=== PATIENT | female | born 1975 | race Caucasian/White ===

== ENCOUNTER 2016-08-19 13:03 | Emergency (ER) | payer OTHER ==
[~2016-08-19] VITALS: Ht 162.6 cm; Wt 56.7 kg
[~2016-08-19 13:03] MED LIST: /ADVA50050 IN; /ESCI20TA PO; ABIL10TA PO; ACET500C PO; ALBUTEROL INH; AMIT10TA2 PO; ASPI325T PO; ASPI81TA45 OR; DILA100C PO; FLON0.05; FOLI1TAB OR; IBUP600T PO; KEFL500C OR; POTA20TA2 PO; PRED10TA2 OR; TOPI100T PO; VITA100T OR; XANA1TAB2 PO; [UNRECOGNIZED DRUG - OTHER]; astelin nasal; fludrocortisone PO; midodrine PO
[2016-08-19 15:23] VITALS: BP 110/65
[2016-08-19] MEDS ORDERED: ZITHTAB PO (15:23)
[2016-08-19] MEDS ORDERED: CLAR1TAB2 PO (15:23)
== END 2016-08-19 15:36 | disposition home or self-care (01) ==
LOC: M ED 15:18
DX: J01.10 Acute frontal sinusitis, unspecified (principal); F17.210 Nicotine dependence, cigarettes, uncomplicated

== ENCOUNTER 2016-09-09 15:22 | Emergency (ER) | payer OTHER, SELFPAY ==
[~2016-09-09] VITALS: Ht 162.6 cm; Wt 63.5 kg
[~2016-09-09 15:22] MED LIST changes: +CLAR1TAB2 PO; +ZITHTAB PO
[2016-09-09] MEDS ORDERED: DILA100C PO (15:44)
[2016-09-09] MEDS ORDERED: PHENYTOIN INJection 1,000 MG in NS 100 ML IV ONE (15:45)
[2016-09-09 16:11] LABS: CONTROL LINE HCG INT CTR LINE PRESENT
[2016-09-09 16:14] LABS: ANION GAP 6 MEQ/L (8-16); BLOOD UREA NITROGEN 6 MG/DL (7-18); CALCIUM LEVEL 8.7 MG/DL (8.5-10.1); CARBON DIOXIDE LEVEL 27 MEQ/L (21-32); CHLORIDE LEVEL 109 MEQ/L (98-107); CREATININE FOR GFR 0.68 MG/DL (0.55-1.02); GLOMERULAR FILTRATION RATE > 60.0 (>60); GLUCOSE, FASTING 91 MG/DL (70-105); POTASSIUM SERUM 3.7 MEQ/L (3.5-5.1); SODIUM LEVEL 142 MEQ/L (136-145)
[2016-09-09 16:44] LABS: METHADONE URINE NEGATIVE (NEGATIVE)
--- NOTE | 2016-09-09 17:23 | REP ---
Clinical: Trauma. Comparison: 08/17/2015. Findings: Evaluation is somewhat limited by aneurysm coils in the sellar region. Wang-white differentiation is maintained. Evidence for old lacunar infarct in the left basal ganglia. No acute intracranial hemorrhage, mass/mass effect, pathology or trauma noted. No extra-axial fluid collection identified. Calvarium is intact. Sinuses are clear. Impression: Bilateral aneurysm coils. 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 No obvious acute intracranial process. Signed by Devonte Patel MD 09/09/2016 05:16 P
[2016-09-09 18:03] VITALS: BP 109/57
== END 2016-09-09 18:45 | disposition home or self-care (01) ==
LOC: EDBD 15:22 → M ED 16:05
DX: G40.909 Epilepsy, unspecified, not intractable, without status epilepticus (principal); Z79.899 Other long term (current) drug therapy
CPT/HCPCS: 70450; 80048; 80185; 80306; 84703; 96365; 99284; J1165

== ENCOUNTER 2021-02-16 22:26 | Emergency (ER) | payer SELFPAY ==
[~2021-02-16 22:26] MED LIST changes: -/ADVA50050 IN; -/ESCI20TA PO; +ADVA1AER2 IN; +LEXA1TAB2 PO
[2021-02-16 23:40] VITALS: BP 111/61
[2021-04-20] MEDS ORDERED: ONDA-84 PO (10:38)
== END 2021-02-16 23:41 | disposition home or self-care (01) ==
LOC: M ED 22:26
DX: F43.20 Adjustment disorder, unspecified (principal); Z79.899 Other long term (current) drug therapy

== ENCOUNTER 2021-03-19 20:59 | Emergency (ER) | payer OTHER, SELFPAY ==
[~2021-03-19] VITALS: Ht 160 cm; Wt 41.0 kg
[2021-03-19] MEDS ORDERED: MORPHINE 2 MG/ML 1ML VIAL (J2270) IV ONE (21:50)
[2021-03-19] MEDS ORDERED: RIZATRIPTAN MLT 10 MG TAB PO PRN (21:50)
--- NOTE | 2021-03-19 22:37 | REPVR ---
PROCEDURE INFORMATION: Exam: CT Head Without Contrast Exam date and time: 03/19/2021 10:02 PM Age: 45 years old Clinical indication: Pain; Headache; Prior surgery; Surgery date: 6+ months; Surgery type: Aneurysm repair; Additional info: Prolonged headache with history of anuerysm TECHNIQUE: Imaging protocol: Computed tomography of the head without contrast. Radiation optimization: All CT scans at this facility use at least one of these dose optimization techniques: automated exposure control; mA and/or kV adjustment per patient size (includes targeted exams where dose is matched to clinical indication); or iterative reconstruction. COMPARISON: CT Head without contrast 09/09/2016 4:22 PM FINDINGS: Limitations: Artifact arising from embolic material. Brain: There is mildly hyperdense and heterogeneous lesion/mass at the right thalamus/kelsey radiata measuring 1.6 by 1.5 cm. Adjacent edema. There is edema involving the posterior fossa greater on the left. Underlying mass is suspected. There is mass effect upon the 4th ventricle. Interval development of hydrocephalus. Small cystic lesion at the left basal ganglia is stable. Interval development of periventricular white matter hypodensity concerning for transependymal resorption of CSF. Midline shift to the left measures 5 mm. Cerebral ventricles: See "Brain" finding. Paranasal sinuses: Visualized sinuses are unremarkable. No fluid levels. Mastoid air cells: Visualized mastoid air cells are well aerated. Vasculature: There has been previous stent assisted [id number] aneurysm coiling. Bones/joints: No definite acute calvarial fracture. Soft tissues: Unremarkable. IMPRESSION: 1. Examination is limited by artifact arising from embolic material. 2. Mass at the right thalamus/kelsey radiata measures up to 1.6 cm. Adjacent vasogenic edema. 3. Vasogenic edema is present at the left greater than right posterior fossa with highly suspected underlying mass. 4. Mass effect with midline shift to the left measuring 5 mm. 5. There is mass effect upon the 4th ventricle with moderate obstructive hydrocephalus. 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 6. MRI is recommended. Electronically signed by: Cain Varghese On 03/19/2021 22:36:45 PM
[2021-03-19] MEDS ORDERED: ONDANSETRON 4MG/2ML VIAL As Ordered ONE (22:54)
[2021-03-19] MEDS ORDERED: ONDANSETRON 4MG/2ML VIAL IV ONE (22:55)
[2021-03-19 23:02] LABS: BASO # 0.1 10^3/uL (0.0-0.2); BASO % 0.4 % (0.0-1.0); EOS % 0.2 % (0.0-3.0); HEMATOCRIT 37.5 % (36.0-47.0); HEMOGLOBIN 11.3 g/dl (12.0-15.5); LYMPH # 2.2 10^3/uL (1.5-5.0); LYMPH % 13.6 % (24.0-44.0); MEAN CORPUSCULAR HEMOGLOBIN 24.8 pg (27.0-33.0); MEAN CORPUSCULAR HGB CONC 30.1 g/dl (32.0-36.5); MEAN CORPUSCULAR VOLUME 82.2 fl (80.0-96.0); MONO # 1.7 10^3/uL (0.0-0.8); MONO % 10.2 % (2.0-8.0); NEUTROPHILS # 12.3 10^3/uL (1.5-8.5); NEUTROPHILS % 74.7 % (36.0-66.0); PLATELET COUNT, AUTOMATED 884 10^3/uL (150-450); RED BLOOD COUNT 4.56 10^6/uL (4.00-5.40); WHITE BLOOD COUNT 16.4 10^3/uL (4.0-10.0)
[2021-03-19 23:33] LABS: BLOOD UREA NITROGEN 17 MG/DL (7-18); CALCIUM LEVEL 9.8 MG/DL (8.5-10.1); CARBON DIOXIDE LEVEL 29 MEQ/L (21-32); CHLORIDE LEVEL 101 MEQ/L (98-107); CREATININE FOR GFR 0.38 MG/DL (0.55-1.30); ETHYL ALCOHOL (ETHANOL) < 0.003 % (0.000-0.010); GLOMERULAR FILTRATION RATE > 60.0 (>58); GLUCOSE, FASTING 99 MG/DL (70-100); MAGNESIUM LEVEL 2.1 MG/DL (1.8-2.4); POTASSIUM SERUM 4.4 MEQ/L (3.5-5.1); SODIUM LEVEL 138 MEQ/L (136-145)
[2021-03-20 03:53] LABS: RSV AMPLIFICATION NEGATIVE (NEGATIVE)
--- NOTE | 2021-03-20 07:50 | REPVR ---
PROCEDURE INFORMATION: Exam: XR Chest Exam date and time: 03/20/2021 5:29 AM Age: 45 years old Clinical indication: Other: Leukocytosis and cough TECHNIQUE: Imaging protocol: XR of the chest. Views: 1 view. COMPARISON: No relevant prior studies available. FINDINGS: Lungs: Large medial right upper lobe oval solid appearing mass partially abutting the right mediastinum with partial extension or contiguous at the right lung apex measures approximately 9.7 cm craniocaudal by 6.5 cm transversely. Bilateral interstitial thickening. The right costophrenic angle is not entirely included. Linear opacity overlies the lateral superior right chest probably reflecting superimposed skin fold and most likely lung markings extend lateral with pneumothorax very unlikely. Pleural spaces: Minor blunting of the left costophrenic angle. Heart/Mediastinum: See "Lungs" finding. Vasculature: Right hilar somewhat hyperdense 0.5 cm structure which could reflect vessel or possibly calcified granuloma. Bones/joints: Unremarkable. IMPRESSION: 1. Large right upper lobe mass. CT of the thorax is recommended in further evaluation. 2. Diffuse bilateral interstitial coarsening/thickening. 3. Likely superimposed skin fold at the superolateral right upper chest. Further follow-up for confirmation is recommended. Electronically signed by: Terri Mahoney On 03/20/2021 07:50:11 AM
[2021-03-20 08:40] VITALS: BP 118/75
== END 2021-03-20 08:52 | disposition short-term general hospital (02) ==
LOC: M ED 20:59
DX: D49.6 Neoplasm of unspecified behavior of brain (principal); G40.909 Epilepsy, unspecified, not intractable, without status epilepticus; Z79.899 Other long term (current) drug therapy; F17.210 Nicotine dependence, cigarettes, uncomplicated
CPT/HCPCS: 70450; 71045; 80048; 82077; 83735; 85025; 87631; 96374; 96375; 99285; J2270; J2405

== ENCOUNTER 2021-04-20 10:13 | Inpatient (IN) | payer OTHER ==
[~2021-04-20] VITALS: Ht 165.1 cm; Wt 46.0 kg
[~2021-04-20 10:13] MED LIST changes: +ENOXAPARIN 30MG/0.3ML SYRINGE (J1650 PER 10MG) SC SCH; +dexameTHASONE 4 MG/ML 1ML VIAL (J1100 PER 1MG) IV SCH
[2021-04-20] MEDS ORDERED: ONDANSETRON 4MG/2ML VIAL IV ONE (10:30)
[2021-04-20] MEDS ORDERED: MORPHINE 2 MG/ML 1ML VIAL (J2270) IV PRN (10:30)
[2021-04-20] MEDS ORDERED: OXYC-517 PO (10:38)
[2021-04-20] MEDS ORDERED: GABA-282 PO (10:38)
[2021-04-20] MEDS ORDERED: PANT40TA29 PO (10:38)
[2021-04-20] MEDS ORDERED: ONDA8TAB10 PO (10:38)
[2021-04-20] MEDS ORDERED: DEXA4TA PO (10:38)
[2021-04-20] MEDS ORDERED: MIDO5TA PO (10:38)
[2021-04-20] MEDS ORDERED: CITA20TA7 PO (10:38)
[2021-04-20] MEDS ORDERED: ALPR0.25 PO (10:38)
--- NOTE | 2021-04-20 10:54 | REP ---
INDICATION: DYSPNEA/COUGH. COMPARISON: Multiple the latest 03/20/2021 also portable TECHNIQUE: Portable FINDINGS: The technique utilized in obtaining the radiograph has magnified the cardiac silhouette and accentuated the interstitial markings. The cardiomediastinal silhouette is unchanged. The large right upper lobe mass is unchanged. New patchy left upper lobe opacities have developed since the last examination and there is new left CP angle blunting. A new patchy opacity has also developed in the inferior right upper lobe laterally. There is no change in the osseous structures. IMPRESSION: 1. New bilateral upper lobe patchy opacities consistent with pneumonia. 2. No change in appearance of the large right upper lobe mass. 3. New small left pleural effusion. <Electronically signed by Wai Rodriguez > 04/20/21 [id number]
[2021-04-20] MEDS ORDERED: cefTRIAXone SOD 2 GM in D5W MINI-BAG PLUS 50 ML IV ONE (11:05)
[2021-04-20 11:17] LABS: VENOUS BASE EXCESS 5.4 (-2.0-2.0); VENOUS HCO3 27.5 MEQ/L (23.0-27.0); VENOUS O2 SATURATION 99.4 % (60.0-80.0); VENOUS PARTIAL PRESSURE CO2 32.2 mmHg (38.0-50.0); VENOUS STANDARD HCO3 29.4 MEQ/L; VENOUS TOTAL CO2 28.5 MEQ/L (24.0-28.0)
[2021-04-20] MEDS: NS 1,000 ML IV SCH ×2 (11:17→18:10)
--- OUTSIDE RECORDS SUMMARY | 2021-04-20 11:45 | CCD | Continuity of Care Document ---
Author Author Trina SHERMAN [place] Organization Unknown Address [address] [place] [id number] Phone [phone] Problems Description No Information Available Social History Type Date Description Comments Sex Unknown Allergies and adverse reactions Description No Information Available Medications Description No Information Available Immunizations Description No Information Available Vital Signs Description No Information Available Results Description No Information Available Procedures Description No Information Available Medical Devices Description No Information Available Encounters Description No Information Available Assessments Description No Information Available Plan of Treatment No Information Available Functional Status Description No Information Available Mental Status Description No Information Available Referrals Description No Information Available
--- OUTSIDE RECORDS SUMMARY | 2021-04-20 11:45 | CCD | Continuity of Care Document ---
Author Author Trina SHERMAN Organization Unknown Address [address] [place] [id number] Phone [phone] Problems Description No Information Available Social History Type Date Description Comments Sex Unknown Allergies and adverse reactions Description No Information Available Medications Description No Information Available Immunizations Description No Information Available Vital Signs Description No Information Available Results Description No Information Available Procedures Description No Information Available Medical Devices Description No Information Available Encounters Description No Information Available Assessments Date Code Description Provider 04/06/2021 Z20.828 Contact with and (buckner spected) exposure to other viral communicable diseases COURTNEY Matthews Plan of Treatment No Information Available Functional Status Description No Information Available Mental Status Description No Information Available Referrals Description No Information Available
--- OUTSIDE RECORDS SUMMARY | 2021-04-20 11:47 | CCD ---
Author Author [facility] Organization [facility] Address Unknown Phone Unavailable Care Team Providers Care Heading Pinner Name Role Phone Lori CAMPOS MD Unavailable Unavailable Lori CAMPOS MD Unavailable Unavailable Lori CAMPOS MD Unavailable Unavailable Lori CAMPOS MD Unavailable Unavailable Lori CAMPOS MD Unavailable Unavailable Lori CAMPOS MD Unavailable Unavailable Lori CAMPOS MD Unavailable Unavailable Lori CAMPOS MD Unavailable Unavailable Lori CAMPOS MD Unavailable Unavailable Lori CAMPOS MD Unavailable Unavailable Lori CAMPOS MD Unavailable Unavailable Lori CAMPOS MD Unavailable Unavailable Lori CAMPOS MD Unavailable Unavailable Lori CAMPOS MD Unavailable Unavailable Lori CAMPOS MD Unavailable Unavailable Lori CAMPOS MD Unavailable Unavailable Lori CAMPOS MD Unavailable Unavailable Lori CAMPOS MD Unavailable Unavailable Lori CAMPOS MD Unavailable Unavailable Lori CAMPOS MD Unavailable Unavailable Lori CAMPOS MD Unavailable Unavailable Lori CAMPOS MD Unavailable Unavailable Lori CAMPOS MD Unavailable Unavailable Lori CAMPOS MD Unavailable Unavailable Lori CAMPOS MD Unavailable Unavailable Lori CAMPOS MD Unavailable Unavailable Lori CAMPOS MD Unavailable Unavailable Lori CAMPOS MD Unavailable Unavailable Lori CAMPOS MD Unavailable Unavailable Lori CAMPOS MD Unavailable Unavailable Lori CAMPOS MD Unavailable Unavailable Lori CAMPOS MD Unavailable Unavailable Lori CAMPOS MD Unavailable Unavailable Lori CAMPOS MD Unavailable Unavailable Lori CAMPOS MD Unavailable Unavailable Lori CAMPOS MD Unavailable Unavailable Lori CAMPOS MD Unavailable Unavailable Lori CAMPOS MD Unavailable Unavailable Lori CAMPOS MD Unavailable Unavailable Lori CAMPOS MD Unavailable Unavailable Lori CAMPOS MD Unavailable Unavailable Lori CAMPOS MD Unavailable Unavailable Lori CAMPSO MD Unavailable Unavailable Lori CAMPOS MD Unavailable Unavailable Lori CAMPOS MD Unavailable Unavailable Lori CAMPOS MD Unavailable Unavailable Lori CAMPOS MD Unavailable Unavailable Lori CAMPOS MD Unavailable Unavailable Lori CAMPOS MD Unavailable Unavailable NO, PCP Unavailable Unavailable Tan, P Zay Unavailable Unavailable Tan, P Zay Unavailable Unavailable Tan, P Zay Unavailable Unavailable Tan, P Zay Unavailable Unavailable Tan, P Zay Unavailable Unavailable Tan, P Zay Unavailable Unavailable Tan, P Zay Unavailable Unavailable Qasim Murphy MD Unavailable Unavailable Qasim Murphy MD Unavailable Unavailable Qasim Murphy MD Unavailable Unavailable Qasim Murphy MD Unavailable Unavailable Qasim Murphy MD Unavailable Unavailable Qasim Murphy MD Unavailable Unavailable Charline Bowen MD Unavailable Unavailabl e Charline Bowen MD Unavailable Unavailabl e AndrésCharline bose MD Unavailable Unavailabl e AndrésCharline MD Unavailable Unavailabl e AndrésCharline MD Unavailable Unavailabl e AndrésCharline MD Unavailable Unavailabl e AndrésCharline MD Unavailable Unavailabl e AndrésCharline bose MD Unavailable Unavailabl e AndrésCharline bose MD Unavailable Unavailabl e AndrésCharline MD Unavailable Unavailabl e AndrésCharline bose MD Unavailable Unavailabl e AndrésCharline bose MD Unavailable Unavailabl e AndrésCharline bose MD Unavailable Unavailabl e AndrésCharline bose MD Unavailable Unavailabl e AndrésCharline bose Gene Unavailable Unavailabl e Andrés, Olivier Brendan Gene Unavailable Unavailabl e Andrés, Olivier Brendan Gene Unavailable Unavailabl e Andrés, Charline Brendan Gene Unavailable Unavailabl e Andrés, Charline Brendan Gene Unavailable Unavailabl e Andrés, Olivier Brendan Gene Unavailable Unavailabl e Andrés, Olivier Brendan Gene MD Unavailable Unavailabl e Andrés, Olivier Brendan Gene Unavailable Unavailabl e Andrés, Olivier Brendan Gene Unavailable Unavailabl e Andrés, Olivier Brendan Gene Unavailable Unavailabl e Andrés, Olivier Brendan Gene Unavailable Unavailabl e Andrés, Olivier Brendan Gene MD Unavailable Unavailabl e Andrés, Charline Brendan Gene Unavailable Unavailabl e Andrés, Charline Brendan Gene Unavailable Unavailabl e Andrés, Charline Ogdenius Gene Unavailable Unavailabl e Andrés, Charline Ogdenius Gene Unavailable Unavailabl e Andrés, Charline Bruce Gene Unavailable UnavailSTEPHEN Saunders MD Unavailable Unavailable STEPHEN SERVIN MD Unavailable Unavailable STEPHEN SERVIN MD Unavailable Unavailable STEPHEN SERVIN MD Unavailable Unavailable STEPHEN SERVIN MD Unavailable Unavailable STEPHEN SERVIN MD Unavailable Unavailable STEPHEN SERVIN MD Unavailable Unavailable STEPHEN SERVIN MD Unavailable Unavailable STEPHEN SERVIN MD Unavailable Unavailable STEPHEN SERVIN MD Unavailable Unavailable STEPHEN SERVIN MD Unavailable Unavailable Irene CHURCH MD Unavailable Unavailable Irene CHURCH MD Unavailable Unavailable Irene CHURCH MD Unavailable Unavailable Irene CHURCH MD Unavailable Unavailable Irene CHURCH MD Unavailable Unavailable Irene CHURCH MD Unavailable Unavailable Irene CHURCH MD Unavailable Unavailable Irene CHURCH MD Unavailable Unavailable Irene CHURCH MD Unavailable Unavailable Irene CHURCH MD Unavailable Unavailable Irene CHURCH MD Unavailable Unavailable Irene CHURCH MD Unavailable Unavailable Irene CHURCH MD Unavailable Unavailable Irene CHURCH MD Unavailable Unavailable Irene CHURCH MD Unavailable Unavailable Irene CHURCH MD Unavailable Unavailable Irene CHURCH MD Unavailable Unavailable Irene CHURCH MD Unavailable Unavailable Irene CHURCH MD Unavailable Unavailable Irene CHURCH MD Unavailable Unavailable Irene CHURCH MD Unavailable Unavailable Irene CHURCH MD Unavailable Unavailable Irene CHURCH MD Unavailable Unavailable Irene CHURCH MD Unavailable Unavailable Irene CHURCH MD Unavailable Unavailable Irene CHURCH MD Unavailable Unavailable CHIN S NIALL RUST Unavailable Unavailable RANJIT S NIALL RUST Unavailable Unavailable RANJIT S NIALL RUST Unavailable Unavailable CHIN, S NIALL RUST Unavailable Unavailable RANJIT S NIALL RUST Unavailable Unavailable RANJIT S NIALL RUST Unavailable Unavailable RANJIT S NIALL RUST Unavailable Unavailable RANJIT S NIALL RUST Unavailable Unavailable RANJIT S NIALL RUST Unavailable Unavailable CHIN, S NIALL RUST Unavailable Unavailable RANJIT S NIALL RUST Unavailable Unavailable CHIN S NIALL RUST Unavailable Unavailable CHIN, S NIALL RUST Unavailable Unavailable CHIN, S NIALL RUST Unavailable Unavailable CHIN, S NIALL RUST Unavailable Unavailable CHIN, S NIALL RUST Unavailable Unavailable CHIN, S NIALL RUST Unavailable Unavailable CHIN, S NIALL RUST Unavailable Unavailable CHIN, S NIALL RUST Unavailable Unavailable CHIN, S NIALL RUST Unavailable Unavailable CHIN, S NIALL RUST Unavailable Unavailable CHIN, S NIALL RUST Unavailable Unavailable RANJIT, S NIALL RUST Unavailable Unavailable RANJIT, S NIALL RUST Unavailable Unavailable RANJIT, S NIALL RUST Unavailable Unavailable RANJIT S NIALL RUST Unavailable Unavailable RANJIT, S NIALL RUST Unavailable Unavailable RANJIT S NIALL RUST Unavailable Unavailable RANJIT S NIALL RUST Unavailable Unavailable RANJIT S NIALL RUST Unavailable Unavailable RANJIT S NIALL RUST Unavailable Unavailable RANJIT S NIALL RUST Unavailable Unavailable RANJIT S NIALL RUST Unavailable Unavailable RANJIT S NIALL RUST Unavailable Unavailable RANJIT S NIALL RUST Unavailable Unavailable RANJIT S NIALL RUST Unavailable Unavailable RANJIT S NIALL RUST Unavailable Unavailable RANJIT S NIALL RUST Unavailable Unavailable RANJIT S NIALL RUST Unavailable Unavailable RANJIT S NIALL RUST Unavailable Unavailable RANJIT S NIALL RUST Unavailable Unavailable RANJIT S NIALL RUST Unavailable Unavailable RANJIT S NIALL RUST Unavailable Unavailable RANJIT S NIALL RUST Unavailable Unavailable RANJIT S NIALL RUST Unavailable Unavailable RANJIT S NIALL RUST Unavailable Unavailable RANJIT S NIALL RUST Unavailable Unavailable RANJIT S NIALL RUST Unavailable Unavailable RANJIT S NIALL RUST Unavailable Unavailable RANJIT S NIALL RUST Unavailable Unavailable RANJIT S NIALL RUST Unavailable Unavailable RANJIT S NIALL RUST Unavailable Unavailable RANJIT S NIALL RUST Unavailable Unavailable RANJIT S NIALL RUST Unavailable Unavailable RANJIT S NIALL RUST Unavailable Unavailable RANJIT S NIALL RUST Unavailable Unavailable RANJIT S NIALL RUST Unavailable Unavailable RANJIT S NIALL RUST Unavailable Unavailable Irene CHURCH MD Unavailable Unavailable Irene CHURCH MD Unavailable Unavailable Andrew COKER Unavailable Unavailable Crystal CASTANEDA MD, PHARMD Unavailable Unavailable Crystal CASTANEDA MD, PHARMD Unavailable Unavailable Crystal CASTANEDA MD, PHARMD Unavailable Unavailable Crystal CASTANEDA MD, PHARMD Unavailable Unavailable Crystal CASTANEDA MD, PHARMD Unavailable Unavailable Crystal CASTANEDA MD, PHARMD Unavailable Unavailable Crystal CASTANEDA MD, PHARMD Unavailable Unavailable TURRIN, AZEEM Unavailable Unavailable TURRIN, AZEEM Unavailable Unavailable TURRIN, AZEEM Unavailable Unavailable TURRIN, AZEEM Unavailable Unavailable LAWSON, MIJUNG MD Unavailable Unavailable LAWSON, MIJUNG MD Unavailable Unavailable LAWSON, MIJUNG MD Unavailable Unavailable LAWSON, MIJUNG MD Unavailable Unavailable LAWSON, MIJUNG MD Unavailable Unavailable LAWSON, MIJUNG MD Unavailable Unavailable LAWSON, MIJUNG MD Unavailable Unavailable LAWSON, MIJUNG MD Unavailable Unavailable LAWSON, MIJUNG MD Unavailable Unavailable LAWSON, MIJUNG MD Unavailable Unavailable LAWSON, MIJUNG MD Unavailable Unavailable LAWSON, MIJUNG MD Unavailable Unavailable LAWSON, MIJUNG MD Unavailable Unavailable LAWSON, MIJUNG MD Unavailable Unavailable LAWSON, MIJUNG MD Unavailable Unavailable LAWSON, MIJUNG MD Unavailable Unavailable LAWSON, MIJUNG MD Unavailable Unavailable LAWSON, MIJUNG MD Unavailable Unavailable LAWSON, MIJUNG MD Unavailable Unavailable LAWSON, MIJUNG MD Unavailable Unavailable LAWSON, MIJUNG MD Unavailable Unavailable LAWSON, MIJUNG MD Unavailable Unavailable LAWSON, MIJUNG MD Unavailable Unavailable LAWSON, MIJUNG MD Unavailable Unavailable LAWSON, MIJUNG MD Unavailable Unavailable LAWSON, MIJUNG MD Unavailable Unavailable LAWSON, MIJUNG MD Unavailable Unavailable LAWSON, MIJUNG MD Unavailable Unavailable LAWSON, MIJUNG MD Unavailable Unavailable LAWSON, MIJUNG MD Unavailable Unavailable LAWSON, MIJUNG MD Unavailable Unavailable LAWSON, MIJUNG MD Unavailable Unavailable LAWSON, MIJUNG MD Unavailable Unavailable LAWSON, MIJUNG MD Unavailable Unavailable LAWSON, MIJUNG MD Unavailable Unavailable LAWSON, MIJUNG MD Unavailable Unavailable LAWSON, MIJUNG MD Unavailable Unavailable LAWSON, MIJUNG MD Unavailable Unavailable LAWSON, MIJUNG MD Unavailable Unavailable LAWSON, MIJUNG MD Unavailable Unavailable LAWSON, MIJUNG MD Unavailable Unavailable LAWSON, MIJUNG MD Unavailable Unavailable LAWSON, MIJUNG MD Unavailable Unavailable LAWSON, MIJUNG MD Unavailable Unavailable LAWSON, MIJUNG MD Unavailable Unavailable LAWSON, MIJUNG MD Unavailable Unavailable LAWSON, MIJUNG MD Unavailable Unavailable LAWSON, MIJUNG MD Unavailable Unavailable LAWSON, MIJUNG MD Unavailable Unavailable LAWSON, MIJUNG MD Unavailable Unavailable LAWSON, MIJUNG MD Unavailable Unavailable LAWSON, MIJUNG MD Unavailable Unavailable LAWSON, MIJUNG MD Unavailable Unavailable LAWSON, MIJUNG MD Unavailable Unavailable LAWSON, MIJUNG MD Unavailable Unavailable LAWSON, MIJUNG MD Unavailable Unavailable LAWSON, MIJUNG MD Unavailable Unavailable LAWSON, MIJUNG MD Unavailable Unavailable LETICIA SABILLON SEUNG Unavailable Unavailable SABILLON KELLY CARMEN MD Unavailable Unavailable SABILLON, KELLY CARMEN MD Unavailable Unavailable SABILLON, KELLY CARMEN MD Unavailable Unavailable SABILLON, KELLY CARMEN MD Unavailable Unavailable SABILLON, KELLY CARMEN MD Unavailable Unavailable SABILLON, KELLY CARMEN MD Unavailable Unavailable SABILLON, KELLY CARMEN MD Unavailable Unavailable SABILLON, KELLY CARMEN MD Unavailable Unavailable SABILLON, KELLY CARMEN MD Unavailable Unavailable SABILLON, KELLY CARMEN MD Unavailable Unavailable SABILLON, KELLY CARMEN MD Unavailable Unavailable SABILLON, KELLY CARMEN MD Unavailable Unavailable SABILLON, KELLY CARMEN MD Unavailable Unavailable SABILLON, KELLY CARMEN MD Unavailable Unavailable SABILLON, KELLY CARMEN MD Unavailable Unavailable SABILLON, KELLY CARMEN MD Unavailable Unavailable SABILLON, KELLY CARMEN MD Unavailable Unavailable SABILLON, KELLY CARMEN MD Unavailable Unavailable SABILLON, KELLY CARMEN MD Unavailable Unavailable SABILLON, KELLY CARMEN MD Unavailable Unavailable SABILLON, KELLY CARMEN MD Unavailable Unavailable SABILLON, KELLY CARMEN MD Unavailable Unavailable SABILLON, KELLY CARMEN MD Unavailable Unavailable SABILLON, KELLY CARMEN MD Unavailable Unavailable SABILLON, KELLY CARMEN MD Unavailable Unavailable SABILLON, KELLY CARMEN MD Unavailable Unavailable SABILLON, KELLY CARMEN MD Unavailable Unavailable SABILLON, KELLY CARMEN MD Unavailable Unavailable SABILLON, KELLY CARMEN MD Unavailable Unavailable SABILLON, KELLY CARMEN MD Unavailable Unavailable SABILLON, KELLY CARMEN MD Unavailable Unavailable SABILLON KELLY CARMEN MD Unavailable Unavailable SABILLON, KELLY CARMEN MD Unavailable Unavailable SABILLON, KELLY CARMEN MD Unavailable Unavailable SABILLON KELLY CARMEN MD Unavailable Unavailable SABILLON, KELLY CARMEN MD Unavailable Unavailable SABILLON KELLY CARMEN Unavailable Unavailable SABILLON KELLY CARMEN Unavailable Unavailable SABILLON KELLY CARMEN Unavailable Unavailable SABILLON KELLY CARMEN Unavailable Unavailable SABILLON, KELLY CARMEN MD Unavailable Unavailable SABILLON KELLY CARMEN Unavailable Unavailable SABILLON, KELLY CARMEN MD Unavailable Unavailable SABILLON, KELLY CARMEN MD Unavailable Unavailable SABILLON KELLY CARMENEUGENIA RUST Unavailable Unavailable SABILLON KELLY CARMENEUGENIA RUST Unavailable Unavailable Vahe Cole Unavailable Unavailable Vahe Cole Unavailable Unavailable Lownaveen Matos Vahe Unavailable Unavailable Lownaveen Matos Vahe Unavailable Unavailable Otite, Inder Fadar Unavailable Unavailable Otite, Inder Fadar Unavailable Unavailable Otite, Inder Fadar Unavailable Unavailable Re-disclosure Warning The records that you are about to access may contain information from federally-assisted alcohol or drug abuse programs. If such information is present, then the following federally mandated warning applies: This information has been disclosed to you from records protected by federal confidentiality rules (42 CFR part 2). The federal rules prohibit you from making any further disclosure of this information unless further disclosure is expressly permitted by the written consent of the person to whom it pertains or as otherwise permitted by 42 CFR part 2. A general authorization for the release of medical or other information is NOT sufficient for this purpose. The Federal rules restrict any use of the information to criminally investigate or prosecute any alcohol or drug abuse patient.The records that you are about to access may contain highly sensitive health information, the redisclosure of which is protected by Article 27-F of the [facility] Public Health law. If you continue you may have access to information: Regarding HIV / AIDS; Provided by facilities licensed or operated by the [facility] Office of Mental Health; or Provided by the [facility] Office for People With Developmental Disabilities. If such information is present, then the following [facility] mandated warning applies: This information has been disclosed to you from confidential records which are protected by state law. State law prohibits you from making any further disclosure of this information without the specific written consent of the person to whom it pertains, or as otherwise permitted by law. Any unauthorized further disclosure in violation of state law may result in a fine or skilled nursing sentence or both. A general authorization for the release of medical or other information is NOT sufficient authorization for further disc losure. Allergies and Adverse Reactions Type Description Substance Reaction Status Data Source(s ) Propensity to adverse reactions NO KNOWN ALLERGIES NO KNOWN ALLERGIES [facility] No Known Allergies No Known Allergies [facility] Encounters Encounter Providers Location Date Indications Data Source(s ) Outpatient Attender: CARMEN SABILLON MD 05/12/2021 12:00:00 AM [facility] Outpatient Referrer: GIANCARLO PATHAK MD 05/04/2021 12:00:00 AM [facility] Outpatient Attender: GIANCARLO PATHAK MD 04/21/2021 12:00:00 AM EDT [facility] Outpatient Referrer: GIANCARLO PATHAK MD 04/19/2021 12:00: 00 AM EDT Malignant neoplasm of unspecified part of unspecified bronchus or lung [facility] Malignant neoplasm of unspecified part o f unspecified bronchus or lung Outpatient Attender: HELDER CASTANEDA MD, PHARMD Attender: NAYLA CAMPOS MDReferrer: Brendan Bowen MD -RONCACTR 04/14/2021 12:00:00 AM EDT [facility] billing Outpatient Attender: Vahe Matos A-ONCCACTR 04/08/2021 12:15:49 PM EDT [facility] Outpatient Attender: CARMEN SABILLON MDReferrer: Brendan joyce MD -RONCACTR 04/07/2021 12:00:00 AM EDT - 04/07/2021 03:53:21 PM EDT on treat [facility] on treat Outpatient Referrer: Brendan Bowen MD 04/06/20 12:00:00 AM EDT [facility] billing Outpatient Referrer: Brendan Bowen MD 04/01/2021 12:00:00 AM EDT - 04/06/2021 09:17:49 AM EDT [facility] billing Outpatient Attender: CARMEN SABILLON MD -RONCACTR 03/30/20 12:00:00 AM EDT - 03/30/2021 01:36:38 PM T [facility] Inpatient Attender: Brendan Boewn MDReferrer: Brendan Bowen MD 03/23/2021 12:00:00 AM T [facility] Outpatient Attender: Brendan French MDAttender: Hollie OtiteAttender: Zay TanAdmitter: Brendan Bowen MDReferrer: GIANFRANCO CANDELARIOENConsultant: NIALL CHURCH MDConsultant: STEPHEN SERVIN MD [id number] 12:00:00 AM EDT - 03[facility]31[facility] Attender: AZEEM JACQUESConsultant: PCP BRENDA 03/15/2021 08:25:00 PM EDT - 03/15/2021 09:16:00 PM EDT [facility] Patient discharged. Emergency Attender: Qasim Murphy MDConsultant: PCP NO 02/16/2021 04:17:00 PM EDT - 02/16/2021 09:43:00 PM EDT [facility] Patient discharged. Medications Medication Brand Name Start Date Product Form Dose Route Admi nistrative Instructions Pharmacy Instructions Status Indications Reaction Description Data Source(s) 8 mg 04/14/2021 12:00:00 AM EDT tablet 21 TAKE 1 TABLET BY MOUTH EVERY 8 HOURS NEEDED FOR NAUSEA AND VOMITING FOR UP TO 7 DAYS TAKE 1 TABLET BY MOUTH EVERY 8 HOURS NEEDED FOR NAUSEA AND VOMITING FOR UP TO 7 DAYS SOLD: 04/14/2021 [facility] Alprazolam 0.25 MG Oral Tablet ALPRAZOLAM 04/08/2021 12:00:00 AM EDT tablet 30 TAKE ONE TABLET BY MOUTH EVERY 6 HOURS NEEDED ANXIE TY MAXIMUM DAILY DOSE = 4 TAKE ONE TABLET BY MOUTH EVERY 6 HOURS NEEDED ANXIETY MAXIMUM DAILY DOSE = 4 SOLD: 04/09/2021 [facility] 5 mg 04/08/2021 12:00:00 AM EDT tablet 40 TAKE ONE TABLET BY MOUTH EVERY 6 HOURS NEEDED FOR 10 DAYS MAXIMUM DAILY DOSE = 4 TAKE ONE TABLET BY MOUTH EVERY 6 HOURS NEEDED FOR 10 DAYS MAXIMUM DAILY DOSE = 4 SOLD: 04/09/2021 [facility] 4 mg 04/07/2021 12:00:00 AM EDT tablet 84 TAKE ONE TABLET BY MOUTH EVERY 6 HOURS TAKE ONE TABLET BY MOUTH EVERY 6 HOURS SOLD: 04/09/2021 [facility] pantoprazole 40 MG Delayed Release Oral Tablet PANTOPRAZOLE SODIUM 04/01/2021 12:00:00 AM EDT tablet,delayed release (DR/EC) 30 T DOMINGA ONE TABLET BY MOUTH EVERY DAY TAKE ONE TABLET BY MOUTH EVERY DAY SOLD: 04/09/2021 [facility] 5 mg 03/31/2021 12:00:00 AM EDT tablet 90 TAKE 1 TABLET BY MOUTH THREE TIMES A DAY TAKE 1 TABLET BY MOUTH THREE TIMES A DAY SOLD: 03/31/2021 [facility] 4 mg 03/31/2021 12:00:00 AM EDT tablet 40 TAKE 1 TABLET BY MOUTH EVERY 6 HOURS FOR 10 DAYS TAKE 1 TABLET BY MOUTH EVERY 6 HOURS FOR 10 DAYS SOLD: 03/31/2021 [facility] Alprazolam 0.25 MG Oral Tablet ALPRAZOLAM 03/31/2021 12:00:00 AM EDT tablet 30 TAKE 1 TABLET BY MOUTH EVERY 6 HOURS NEEDED FOR ANXIETY MAXIMUM DAILY DOSE = 4 TABLETS TAKE 1 TABLET BY MOUTH EVERY 6 HOURS NEEDED FOR ANXIETY MAXIMUM DAILY DOSE = 4 TABLETS SOLD: 03/31/2021 [facility] 5 mg 03/31/2021 12:00:00 AM EDT tablet 28 TAKE 1 TABLET BY MOUTH EVERY 6 HOURS NEEDED FOR UP TO 10DAYS MAXIMUM DAILY DOSE = 4 TABLETS TAKE 1 TABLET BY MOUTH EVERY 6 HOURS NEEDED FOR UP TO 10DAYS MAXIMUM DAILY DOSE = 4 TABLETS SOLD: 03/31/2021 [facility] Citalopram 20 MG Oral Tablet CITALOPRAM HYDROBROMIDE 03/31/2021 12:00:00 AM EDT tablet 30 TAKE 1 TABLET BY MOUTH DAILY TAKE 1 TABLE T BY MOUTH DAILY SOLD: 03/31/2021 [facility] 300 mg 03/31/2021 12:00:00 AM EDT capsule 90 TAKE 1 CAPSULE BY MOUTH THREE TIMES A DAY TAKE 1 CAPSULE BY MOUTH THREE TIMES A DAY SOLD: 03/31/2021 [employer] Insurance Providers Payer name Policy type / Coverage type Policy ID Covered republican ID Covered republican's relationship to iraheta Policy Iraheta Plan Information [facility] I [id number] Self [id number] [facility] I [id number] Self [id number] [facility] I [id number] Self [id number] [facility] [id number] [facility] PL[facility] [id number] SP [id number] [facility] PL[facility] [id number] SP [id number] MEDICAID [id number] SP [id number] [facility] EPALS [id number] SP [id number] [facility] PLAN [facility] [id number] SP [id number] [facility] [id number] U [id number] [facility] PLAN [facility] [id number] SP [id number] SELF PAY ONLY [id number] SP [id number] Problems, Conditions, and Diagnoses Code Display Name Description Problem Type Effective Dates Data Source(s) C34.90 Malignant neoplasm of unspecified part o f unspecified bronchus or lung Malignant neoplasm of unspecified part of unspecified bronchus or lung Diagnosis 04/19/2021 12:58:49 PM [facility] billing billing Diagnosis 04/14/2021 10:59:19 AM [facility] on treat on treat Diagnosis 04/07/2021 01:15:16 PM [facility] [id number] Procedure and treatment not carried out due to patient leaving prior to being seen by health care provider Procedure and treatment not carried out due to patient leaving prior to being seen by health care provider Diagnosis 03/15/2021 08:25:00 PM EDT [facility] R519 Headache, unspecified Headache, unspecified Diagnosis 03/15/2021 08:25:00 PM EDT [facility] [id number] CONTACT WITH AND SUSPECTED EXPOSURE TO C OVID-19 CONTACT WITH AND SUSPECTED EXPOSURE TO COVID-19 Diagnosis 02/16/2021 04:17:00 PM EDT [facility] [id number] Nicotine dependence, cigarettes, uncompl icated Nicotine dependence, cigarettes, uncomplicated Diagnosis 02/16/2021 04:17:00 PM EDT [facility] [id number] Other diseases of mediastinum, not elsew here classified Other diseases of mediastinum, not elsewhere classified Diagnosis 02/16/2021 04:17:00 PM T [facility] [id number] Suicidal ideations Suicidal ideations Diagnosis 04:17:00 PM [facility] R112 Nausea with vomiting, unspecified Nausea with vo miting, unspecified Diagnosis 02/16/2021 04:17:00 PM [facility] Surgeries/Procedures No Information Results ID Date Data Source [id number] 04/20/2021 10:35:50 AM [facility] PET W CT IMAGING SKULL TO THIGH [id number] AL RESULTInterpreted by:Tiff Thurman MDINDICATION: 45-year-old female with history of metastatic nonsmall cell lung cancer, presents for evaluation of extent of disease.TECHNIQUE: The study was performed at the [facility]. Approximately 60 minutes following IV tracer administration, positron emission tomography was performed from the vertex of the skull through the proximal thighs. Non-contrast helical CT imaging was performed over the same range without breath-hold for attenuation correction of PET images and anatomic correlation, but not for primary interpretation as it is not of standard diagnostic quality. Images were reviewed in the axial, coronal and sagittal planes.Radiopharmaceutical: [id number].Dose 10.06 mCi. Blood Glucose: 86 mg/dL.COMPARISON: CT chest dated 03/21/2021; MR brain dated 03/22/2021.FINDINGS:BLOOD POOL ACTIVITY LEVEL (Descending Thoracic Aorta): SUV max 1.4.SOFT TISSUE ACTIVITY LEVEL (Right Hepatic Lobe Parenchyma): SUV max 2.0.HEAD AND NECK: There is hypermetabolic activity demonstrated in the right thalamic region and in the left cerebellar hemisphere. It should be noted that a contrast enhanced CT or MRI is more sensitive for evaluation of brain masses. For further discussion of findings within the brain, please see prior MR brain dated 03/22/2021. There is no FDG-avid disease or significant lymphadenopathy in the neck. CHEST: Again demonstrated, is a large soft tissue mass in the right upper lung now with a central component of necrosis. The SUV max within the soft tissues is 19. There are multifocal pulmonary metastatic lesions throughout both lungs. Scattered throughout the lungs, are regions of airspace opacity and interstitial thickening which may represent underlying inflammatory disease. There is suggestion of mediastinal and hilar lymphadenopathy. No pericardial or pleural effusion is demonstrated. There is no pneumothorax. There is no axillary lymphadenopathy.ABDOMEN AND PELVIS: Below the diaphragm, tracer is distributed physiologically in the gastrointestinal and genitourinary tracts. There is no significant lymphadenopathy and no FDG-avid disease.MUSCULOSKELETAL: There is no FDG-avid or destructive bone lesion.IMPRESSION:1. There is demonstration of multifocal pulmonary metastatic disease throughout both lungs. There is associated hilar and mediastinal lymphadenopathy.2. Hypermetabolic activity is demonstrated in the right thalamus and left cerebellar hemisphere. Further discussion of findings within the brain, please see the report for the prior MR brain dated 03/22/2021.This document has been electronically signed by Faustino Lopes MD on 04/20/2021 10:33 AM Name Value Range Interpretation Code Description Data Montse rce(s) Supporting Document(s) ID Date Data Source [id number] 04/14/2021 12:14:04 PM [facility] Name Value Range Interpretation Code Description Data Montse rce(s) Supporting Document(s) Progress Note [facility] RGNYZh2qHlRFZaHq07/PLHkuJRNbh8AfXStdOKk5UJjsFDSdC4TnWGY7hA8bCRV5DAqDBtFrQwLwHTI6 lbm [file] ICAgICAgICAgICAgICAgICAgICAgICAgICAgICAgICAgICAgICAgICAgICAgICAgICAgICAgICAgICAg ICAgICAgICAgICAgICAgICAgICAgICAgICAgICAgDQogICAgICAgICAgICAgICAgICAgICAgICAgICAg ICAgICAgICAgICAgICAgICAgICAgICAgICAgICAgIC AgICAgICAgICAgICAgICAgICAgICAgICAgICAgICAgICAgICAgICAgDQogICAgICAgICAgICAgICAgIC AgICAgICAgICAgICAgICAgICAgICAgICAgICAgICAgICAgICAgICAgICAgICAgICAgICAgICAgICAgIC AgICAgICAgICAgICAgICAgICAgICAgDQogICAgICAg ICAgICAgICAgICAgICAgICAgICAgICAgICAgICAgICAgICAgICAgICAgICAgICAgICAgICAgICAgICAg ICAgICAgICAgICAgICAgICAgICAgICAgICAgICAgICAgDQogICAgICAgICAgICAgICAgICAgICAgICAg ICAgICAgICAgICAgICAgICAgICAgICAgICAgICAgIC AgICAgICAgICAgICAgICAgICAgICAgICAgICAgICAgICAgICAgICAgICAgDQogICAgICAgICAgICAgIC AgICAgICAgICAgICAgICAgICAgICAgICAgICAgICAgICAgICAgICAgICAgICAgICAgICAgICAgICAgIC AgICAgICAgICAgICAgICAgICAgICAgICAgDQogICAg ICAgICAgICAgICAgICAgICAgICAgICAgICAgICAgICAgICAgICAgICAgICAgICAgICAgICAgICAgICAg ICAgICAgICAgICAgICAgICAgICAgICAgICAgICAgICAgICAgDQogICAgICAgICAgICAgICAgICAgICAg ICAgICAgICAgICAgICAgICAgICAgICAgICAgICAgIC AgICAgICAgICAgICAgICAgICAgICAgICAgICAgICAgICAgICAgICAgICAgICAgDQogICAgICAgICAgIC AgICAgICAgICAgICAgICAgICAgICAgICAgICAgICAgICAgICAgICAgICAgICAgICAgICAgICAgICAgIC AgICAgICAgICAgICAgICAgICAgICAgICAgICAgDQog ICAgICAgICAgICAgICAgICAgICAgICAgICAgICAgICAgICAgICAgICAgICAgICAgICAgICAgICAgICAg YUXrJHMdEXIvBPNgSEOlDITaIERiHBRsIXRmPYWzGIDoHTCzEQRqVHy2G4jiFWIjBJGeKG5yUZw1Bw8+ WJgSArPeMCY5wuUglC2LTB4kh8WkZJmkMSBuf2JwPG p8PZ6CYFTsCCgnZA1AVBgxuy1PUUMfBDGtmSCXs0snSyGhCFP0OZZtKomhFB7NENYyA6qnrpNrFYLiGX FMVYekBSRGSVWwRKNlOwXhUWepOM6Xi6SddVFxQWi+Ue8VYS5we1PhHCasUiGfCG4zrx2MEVtJGfCaB5 BgrqJ0OJZ0MJHvFr9CHETeWZJcjBJoVADqOUIWWgUe P6BifB05EVDTQq8+HZtuizBgRcnLQyO6VENjw3MwVXb8WB9EVICuAQu5fQFcREDoE7Zoo3BzDp84KIPe KgxoSKJfttJJNDcrREEAXXLfzMLqQC5lLm1tPAMtKZQzNsD6THQXKD3ZWHDpEVAopGGjHVDtVIZDZI4V EDznJMH9CSVtzjCkwBLxDYvxXJ6KGETkkvYyRbeuVD BSDQo+An8KAR9ir6ZyIWg3GCBqx0UkRUh6YD1MLQDfVEcjWHWtUY9cy1YzL0T2GfR3gUVdT7jajfhwP3 LnlcAnidMuRNFdIWMwUF1MRJ3AWN4VHCDyGIxkIJ2RJBC9JSh4TfF3WpufTCSmAGF4S92hVUyjFU8XLG f0M4XsY9XZQYAtEGPCLOFgiXH5LAXYGa6GZ6ZNKtjJ YLTZUp4DAiZeK2XJT1uXV01EQB1XRMG+PiANCj4+PXlumcXhSawACxE5LGUxe5EcFZg7TH5MLWBcKNib YJ2UVYQxjK8iNHjkYU3YSwVaCEGvXXAUCcAfF69tgNYbCWm0G4VeWwMuXQYbAflpTUDcYUajEnTyZIRp WyBdDQogID4+ID4+DEteXR5MPHhdoaAwQLEcEk6DMI BuFUEoMK3nADUrFBRzN3N9xFwbVDTVBfPmY0muvoygXY2pPCWhJ479gGolewLbJEJ7RFSuJc9IPWUnSW N8HTMonHSgQmTzASXEJQjmUM3VlYMmGRL6jT1lICynEEXoBXLsJ9cDRzIygQceQF74cFlicuMnsEKjSF o+Uc4JKX5op0OrMId7pzWoISdaTTFcECppLZViHYGt FOPiBQQ5HEJ4TCTWEsZpGJMqYOGeACujLYTiUKArkk6TBMTxOUQjYJH1IyXpERApZQFeLCmwZSVeRTC0 SSG2AQGaUSDzFE1USzFqHKMaJVQsGWetLUQnJTJhfv5WHSBaETEwYdB3LdRzRMHmTXJuIFgoDKAfDEM4 CWE7NOQjDUEeBK7OAfJzOFNzHKG0BFVnJOFgHDQzai 1XFUXsJRQaRbs4MvXfNFRbGXGyOUzdFYCsVGT2OUb7AWHjDTCoKM1RYvOeVQQiOOm1QNXmOLSlADSaxc 0TTVMgNBWxZQG6PVHuDMDlSAXwPPagNBYeHTD7MzLxWXSlTAYtYH7TZzKqDFWeQYg1CStaLDGqDWQlfb 0KMDAwMDAxMDAzMSAwMDAwMCBuDQowMDAwMDEwOTkw LESgSJCkLA6UMuIaRJXfSTXcHRQdPOMjPPEnxv9UOIIoITGvDFV6HCJqUNLlKVCkRKpbRFGcIQIeFZGv EUExDULiBJ1KCeNgBOUaYwUlJuZwQOFcZNGmcl2SNQZiDWBfXwN5QGPxCDKsKQRaUHzjHYTjDIHmMIs9 YSTiCLGqWX9YUdFlGEDxCuJ9HRSnLIHqZIHtok0ZOS XwEMTcCXO5JPVzUIXaSOFrKCazHPAyVTX7AOjfFYKyJAYxED2GYgLkRJCjZsFyYXCsLICoIIAywe5MUT OhEYRuDBT9SnRjVOBgNSElKRajOTBeDZY9QSZ1HAYmWGKlNG5YSnIbTMSxRzJ4XHaoSDCdXPRlvz1OUW YmCUUxWpEwNGBjZCFqADZaYVo9ggBwaLYiWVn3IG0R Z5HazyFiYjLGYy5Ah389LQW4ODFxMt1TY4ayVc0uWFVuQLGBWb7AKRo4OgYgRle8DeMxBAqdX5AuITPc NtF1ANPkBCO5VQXlSHs+FMkhYtOaVrRtTOPyUTRcImUtGODnATr5CvX3LAGyCXFhKL2rSFDNCr0+DQpz qCManOzaLILRFpP4EWB1TUhgAGUSXl4M ID Date Data Source [id number] 04/08/2021 12:15:49 PM EDT [facility] Name Value Range Interpretation Code Description Data Montse rce(s) Supporting Document(s) Progress Note [facility] AAMTAn4uLcVLCcSr45/XFWaoBVVzt2FdWJbrLPe8KOswKSKvG6RgFRG6cX6xUEZ4IQmOBeHfWoFcAEEd lbm [file] AgICAgICAgICAgICAgICAgICAgICAgICAgICAgICAgICAgICAgICAgICAgICAgICAgICAgICAgICAgIC AgICAgICAgICAgICAgICAgICAgICAgICAgICAgICAN CiAgICAgICAgICAgICAgICAgICAgICAgICAgICAgICAgICAgICAgICAgICAgICAgICAgICAgICAgICAg ICAgICAgICAgICAgICAgICAgICAgICAgICAgICAgICAgICAgICAgICANCiAgICAgICAgICAgICAgICAg ICAgICAgICAgICAgICAgICAgICAgICAgICAgICAgIC AgICAgICAgICAgICAgICAgICAgICAgICAgICAgICAgICAgICAgICAgICAgICAgICAgICANCiAgICAgIC AgICAgICAgICAgICAgICAgICAgICAgICAgICAgICAgICAgICAgICAgICAgICAgICAgICAgICAgICAgIC AgICAgICAgICAgICAgICAgICAgICAgICAgICAgICAg ICANCiAgICAgICAgICAgICAgICAgICAgICAgICAgICAgICAgICAgICAgICAgICAgICAgICAgICAgICAg ICAgICAgICAgICAgICAgICAgICAgICAgICAgICAgICAgICAgICAgICAgICANCiAgICAgICAgICAgICAg ICAgICAgICAgICAgICAgICAgICAgICAgICAgICAgIC AgICAgICAgICAgICAgICAgICAgICAgICAgICAgICAgICAgICAgICAgICAgICAgICAgICAgICANCiAgIC AgICAgICAgICAgICAgICAgICAgICAgICAgICAgICAgICAgICAgICAgICAgICAgICAgICAgICAgICAgIC AgICAgICAgICAgICAgICAgICAgICAgICAgICAgICAg ICAgICANCiAgICAgICAgICAgICAgICAgICAgICAgICAgICAgICAgICAgICAgICAgICAgICAgICAgICAg ICAgICAgICAgICAgICAgICAgICAgICAgICAgICAgICAgICAgICAgICAgICAgICANCiAgICAgICAgICAg ICAgICAgICAgICAgICAgICAgICAgICAgICAgICAgIC AgICAgICAgICAgICAgICAgICAgICAgICAgICAgICAgICAgICAgICAgICAgICAgICAgICAgICAgICANCi AgICAgICAgICAgICAgICAgICAgICAgICAgICAgICAgICAgICAgICAgICAgICAgICAgICAgICAgICAgIC AgICAgICAgICAgICAgICAgICAgICAgICAgICAgICAg ICAgICAgICANCjw/qISuC2cwbHQvgtX2X5gtEo1TIc0ECQ9ry6CwYFBkRCbohiLjTxaKMqGxSDFnMxaO Drv0GGkhWD5BrLNjS6EhV5FlJXbvEO4XILQhJKTohDDcGCTzREDtEbF1BSSmXLtyUW1KxAZyXMvlJHDd XPPhJN0WJQHwC689pbBzPY0LTf8LGcCqSY4dea2QVf NzHHGfBbeTWse5OMqkQD0RtOYrqYJkUtIzFHZACyEnN9cms1PyBaSnFDIJOWedBJ4Xx1CrmKJfLFx+Pg 3IBL6oq8OvFTxcNfUrBD9wke4VLGzDUwDdS7PujTkbLMQmq6xoCTVjZT0ghVDgDLH2YLMjICMhDC04tU JXm4zndrILrI4ufujfCKUOErRisXTvSC2oVN8tKYFr XQTqAyQ8TZVWOK6APWOtIPGkgRElTSTiCIHXKY0UTAbvOTB8EYSlfdWfjYDgUSvqMC4TMQKkohFsJuSm MCBSDQo+Kh8MHJ1ww5QqUOhhCYDiWT0ueb2MAQqBCiBwO4X7qEXzC7V5NLzwFl4QMUIpDJEiFjQxGBWQ CBbnUX6KPD6fdgA4XJ6FjCNmACDeWHIlcCIsXDr7U1 5phHSjBBwqFQ0NJAC+Dion+Ex6RPKYmBNEhOPQfAnHrPHCOJvWeG3SwO1LQy0MqR9OsBK08zRaemgWbOV ceHB8KVP4oMLAcKHLGHV9TyYMntD9yccAhMiBnHQTIWdLeW42miUGmHINhZJOtPNRgKz4AZLFbF6Vmrs VncBeushZpOGYuXDYGRR7YXLgmrvToeDRdhBxzHG69 lHisIH8FSa4XCkNzEF5uia7PyAWkAt0HEIXdEL0YVKDlJZRaXJXxUSW2CGYvSvXnRErzSOAnIIAdLTD3 ILCxBRMoCI3UKxGhIRVjHWhpBYMsJWGaVZQmer8OETWoZPJtBLh3EjTiLXOvPENcACyyOJQaUPUjMVU8 OPGjODOaAC6OCpDhRZMmLKN9MUDuYRFeLNTgof8KFM UxPUDaEUi8XgSpZULbQOGsSZczKGHzYNIkSwG7VHAaICQzCC7RDwUuCBZsFLR7DJYeTPVmZQAbvr9POX SkEPOkQcW8FsIlSBPvPKRkYIqxMFBiUEP0KRReDBGmCCBhAC9GOsKrIQSjGKQvWEDuZDQlBROacq1CMG SmWBIaBRZqKTBzHAKzETGoIFgjALGvRXB5Pni2CKIr YXOmOS1KVaIhASJkTVNyZUKeHHHsFKYxxr4GZDRuYUDzCjReKAIyAOIePJKaLAnlQXAtTVA5GMF4UKMh AKVdCC1AMeCfTPTlXUF3NGPfWIRgZCHbwl4LNQRgJTZzHdOhGRZgVZMsTVNoVRuyCFDyLMD1TFCeWSUp ROCgQT0EPlSqRTGbDIb1ZUJwHVBgCVEacp3TLVEiBN FuRQCqEyYyUQZbUVQiIHrwJZVeYAL3HDS4MWVsHFMiJD0PWcBaNEScFIu4JPQnMWTeGDYchv0SMUEtCO JfPIU3JEPzNOBkMKKjTGb4mkAblYYoQPl5LU9KH3AfffAnRsHNJj5Ku718IKY0AVAfSj5SN7usKb7gLY RiYXOCAf0TPWb2Q2VuQHC0VJStOJI7FsAoSdZ8QgS4 VsZaGGSjW3QzNJY+LMx3QeJ8YMGdVZQjAtTvBOMsHBxbRBeeHUAqEcM9NrJfAr5eOYYXQw8+DQpzdGFy lFxrPYRMEoXeAlQ1GAtzZEYETi8I ID Date Data Source [id number] 04/07/2021 01:53:25 PM EDT [facility] Name Value Range Interpretation Code Description Data Montse rce(s) Supporting Document(s) Progress Note [facility] AHJBMh3jYzOFUyRo50/VANzzSQYnx1BzXDpmPJi2NJhdNZWeU5UjFOM6zV5fIJK4OUlGOvMrBrRwASRk lbm [file] AgICAgICAgICAgICAgICAgICAgICAgICAgICAgICAg ICAgICAgICAgICAgICAgICAgICAgICAgICAgICAgICAgICAgICAgICAgICAgICAgICAgICAgICAgICAg ICANCiAgICAgICAgICAgICAgICAgICAgICAgICAgICAgICAgICAgICAgICAgICAgICAgICAgICAgICAg ICAgICAgICAgICAgICAgICAgICAgICAgICAgICAgIC AgICAgICAgICAgICANCiAgICAgICAgICAgICAgICAgICAgICAgICAgICAgICAgICAgICAgICAgICAgIC AgICAgICAgICAgICAgICAgICAgICAgICAgICAgICAgICAgICAgICAgICAgICAgICAgICAgICANCiAgIC AgICAgICAgICAgICAgICAgICAgICAgICAgICAgICAg ICAgICAgICAgICAgICAgICAgICAgICAgICAgICAgICAgICAgICAgICAgICAgICAgICAgICAgICAgICAg ICAgICANCiAgICAgICAgICAgICAgICAgICAgICAgICAgICAgICAgICAgICAgICAgICAgICAgICAgICAg ICAgICAgICAgICAgICAgICAgICAgICAgICAgICAgIC AgICAgICAgICAgICAgICANCiAgICAgICAgICAgICAgICAgICAgICAgICAgICAgICAgICAgICAgICAgIC AgICAgICAgICAgICAgICAgICAgICAgICAgICAgICAgICAgICAgICAgICAgICAgICAgICAgICAgICANCi AgICAgICAgICAgICAgICAgICAgICAgICAgICAgICAg ICAgICAgICAgICAgICAgICAgICAgICAgICAgICAgICAgICAgICAgICAgICAgICAgICAgICAgICAgICAg ICAgICAgICANCiAgICAgICAgICAgICAgICAgICAgICAgICAgICAgICAgICAgICAgICAgICAgICAgICAg ICAgICAgICAgICAgICAgICAgICAgICAgICAgICAgIC AgICAgICAgICAgICAgICAgICANCiAgICAgICAgICAgICAgICAgICAgICAgICAgICAgICAgICAgICAgIC AgICAgICAgICAgICAgICAgICAgICAgICAgICAgICAgICAgICAgICAgICAgICAgICAgICAgICAgICAgIC ANCiAgICAgICAgICAgICAgICAgICAgICAgICAgICAg ICAgICAgICAgICAgICAgICAgICAgICAgICAgICAgICAgICAgICAgICAgICAgICAgICAgICAgICAgICAg ICAgICAgICAgICANCjw/mGDxW1qumOErpnB1X5zeCk9IFc0QYV5qq7WnRNUyFMvkwrXeRpwSOrCwZXFr JrtBRuc4VLqnCL0SpITyM2RnR5AsNXduGF4TLCIaHN JsoEVeBDKkYQUeIzA6TOWkVPnoSH9UzSKkPCkbOYLeCFXmWNXmKITfKBMeKUGVAP3MUlXrG9LvqF66IV MNCj4+PSumriPbUwuCWjQyVJPwl1HiOVf6OK5GUZFvNxlxi3IuDnXsOAHCFYcyFY9KINR5BJMjFUDuGf 8TMQMqS543cnBrFK6HXx0GMuUmLA1kqa9WXhNlYJFz AdsARrm7LEkdSK9GyGJlELePna3tkuIqffQOv5GbxzWnrXVKBOLfDuTDqWdrBPlsiV3vQX3YQXM5HEAs DfWePdFxNoJjROA7AgWaMZ8iCZsvMB8SEOG2RFljZEJkFCXfJ7mHOhElNMJzUAWfpIcpFR6GVlVwA5Sd cmVudCAzMCAwIFINCj4+DQplbmRvYmoNCjYgMCBvYm dPJdm8ZWqiPE2AvFZxZG7Sjt0huNFcM6DlkVxwMBCkHAatybFbFb1hYUAlBSveWIFlNL4aF5ktU8gxU1 ZgNDFFMqMvG5GaU4YyYdMuVTF7IXFxWnWjMQDaYMRXGqRtR8FfVXvtWcTdUONZUZ5DYdojGMGgBsmSJX zUQ6HQZFuZDKJWRy3PN15DP17PVBFFXF9WI2aGYfww ID4+RC5IFa7UGdQkWL9xcp8XUpOiUFHrHsrRUoo1BUilLH4FlCRfF2KtkLQif7tBNdZlA2GIBTS8MTBv Nh4ACFEyDwOrRCGnMCjhQC4pNXJuZJXSaWkslzF6XM8QIY9ntvYtQP0DAcUlPk5mOg5XJrUsF7OzT5Ad SEZwGDXKHTlnFP7TRRkkKN7rWW8Bj1JCmQGbuJ7oui 0URJClGMQkOrvivh7MFktkH0H2oDlhICCxLlQeFGOKTGemXQ5YWKAxBWH5TGInLLCdCRKGSpOkA12jYN 2DX8Nxg58yJsI9MYQwIfEuSYauLQ58cOgwgcMetWAcoAndHO7GPb6+DQplbmRvYmoNCnhyZWYNCjAgMz YXVnWeVCFoAHLoDOEmFzP4VcYjVi8CLDGsHSArEESh LnBvPSAfMELtTXjfUZElTTY6OwW7NVHzDKRiTQ7JGyFmXTWmOionPHElPTTyEVHiwr5WBCAxMRSyYPG7 JdJoDIVaOXOuIZwdBXImRLWtInZkFLIaWQRhFE2KToMlZUPrTry1HGliUUEuVNEaso6ZORXpGTDmJjU1 XRXbRAIqXKJiODknIRVoIRV1UbGeHQXnIBQkOZ6OPc HcKSIzXWR9RXUkVSJuAVRkep1EPUJbEVGdFkg8GcKaXONkMZVaWKfgHVNjTRW3KXB7EIAzNLUnDP5FKx QbAJDiZIv4OTrrRIUqZSJrjg7KFHUtGIGlKXUiECCeZWPtMIGbOCkbNXWfPAK4Quu5NGSjDSUnDZ7XFx HgJLXcMCYwKIFpEXWrDWNooc7EAIEyTXJfCZV4PUPp VSHpJQBjUWhsBJDeLOYjDoN6URMmROTpLX1ZHcCoFHZlVpMbVzExAWZaHTZkzy3XDHVtXOCbMsYqIYXq BIVnZFWfLCuoGLMzKKWaTtLgQSInMPNrOT8XCkHhXAVnQbU2KqLrQIMcKPMgrz2QCOUbJHSiGgAhHmMh BBJwTNPvOHiiLDKnJTZlDXEuVCSeWMBiQX8WBoSuZP CvIpSwVxRsGWLwSGOvgg7LZUZjHYDgTGBvWyBsOOUiLDGzNZhbZSUoXEO3GgB5QOKzYSYxTE1UNsAsUN ThXwF8OzTwGCIfSTTliq7LLKFxUDCuXFIbQtCvZRGkOEZkUSanRJDsFAF5DBH0GDQeNOOhQP8OOoYeUQ VqSyr9MJWlSQAbGAXohu2KXTNuTIWqLjQ7CzAmNHUa GUXxKXmbOBWkQCS2YYc4PVYfTJXwPM4YRgWlVFafQGGJEpd1WCmoO5z3XZJjVx6WF8Uql8MyJpEmNROX TZljDG6abjXqBFInBl4YV2yAIedbWMmeEWS3IOSnBlT4SrVcMLLfJECiKsLnBVFxNfNjNZ3gKAPlCXV1 FGjjRoVsBxRdUwR0PYC7BTThZ0OnHyDlSnCfQrNq WX5GQu7QIcG1OMB6oLNvMt3KCokcVomVCrMzRD5FQIy= ID Date Data Source [id number] 04/06/2021 12:00:00 AM EDT [facility] Name Value Range Interpretation Code Description Data Montse rce(s) Supporting Document(s) SARS-CoV2 Rapid Antigen Negative [facility] This lab was ordered by [facility] and reported by [facility]. ID Date Data Source [id number] 04/01/2021 11:50:39 AM EDT [facility] Name Value Range Interpretation Code Description Data Montse rce(s) Supporting Document(s) [facility] RCCQKl8hTjUVZiKa46/YAQzlNTDpf6FzTAjuLIl9XMxsWLWrW2GoASP1xH6mPYR8YZcRBpKyDgBrUHO7 lbm [file] q8nFfevzx2Y6Feis41qdt1Nt24oc3i/rf7a/Caa4+zj96x+L+mailing specialist+RKQ7XIycuSQBXaL7HzOK+ifdOOL [file] ICAgICAgICAgICAgICAgICAgICAgICAgICAgICAgICAgICAgICAgICAgICAgICAgICAgICAgICAgICAg ICAgICAgICAgICAgICAgICAgICAgICAgICAgICAgICAgICAgDQogICAgICAgICAgICAgICAgICAgICAg ICAgICAgICAgICAgICAgICAgICAgICAgICAgICAgIC AgICAgICAgICAgICAgICAgICAgICAgICAgICAgICAgICAgICAgICAgICAgICAgDQogICAgICAgICAgIC AgICAgICAgICAgICAgICAgICAgICAgICAgICAgICAgICAgICAgICAgICAgICAgICAgICAgICAgICAgIC AgICAgICAgICAgICAgICAgICAgICAgICAgICAgDQog ICAgICAgICAgICAgICAgICAgICAgICAgICAgICAgICAgICAgICAgICAgICAgICAgICAgICAgICAgICAg ICAgICAgICAgICAgICAgICAgICAgICAgICAgICAgICAgICAgICAgDQogICAgICAgICAgICAgICAgICAg ICAgICAgICAgICAgICAgICAgICAgICAgICAgICAgIC AgICAgICAgICAgICAgICAgICAgICAgICAgICAgICAgICAgICAgICAgICAgICAgICAgDQogICAgICAgIC AgICAgICAgICAgICAgICAgICAgICAgICAgICAgICAgICAgICAgICAgICAgICAgICAgICAgICAgICAgIC AgICAgICAgICAgICAgICAgICAgICAgICAgICAgICAg DQogICAgICAgICAgICAgICAgICAgICAgICAgICAgICAgICAgICAgICAgICAgICAgICAgICAgICAgICAg ICAgICAgICAgICAgICAgICAgICAgICAgICAgICAgICAgICAgICAgICAgDQogICAgICAgICAgICAgICAg ICAgICAgICAgICAgICAgICAgICAgICAgICAgICAgIC AgICAgICAgICAgICAgICAgICAgICAgICAgICAgICAgICAgICAgICAgICAgICAgICAgICAgDQogICAgIC AgICAgICAgICAgICAgICAgICAgICAgICAgICAgICAgICAgICAgICAgICAgICAgICAgICAgICAgICAgIC AgICAgICAgICAgICAgICAgICAgICAgICAgICAgICAg ICAgDQogICAgICAgICAgICAgICAgICAgICAgICAgICAgICAgICAgICAgICAgICAgICAgICAgICAgICAg MTWpKWFqIVMnMFIvCNJtANAqYVBqJRImTHNcAPYjYLMzKOIbRCLdNAZiVWZrVGc2T9yaERApERIeMO1p WTx3Zk1+GIoYKpZqCXK5dsIaqI5HXM2vz1WzZYojMK Hqc4FtKTc4FO4AHQTtBFxgUK6KRAowcg1DEFKoGLSjeZZDq0mgOgGzSWN2OBTcRiaxSB7MOENhE7fphp SrCNKrEPXBDWwvEAUBJVqeFJCXHSXqQALkTePbHkNuTEGnSZGrYFBYFCI8OPIaJhHxPCjcER4Xo4KeiI A3DQo+Gv1SET7fn1QpESc7OSOmUJ6yoj3JZGlUNdVd N4KvtiW0JYE6SEKmZa0CDXIgYOEuwKH6GmUzFBIMXfRlQ1EpcT03AXBTAn1+JSwphwWnPhlAXhE7PBPg t3YoHEd2SH8DUBGyVNh6oPWhY56ok4AkmFHnBlgpOBOzlWXXGD4rkcCmSB1PRvPkLOXwKCElQZYaTxZw PPUlQmkjWEYKSBsHUdOtW6Oun0WaHoM8AWBkFlOjKF hxCILeGkJ0AU53cIqtUF2FQIUwGFQdXR96RSV1JTEqTm3LOd6YGiPlWE5szq7VCCmrBMBdHloWKkx3CS vnPD9VbKJtD4QijICze6yPQlXqM7PUWUHkQEGfUg9WFMAtOpXcAQQmGSqmCT0rQJDhFCEXjTjtgmE4TC 4XDD5khbLqJH1KZqGmWx8gCw6JQuLeU7JnA0SsTSSu QGUQRRqcVY5XVTguNJ1eZM1Ki2HBjVAhoE6muh6OZTExFRYyTubnla6EJvceQ2T2kHwwANCqAYUrPLTK SNhiXQ6JIMPbSCF6NAV3GTZyRWNLCdPjB76xGH4OR7Ail44nYoP1CUTeReAlYTcpEK04dDykjfNhtSKp jDsaEZ1ATm8+DQplbmRvYmoNCnhyZWYNCjAgNDgNCj HwUAMpIDAcWHVoQsA1GsOhVp4BNEOxPHPzLHGiGuDwEDOmQAEqEJmdPSPbZKE1ZHE1VEAiXZFeJM2XCr YtQUAaALd9EOXjFMZpZCBexn5LVWAwZFBlYUA7BxDiCHWeLWVtHChxBDNmSQS3PdN6RJJgYCGrIZ9LDm SlMWYsCRO0HVcvYYBbBWWovd7QKWXwUCEnMGayBQIm KEGjNUToLFhuFQOjKZW6WUD3MYGoJNAjLK7NXkHdPTUvYCWoJIxoZCJnQJKsnp5QMVEpFKWxDUK0VgJh YJZjXZHnXDerORYlDSZ1ZFK9IFWaHAZcUJ2JDlPzEXTcIMZbUSVkRXDmAURgma7HYYDhVFNbZIZgEgQo WVVeJPJsFGplOFMhSXZ0ITDdXLPjDZTsKP2NInVeZI FeGmAwIyOwGSGvGFCcpu9KFGSaYMPrGDW2EFLsMOUqANYgPQrlMYNeLAVwEGJ3CNHzESYsHZ9HXcPjGP FpMoDjEfQgSIVnAVVdxb2WHDHaTAShCUJbFhAbKTByIJXdSCtpXEGtNKU5JSTkSQKcTERaFZ2SVoSvUC CvXfU9ZGSuLWFdWZAgwh7EABWtPVZaKVM4DjKdFKUb FREgDOfbYOLzMLK6BnJ3KDLmQKWcYS6RCkLsUQZaUgL4PQAtIBQjFLMfyh0SVIRfEDRrYaxwNxZuSMVz VLXsGMclPFUqQTE7MGZ7IKTcKXZvXN8ITuTpWGLhXkhwTAGmCZDySDSsmp3EWKXaYQVjTWK3BcFvXPYk AOHzQGuyFGJsPNK9XBV2FRUpGAWdAK8PNvZpNFBqBx s1BNMrECYjHZOapc4WLGAkHRZuCfIuFeAyNHYoXCTdWEulLKWcNGIyQELnDGIgBHIlMP2LSpGrPESwGy OyKlLoUSYoNBCkdx3CHIDtTMWzGTM9JlDdEKKlLQTlLTfjDPUkALQ1IXCpNBKwLVWpYM7MGcKdBXWuMV I3UIJmSXCvLAOrkr8RUDUrSRG9BxWiEmHiZYOvAMLc LIoqVLZhBNW8XhQeBFAsBOKlWX1SRcJpTZFnHZL8MkFgCBHlYVHbas2OEMOtEUM2QnrpDwXfDXUkVEAc JQhkHVOeHOR1StCaVIShYLPoIV1GGwIkBBYqEBx7YIRhMMElTXFnlf3YEDXgXPV9MEEoBhOlEOEaJPCh GGdxFBMzVZC3FJCcSZNySBHhIZ2JXlHfVOEdSXe1Iz siEGOdTHRlqg1NGKBgLVO6RCP0EWQeDLMhMZAvCJxrGEPqKDKyTJazMLWrVXAgFU7EFyJbYGhuBPSUDh h8DYfpC3y7QXQ5QK4HM6Stj7UrCCizRABDQCvfII7qqiEuZRLcDd2LT4iJZhdoLEB5D5OcPeTiGrcuCF YhHBYvUPZ6CZygIGTtSuMcDQ9kBLF9ZaOoG4QsOAX7 JWY7DHV2ZtRfTvV0LVOaMUXlGJU6IrMoIW1NVx6XTsR6URF4gBDmJr4PDOT4BdaPDpNuMX9MCUu= ID Date Data Source [id number] 03/31/2021 06:06:21 PM EDT [facility] Name Value Range Interpretation Code Description Data Montse rce(s) Supporting Document(s) History and Physical [facility] FVLDRz2zZqUHHuPx96/PGPjrXORnm9SxRUzgGIt1ODsvKNPvZ8NqGMK0rC0wYSA1TZkBQzYvVeYwHEPe lbm [file] ICAgICAgICAgICAgICAgICAgICAgICAgICAgICAgIC AgICAgICAgICAgICAgICAgICAgICAgICAgICAgICAgICAgICAgICAgICAgICAgICAgICAgICAgICANCi AgICAgICAgICAgICAgICAgICAgICAgICAgICAgICAgICAgICAgICAgICAgICAgICAgICAgICAgICAgIC AgICAgICAgICAgICAgICAgICAgICAgICAgICAgICAg ICAgICAgICANCiAgICAgICAgICAgICAgICAgICAgICAgICAgICAgICAgICAgICAgICAgICAgICAgICAg ICAgICAgICAgICAgICAgICAgICAgICAgICAgICAgICAgICAgICAgICAgICAgICAgICANCiAgICAgICAg ICAgICAgICAgICAgICAgICAgICAgICAgICAgICAgIC AgICAgICAgICAgICAgICAgICAgICAgICAgICAgICAgICAgICAgICAgICAgICAgICAgICAgICAgICAgIC ANCiAgICAgICAgICAgICAgICAgICAgICAgICAgICAgICAgICAgICAgICAgICAgICAgICAgICAgICAgIC AgICAgICAgICAgICAgICAgICAgICAgICAgICAgICAg ICAgICAgICAgICANCiAgICAgICAgICAgICAgICAgICAgICAgICAgICAgICAgICAgICAgICAgICAgICAg ICAgICAgICAgICAgICAgICAgICAgICAgICAgICAgICAgICAgICAgICAgICAgICAgICAgICANCiAgICAg ICAgICAgICAgICAgICAgICAgICAgICAgICAgICAgIC AgICAgICAgICAgICAgICAgICAgICAgICAgICAgICAgICAgICAgICAgICAgICAgICAgICAgICAgICAgIC AgICANCiAgICAgICAgICAgICAgICAgICAgICAgICAgICAgICAgICAgICAgICAgICAgICAgICAgICAgIC AgICAgICAgICAgICAgICAgICAgICAgICAgICAgICAg ICAgICAgICAgICAgICANCiAgICAgICAgICAgICAgICAgICAgICAgICAgICAgICAgICAgICAgICAgICAg ICAgICAgICAgICAgICAgICAgICAgICAgICAgICAgICAgICAgICAgICAgICAgICAgICAgICAgICANCiAg ICAgICAgICAgICAgICAgICAgICAgICAgICAgICAgIC AgICAgICAgICAgICAgICAgICAgICAgICAgICAgICAgICAgICAgICAgICAgICAgICAgICAgICAgICAgIC AgICAgICANCjw/hGEaW2swpBLmyiD9T4rwRa1STd7YIL9uw1UzQDDjLGdxvyMdJzpANtNxMFDqSbhUBk c5JMusIR0DkYCgY1DnV4BoECwwBT5KSWZvIWLtvVGa QDDiLLYlBvO7RVUsNQwqIO1ZsCWtQTpnRZHlNHHbRX6IPDKkV153kvYsGW1FWy9FCjIoEN8jbu7TOLwa YRNhMcsYXii7PBxwGL4FeVCdfUBwZILxERYKScUpI9jkg4WpPGdkTNWZDUgxDM3Tp2GhiKVbCCo+Pg0K MI6io4HmHMghMMVdUQ8nxd0JYOpNCxHmD1XqbLorNR uuXRZtcTNPFBAwOCCaRWKxyQvnGDJnCXOfFZObJa8kMPFlLDX4WdF4FBQUTV5EHQBbXAVvkUPsNIBcNM EFRP9VBKkpAAM0VIRudsNuwDGsIOnpLO5NEQGbxkJwRFegWKNGMYt+Dw6ULG2sa1WeQCprDECrZJ9cmh 4RJTlNVpPlA6M3iNIzY3F0URtyTy1DOEXnIXKzZIRn TBBDXDwqPF9GNC5fciY9GG0BdUThQYBkYFZydSEuGQf0S45pzSTyEFpvTQ5WYSU+Dion+Hy8ZJSCrSXLb KCIoWzMwIGHHJaWeX9ThA7FBf1SxT1DhJQ13uZldxzUhMDblLV1XBL9oTLQnOKFSBG9RjOEqsA3sfkTo AcQeOLPOWqNnT86fuIXbCYZgHOO1PKFbSs7WCGVqM8 FlteBbbQihqbUcLLZvCDFIYZ1KTMhwiiDeqOVqaWirWE99wRhhGL8XWb2ZYiYhFH0rac1WsBAoMl5PBH YjRH6CHSIvIDArZKLgYVA8AXOxUdXrUVvsVVYxVCBiLHO2GRAbGZCnVX0NQaWrOCJxEEWvBUffQOPlQN Iqjg6FYDPcNZCnUouoSxKnLABzZQKqIHybQFKzNNTq SCW9OERfFKQnKN4GHlKtNELcVEV1XQeaEYHbCWKbfd0IGLIzMVFpAzP5CkZgVDWiLZEtKSovZKRdFSIp WPMvQPTqJHHdQL7QQxYdLUKpNRNqGItfVOClVVOstc0MVYJnLLQyYwH4CYXdVSIoNCEaRDlgBNZnHVO0 PfG6YESaGHIdFN7NRnDeIDAiNIR2BJesMAQbAPCcuc 7MJSLzOQFsYXccOSKjHNIcDVYpMYczZTHmPAU5Fcm0KTHpUKSuJI0NLbTlVMZpIXE2PFCcSCYdWWHenx 7IYZRqBUPcLjR4PNWgEQJqJIChOTcxGBZtKRO2REy2INKtEYFzTJ6GSgZlTWDyIQd0NbReHKBmGTFuvx 8OUFGyUHAnOLSiQpKpTPHmASMnITonWCYtMWI4UHWr JKAaQBMhAF4IAmUgUThiITAIZyc7NAlpQ1h2IOPkHR9HV4Cwb6JbIUmmWAVOVOppGU8iesHnZSCsWo0U S9jLBmhqSwQxDTW2LEtzCpI6IGtpAEX2BiD7WXMaEDHrARl7MB8lYLJgBnE5MDi0O3VvKZm9NCCoGOSy FHtwHOO5EGE6AaJ7DdKzAS7JKw6WWjL9UEC4tHEmJu5OHCC0JK2GBBATE2XCNt== ID Date Data Source [id number] 03/31/2021 05:21:36 PM EDT [facility] Name Value Range Interpretation Code Description Data Montse rce(s) Supporting Document(s) Discharge Summary [facility] PDZTUt3nOpVCKeIr53/WIDmdZMVuq7EzAYihYDi0GIbwSNGyP6YyDMW9nV3bYRB0GHvCGgKjWcAeCXEx lbm [file] AgICAgICAgICAgICAgICAgICAgICAgICAgICAgICAg ICAgICAgICAgICAgICAgICAgICAgICAgICAgICAgICAgICAgICAgICAgICAgICAgICAgICAgICAgICAg ICAgICANCiAgICAgICAgICAgICAgICAgICAgICAgICAgICAgICAgICAgICAgICAgICAgICAgICAgICAg ICAgICAgICAgICAgICAgICAgICAgICAgICAgICAgIC AgICAgICAgICAgICAgICANCiAgICAgICAgICAgICAgICAgICAgICAgICAgICAgICAgICAgICAgICAgIC AgICAgICAgICAgICAgICAgICAgICAgICAgICAgICAgICAgICAgICAgICAgICAgICAgICAgICAgICANCi AgICAgICAgICAgICAgICAgICAgICAgICAgICAgICAg ICAgICAgICAgICAgICAgICAgICAgICAgICAgICAgICAgICAgICAgICAgICAgICAgICAgICAgICAgICAg ICAgICAgICANCiAgICAgICAgICAgICAgICAgICAgICAgICAgICAgICAgICAgICAgICAgICAgICAgICAg ICAgICAgICAgICAgICAgICAgICAgICAgICAgICAgIC AgICAgICAgICAgICAgICAgICANCiAgICAgICAgICAgICAgICAgICAgICAgICAgICAgICAgICAgICAgIC AgICAgICAgICAgICAgICAgICAgICAgICAgICAgICAgICAgICAgICAgICAgICAgICAgICAgICAgICAgIC ANCiAgICAgICAgICAgICAgICAgICAgICAgICAgICAg ICAgICAgICAgICAgICAgICAgICAgICAgICAgICAgICAgICAgICAgICAgICAgICAgICAgICAgICAgICAg ICAgICAgICAgICANCiAgICAgICAgICAgICAgICAgICAgICAgICAgICAgICAgICAgICAgICAgICAgICAg ICAgICAgICAgICAgICAgICAgICAgICAgICAgICAgIC AgICAgICAgICAgICAgICAgICAgICANCiAgICAgICAgICAgICAgICAgICAgICAgICAgICAgICAgICAgIC AgICAgICAgICAgICAgICAgICAgICAgICAgICAgICAgICAgICAgICAgICAgICAgICAgICAgICAgICAgIC AgICANCiAgICAgICAgICAgICAgICAgICAgICAgICAg ICAgICAgICAgICAgICAgICAgICAgICAgICAgICAgICAgICAgICAgICAgICAgICAgICAgICAgICAgICAg ICAgICAgICAgICAgICANCjw/xFCgA5nobEDiukA1U1tdCr6DRs7ACQ2ra9KcKKOkIUjolmZpAeqMVpRe FJUoNbiFEew8NIoqVB9LhNGmY4MbM8NkQAeaLL7BXR UxQVUzhSZiZQRdFWRtPvM5OHHeGMeeHM5BwENkLAbeWFEsOROpPjLeIFOpONMwSWBbBTLyWWRWSU6ELw PlH1LnlJ81FNEJRb7+UTbwqiFhLkeMCgX6ERIdh3LeIOo0OH6RCNOmBffbi3XnHjShSMEWIQkgZP1GNQ N6MIV6ZQMoFa4RBKZpY472bgHhNR6DNc8KWmPiXR5t jq4GRfToNEReQvbJJfj4CLevYQ8OyCLjPTqQiDQoyOSxL2UhN6NmzHJmjJTvrIMGuQmwaOTiDgHWRPap hB5omtXvOV3FLYK2OIXrJvUvYzLrGkHuPJP6XEDaFW6uLOxiLE4SCPS3YEotSTBqHHKdB2fSPjDyHCQp YZQdxPtsDD2DYaAaK6BiwyFnmZIqNUAmHJTRJb5+DQ yjehDjSrwODpQ6VTBxy6VaVVi8XN8BKBLpAApdTB3YISHnxJ1cZMjyCH7OUpPeIbYkZTLXLiIhI49osP OhBJy7O5ZaDxGeKDKeSdsfKKZeUNqmFsYgAPTnBgEjNVbbNB1+ID4+VJuvVN5FUNglvmIiLMPcMv3ZTC WxGWNlLU0gESGeKENvI6P0lRerQVTKLdFyI0ydvcma VP3xHIVpL529jHiaykErLHD9QGYpUo2CXAAmMSM3NDLfpAQtNiSiKXLOMChuHJ9XcJJgLNJ2hZ2hPMve XBGjSTFrY9zGEgNlyUnaFZ13zYbpwvXpkSNxVHn+Ju2BMV1nw0MpMBf7boHwAQraFNA6BGtjPIMpAGZy YXNpXYL0DTT6GTJWUzPaRKSbVJTnSDduIEZrDBSdea 5CMHHfUOCdKQByJlOuAWSoEIRgGPkaZMZjRBTpMFP9GXTrFHOhGR3IRzWrAWCwXOAkXKdaMONoIOFdui 3NUTOeKCTvKkX8ESRnPJQjQGDyHQfoQUPmCMPhNUivCCTpWXQbQK9QQqVeBMMeJAfaQoWaJIXjQASghc 5GOIYrBJYhXaS7KJPhVGTeAEItFFznUVWrLTV1GOv0 AWWmTPGmFO4IKkQxRMEwIMGfTMfmRJOhFFMfkf8NRXVmDYBdQokwFIOiVFRdKJYoQAvgYDRzGKHhXKR8 FDZwGTApFC1URaWaANWwKDA2UDGbOCTiEWJbmi1OTERyHEUdAEZeTVOaBWBtFDRqNUivWZPeNVP5Aux6 CAZeYTLnQB3ZXyJdJZWxRHLbXJFkXLTvYVRzej4CFO OiROUuVUK4PJMqEDEoDUVtCKqaRAQhPEX5PpGaMAKbXZZaGQ6EYxNxIZPhZsJ9KObbEJEpRKSsxh9VGU SgPPPcFAtpHeFcKKDzEWQqQTrqNDWmLEQdCLF2WYWtLANzME9ZJnDuHKJtIdMvUPldGXNxPJNvgb5SCU MiEAZzFCHlWLGrYFVcEIIsXGheDLQxZANsOES5YSNc RSMlNJ9AIwHlSOZxYxRzJfNpMHMbRWSnra3KBSXdEQRjFtTaZZHjIIMbOUTtYDejPPNnIGPjUEobLJIs YUDyNT8VMrIyKRvuTEQDUbl5TAnsL3v3BYJtVB1KZ1Fjs1NcTenwNLUGQEyeZR5ebbVtOTJpYb4HW1zO Ate5QuD9BBV5QmZmFtexE8N3FoXnJaIpJgU4NPk9TY LkIM4bJRjiXPfjTzWuSeV7H6IjSla6HRX2Q6QdJBvlZCe2KGDeKxIyQE6OVa2BSbD8OAC7vRSsJu9BOe A6QsBCKfObNY7IBMx= ID Date Data Source [id number] 03/31/2021 03:50:58 PM EDT [facility] Name Value Range Interpretation Code Description Data Montse rce(s) Supporting Document(s) Consultation [facility] EACYFa3uBpOOXrUb26/AAChtZYMfk8EyDOaeAYl3PUibBPUqA6TeCKR0tN2tLZC7AWcJUvMqIpNqKGIg lbm [file] K1IlC1ThLbLM8mBBGDNe2+TAfrhSVvgWbfNNICJvl4VkzUFcDjTD0ZCBk= ID Date Data Source [id number] 03/31/2021 03:53:14 PM EDT [facility] Name Value Range Interpretation Code Description Data Montse rce(s) Supporting Document(s) Lactate [Moles/volume] in Serum or Plasma 2.4 mmol/l 0.5-2.2 [facility] ID Date Data Source [id number] 03/31/2021 05:06:42 AM [facility] Value Range Interpretation Code Description Data Montse rce(s) Supporting Document(s) Leukocytes [#/volume] in Blood by Automated count 28.2 10*3/uL 4-10 [facility] Erythrocytes [#/volume] in Blood by Automated count 3.18 10*6/uL 4.1- 5.3 [facility] Hemoglobin [Mass/volume] in Blood 8.3 g/dL 11.5-15.5 [facility] Hematocrit [Volume Fraction] of Blood by Automated count 26.3 % 3 6-45 [facility] Erythrocyte mean corpuscular volume [Entitic volume] by Auto mated count 82.7 fL 80-96 [facility] Erythrocyte mean corpuscular hemoglobin [Entitic mass] by Automated count 26.2 pg 27-33 L [facility] Erythrocyte mean corpuscular hemoglobin concentration [Mass/volume] by Automated count 31.6 g/dL 32.0-36.0 [facility] width [Ratio] by Automated count 19.7 % 11.5-14.5 [facility] Platelets [#/volume] in Blood by Automated count 589 10*3/uL 150-400 [facility] ID Date Data Source [id number] 03/31/2021 05:21:09 AM [facility] Value Range Interpretation Code Description Data Montse rce(s) Supporting Document(s) Magnesium [Mass/volume] in Serum or Plasma 1.9 mg/dL 1.6-2.6 [facility] ID Date Data Source [id number] 03/31/2021 05:21:09 AM [facility] Value Range Interpretation Code Description Data Montse rce(s) Supporting Document(s) Phosphate [Mass/volume] in Serum or Plasma 2.8 mg/dL 2.5-4.5 [facility] ID Date Data Source [id number] 03/31/2021 05:10:49 AM [facility] Value Range Interpretation Code Description Data Montse rce(s) Supporting Document(s) Lactate [Moles/volume] in Serum or Plasma 1.8 mmol/l 0.5-2.2 [facility] ID Date Data Source [id number] 03/30/2021 11:20:45 PM EDT [facility] Name Value Range Interpretation Code Description Data Montse rce(s) Supporting Document(s) Lactate [Moles/volume] in Serum or Plasma 2.7 mmol/l 0.5-2.2 [facility] ID Date Data Source [id number] 03/30/2021 03:55:47 PM EDT [facility] Name Value Range Interpretation Code Description Data Montse rce(s) Supporting Document(s) [facility] YWKTZu4jUiFUNfUs11/AXBefKLDnd0AkPYccTAs0UJlmZSIjH7KfMZC5wU3fOKY3ISdSXtGlGzPtKMUc lbm [file] +ns58QXdOA/dtkuB0Ci6EPieN4iMqJ9WyXGqD6a3Zx7ra6mWsDWyX/yABdRI/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/Di+gcdHjv3+DoQN [file] TjFt19TW/536P7FAltqifcA27i82W253oAv5CR8mab Gz79tSJMs+b7OWqYmd00KtDxryVeBgndHFyTgfhS8iPL/LaXnurok7QbTmFlIlFnOjVUX2L3wczpuIJN qgP50qwtoZkdp3MtHgepGy49FNpuxttjEhHhDpN5SLRFs6/jamypbrxtSID1cjD+5Hl9aoTGHpyywSGr GW898Ng9ZV4dKal2bYvdw+FcJ5EoD65WEUSMOseiyS B3d0Tx+lcG0jjW+mU3aw7B0vaiutc0Zy/ublefDpRkFawF+b4QweLPZUrlSi/yxqPlRDp+38cTeD7KSU 1jGIWIIkcvRbRUu4E7GHyJCIWPVFQ2O0E0yPw3v2q7Jg9/kqfI0j/hUqXiXDM0Bw/mu+8+vIfw/gRDs/ DHQdrISOqKxBZgcFSdaZHKc6pL6YW1DwgxjXnMVx0a /ffsNv1ETdE3/B5IlYuz1O2+/aaZZ2IBP20asINGEZzPoCJqENO9hdiMNK77IltJSTGUsZNSUGG/r7Iq u3Oow88jq4YPaFCoPSc+XtW12c/c9rnABLGDuoO91WyHHlZiRZ7fSkRPrju235gzxxuhr/G/TgrgxjKH line director+/P8tMgzCa0++TjoZ71MVhj3FNYbesBSDNmdCOES [file] cLYq/iqirIer9311klRvjRMu069MNETv+long term acute care registered nurse+1CqrREl4T6w7H91pdp2q3dicCXfk9lJfiLMa91di/fT [file] NKkl77DLuAUAxyDgGHm5trlFrlk4ZcNEbroGwb5FMMSw4/o0/GRDVU4CyDo6rQirf9HGKUEc65VxN+Supervisor Show Operations [file] 92TM8MtYqS9KmuZcdrbiRm1OURIeypI7/0zQti/fruit sorter h/OHu+TE1xJbGh8tZladBUfujBQt4jQLmY3eph0nNiTyHN6SvA1x9DCxGEuhZRems75NaVvrT+Ik/Zt6 +GmXLA51h8bTWBEGTPOJSTinZXP485Jj4S+DZ7FP8beejiXdPrl7uTkWZ3KA4CxTfmFr+WIO6730vXmn JkiXaJCs6t3L2gTq8ygxT/9zs2hVSAjGaOTMZ5TJIA 6p8ESrIV2lE3DsOK+Suz1FUZifdTgmqGTbpTkEqf9eUq4oaCToAE97LyE02unGPXuBs+3Z0NGsmkDn1K L8NlUAFeP7dVMSpKknJhAKfkjzmszbG5SPRNvX3gHe551IsYXhzM48xl/MRWI2BRl8K/EUdVj4aKFL0Y Gu833RL/Se1RzWEEOYqh83BI/Vo5IpCcO5YX+1XVIh W2EfsWXsHTs8xCgxa/IbxWIUOtBa39wqViuE4/JMKzoQhXk2bhjf7Y3WZ7aiAmHz2fyigYA5QH6ezjex lsGpJs27ozSXAVWXBm0zHZNgrc1EYXAwvAYq59KRpr8VGjd+qGrK+9+PKlv+Lf5w+KHKKe9/P8ps+bf4 w+UnjdeF6nmcN2uoiYKDz28XC6nj4mmdcRYQZvCN7h u+tFmzb/GHww/VTnn/+9Jmzb/FHw4/VDvl/e9LmzX/Fn84/NTVvtJ+CvDjNSn6NJTbrnpdbIz/9t4Ycu Alejandra+I950klm6xVqXPhC2SJ5d++cZyqwncaMz8TR+D030sbR/rii6Q73DL+0f5O4dbMpZIXNB+XB2iduP p/Rs8TuKOq1vakoW/abNg3+VJrc7zexH17djSj1+AP iB+qnfL+96TNhn+DPyB+6mpfar+oenYszgowzLIafGFJar/w7voz9RF43a8eYCtC+xZ/UZxX9MM7uuae Nvxb/QYbC6FB8k+etNnwb/IKe38r8Ucnw0MCtbFWVLsqU8ZyWCXu982xZx0dyda4708ko7wx7v+HH6qd 4m06ij9qx2k/MC2nwex349p3q/4t/aP3ajb0ke1H2m [file] 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 technician/5FiaBEabPSI+K6lLuqs9Lpi3y9X24WQkGhfNdUoZj4IZ2QvQL018Rjli/CqfSv0Bronfi67yVP9AY [file] wYmrCIJFToAcAoC8SZidGNSEOu6X ID Date Data Source [id number] 03/30/2021 04:47:28 PM EDT [facility] Name Value Range Interpretation Code Description Data Montse rce(s) Supporting Document(s) Lactate [Moles/volume] in Serum or Plasma 1.9 mmol/l 0.5-2.2 [facility] ID Date Data Source [id number] 03/30/2021 01:38:09 PM EDT [facility] Name Value Range Interpretation Code Description Data Montse rce(s) Supporting Document(s) Progress Note [facility] DDROVk5lYuMCBiZk40/IDWujVIQky2DfYLuqZRp7UEmsXKOyF2ZsXST1kU2lDWX5NKhZRpXfGdLzOLNe lbm [file] Jn6Ob3WktfD7emAxZPhyXVPpAQ9AVPTPQ2IDEt== ID Date Data Source [id number] 03/30/2021 09:57:46 AM [facility] Name Value Range Interpretation Code Description Data Montse rce(s) Supporting Document(s) Lactate [Moles/volume] in Serum or Plasma 2.7 mmol/l 0.5-2.2 [facility] ID Date Data Source [id number] 03/30/2021 04:46:23 AM [facility] Name Value Range Interpretation Code Description Data Montse rce(s) Supporting Document(s) Leukocytes [#/volume] in Blood by Automated count 24.2 10*3/uL 4-10 [facility] Erythrocytes [#/volume] in Blood by Automated count 3.20 10*6/uL 4.1- 5.3 L [facility] Hemoglobin [Mass/volume] in Blood 8.3 g/dL 11.5-15.5 L [facility] Hematocrit [Volume Fraction] of Blood by Automated count 25.9 % 3 6-45 L [facility] Erythrocyte mean corpuscular volume [Entitic volume] by Auto mated count 81.0 fL 80-96 [facility] Erythrocyte mean corpuscular hemoglobin [Entitic mass] by Automated count 25.9 pg 27-33 L [facility] Erythrocyte mean corpuscular hemoglobin concentration [Mass/volume] by Automated count 31.9 g/dL 32.0-36.0 [facility] width [Ratio] by Automated count 20.2 % 11.5-14.5 [facility] Platelets [#/volume] in Blood by Automated count 611 10*3/uL 150-400 [facility] ID Date Data Source [id number] 03/30/2021 05:01:36 AM [facility] Value Range Interpretation Code Description Data Montse rce(s) Supporting Document(s) Magnesium [Mass/volume] in Serum or Plasma 1.8 mg/dL 1.6-2.6 [facility] ID Date Data Source [id number] 03/30/2021 05:01:36 AM [facility] Value Range Interpretation Code Description Data Montse rce(s) Supporting Document(s) Phosphate [Mass/volume] in Serum or Plasma 3.3 mg/dL 2.5-4.5 [facility] ID Date Data Source [id number] 03/29/2021 11:53:56 PM [facility] Value Range Interpretation Code Description Data Montse rce(s) Supporting Document(s) Lactate [Moles/volume] in Serum or Plasma 2.4 mmol/l 0.5-2.2 [facility] ID Date Data Source [id number] 03/29/2021 06:54:52 PM [facility] Value Range Interpretation Code Description Data Montse rce(s) Supporting Document(s) Lactate [Moles/volume] in Serum or Plasma 2.4 mmol/l 0.5-2.2 [facility] ID Date Data Source [id number] 03/29/2021 12:55:21 PM [facility] Value Range Interpretation Code Description Data Montse rce(s) Supporting Document(s) Lactate [Moles/volume] in Serum or Plasma 2.2 mmol/l 0.5-2.2 [facility] ID Date Data Source [id number] 03/29/2021 06:53:16 AM [facility] Name Value Range Interpretation Code Description Data Montse rce(s) Supporting Document(s) Leukocytes [#/volume] in Blood by Automated count 23.1 10*3/uL 4-10 [facility] Erythrocytes [#/volume] in Blood by Automated count 3.26 10*6/uL 4.1- 5.3 L [facility] Hemoglobin [Mass/volume] in Blood 8.3 g/dL 11.5-15.5 L [facility] Hematocrit [Volume Fraction] of Blood by Automated count 26.6 % 3 6-45 L [facility] Erythrocyte mean corpuscular volume [Entitic volume] by Auto mated count 81.6 fL 80-96 [facility] Erythrocyte mean corpuscular hemoglobin [Entitic mass] by Automated count 25.4 pg 27-33 L [facility] Erythrocyte mean corpuscular hemoglobin concentration [Mass/volume] by Automated count 31.1 g/dL 32.0-36.0 [facility] width [Ratio] by Automated count 19.4 % 11.5-14.5 [facility] Platelets [#/volume] in Blood by Automated count 559 10*3/uL 150-400 [facility] ID Date Data Source [id number] 03/29/2021 07:37:22 AM [facility] Name Value Range Interpretation Code Description Data Montse rce(s) Supporting Document(s) Bicarbonate [Moles/volume] in Serum 21 mmol/L 22-29 L [facility] Chloride [Moles/volume] in Serum or Plasma 104 mmol/L 98-107 [facility] Creatinine [Mass/volume] in Serum or Plasma 0.30 mg/dL 0.50-0.90 [facility] Glucose [Mass/volume] in Serum or Plasma 117 mg/dL 70-140 [facility] Potassium [Moles/volume] in Serum or Plasma 3.7 mmol/L 3.4-5.1 [facility] Sodium [Moles/volume] in Serum or Plasma 135 mmol/L 136-145 L [facility] Urea nitrogen [Mass/volume] in Serum or Plasma 12 mg/dL 6-20 [facility] Anion gap 3 in Serum or Plasma 11 mmol/L 8-15 [facility] Osmolality of Serum or Plasma by calculation 280 mosm/kg 275-300 [facility] Creatinine/Urea nitrogen [Mass Ratio] in Serum or Plasma 38 [facility] Calcium [Mass/volume] in Serum or Plasma 8.4 mg/dL 8.6-10.0 L [facility] Glomerular filtration rate/1.73 sq M pre dicted among non-blacks [Volume Rate/Area] in Serum or Plasma by Creatinine-based formula (MDRD) >6 0 [facility] Glomerular filtration rate/1.73 sq M pre dicted among blacks [Volume Rate/Area] in Serum or Plasma by Creatinine-based formula (MDRD) >60 [facility] ID Date Data Source [id number] 03/29/2021 07:37:22 AM [facility] Name Value Range Interpretation Code Description Data Montse rce(s) Supporting Document(s) Magnesium [Mass/volume] in Serum or Plasma 1.8 mg/dL 1.6-2.6 [facility] ID Date Data Source [id number] 03/29/2021 07:37:22 AM [facility] Name Value Range Interpretation Code Description Data Montse rce(s) Supporting Document(s) Phosphate [Mass/volume] in Serum or Plasma 3.6 mg/dL 2.5-4.5 [facility] ID Date Data Source [id number] 03/29/2021 06:51:32 AM [facility] Value Range Interpretation Code Description Data Montse rce(s) Supporting Document(s) Lactate [Moles/volume] in Serum or Plasma 1.7 mmol/l 0.5-2.2 [facility] ID Date Data Source [id number] 03/29/2021 05:23:43 AM [facility] CT HEAD WITHOUT CONTRAST [id number] RESU LTInterpreted by:Herberth Mackenzie, MDPROCEDURE INFORMATION: Exam: CT Head Without Contrast Exam date and time: 03/29/2021 2:45 AM Age: 45 years old Clinical indication: Malignant neoplasm of unspecified part of right bronchus or lung; Secondary malignant neoplasm of brain; Other specified disorders of brain; Other nonspecific abnormal finding of lung field; Contact with and (suspected) exposure to covid-19; Other: Headache, chronic, new features or increased frequency TECHNIQUE: Imaging protocol: Computed tomography of the head without contrast. Radiation optimization: All CT scans at this facility use at least one of these dose optimization techniques: automated exposure control; mA and/or kV adjustment per patient size (includes targeted exams where dose is matched to clinical indication); or iterative reconstruction. COMPARISON: CT HEAD WITHOUT CONTRAST [id number] 03/26/2021 9:04 AM FINDINGS: Tubes, catheters and devices: Right-sided frontal ventriculostomy it c atheter is noted unchanged from prior study. Brain: Somewhat hyperdense mass is again seen in the region of the right thalamus as well as the left cerebellum unchanged from prior study. 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 Cerebral ventricles: The ventricles remain prominent in size but unchanged from the prior study. Small amount of residual pneumocephalus is seen in the anterior horn of the right lateral ventricle slightly reduced from the prior study.Paranasal sinuses: Visualized sinuses are unremarkable. No fluid levels. Mastoid air cells: Visualized mastoid air cells are well aerated. 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 Bones/joints: Unremarkable. No acute fracture. Soft tissues: Unremarkable. IMPRESSION: Prominent ventricles but unchanged in size from prior study. 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 Decreasing right pneumocephalus.THIS DOCUMENT HAS BEEN ELECTRONICALLY SIGNED BY HERBERTH MACKENZIE MDThis document has been electronically signed by Herberth Mackenzie MD on 03/29/2021 5:23 AM Name Value Range Interpretation Code Description Data Montse rce(s) Supporting Document(s) ID Date Data Source [id number] 03/28/2021 11:52:57 PM [facility] Name Value Range Interpretation Code Description Data Montse rce(s) Supporting Document(s) Lactate [Moles/volume] in Serum or Plasma 1.4 mmol/l 0.5-2.2 [facility] ID Date Data Source [id number] 03/28/2021 05:56:26 PM [facility] Name Value Range Interpretation Code Description Data Montse rce(s) Supporting Document(s) Lactate [Moles/volume] in Serum or Plasma 1.6 mmol/l 0.5-2.2 [facility] ID Date Data Source [id number] 03/28/2021 01:23:45 PM [facility] Name Value Range Interpretation Code Description Data Montse rce(s) Supporting Document(s) Lactate [Moles/volume] in Serum or Plasma 2.4 mmol/l 0.5-2.2 H [facility] ID Date Data Source [id number] 03/28/2021 11:08:25 AM [facility] Value Range Interpretation Code Description Data Montse rce(s) Supporting Document(s) Lactate [Moles/volume] in Serum or Plasma 2.8 mmol/l 0.5-2.2 H [facility] ID Date Data Source [id number] 03/28/2021 06:20:48 AM [facility] Value Range Interpretation Code Description Data Montse rce(s) Supporting Document(s) Leukocytes [#/volume] in Blood by Automated count 26.5 10*3/uL 4-10 H [facility] Erythrocytes [#/volume] in Blood by Automated count 3.27 10*6/uL 4.1- 5.3 [facility] Hemoglobin [Mass/volume] in Blood 8.3 g/dL 11.5-15.5 [facility] Hematocrit [Volume Fraction] of Blood by Automated count 26.5 % 3 6-45 [facility] Erythrocyte mean corpuscular volume [Entitic volume] by Auto mated count 81.1 fL 80-96 [facility] Erythrocyte mean corpuscular hemoglobin [Entitic mass] by Automated count 25.3 pg 27-33 L [facility] Erythrocyte mean corpuscular hemoglobin concentration [Mass/volume] by Automated count 31.2 g/dL 32.0-36.0 [facility] distribution width [Ratio] by Automated count 19.2 % 11.5-14.5 [facility] Platelets [#/volume] in Blood by Automated count 556 10*3/uL 150-400 [facility] ID Date Data Source [id number] 03/28/2021 06:40:04 AM [facility] Value Range Interpretation Code Description Data Montse rce(s) Supporting Document(s) Bicarbonate [Moles/volume] in Serum 19 mmol/L 22-29 L [facility] Chloride [Moles/volume] in Serum or Plasma 106 mmol/L 98-107 [facility] Creatinine [Mass/volume] in Serum or Plasma 0.32 mg/dL 0.50-0.90 L [facility] Glucose [Mass/volume] in Serum or Plasma 125 mg/dL 70-140 [facility] Potassium [Moles/volume] in Serum or Plasma 3.8 mmol/L 3.4-5.1 [facility] Sodium [Moles/volume] in Serum or Plasma 135 mmol/L 136-145 L [facility] Urea nitrogen [Mass/volume] in Serum or Plasma 9 mg/dL 6-20 [facility] Anion gap 3 in Serum or Plasma 10 mmol/L 8-15 [facility] Osmolality of Serum or Plasma by calculation 281 mosm/kg 275-300 [facility] Creatinine/Urea nitrogen [Mass Ratio] in Serum or Plasma 28 [facility] Calcium [Mass/volume] in Serum or Plasma 8.4 mg/dL 8.6-10.0 L [facility] Glomerular filtration rate/1.73 sq M pre dicted among non-blacks [Volume Rate/Area] in Serum or Plasma by Creatinine-based formula (MDRD) >6 0 [facility] Glomerular filtration rate/1.73 sq M pre dicted among blacks [Volume Rate/Area] in Serum or Plasma by Creatinine-based formula (MDRD) >60 [facility] ID Date Data Source [id number] 03/28/2021 06:40:04 AM [facility] Name Value Range Interpretation Code Description Data Montse rce(s) Supporting Document(s) Magnesium [Mass/volume] in Serum or Plasma 1.8 mg/dL 1.6-2.6 [facility] ID Date Data Source [id number] 03/28/2021 06:40:04 AM [facility] Name Value Range Interpretation Code Description Data Montse rce(s) Supporting Document(s) Phosphate [Mass/volume] in Serum or Plasma 3.0 mg/dL 2.5-4.5 [facility] ID Date Data Source [id number] 03/28/2021 12:43:20 AM [facility] Name Value Range Interpretation Code Description Data Montse rce(s) Supporting Document(s) Lactate [Moles/volume] in Serum or Plasma 1.6 mmol/l 0.5-2.2 [facility] ID Date Data Source [id number] 03/27/2021 07:32:40 PM [facility] Value Range Interpretation Code Description Data Montse rce(s) Supporting Document(s) Phosphate [Mass/volume] in Serum or Plasma 2.0 mg/dL 2.5-4.5 L [facility] ID Date Data Source [id number] 03/27/2021 07:32:40 PM [facility] Value Range Interpretation Code Description Data Montse rce(s) Supporting Document(s) Potassium [Moles/volume] in Serum or Plasma 3.3 mmol/L 3.4-5.1 L [facility] ID Date Data Source [id number] 03/27/2021 07:30:09 PM [facility] Value Range Interpretation Code Description Data Montse rce(s) Supporting Document(s) Lactate [Moles/volume] in Serum or Plasma 3.4 mmol/l 0.5-2.2 H [facility] ID Date Data Source [id number] 03/27/2021 12:54:49 PM [facility] Value Range Interpretation Code Description Data Montse rce(s) Supporting Document(s) Potassium [Moles/volume] in Serum or Plasma 3.6 mmol/L 3.4-5.1 [facility] ID Date Data Source [id number] 03/27/2021 12:54:49 PM [facility] Value Range Interpretation Code Description Data Montse rce(s) Supporting Document(s) Phosphate [Mass/volume] in Serum or Plasma 3.3 mg/dL 2.5-4.5 [facility] ID Date Data Source [id number] 03/27/2021 12:51:48 PM [facility] Value Range Interpretation Code Description Data Montse rce(s) Supporting Document(s) Lactate [Moles/volume] in Serum or Plasma 2.5 mmol/l 0.5-2.2 H [facility] ID Date Data Source [id number] [facility] Description Data Montse rce(s) Supporting Document(s) Lactate [Moles/volume] in Serum or Plasma 2.9 mmol/l 0.5-2.2 H [facility] ID Date Data Source [id number] 03/27/2021 06:29:01 AM [facility] Name Value Range Interpretation Code Description Data Montse rce(s) Supporting Document(s) Leukocytes [#/volume] in Blood by Automated count 24.3 10*3/uL 4-10 H [facility] Erythrocytes [#/volume] in Blood by Automated count 3.27 10*6/uL 4.1- 5.3 [facility] Hemoglobin [Mass/volume] in Blood 8.3 g/dL 11.5-15.5 [facility] Hematocrit [Volume Fraction] of Blood by Automated count 26.7 % 3 6-45 [facility] Erythrocyte mean corpuscular volume [Entitic volume] by Auto mated count 81.7 fL 80-96 [facility] Erythrocyte mean corpuscular hemoglobin [Entitic mass] by Automated count 25.3 pg 27-33 [facility] Erythrocyte mean corpuscular hemoglobin concentration [Mass/volume] by Automated count 30.9 g/dL 32.0-36.0 [facility] width [Ratio] by Automated count 19.0 % 11.5-14.5 [facility] Platelets [#/volume] in Blood by Automated count 576 10*3/uL 150-400 [facility] ID Date Data Source [id number] 03/27/2021 06:44:46 AM [facility] Value Range Interpretation Code Description Data Montse rce(s) Supporting Document(s) Magnesium [Mass/volume] in Serum or Plasma 1.8 mg/dL 1.6-2.6 [facility] ID Date Data Source [id number] 03/27/2021 06:44:46 AM [facility] Name Value Range Interpretation Code Description Data Montse rce(s) Supporting Document(s) Bicarbonate [Moles/volume] in Serum 16 mmol/L 22-29 L [facility] Chloride [Moles/volume] in Serum or Plasma 111 mmol/L 98-107 H [facility] Creatinine [Mass/volume] in Serum or Plasma 0.46 mg/dL 0.50-0.90 [facility] Glucose [Mass/volume] in Serum or Plasma 136 mg/dL 70-140 [facility] Potassium [Moles/volume] in Serum or Plasma 3.4 mmol/L 3.4-5.1 [facility] Sodium [Moles/volume] in Serum or Plasma 135 mmol/L 136-145 L [facility] Urea nitrogen [Mass/volume] in Serum or Plasma 10 mg/dL 6-20 [facility] Anion gap 3 in Serum or Plasma 9 mmol/L 8-15 [facility] Osmolality of Serum or Plasma by calculation 282 mosm/kg 275-300 [facility] Creatinine/Urea nitrogen [Mass Ratio] in Serum or Plasma 22 [facility] Calcium [Mass/volume] in Serum or Plasma 8.4 mg/dL 8.6-10.0 L [facility] Glomerular filtration rate/1.73 sq M pre dicted among non-blacks [Volume Rate/Area] in Serum or Plasma by Creatinine-based formula (MDRD) >6 0 [facility] Glomerular filtration rate/1.73 sq M pre dicted among blacks [Volume Rate/Area] in Serum or Plasma by Creatinine-based formula (MDRD) >60 [facility] ID Date Data Source [id number] 03/27/2021 06:44:46 AM [facility] Name Value Range Interpretation Code Description Data Montse rce(s) Supporting Document(s) Phosphate [Mass/volume] in Serum or Plasma 2.2 mg/dL 2.5-4.5 L [facility] ID Date Data Source [id number] 03/27/2021 02:22:14 AM [facility] Value Range Interpretation Code Description Data Montse rce(s) Supporting Document(s) Lactate [Moles/volume] in Serum or Plasma 2.3 mmol/l 0.5-2.2 H [facility] ID Date Data Source [id number] 03/26/2021 09:05:45 PM [facility] Value Range Interpretation Code Description Data Montse rce(s) Supporting Document(s) Creatine kinase [Enzymatic activity/volume] in Serum or Plasma 10 U /L 20-180 L [facility] ID Date Data Source [id number] 03/26/2021 09:05:45 PM [facility] Value Range Interpretation Code Description Data Montse rce(s) Supporting Document(s) Albumin [Mass/volume] in Serum or Plasma by Bromocresol green (BCG) dye binding method 2.9 g/dL 3.5-5.2 [facility] Bilirubin.total [Mass/volume] in Serum or Plasma <1.2 [facility] Bilirubin.direct [Mass/volume] in Serum or Plasma <0.3 [facility] Alkaline phosphatase [Enzymatic activity/volume] in Serum or Plasma 74 U/L 35-104 [facility] Aspartate aminotransferase [Enzymatic activity/volume] in Serum or Plasma 25 U/L <32 [facility] Alanine aminotransferase [Enzymatic activity/volume] in Seru m or Plasma 50 U/L <33 [facility] Protein [Mass/volume] in Serum or Plasma 5.7 g/dL 6.4-8.3 [facility] ID Date Data Source [id number] 03/26/2021 06:34:40 PM [facility] Name Value Range Interpretation Code Description Data Montse rce(s) Supporting Document(s) Magnesium [Mass/volume] in Serum or Plasma 2.1 mg/dL 1.6-2.6 [facility] ID Date Data Source [id number] 03/26/2021 06:34:40 PM [facility] Value Range Interpretation Code Description Data Montse rce(s) Supporting Document(s) Phosphate [Mass/volume] in Serum or Plasma 1.6 mg/dL 2.5-4.5 [facility] ID Date Data Source [id number] 03/26/2021 07:33:27 PM [facility] Value Range Interpretation Code Description Data Montse rce(s) Supporting Document(s) Procalcitonin [Mass/volume] in Serum or Plasma 0.10 ng/mL <0.10 H [facility] (NOTE) < 0.25 ng/mL Bacterial infec tion unlikely,particularly lower respiratory tract infections.0.25 -<0.50 ng/mL Low risk for progression to severe sepsis/septic shock. Localized infection is possible. Measurement done early (<6 hours) after systemic process starts may still be low.0.50 - 2.00 ng/mL Moderate risk for progression to sepsis/septic shock. > 2.00 ng/mL High risk for progression to sepsis/septic shock. ID Date Data Source [id number] 03/26/2021 06:13:54 PM [facility] Name Value Range Interpretation Code Description Data Montse rce(s) Supporting Document(s) Lactate [Moles/volume] in Serum or Plasma 6.3 mmol/l 0.5-2.2 [facility] Results called to and read back by Serg CORONEL AT [id number] /[id number] ID Date Data Source [id number] 03/26/2021 12:14:33 PM [facility] Name Value Range Interpretation Code Description Data Montse rce(s) Supporting Document(s) Lactate [Moles/volume] in Serum or Plasma 3.5 mmol/l 0.5-2.2 [facility] ID Date Data Source [id number] 03/26/2021 10:45:03 AM [facility] CT HEAD WITHOUT CONTRAST [id number] RESU LTInterpreted by:PRINCE ZhuLINICAL INDICATION: Hydrocephalus.TECHNIQUE: Multiaxial CT images of the brain were obtained from the skull base through the vertex and displayed at 5 mm and 1.25 mm increments. No intravenous contrast was administered. Automated dose lowering techniques and/or adjustment according to patient size were utilized for this exam.COMPARISON: CT head without contrast 03/19/2021, 03/25/2021 and MRI brain with and without contrast 03/22/2021.FINDINGS: Redemonstration of EVD through right frontal approach with tip stable in the frontal horn of right lateral ventricle abutting the septum. Redemonstration of pneumocephalus in the nondependent frontal horn of right lateral ventricle. Redemonstration of right thalamic mass and left cerebellum with surrounding vasogenic edema, unchanged. Other masses utilizing the MRI is not clearly visualized in the present study. Redemonstration of streak artifact obscuring the images in the base of the brain. Overall, the ventricle appears unchanged in size and configuration since prior CT. No evidence of new intracranial hemorrhage or acute infarction. 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 The extracranial soft tissue structures are unremarkable. The paranasal sinuses and mastoid air cells are clear.IMPRESSION: 1. Stable right frontal EVD catheter with tip in the frontal horn of right lateral ventricle.2. Stable intraventricular pneumocephalus in the frontal horn of right lateral ventricle.3. The ventricle appears unchanged in size and configuration since prior examination.4. 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 This document has been electronically signed by Kyle Muro MD on 03/26/2021 10:42 AM Name Value Range Interpretation Code Description Data Montse rce(s) Supporting Document(s) ID Date Data Source [id number] 03/26/2021 09:20:47 AM [facility] Name Value Range Interpretation Code Description Data Montse rce(s) Supporting Document(s) Lactate [Moles/volume] in Serum or Plasma 4.0 mmol/l 0.5-2.2 [facility] Results called to and read back by GIOVANI PINEDO RN [id number] BY [id number] ID Date Data Source [id number] 03/26/2021 08:01:34 AM [facility] Name Value Range Interpretation Code Description Data Montse rce(s) Supporting Document(s) [facility] YAVPSo4oBqROJxIfo4EkUxIsGXRhPN2pnhc9A5B3kRHhL0SvnAApv6rcT5IbD9ZkGSQlPBYLQJ3LcORr jb2 [file] cGlmt5YfDMb969lzbuj6R43BE0QKguGWzYwszAoxJj1Yv+dvL//MARY BETH/sqWo3Wg0bT044+4TrksI3Lw266 cskcc6D1bw096rf9C/o8U2TqXYdR23Z15ZGx3DTwUysb9bG/d/we9pZ/tcvAYW/5V1XG+eCl78SXrfOt iZFycKM0Bv/AO/DjP/otb7R3YI/AHbgDx/0V3N/yr3 o49CUn6PRnLuf1Vw2e1p4r4k/XYh71Db/8zF7+lRV+1n+74oOKWh/s9Ru/UH78+E6ai0t7EZ88z/XBOZ /Rg82mykT0jgs3r22YdsMX7aRUect188F3regsl3h1hupL+1XxE18461Mi4Ygd9OnnjVJ7o5+hc5eqBZ /zLFqUjqtBYjB9y7kAz85d/tVTBq74/XlfmBtGThm4 ATfgA/hG7vSmsYWX0Po7L94+1S6f6x/ljySs3eq+ZB/nfb+v+Xhj7w9kbvb26GtopSoOFaPOBgN/VXO5 mlro5reuY8d+p4/qce0Q0mS1q662j2sdMgdJ0R6JeKpmk69TeHHbrjAyWGAkP7x5h85ZX/aesAn6gg2X H1V+7VYLsybyHm7plp/76E8f1gaiN12V85zrnX+YG0 FkrP+201SyVtDbAeH5lKazObybe2KHnGxOrbQatgKjCdMLSaI3hGssthQF/+pa/tbel7iV/lVb5dN/y7 +qflf+BX0cbVp3Buo2z1f3/+4iqPI8Qr/A++powbDiHP2P05ZlhU5Np2ReFWN+B55H5V+VtoHnb/lXuw y8AW/AMT7Dv+ftdnd7ei6/qsO/6vCvehrwcfpR+Vinod [file] p2OOzBWKZHibymgvxO6PoA0VRyLWVQbUJFIQNwRSOD ynHTHEbLSJA3as/sr5Y4GQcSECsO0mOnEss4jXEmNPcSEO1X8uSvD3g0zGXfKJtZBQ8P4aStU4n3gHMq CYaGgYJYUSUaURYMkeCVlVFSvLsXNreEQTSWQvacmO2gqeYhTsiWPHYlfAZLVvBgjQXCSo7yXWjYwAJW Eo1kVEdSbOZWBx9kRHiAjIKKOn5lJKdWmPLPHp7wYC jUoFEDoQZCDYQaCDUQaiDUQKgB/BCdy0f9U8L+fgPFNEaHWy6W9GexfLJ0Io0WPum6RXvl2GDcaENNoK ZXAIXeNVVqqABDZ5LhONBQuGDKZ0TQFx3YXde9NFnm5WFkcGZRmwkfcvelImIf8FdTyvjgVmTpmNMZbq bDdkREoriUiqKY3iqDCmuzgWyunNWMaFfy2H3XzK39 MM7NFI4NCR9kQN96NT5PDu8MNp0AVXsAixLhWoJfkXhacMCOA7HMAd1OVzg9WVXrMWDKHXZ4GJQMleNF S7AY+QxHVjvx6sjAwvn6oNa+LZtMjIFWqPrN12jtR3BJmebSVSUbFEXCXbQFuAYqIWQUJPYyjOqI1Ydb dHDVALqXIlfF86PfJSVIB95+9MpLqVSHkohnhhqP6y L5DbBHe+C2SGeWbiZTSVXkLaFOaznDPQqjIFlFvi6B4XsKlfMzU/IU7aEQJndoQeV0PrZtFVlZcx1s+0 ZsBkU3AoX1GV4NrgNzXI5ve7RmMpSWbL8t2l/cqQ3W/8GEhGm3RaqaD0Cnw2l/+WKFTCPTyAgZIaNklE zs92gAMHMO77JEchBhGOrlRERExaUnyJNif0r5yCTU GjUVm9kQscrmVTg5hBBQt1txo77i/r3i1UtrIsxwXhcJ79jk8HffC/RBxqXSvN9H7vTJE2LjmN6o55/u NZa+LDz7sA04OmNzmJrehSOYzPOKYOi8GLVUJnYwk7teWFjKESZYZOJr7rxItPV5kAoY6eWMrBWSUPHq sEfJJIvenTTrYeq3qicOtSKGSuiVXpNgNSxtBbq8U0 mZo4FXApbulLKEub63N9GeWtugZaLqs4pBdzAKxRTkeG16LIgUWpxOqHHc0xm5oPzo2TE94CgqWb3Uqo 45C9QyHQfe/2AeaedIWJXO/6W157mM5UDLVJRSbTNsTjJkgOTTCIYfcpMzfQbiX5ICoRSOBg3Qq4MJ8u IvBRVrbgvkx2X7+okrf8I+bBDcVovBKM1RcBr3uZKd kWlkhAzbAecTO+pit laborer+lXHxsEPLLtLwxZPIXpjEGRXjQCcDMBb1P+gMwKbaVWeCpkhIyQUTJKppPpZIzM dTbDGlaOeYLoqQDXDd8Pe/lwv/ZLWMVr4Gb+3e+Ob/l6D0DocJASvOjDO475RLvFZos6fs8GB++OufW+ pm4lnl9HTyz1e3K8uL1vtnvUKfqZczqWLRNF7usglg rZh6tEhhsi0nUZiflcIrMQxeUAtxtgMOqFh4HnpOaZNTWe8fQySJ8YJyHZQ3N7K8JUWpLCLfCidVqDXN InhF+hwRe7OyGVxgaFDebGLAQPFeGHeK7MPxdTdiDbDKBxDoiY/JVdGWQGFE2/KXP2phJhewDGcOZnA2 4rT0Pd+vIz6iweFqBPZcmfUcqGflB1QOu0VCJfQ78S X1jbU8eAyHBzZleUIV1eCD9XDLjuIBJCpFwnMXypj7st05XhiY8euq6AexNDfOw2WTbOYnOv2NMtGAgC t4FBqljtFDeOtKBeumI2qatsfFQMCqAhwLRkeRmeShM0gN8ZHSbUPCktm4MJFNhEcYoLHjXRBUSuIcPV wIjHYHIaMODTlKUBW5OTWKpbhX6rLceszROXpXMJR7 QFTh9PHrj3DUbf8UJvvBPXjBZKIBy08DZhP8UGGUg39ERbJ4VBAYs04PPyL8BCSLv34XFmC7OGDYz51M EqPpXcG4kDR1KFAs5PLsy1RKqm7OLcsBHRxgKBXTddKMTzhaKFnXnMPMZyUoKEwZrQwrGiexNRkkyPmd mDY+GmkXq9Co7MeMEf8aUKZNvoZy0FP5LhNo6pkOTG JAM/9pcqWb7Rv17i9SYAegFSPADf1YWbnEQGuuDNHNhbMPDtmhHRnVtPLgJmPh9DcCjMIBdtHIDvjOVR y1UCKP9XJvH0CQkA0NTtWFYTpGAEFTIpSJVIqoGTWDeCMkTdJqwDouvfBHtdsVAydIIPf1UAFH0YKtU6 MPfV3ZKoXVIEkGCYUmjznAQ/8+B+93Y9ioO2cHt5Lp /pug2l3ep850drm/PgfufB/c6D+71L9gwW1trx4P05dD99pH/tXHYKNsTtym3YFoISPGVGX/2YKW0r3J 8c9BMH/nIGF8ZURwy6Xos0zIZ/mhNAYMnvmwBbQPiDaBQoNn9pJLnh2SOcgYNFmDBNTFJmYGYEkhDBUW dWOGZDXo7hBzAOmUzLHUSkSFTIlOBZQ3GZKc2DDbw4 [file] DrUtDND9kkTt9oLkOoQDMCQ5Gip8XdMZNuPGTSTy1+SdN5AKM2vYQeFos9YwUzNRgnAMYLFk== ID Date Data Source [id number] 03/26/2021 06:43:02 AM [facility] Name Value Range Interpretation Code Description Data Montse rce(s) Supporting Document(s) Leukocytes [#/volume] in Blood by Automated count 27.7 10*3/uL 4-10 H [facility] Erythrocytes [#/volume] in Blood by Automated count 3.68 10*6/uL 4.1- 5.3 [facility] Hemoglobin [Mass/volume] in Blood 9.4 g/dL 11.5-15.5 [facility] Hematocrit [Volume Fraction] of Blood by Automated count 29.8 % 3 6-45 [facility] Erythrocyte mean corpuscular volume [Entitic volume] by Auto mated count 81.0 fL 80-96 [facility] Erythrocyte mean corpuscular hemoglobin [Entitic mass] by Automated count 25.4 pg 27-33 [facility] Erythrocyte mean corpuscular hemoglobin concentration [Mass/volume] by Automated count 31.4 g/dL 32.0-36.0 [facility] Erythrocyte distribution width [Ratio] by Automated count 18.7 % 11.5-14.5 [facility] Platelets [#/volume] in Blood by Automated count 780 10*3/uL 150-400 H [facility] ID Date Data Source [id number] 03/26/2021 08:07:16 AM [facility] Value Range Interpretation Code Description Data Montse rce(s) Supporting Document(s) Cancer Ag 19-9 [Units/volume] in Serum or Plasma 36 U/mL <35 H [facility] This test uses [employer] CA 19-9 electrochem iluminescent immunoassay. Results obtained with different test methods or kits cannot be used interchangeably. CA 19-9 is useful in monitoring pancreatic, hepatobiliary, gastric, hepatocelllular, and colorectal cancer. CA 19-9 value regardless of level, should not be interpreted as absolute evidence of the presence or absence of malignant disease. ID Date Data Source [id number] 03/26/2021 08:07:16 AM EDT [facility] Name Value Range Interpretation Code Description Data Montse rce(s) Supporting Document(s) Carcinoembryonic Ag [Mass/volume] in Serum or Plasma 8.9 ng/ml <3.4 H [facility] Levels of CEA should not be interpreted as absoulute evidence of the presence or absence of disease. It should not be used as a screening test for Cancer. CEA values obtained using different methodologies cannot be used interchangeably. This method is manufactured by [employer] and is an electrochemiluminesence immunoassay. ID Date Data Source [id number] 03/26/2021 08:07:16 AM [facility] Name Value Range Interpretation Code Description Data Montse rce(s) Supporting Document(s) Bicarbonate [Moles/volume] in Serum 15 mmol/L 22-29 L [facility] Chloride [Moles/volume] in Serum or Plasma 110 mmol/L 98-107 H [facility] Creatinine [Mass/volume] in Serum or Plasma 0.34 mg/dL 0.50-0.90 L [facility] Glucose [Mass/volume] in Serum or Plasma 115 mg/dL 70-140 [facility] Potassium [Moles/volume] in Serum or Plasma 3.5 mmol/L 3.4-5.1 [facility] Hemolyzed Sodium [Moles/volume] in Serum or Plasma 138 mmol/L 136-145 [facility] Urea nitrogen [Mass/volume] in Serum or Plasma 5 mg/dL 6-20 L [facility] Anion gap 3 in Serum or Plasma 13 mmol/L 8-15 [facility] Osmolality of Serum or Plasma by calculation 284 mosm/kg 275-300 [facility] Creatinine/Urea nitrogen [Mass Ratio] in Serum or Plasma 16 [facility] Calcium [Mass/volume] in Serum or Plasma 8.4 mg/dL 8.6-10.0 L [facility] Glomerular filtration rate/1.73 sq M pre dicted among non-blacks [Volume Rate/Area] in Serum or Plasma by Creatinine-based formula (MDRD) >6 0 [facility] Glomerular filtration rate/1.73 sq M pre dicted among blacks [Volume Rate/Area] in Serum or Plasma by Creatinine-based formula (MDRD) >60 [facility] ID Date Data Source [id number] 03/25/2021 11:47:33 PM [facility] XR CHEST FRONTAL ONLY [id number] RESULTI nterpreted by:[facility]cedo [facility] Exam: XR Chest Exam date and time: 03/25/2021 10:40 PM Age: 45 years old Clinical indication: Malignant neoplasm of unspecified part of right bronchus or lung; Secondary malignant neoplasm of brain; Other specified disorders of brain; Other nonspecific abnormal finding of lung field; Contact with and (suspected) exposure to covid-19; Other: Hypotension TECHNIQUE: Imaging protocol: XR of the chest. Views: 1 view. COMPARISON: ME XR CHEST FRONTAL ONLY [id number] PORTABLE 03/23/2021 3:32 PM; thoracic CT of March 21 FINDINGS: Tubes, catheters and devices: There is a left upper extremity PICC catheter with its tip at the junction of the SVC and right atrium. Lungs: There is an 8 cm mass within the right upper lobe medially. There is lucency at the right lung apex. This is felt to be related to emphysematous change on the recent thoracic CT study. There is no segmental pneumonia. Pleural spaces: There is no pleural effusion. Heart/Mediastinum: The cardiac silhouette is normal.Bones/joints: There are no definite osseous abnormalities. Soft tissues: Unremarkable IMPRESSION: Known right upper lobe mass. No acute pneumonia.THIS DOCUMENT HAS BEEN ELECTRONICALLY SIGNED BY WILLAM SALCEDO MDThis document has been electronically signed by Willam Salcedo MD on 03/25/2021 11:47 PM Name Value Range Interpretation Code Description Data Montse rce(s) Supporting Document(s) ID Date Data Source [id number] 03/30/2021 11:13:49 AM EDT [facility]mnt XXX-Imp : BloodRACMicroorga nism XXX Cult : No growth 5 days Name Value Range Interpretation Code Description Data Montse rce(s) Supporting Document(s) ID Date Data Source [id number] 03/25/2021 10:38:10 PM EDT [facility] Name Value Range Interpretation Code Description Data Montse rce(s) Supporting Document(s) Leukocytes [#/volume] in Blood by Automated count 22.1 10*3/uL 4-10 H [facility] Erythrocytes [#/volume] in Blood by Automated count 3.93 10*6/uL 4.1- 5.3 L [facility] Hemoglobin [Mass/volume] in Blood 10.1 g/dL 11.5-15.5 L [facility] Hematocrit [Volume Fraction] of Blood by Automated count 32.1 % 3 6-45 L [facility] Erythrocyte mean corpuscular volume [Entitic volume] by Auto mated count 81.5 fL 80-96 [facility] Erythrocyte mean corpuscular hemoglobin [Entitic mass] by Automated count 25.8 pg 27-33 L [facility] Erythrocyte mean corpuscular hemoglobin concentration [Mass/volume] by Automated count 31.6 g/dL 32.0-36.0 [facility] E[facility]th[facility] distribution width [Ratio] by Automated count 18.9 % 11.5-14.5 H [facility] Platelets [#/volume] in Blood by Automated count 852 10*3/uL 150-400 H [facility] ID Date Data Source [id number] 03/25/2021 11:00:18 PM [facility] Name Value Range Interpretation Code Description Data Montse rce(s) Supporting Document(s) Cardiactroponin T pnl SerPlHS <14 [facility] Questionable Result, New Specimen Reques arielle ID Date Data Source [id number] 03/25/2021 11:47:18 PM [facility] Name Value Range Interpretation Code Description Data Montse rce(s) Supporting Document(s) Bicarbonate [Moles/volume] in Serum 14 mmol/L 22-29 [facility] Questionable Result, New Specimen Reques arielle Chloride [Moles/volume] in Serum or Plasma 110 mmol/L 98-107 [facility] Questionable Result, New Specimen Reques arielle Creatinine [Mass/volume] in Serum or Plasma 0.42 mg/dL 0.50-0.90 [facility] Questionable Result, New Specimen Reques arielle Glucose [Mass/volume] in Serum or Plasma 206 mg/dL 70-140 [facility] Questionable Result, New Specimen Reques arielle Potassium [Moles/volume] in Serum or Plasma 4.1 mmol/L 3.4-5.1 [facility] Questionable Result, New Specimen Reques arielle Sodium [Moles/volume] in Serum or Plasma 138 mmol/L 136-145 [facility] Questionable Result, New Specimen Reques arielle Urea nitrogen [Mass/volume] in Serum or Plasma 7 mg/dL 6-20 [facility] Questionable Result, New Specimen Reques arielle Anion gap 3 in Serum or Plasma 14 mmol/L 8-15 [facility] Questionable Result, New Specimen Reques arielle Osmolality of Serum or Plasma by calculation 290 mosm/kg 275-300 [facility] Questionable Result, New Specimen Reques arielle Creatinine/Urea nitrogen [Mass Ratio] in Serum or Plasma 17 [facility] Questionable Result, New Specimen Reques arielle Calcium [Mass/volume] in Serum or Plasma 8.0 mg/dL 8.6-10.0 L [facility] Questionable Result, New Specimen Reques arielle Glomerular filtration rate/1.73 sq M pre dicted among non-blacks [Volume Rate/Area] in Serum or Plasma by Creatinine-based formula (MDRD) >6 0 [facility] Questionable Result, New Specimen Reques arielle Glomerular filtration rate/1.73 sq M pre dicted among blacks [Volume Rate/Area] in Serum or Plasma by Creatinine-based formula (MDRD) >60 [facility] Questionable Result, New Specimen Reques arielle ID Date Data Source [id number] 03/25/2021 11:47:18 PM [facility] Value Range Interpretation Code Description Data Montse rce(s) Supporting Document(s) Magnesium [Mass/volume] in Serum or Plasma 5.3 mg/dL 1.6-2.6 [facility] Results called to and read back by DYLAN ROBERTS RN ON 9F AT [phone] BY [id number] Result, New Specimen Requested ID Date Data Source [id number] 03/25/2021 11:47:18 PM [facility] Value Range Interpretation Code Description Data Montse rce(s) Supporting Document(s) Phosphate [Mass/volume] in Serum or Plasma 1.7 mg/dL 2.5-4.5 [facility] Questionable Result, New Specimen Reques arielle ID Date Data Source [id number] 03/25/2021 10:55:41 PM [facility] Value Range Interpretation Code Description Data Montse rce(s) Supporting Document(s) Lactate [Moles/volume] in Serum or Plasma 3.6 mmol/l 0.5-2.2 H [facility] ID Date Data Source [id number] 03/30/2021 11:13:49 AM EDT [facility] XXX-Imp : BloodLFAMicroorga nism XXX Cult : No growth 5 days Name Value Range Interpretation Code Description Data Montse rce(s) Supporting Document(s) ID Date Data Source [id number] 03/26/2021 01:26:07 AM [facility] Name Value Range Interpretation Code Description Data Montse rce(s) Supporting Document(s) Color of Urine [facility] Clarity of Urine [facility] Specific gravity of Urine by Refractometry automated 1.008 1.003 -1.030 [facility] pH of Urine by Automated test strip 8.0 5.0-8.0 [facility] Protein [Mass/volume] in Urine by Automated test strip Neg [facility] Glucose [Mass/volume] in Urine by Automated test strip Neg [facility] Ketones [Mass/volume] in Urine by Automated test strip Neg [facility] Bilirubin.total [Presence] in Urine by Automated test strip Negative [facility] Hemoglobin [Presence] in Urine by Automated test strip Neg [facility] Leukocyte esterase [Presence] in Urine by Automated test strip Negative [facility] Nitrite [Presence] in Urine by Automated test strip Negati [facility] Leukocytes [#/area] in Urine sediment by Automated count 1 /HPF 0 -5 [facility] Erythrocytes [#/area] in Urine sediment by Automated count 5 /HPF 0-3 H [facility] Service comment [facility] Epithelial cells.squamous [#/area] in Urine sediment by Automate d count None [facility] Mucus [#/area] in Urine sediment by Microscopy low power field None [facility] ID Date Data Source [id number] 03/25/2021 03:58:55 PM EDT [facility] Name Value Range Interpretation Code Description Data Montse rce(s) Supporting Document(s) [facility] ETVKXu3rVyMQAlMn70/HJTiwVAMle0PhXTvbVKq5UPocWXXkZ6JgJDG9iR3aTPF0ZZaWAoDwBaWePBP1 [facility] [file] ICAgICAgICAgICAgICAgICAgICAgICAgICAgICAgICAgICAgICAgICAgICAgICAgICAgICAgICAgICAg ICAgICAgICAgICAgICAgICAgICAgICAgICAgDQogIC AgICAgICAgICAgICAgICAgICAgICAgICAgICAgICAgICAgICAgICAgICAgICAgICAgICAgICAgICAgIC AgICAgICAgICAgICAgICAgICAgICAgICAgICAgICAgICAgICAgDQogICAgICAgICAgICAgICAgICAgIC AgICAgICAgICAgICAgICAgICAgICAgICAgICAgICAg ICAgICAgICAgICAgICAgICAgICAgICAgICAgICAgICAgICAgICAgICAgICAgICAgDQogICAgICAgICAg ICAgICAgICAgICAgICAgICAgICAgICAgICAgICAgICAgICAgICAgICAgICAgICAgICAgICAgICAgICAg ICAgICAgICAgICAgICAgICAgICAgICAgICAgICAgDQ ogICAgICAgICAgICAgICAgICAgICAgICAgICAgICAgICAgICAgICAgICAgICAgICAgICAgICAgICAgIC AgICAgICAgICAgICAgICAgICAgICAgICAgICAgICAgICAgICAgICAgDQogICAgICAgICAgICAgICAgIC AgICAgICAgICAgICAgICAgICAgICAgICAgICAgICAg ICAgICAgICAgICAgICAgICAgICAgICAgICAgICAgICAgICAgICAgICAgICAgICAgICAgDQogICAgICAg ICAgICAgICAgICAgICAgICAgICAgICAgICAgICAgICAgICAgICAgICAgICAgICAgICAgICAgICAgICAg ICAgICAgICAgICAgICAgICAgICAgICAgICAgICAgIC AgDQogICAgICAgICAgICAgICAgICAgICAgICAgICAgICAgICAgICAgICAgICAgICAgICAgICAgICAgIC AgICAgICAgICAgICAgICAgICAgICAgICAgICAgICAgICAgICAgICAgICAgDQogICAgICAgICAgICAgIC AgICAgICAgICAgICAgICAgICAgICAgICAgICAgICAg ICAgICAgICAgICAgICAgICAgICAgICAgICAgICAgICAgICAgICAgICAgICAgICAgICAgICAgDQogICAg ICAgICAgICAgICAgICAgICAgICAgICAgICAgICAgICAgICAgICAgICAgICAgICAgICAgICAgICAgICAg ICAgICAgICAgICAgICAgICAgICAgICAgICAgICAgIC WgVCLtSXn7B9znNKYhISCnJE1bFJi7Jx2+NCrSCkRkJDH1wjFtzY5FFJ3ma8TcJEnfKIEii0HlINo3BT 0BHFSkRFwsBX7PFRdfvo4BKVCoPCLckYPIe0rcHlArUVT5QHUaFqyrOS1DDQHhK2cwllFjZRMlRVKLBS rpCUAORO7OIgXtW4UkmV81HMUPVc8+DQplbmRvYmoN BoC4TWIjy9LiQWo3CQ7NTCPdRgfxd4LtYfToPWPSGVjqQX7NTUX5DYKiQCRiTj8YHWJiN350kwJcUS8X Ja6QWzJiQE6lao3ROaRgTTUyDbzZDss9TJheMZ4AvHCmVIiBm67raIs2ejLbrDCAVWdcSEFZlHh9KCGt VYVqVCOwAi2eFJYfHDBqKhO6UEGMLN3UDQBtIDYwgZ KkYIIdMWVOCO8IFUvqIPF0WZQxboXgaVJqBBosRE3PPLAslqBlQHilBMDNKFh+Wp8MIS7pp7WwIAkoPX DjVT2sbu9JVVnVMaTpQ3D9yZXjA2T2CQbiQb2PCOHjJMGwAFrgJEVXNPypUW6VLD5xsmZ6IA7ChCYcEB VjGQHwbUJqAZj7D94lvVLhXKrbZV4ARXG+Dion+Pg0K XFJsASJpAJDjXmUgBXCKPeDzU7FgW6CLr8WzD6MgMR07xDghldMjUVgnAH9XID0dJUYcTPCTBA9TwOLd mV2fjrGmFIIoDKSLHpRtY23hhOZeRMJrMWT6UXUpNe6XHROiM9BlhhKvhAmduaSgFHNiKGVACG4PXUfn vvTfcJOfjOynQE53gMqeUR7CHs7WRrTzCR9mdx3LkW YcSp4PTLMlNf6LPKCsAYVcSAQmFWP6CIHiZcZlPIucTGGxQVYlSDR8NAXoMEHdQU1QNdInXRYqEQQ7AQ LgECWuZVRbdu9PXCElNLOsGmGxXeTgQORbFCRwBAisLHTmKVYvKIO1KYFcTEUhGW5HKpGuDDHfUFD0FC XjSHLzYBMumh5KOTZuAGJvUol3CYQiQAFqLFCgBNfu NILeBFJ2ZvXmIRJkNOHmWI1KUdZzYGZgYQM8YsAwWOQhJGXdiq0WUVJeDXGaGwu4OTQxLAMgOLFfAZmy IKCbUWW0HEytHGLuOIIuJC1DIvSwVIFfWMtwDtYnJJBtUJGcav9AXDVdWABhRJWnTWSkQKSkHQMpBFcd ABJpXGA6ZvKbVYOlONPxOW1JVyLrCPAsQCw0PmEyEY CnJKCput8MSWIjXPLkFVU3XRTjIGMyJXKrBBgeZKWwFQSnYkj7FTNqJNMjXI7GUxFfYJIeRPU7ScKdDS PgEOXwyr9VHQZsSVOfCFK2FbJrBIRzBWYeZOxoQHUnPMBqNiM3VUMuGZQwEP8DXzDeJEXsWBL3VYazHM FkDLMqeb7PMQPoGXEzBakpHNUjJZBdUIUoUBo1rkQt kQSfGDr0QV1CJ0GpriEhJbXKZk8Nm763IGJnJGKiOn3LM8gxGa3pTWXfBVOVCh9OVUg9FePjILYcPzBi BTQ2ErZ6UdjaF1IxRmnmSIKeRfTdPRW+YXv5QXOdQoP4ASVeUwM0FSj3CkHoGvRaGLKsBKRdQZEgKw9t XSANCj4+CFoljNNzuBueMVFALcJcXVb4YShkBRBIGq9W ID Date Data Source [id number] 03/25/2021 03:56:25 PM EDT [facility] CT HEAD WITHOUT CONTRAST [id number] RESU LTInterpreted by:PRINCE ZhuLINICAL INDICATION: Brain metastasis.TECHNIQUE: Multiaxial CT images of the brain were obtained from the skull base through the vertex and displayed at 5 mm and 1.25 mm increments. No intravenous contrast was administered. Automated dose lowering techniques and/or adjustment according to patient size were utilized for this exam.COMPARISON: CT head without contrast 03/19/2021 and MRI brain with and without contrast 03/22/2021.FINDINGS: There is interval EVD placement through right frontal approach with tip in the frontal horn of right lateral ventricle abutting the septum. Pneumocephalus is identified in the nondependent frontal horn of right lateral ventricle. Redemonstration of right thalamic mass and left cerebellum with surrounding vasogenic edema, unchanged. Other masses utilizing the MRI is not clearly visualized in the present study. Redemonstration of streak artifact obscuring the base of the head. The ventricle appears unchanged in size and configuration since prior MRI performed on 03/22/2021. No evidence of new intracranial hemorrhage or acute infarction. 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 The extracranial soft tissue structures are unremarkable. The paranasal sinuses and mastoid air cells are clear.IMPRESSION: Interval EVD placement through right frontal approach with tip in the frontal horn of right lateral ventricle. Intraventricular pneumocephalus in the frontal horn of right lateral ventricle. The ventricle appears unchanged in size and configuration since prior examination. 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 Other masses visualized in the MRI is not clearly visualized in the present study.This document has been electronically signed by Kyle Muro MD on 03/25/2021 3:37 PM Name Value Range Interpretation Code Description Data Montse rce(s) Supporting Document(s) ID Date Data Source [id number] 03/30/2021 08:59:28 AM EDT [facility] Service Cmnt XXX-Imp : NoneGram Stn XXX : No WBC's or organisms seen.Specimen concentrated prior to staining.Microorganism XXX Cult : No growth 5 days Name Value Range Interpretation Code Description Data Montse rce(s) Supporting Document(s) ID Date Data Source [id number] 03/25/2021 06:30:56 PM [facility] Value Range Interpretation Code Description Data Montse rce(s) Supporting Document(s) Color of [facility] spinal fluid [facility] Clarity of [facility] spinal fluid [facility] Erythrocytes [#/volume] in Cerebral spinal fluid by Manual count 143 /uL <2 H [facility] Nucleated cells [#/volume] in Cerebral spinal fluid by Manual count <5 [facility] Microscopic observation [Identifier] in Cerebral spinal fluid [facility] Cell count and Differential panel - [facility] fluid [facility] ID Date Data Source [id number] 03/25/2021 06:36:30 PM [facility] Value Range Interpretation Code Description Data Montse rce(s) Supporting Document(s) Glucose [Mass/volume] in Cerebral spinal fluid 73 mg/dL 40-70 H [facility] ID Date Data Source [id number] 03/25/2021 06:36:30 PM [facility] Value Range Interpretation Code Description Data Montse rce(s) Supporting Document(s) Protein [Mass/volume] in Cerebral spinal fluid 26 mg/dl 15-45 [facility] ID Date Data Source [id number] 03/25/2021 02:09:53 PM EDT [facility] Name Value Range Interpretation Code Description Data Montse rce(s) Supporting Document(s) ED Provider Note [facility] IWLHYv2qCmNNNxJy92/BRTaqCGZxy5ZsGGgaVIm9OVtsYSTyM2KsERI0cC5vGIG8WYfBTsKpAsLeSUK1 lbm [file] gEJk//anSDk1XtJX/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+GUS26N+LP/6StXm9vlcs/ImntO67omwdcH45/LZ08vzL4IXG33/GA/HPTncy /Reji+qIUYu07m7T9fsyFsh0q5yYw2F4+iXuDePbTT+ [file] NzhlOTA+WZ1gVEq+Cf7Bj2RrovI5lgYgLKj6KLE4Eq4VTZNGJ9AVBe== ID Date Data Source [id number] 03/25/2021 01:12:40 PM [facility] Value Range Interpretation Code Description Data Montse rce(s) Supporting Document(s) Prothrombin time (PT) 14.6 s 11.6-14.0 H [facility] INR in Platelet poor plasma by Coagulation assay 1.19 [facility] Routine intensity oral anticoagulation I NR is typically 2.0-3.0. Target INR must be clinically individualized. ID Date Data Source [id number] 03/25/2021 01:12:40 PM [facility] Value Range Interpretation Code Description Data Montse rce(s) Supporting Document(s) aPTT in Platelet poor plasma by Coagulation assay 33.2 s 24.0-33. 0 H [facility] ID Date Data Source [id number] 03/25/2021 10:19:46 AM [facility] Value Range Interpretation Code Description Data Montse rce(s) Supporting Document(s) Bicarbonate [Moles/volume] in Serum 17 mmol/L 22-29 L [facility] Chloride [Moles/volume] in Serum or Plasma 109 mmol/L 98-107 [facility] Creatinine [Mass/volume] in Serum or Plasma 0.48 mg/dL 0.50-0.90 L [facility] Glucose [Mass/volume] in Serum or Plasma 111 mg/dL 70-140 [facility] Potassium [Moles/volume] in Serum or Plasma 3.1 mmol/L 3.4-5.1 L [facility] Sodium [Moles/volume] in Serum or Plasma 139 mmol/L 136-145 [facility] Urea nitrogen [Mass/volume] in Serum or Plasma 8 mg/dL 6-20 [facility] Anion gap 3 in Serum or Plasma 13 mmol/L 8-15 [facility] Osmolality of Serum or Plasma by calculation 287 mosm/kg 275-300 [facility] Creatinine/Urea nitrogen [Mass Ratio] in Serum or Plasma 17 [facility] Calcium [Mass/volume] in Serum or Plasma 8.4 mg/dL 8.6-10.0 L [facility] Glomerular filtration rate/1.73 sq M pre dicted among non-blacks [Volume Rate/Area] in Serum or Plasma by Creatinine-based formula (MDRD) >6 0 [facility] Glomerular filtration rate/1.73 sq M pre dicted among blacks [Volume Rate/Area] in Serum or Plasma by Creatinine-based formula (MDRD) >60 [facility] ID Date Data Source [id number] 03/25/2021 10:21:12 PM [facility] Name Value Range Interpretation Code Description Data Montse rce(s) Supporting Document(s) Magnesium [Mass/volume] in Serum or Plasma 1.8 mg/dL 1.6-2.6 [facility] ID Date Data Source [id number] 03/25/2021 07:52:52 AM [facility] Name Value Range Interpretation Code Description Data Montse rce(s) Supporting Document(s) Leukocytes [#/volume] in Blood by Automated count 18.5 10*3/uL 4-10 H [facility] Erythrocytes [#/volume] in Blood by Automated count 3.53 10*6/uL 4.1- 5.3 [facility] Hemoglobin [Mass/volume] in Blood 9.0 g/dL 11.5-15.5 [facility] Hematocrit [Volume Fraction] of Blood by Automated count 29.1 % 3 6-45 L [facility] Erythrocyte mean corpuscular volume [Entitic volume] by Auto mated count 82.6 fL 80-96 [facility] Erythrocyte mean corpuscular hemoglobin [Entitic mass] by Automated count 25.6 pg 27-33 L [facility] Erythrocyte mean corpuscular hemoglobin concentration [Mass/volume] by Automated count 31.0 g/dL 32.0-36.0 [facility] width [Ratio] by Automated count 18.7 % 11.5-14.5 H [facility] Platelets [#/volume] in Blood by Automated count 649 10*3/uL 150-400 [facility] ID Date Data Source [id number] 03/24/2021 12:11:39 PM EDT [facility] XR CHEST FRONTAL ONLY [id number] RESULTI nterpreted by:Jeff Dean MDINDICATION: Check for pneumothorax. Post right upper lung mass biopsyTECHNIQUE: XR CHEST FRONTAL ONLY [id number], 03/23/2021 3:35 PM.COMPARISON: Chest radiograph dated 03/20/2021.FINDINGS: New left PICC line with tip terminating in the SVC.The chest wall is unchanged in appearance.The mediastinal contours are stable.There is no evidence of pleural effusion or pneumothorax.Unchanged round right upper lobe opacity.Stable elevation of the left diaphragm.IMPRESSION: 1. There is no pneumothorax.2. Stable elevation of the left diaphragm.3. Unchanged round right upper lobe opacity.This document has been electronically signed by Brendon Zhang MD on 03/24/2021 12:09 PM Name Value Range Interpretation Code Description Data Montse rce(s) Supporting Document(s) ID Date Data Source [id number] 03/24/2021 09:08:55 AM EDT [facility] IR IMAGE GUIDED NEEDLE DRAIN PROCEDUREFI NAL RESULTInterpreted by:Faustino Mckeon, Keegan Baptiste, ACACIAROCEDURE: CT Guided Lung BiopsyHISTORY: 45-year-old female presenting for biopsy of a right upper lobe mass. TECHNIQUE:Operators:Attending physician: Faustino Mckeon M.D.Resident: Hilda Baptiste M.D.Sedation: 2 mg IV Versed, 50 mcg IV Fentanyl, for 30 minutes of moderate conscious sedation. The patient's vital signs including blood pressure, respiratory rate, pulse oximetry with PaO2, and heart rate with the EKG tracing were constantly monitored during the procedure.Automated dose lowering techniques and/or adjustment according to patient size were utilized for this exam.Total DLP: 177.22 mGy-cmPrior to the start of the procedure a "Timeout" was called, confirming the patient by name, medical record number and date of , and the procedure to be performed was confirmed. All procedural staff within the room are in agreement.PROCEDURE/FINDINGS:The patient was positioned prone and a limited CT scan of the chest was obtained demonstrating the right upper lobe mass which was targeted for biopsy. After determining the needle trajectory, the overlying chest wall was prepped and draped with sterile technique. The skin and subcutaneous tract were anesthetized with 2% lidocaine. A 17g introducer trocar needle was advanced, under intermittent CT guidance, until the needle tip was positioned at the edge of the targeted mass. The stylet was removed and a 18g core biopsy device was used, through the introducer trocar, to obtain 8 cores which were submitted for histologic evaluation.All needles and devices were removed from the patient and a sterile dressing was placed over the entry site.Post-biopsy limited CT scan of the chest demonstrates no pneumothorax.IMPRESSION:1. CT guided right upper lobe lung mass biopsy as above.2. Post-biopsy limited CT scan demonstrates no pneumothorax. Postbiopsy chest x-ray was ordered.This document has been electronically signed by Faustino Mckeon MD on 03/24/2021 9:06 AM Name Value Range Interpretation Code Description Data Montse rce(s) Supporting Document(s) ID Date Data Source [id number] 03/24/2021 06:44:18 AM [facility] Name Value Range Interpretation Code Description Data [facility] rce(s) Supporting Document(s) Leukocytes [#/volume] in Blood by Automated count 16.5 10*3/uL 4-10 H [facility] Erythrocytes [#/volume] in Blood by Automated count 3.32 10*6/uL 4.1- 5.3 [facility] Hemoglobin [Mass/volume] in Blood 8.4 g/dL 11.5-15.5 [facility] Hematocrit [Volume Fraction] of Blood by Automated count 26.5 % 3 6-45 [facility] Erythrocyte mean corpuscular volume [Entitic volume] by Auto mated count 79.8 fL 80-96 [facility] Erythrocyte mean corpuscular hemoglobin [Entitic mass] by Automated count 25.2 pg 27-33 [facility] Erythrocyte mean corpuscular hemoglobin concentration [Mass/volume] by Automated count 31.6 g/dL 32.0-36.0 [facility] distribution width [Ratio] by Automated count 18.6 % 11.5-14.5 [facility] Platelets [#/volume] in Blood by Automated count 738 10*3/uL 150-400 H [facility] ID Date Data Source [id number] 03/23/2021 05:17:30 PM EDT [facility] Name Value Range Interpretation Code Description Data Montse rce(s) Supporting Document(s) Consultation [facility] NVKHTr1qVkPOQsGj34/JYVprTXTcj9UkLQhnIBa5VXdiKOHqU5PyETM8cT5jBKK8QHeNKnSeMhUqIRF2 lbm [file] 44DyOXv7J4073aEJdAG9omczdyOkqoF9V2s9gp6CUcR3iCHrsRxOU36Av0jaWKjc89H2M/qvSbI+/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 [file] QSHxyjqnrq4lNETjhC1xW24PUh9Od5YE9SDAbDQq6bw/zj594TgR8St7wlnwOoG+3ThEsAhBZElzn/Supervisor Show Operations [file] 2Ve1HrkjY7bdHlHTs2KaPnCP9VMSQNE7NPGm== ID Date Data Source [id number] 03/23/2021 05:10:07 PM EDT [facility] Name Value Range Interpretation Code Description Data Montse rce(s) Supporting Document(s) [facility] DHLLOg2yKsHNMmVx69/IBCdwLOEul4SiGYwcSAy3OVlsWSJtP6AgZLY0jH7zJSB1LWbXJmTjRzKpNLA6 lbm [file] tufNAgzTnZ214V1Ava3V6txZQGye8dw2MMJPynfnznZres73poV+w3HvLekaPOLuifKPLYj2OdG7W+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 [file] ICAgICAgICAgICAgICAgICAgICAgICAgICAgICAgIC AgICAgICAgICAgICAgICAgICAgICAgICAgICAgICAgICAgICAgICAgICAgICAgICANCiAgICAgICAgIC AgICAgICAgICAgICAgICAgICAgICAgICAgICAgICAgICAgICAgICAgICAgICAgICAgICAgICAgICAgIC AgICAgICAgICAgICAgICAgICAgICAgICAgICAgICAN CiAgICAgICAgICAgICAgICAgICAgICAgICAgICAgICAgICAgICAgICAgICAgICAgICAgICAgICAgICAg ICAgICAgICAgICAgICAgICAgICAgICAgICAgICAgICAgICAgICAgICANCiAgICAgICAgICAgICAgICAg ICAgICAgICAgICAgICAgICAgICAgICAgICAgICAgIC AgICAgICAgICAgICAgICAgICAgICAgICAgICAgICAgICAgICAgICAgICAgICAgICAgICANCiAgICAgIC AgICAgICAgICAgICAgICAgICAgICAgICAgICAgICAgICAgICAgICAgICAgICAgICAgICAgICAgICAgIC AgICAgICAgICAgICAgICAgICAgICAgICAgICAgICAg ICANCiAgICAgICAgICAgICAgICAgICAgICAgICAgICAgICAgICAgICAgICAgICAgICAgICAgICAgICAg ICAgICAgICAgICAgICAgICAgICAgICAgICAgICAgICAgICAgICAgICAgICANCiAgICAgICAgICAgICAg ICAgICAgICAgICAgICAgICAgICAgICAgICAgICAgIC AgICAgICAgICAgICAgICAgICAgICAgICAgICAgICAgICAgICAgICAgICAgICAgICAgICAgICANCiAgIC AgICAgICAgICAgICAgICAgICAgICAgICAgICAgICAgICAgICAgICAgICAgICAgICAgICAgICAgICAgIC AgICAgICAgICAgICAgICAgICAgICAgICAgICAgICAg ICAgICANCiAgICAgICAgICAgICAgICAgICAgICAgICAgICAgICAgICAgICAgICAgICAgICAgICAgICAg ICAgICAgICAgICAgICAgICAgICAgICAgICAgICAgICAgICAgICAgICAgICAgICANCiAgICAgICAgICAg ICAgICAgICAgICAgICAgICAgICAgICAgICAgICAgIC AgICAgICAgICAgICAgICAgICAgICAgICAgICAgICAgICAgICAgICAgICAgICAgICAgICAgICAgICANCj w/nPMeX1ijpISfxhA1V7afVx6TUt4LQU3kg9CwMVMbFVbnliPaBpuHStWvCCSzUpnSSzb9QUbkXK0RzU TxE8HeS1DbIEvpOT9KQEYcVKPcfEUpXKFqRWYxMmT8 CNWhHIbyHQ7EtTCtHTdaHSThUBIfNdGgUYObHHEyEXWjAZJdXFKEIMIjAHCvIrHeEBRlFWHkHWucWKWM HMA8ZJObVvJoVSizJC2Tn6SmnGV4WDj+Gu0IYD2aa2ZxWPsuKWBtSH7bqd2SEKsKRpVkE7SlasA9YTUc IIBiQy1FHSKoRQRzvOO3CRZlNFYLFpSoO6GebQ23GX ENCj4+JNicpdPlJsqRSoOpSTSiu2WiUJb5AI7SAXBdRNw3jOWtY42kv2DxfHVuXfryXJwgDZxsdaokBO PQGdBCOKL7VEOsMbUwGbRoBSOoDqn5IuQUZPmCAoQxB6Zjr2RoBmO4GOVjEhDkJKxmEVXxCwP3LY73rL keAA3JYAKlAJVvZC66ZRG7PIWcDg1GSu3ALlNsEV9c bw5FQGDfIEXtYctDFpv1EOpxAS3OaVWoY4IjrSMhj7wVZcHfV7JMGQJ3UFIfSm1XYVSaQjIpPLHhRAao GB3yMDJkNCKLrQttyzB5CA3VTP1rysAmDT6QUwRbQx7sQg7EIrFrI9GwM4BoWSQqAPLHZRlxRZ1BXRnb EA8rXC3Mq6XSrSCthB4gxn4CKZEqHUUnDhuolm6ZPo taZ4K0jLneFSQkQcygZKTOWFlwUZ4XQIRaTNG5BNTxAKFtYDZSWdPsS62wGL1OR6Gek45zAkT0NSYbYs AfKPuuZW89sXtncjWzfPDhbNgcHL0VRt8+DQplbmRvYmoNCnhyZWYNCjAgNDINCjAwMDAwMDAwMDAgNj I7RcRoXj5YKUXsEMAuKHEmDaMfSLAnRDZcRFdoNKZu TVJ9MFB9AYRnGRKfKD7DAxMsOMUlWCWyNArgLDAxFRBmwr1WZPRsASQmXRX2IrUyQYCaDCQwXLfjIOBb QSLjFLa3LBFqRGPnWL4WGuBnQRDqCBQvXJWpYBLdFHKtev6VUJAkFMMtZvk5BUFkIOIrBMFjRArnQJHy KAM3VEqmBLIjBWHrAA5LSmWaMEDcFKl9BATbOFWjFS Qnsq7FICKmOBXzYWK0ENZvSFZjVGTlTMbnIAHvDENoNDPhBAShFMPrPF0VIbLoGMOgSBMhRhgtFXRkFW Slad2FAJTeFYVgGMxqJnDeQIBeKDZhIVsaYXQgQJK7DOJtNGHzNBEfLA0FOvImZQPoNBqdTxTaTBMhXL Qlzq0WTCDxUSSeJOG6UFYnPJEbNSOhYGciXDKmAYE8 EZX0VKQdNCNiXO8NRlViYNBaHlLgXyUyMDJfYYClml4TJKOlVQHsYnL4YIJhJPGqXOUwEUndZJHdRDQ5 PCLgPRHyOBHqLT3KZfIbXSNmKnp3GsFeEAPbNTRhby9LBHQjCRNvBSY9GzYfFHWaVLNfJYqeKSSmRUY5 SqPqEJXdGLCmFL2UBhLyARYnDamsASknZHJhUMEeet 4HXYKmJVPrTYWxASBwOJLqLSNbCCilXBEoRMI4RPu0LHClOJYtBR9KEgZrFQKcAoJ5GEuhOBBlLVIklp 3TOJLgTVQzHLa3CvQePTCfOVIbRFcaTPNgDESbHJE1AKHuGOQlVD5KKkXcJPDgGIUsTNKiKBExPQHacy 5JHMZzFIQ8MaUoTcZuCQOdTJFmGFbuKHOwFSWmBGAz JWNeVRIcBV1YEjQmPSSdNFZjVMJsFLCzFBYzrv3AYPVeZXU2TbXwAvDwRRUmLUKhHMewZUKwZFM2GXvu VLMpLYRlFA3UCiTiGGPqUCIjZHckIFYbTPDhue0IVKAxPDH6JHYoQnNkKZUfQYXrUSkcEDTvPSW4UCN5 GOYhRMNbTT3NVdCaTJSgXCB6PYAoYMPqMMJixa2TKT UoORD2VmZoNMRyIMBlEBQuFYwxJXQkEVI4PqC1JXFcWOGyKG3EUjCkRZveWMMMPik7OBnqW9l7FNA4Fw 0XB3Ndo6CvFQNrEIBLJJepSC0ainXbAFUoPf5BX9mYFogeLBZgXaZzDFo6IPHrLZq8WomwMoEcQQUdWv V6P8AcVt6nUWPoDHRhHGR5Pny5WjZeKbCqSGP1FcAl ZIDtRsTqJBKuQyJsQQ6KTl2RHpF0TYU3oBRmFg8JCGM3RJmGNuQbRM9SKMz= ID Date Data Source [id number] 03/23/2021 04:53:32 PM EDT [facility] Name Value Range Interpretation Code Description Data Montse rce(s) Supporting Document(s) Consultation [facility] OQOKHx5iWtMWOyTv49/RTXqmLWDtd9OiEHdmSGr7BIawFOHhT5RdKEB7cN3uPAK1UHiCGkOlCqOkBVK5 lbm [file] Fxl4dTFwXQJb32MPH+Mary Beth/i4qzHKXwBtLETA4671h+B0LHHnitpRE2N0PqvGOqzmoDPmTQwZ8JJypSufu [file] ICAgICAgICAgICAgICAgICAgICAgICAgICAgICAgIC LmTALcFKZhFSZzGXQuXYTpTORqENCsBOHcYWGhLMJsQDMpJZ9SHADcJBFhMZEoPIDxGNNoSQNbQVXnSM AgICAgICAgICAgICAgICAgICAgICAgICAgICAgICAgICAgICAgICAgICAgICAgICAgICAgICAgICAgIC LjQKXdICLbJNExURNpSHDxYD6ITGVsNYUsIZUtZABu ICAgICAgICAgICAgICAgICAgICAgICAgICAgICAgICAgICAgICAgICAgICAgICAgICAgICAgICAgICAg POOxMNVtRLYjDMUwHZIsPPOjGUDqFEEgGVYrEP5EPVUzCBRwONNoUUOeIMLrPVPvRCUvIRNfDQUuWSZj ICAgICAgICAgICAgICAgICAgICAgICAgICAgICAgIC KpDBGwXQGyGYGzHYEaMCXdRRNhTFLjUSJjXTLpULLpKZSkSCNyUN3ESXAgMHNpYVMlUOTdQMRpIBDnNH AgICAgICAgICAgICAgICAgICAgICAgICAgICAgICAgICAgICAgICAgICAgICAgICAgICAgICAgICAgIC QyKHIiSNBkZNPvTLWjSCIjKZAyOT1YJLQiIZReNRHf ICAgICAgICAgICAgICAgICAgICAgICAgICAgICAgICAgICAgICAgICAgICAgICAgICAgICAgICAgICAg QUGdCJJdRKLfIMBlRXXpCALgMAImXWCvPKEbDOHzJW8LBFVwNNCdOTQkERXlUQZaGOQwTWHpJRRhIBXy ICAgICAgICAgICAgICAgICAgICAgICAgICAgICAgIC RmPQDeKLGmMQRbIGMnQZBqHWIlSHYcDECkVHCtTZHsRCIqHAYhGKNhBA6VFDWbPZRyPPDnBBJjIUWvXQ AgICAgICAgICAgICAgICAgICAgICAgICAgICAgICAgICAgICAgICAgICAgICAgICAgICAgICAgICAgIC AnKQEiDCNgVQFwFILbTBSgAIUkNLYjNZ4FSEXvTKDq ICAgICAgICAgICAgICAgICAgICAgICAgICAgICAgICAgICAgICAgICAgICAgICAgICAgICAgICAgICAg CYPpYFQbDWObKVYvROWpEVJaATIgKUHcOONwSCLlAJWbLV8FEKToEOEbRJVjUSKyRKNmLVHaRPPzEMMq ICAgICAgICAgICAgICAgICAgICAgICAgICAgICAgIC LnXCXzOLZyVEEtJAYiDDBpDLUiAQRnSDKvEKUrNLUaOBReMZAbRYHvIMMnSN2NSN97xCUae6W3WPJlWH 0ndyc/Ac3IJLxwhyFrvWGvPO3ZTvZvET8arc5MHjQfSI5fyx5JVMoBTdFnT8S3cACkFPYaIJCGVhRyU3 0iTUehDo61VBppSSVdBpWrPTk0Kf9LUmLdV5cdXWQw LkG6TTOaXgM1GHRrArJ7HIEqOzHrHNWqOFDlXTMlNXPACWE0COQaLsQkVcYfWVNoMLoxRRGQKWLnLIYt ZpYhZFxuRL5Yq9PeaSJ7QJm+Yw9AKW3tw0YuAKh4APWxUS8bpr3SYUcYKnYpF6BvvsE7PZVtCMDxDu1H LTTaCABhxMI4QyInIXGOEgQhZ1QfbK60WCLNZp2+DQ giclEqLnrGKoOyBUFyy0YiGOv6GF5ZASQhYXy5bVDqF88qy9IdkRBlWsvvYWX0pqYaLgMJRKttoFncSV 5NTLY8HIOfSbEeGrBrFFWkMJhpJyDPUUgUBaPwM2Unn1KjHqB4MBJxNuGyZGjxQQRrQfN2RS87qFltWW 8LUHFbNXMtUY01TFEiYPLaLz3VYj4ARtQlEU7oaf7O PQVhNHUgTfkXTtb3VRiyFB3MtAKzX7ChkWGtc9fIFnYxI2QTQQV2BIPwHt8RYHMpHnZeWQSwWWynNE1t IYKeXSHTjBdbcxR5DL9NVW7tltIeAR2YAqSxNk1bLr5QZyLfR5EoG0MoZCOuBEPTCOkqML0YSFjfCA4f XS4Kb4WRaYPyqZ5aal7TCDFzYWImLnhcik3QRvbeE1 D6vTohCTByPGKtSFCYIXjiJB5MOPUnFQT8DGF5WEXiSUICVnKfW45lMK7XT2Pia19gUgU1AGZcVcUnBS wtEU15iHypclLbgNPkdTmuOT2YSy5+IKxxbpOrEnjLSvarSRNYSdGpOYDLMtQaMPPaGQEnNFLkSpC4Ma AhHp3JZSWuYXPbCFGiCjZnHPPvXCHoZQxoERKuATFn SDX7VNNsZVPmEL7PGrYwTYInQZO9GlyqBSOnNXZlbz6WQDKxDYDtBMQ2VoIyDDYbFVLnVZneXTTpUMR6 POb1OMQlDGDpWZ5YGwWaGSFcRAKoJXvdTNTdPECjhq8VJUDkWFXfNbciCKVaKFNwZUBvIJzzUQAlDWA5 OSN4EQCtGHMaIZ0ESkUaXZPcUKBiUIQbQPUvNXMwbt 7BSFWeMHRpUVFlYdSeIKOxKWSeCWlnUOOyBIBxZJx6QRArVFAvUH7OZiBpBRVnUMTsAOSeZEBwFEKdsf 3QCECjJXIiSEb1CyIgEDFqIIQdRHsjOXQnOTP8BUP4LGWkHPJmZR3WEqHpNFViZoM5ERFjGUKaKTLjmz 3MATOdLPFiUAf2GjWhKDQgMIZnKRifNQSxDVC2MhY2 IWUgPZOhJO4KXxSwJJMdRlK1PeUrHBGdXDMjgp6KEBKtSYCzEES0QLAnLTDnVZCzPTbaPVYkAJSqFbX0 AVPcCSFzWZ7QClRqYEAfIgW4MNRhJABrQTHggi3ZFCXaFFAjXMW2ZOZjPZSzXANhDIvzBMYyLLC2BDC3 KGAiKBSrAO1GZuNbRPAuZcXzEUQlOOJjFZJlpf1QJY FzOZNfVIA6KRNtFFPyTKCmAWsfFZDcTUS9JJC0TQFxDUWaQL6UIwIhXOUzIbV6LbXyCLPdTHLtrn9HTP VrPRRlAji8IFPrEUOaCTWzWHuvSLQwOTA3UFK2BKUkBVKhLE9IIlZgRJAjDaksIXPwJQCsULZgxh1TFD QgPQKjAXY1BEPyMZPiVGPkUZwgDWIvEMC8NZqyMOSz MVTcOH7VLfHzZEYwYJi7QNPjVPUrKHYboq8JMLVbLBF5WEKoNUYqSQYbKRMkNKzyNMBxYFQsEyY9USBl PIPnNG2QPqYiWOToWHJ8XTXoXIAnGRFpyb3CTMOoEEC3ZYJbUMZzBTMfGENeNTzsMSPgRSPaGxJ1EJRa INGtJU1SNyEfYJSnFJN0KTEdDZJdVBCezt6KSCAeRA L6PyToHIXiVWVuUEZoZEbzJEMmXOIkKsWyRPCrEXYfGO5WNiAhKITnSBJ5RAWaUVDaUROoqc4GMGMvFI Z1WsgjDLNeABJaLJCuHZf0yhPdjTGbNQm2OP2LK1WxzoDlWHAIAm3Vz181ZGSyOEKzHg9KP2kxKh3bPX GbJAUFJu8DNWy6GNPbAhT2PkC8QXB2L8CvEYR6GHS3 QaImLXC7S4QvXKB+WDxzLRW2Tcp0WKRxIOtcQBIoEIbsZynuIDUxASFxPqAyCa6wOSVTSv7+DQpzdGFy cLtcQEWXHvX4WEs5AOuaJHWFVw2B ID Date Data Source [id number] 03/23/2021 03:47:39 PM EDT [facility] Name Value Range Interpretation Code Description Data Montse rce(s) Supporting Document(s) Consultation [facility] IAYWMt2hLjYLEyZs13/WMDusYETiv6GtNUutNPz5YLvtMJMkF4PoRIU3hO0vBZQ4UPsOHyFdHeZhXSL5 lbm [file] SIGNALS INTELLIGENCE ANALYST/0qTcWjqLGGzyUJRGNGm4bEUixWykf0Xg1gFpnsl6XniugxxNFDRgK9R9zEBKrXsTgXP8ylWNMjJTC [file] AgICAgICAgICAgICAgICAgICAgICAgICAgICAgICAgICAgICAgICAgICAgICAgICAgICAgICAgICAgIC AgICAgICAgICAgICAgICAgDQogICAgICAgICAgICAgICAgICAgICAgICAgICAgICAgICAgICAgICAgIC AgICAgICAgICAgICAgICAgICAgICAgICAgICAgICAg ICAgICAgICAgICAgICAgICAgICAgICAgICAgDQogICAgICAgICAgICAgICAgICAgICAgICAgICAgICAg ICAgICAgICAgICAgICAgICAgICAgICAgICAgICAgICAgICAgICAgICAgICAgICAgICAgICAgICAgICAg ICAgICAgICAgDQogICAgICAgICAgICAgICAgICAgIC AgICAgICAgICAgICAgICAgICAgICAgICAgICAgICAgICAgICAgICAgICAgICAgICAgICAgICAgICAgIC AgICAgICAgICAgICAgICAgICAgDQogICAgICAgICAgICAgICAgICAgICAgICAgICAgICAgICAgICAgIC AgICAgICAgICAgICAgICAgICAgICAgICAgICAgICAg ICAgICAgICAgICAgICAgICAgICAgICAgICAgICAgDQogICAgICAgICAgICAgICAgICAgICAgICAgICAg ICAgICAgICAgICAgICAgICAgICAgICAgICAgICAgICAgICAgICAgICAgICAgICAgICAgICAgICAgICAg ICAgICAgICAgICAgDQogICAgICAgICAgICAgICAgIC AgICAgICAgICAgICAgICAgICAgICAgICAgICAgICAgICAgICAgICAgICAgICAgICAgICAgICAgICAgIC AgICAgICAgICAgICAgICAgICAgICAgDQogICAgICAgICAgICAgICAgICAgICAgICAgICAgICAgICAgIC AgICAgICAgICAgICAgICAgICAgICAgICAgICAgICAg ICAgICAgICAgICAgICAgICAgICAgICAgICAgICAgICAgDQogICAgICAgICAgICAgICAgICAgICAgICAg ICAgICAgICAgICAgICAgICAgICAgICAgICAgICAgICAgICAgICAgICAgICAgICAgICAgICAgICAgICAg ICAgICAgICAgICAgICAgDQogICAgICAgICAgICAgIC AgICAgICAgICAgICAgICAgICAgICAgICAgICAgICAgICAgICAgICAgICAgICAgICAgICAgICAgICAgIC JsFWAgQNHjBXWcKGBeWUCyPTScIRUlYTPjOZq8J0rcMJXgHHFaCH3cAKl6Cb4+SJcXIsPeORZ2ovXszL 7IOQ6nl7NzIKzpZMZny0EkTGk4CX9PSQZdKUplKR5K TCzeps1PHGPpMQShgIJWn6oyDbGfPSM3VWSiNexxNE5JMYBlQ0zxfbUmHBOzUXCYOYspRAAVOReyDEFI TOPuTYBcNyCjXjQwDWOkVJNjFJBBOVR9XXDtWhEhMJrkXF2Gm3EteIK2TPh+Gk4IJK9hn0IcPRd8PcIm YP7lws3YMIxFWsZsE0PxacS1FGP9TRWgDb7BWDRcMB KoaFI6TVSgLHNEAtHaR9JwuX82MECJZk6+YNdbdmApKloVHhK7PVKxm9BpZKn1OQ8KUMMgBJs0iXRbQ0 0qn5CwfIVaXjqyQDkfrzWpA9usdY3bx9B8XRMUHaMVEYJ0OOAoMpJuPjNsICPyJkdbVxMKIAeGWiKbL3 Dvu5UvHkQ0ALEcLmAuRAlaMZOvYlX9BX02gYiaLP9M YMCoTMUeYF70LWRyXYGeTw4NOp9WIsZcIX5qxz7CIABgTGLuLnhKUpw7MGcnJL3UpUQaD5UbkNNgz0fT AjIiX7BKOHAsUFGnBy6JNZBzDaXaFXNsHVsfQF5oGGPmELWRpYolevN8DV3XUV1yliKoYC9JVeIaGb8o Zb9CDuMaL6UiS3ZnJEWtRFIQFWwqWT1PJTdaEP9wIG 6Sc1ZKzMJrnY2xlz8FCUFpMWYcWgolsg9MFfwgY3I3nMegETWgBJUzJWMIYTzgUB6YTZUvCAE1NEO1Nu JvDWZAMfMeN59qAC9MK4Zxy81qGoL3LEMiVtJkWLyaWA65hDtksgMrkEIjwRqoMV4QRm9+DQplbmRvYm mMPwiuLWLVEeCyMTKKXfHyKIEkPHMgTTLnEcD0UaJi Uj9QVZWjRHZtRBCpXdZtFHCqHWRkDOfnUOYgPYP8LWg5ITDdPLSwIZ2VHbBwNYJlXHz3NnGnOPCyUYQu oa9ZMDFaLMLqCDC7WlQzXOFtKLPqXZqcMJCtXHPuVBz5VYTsWXZoTU3VQnLlSSXjPNEhOUEoIONkWCFb mm6DMHLdHVYhYbS3WLUfLVHkOEHkSImiSIUmXBL8Up u8BFZmIMYbSM8RWrLkOXJpSRYoPLhpCDKhYKObbn4QREQoVCDwBIB1GwKpCSYnPLQsLTeeQWQeWIY7BZ b2UABiONQzTQ1SGsViTBLmBRN7FFViXKHvMJKjnn6JICGhHICxOIV2RGTvHJIlTJTuOPbcHRViZPHoCO D4UVXvBZUiMG2JVrAxBIBbFkN2BEcgXODoLXSoki3H ZWVfHOBfSGR9MXJpNRItHJQnZXvkVGEzKXZ3SPB7ILBzRDNmLF7SPeZpTEWaWbI8ECJrVWGbREFoke6V SKYvNFCuBiO6SWCsKYFuZCZpEAttYJGuPJG8UizkAYOzDWAoUT0YOoUmXABoHrr5FRCsVLWtWYWaqu2G UGIuFCIgRCcjRUOqLEYvCSInQGvaVLQiSYY1GAR6KO QkYUDrPK4BOjGqSXFoQvqeTQLjWDDzXLCmdu2VEVBwQVGwIOP4JiOwFQFzIHWpMBrdQJBqDJJyXDJ8VZ CxSBCaJD3QVhPgYTXoLdW2YSHbBHZuKUGjvw5NWSUoCJEmBOGbYxEeEFNiRRDtDTxaVQTlBHKeMNClJM IcCLFvHQ6XYdYnNOBwAyQ0CJVoSQHzGDUfxb4VRZWc GAIaYqe3XmDxTXXyVIKyWHlcVSSvIKWrNDR2XIXcIJUtKC5UJjXjBCEbTcGbGYqeHTZoXSGacr5XQOIu TPA8UYhuJCNpBUGcOEFrVHjbRBHmSPI7RFNzNIMsXKTpFH4RUwPcBHPlHOMyKtPvXPSgMNPpsv9IWSXn RGP5CADgANEiFOQqMABoHFakHOJhMTW2ObL0YUFmCW UtVQ3KLzOhWPJiARQ3FJSpMMEvXOBjfs2QFXLyNVW8Zte4XKGtHBItDDBbFTglRXRaANG9MBF9CLNpGF DgJQ6XKjBfQYTgMAn5JfKnZFJyVZIhvo8TTHEvLEM2SYl3YGYpYHCtWLElKVrhQLNnQUM2ZYvkYUMnQC ShYP8AZuViVWKdHTbkVOTeOVHcHWJvzl3FiVOgcGgb ef1QHMqTOe0WlGftZVR3JCnfSx1wvZJ3BOCzYNXLVy6SvwFbKDFpZVACKUxkPCOnCLL3CBZwZMTtMDEx RFUsNWG4QZL1VeFnMWF1SaWcMOPqJnE6Ilw7JHH6ILO7ZJL7I9OkHxRlMuFmALH2TZAiGDT9PUT+IF0g DQo+Ac3Iy8YbktG4zwMzWVu6YSK9RJ0QVKCBQ4SOAt== ID Date Data Source [id number] 03/25/2021 10:15:00 AM [facility] Surgical Pathology Report See Addendum B Jeremiah: TIBURCIO JOSEPHMRN: [id number] Number: [id number] Date: 03/23/2021 14:34Received Date: 03/23/2021 15:55Physician(s): BRENDAN BOWEN MD PINTER, DAVID J[place] [place] To:BRENDAN BOWEN,MDSpecimen(s) ReceivedA: Right upper lobe lung mass bxClinical HistoryLung mass.Addendum 04/07/2021 RESULTS OF IMMUNOHISTOCHEMICAL ANALYSIS: This case was sent to [facility] in [place], [place] for PD-L1(KEYTRUDA) testing and the results are as follows:TEST:Marker Tumor Proportion Score Interpretation DescriptionPD-L1 lung (KEYTRUDA) 5% Expression Programmed Ligand 1 (PD-L1) Clone 22C3 pharmDx(TM) kit for KEYTRUDA Reference Range:PDL-1 protein expression is determined by using the Tumor Proportion Score(TPS), which is the percentage of at least 100 viable tumor cells showingcomplete or partial membrane staining at any intensity.TPS less than 1% = No expression.TPS greater than or equal to 1% = Expression. Eligible for KEYTRUDA(pembrolizumab) monotherapy.TPS greater than or equal to 50% = High Expression. Eligible for KEYTRUDA(pembrolizumab) monotherapy.Intended use.The PD-L1, 22C3 pharmDx(TM) is FDA approved for in vitro diagnostic use asa qualitative immunohistochemical assay using Monoclonal Mouse Anti-PDL-1,Clone 22-C3 intended for use in the detection of PDL-1 in rkuthekv-uaglxalvgxqxo-zlhucyfl (FFPE) non-small cell lung cancer (NSCLC) using DakoVisualead FLEX visualization system on [employer] Link 48. PDL-1 [id number] is indicated as an aid in identifying NSCLC patients fortreatment with KEYTRUDA (pembrolizumab) monotherapy. See the KEYTRUDAproduct label for specific clinical circumstances guiding PDL-1 testing. PDL-1, 22C3 pharmaDx is a trademark of [employer] [place] an [employer]pws Addendum Electronically Signed By: Adeladia Solis M.D. 04/07/2021 DiagnosisLUNG, RIGHT UPPER LOBE, CORE BIOPSY: INVASIVE POORLY DIFFERENTIATEDADENOCARCINOMA. (See Microscopic Description). /Anila Denney M.D.;Resident PathologistElectronically Signed By Adelaida Solis M.D., Attending Ztiwpercqwo37/7/2021 10:15:34 The attending pathologist named above attests that he/she has personallyreviewed the relevant preparation(s) for the specimen, performedmicroscopic examination when indicated, and rendered the fin al diagnosis. Gross DescriptionThe specimen is received in formalin and labeled with the patient's name,"Tiburcio Joseph" and "RUL lung mass". It consists of multiple soft tantissue cores ranging from 0.2 to 1.1 cm in length and averaging 0.1 cm indiameter. Totally submitted in two cassettes designated A1- A2.KORI\\Microscopic DescriptionSections show replacement of lung parenchyma by solid clusters and sheetsof cells with eosinophilic cytoplasm containing scattered mucin vacuoles. TTF-1 and P63 are negative. Despite the negative TTF- 1, the findingssupport adenocarcinoma.This report may include one or more immunohistochemical stain results thatuse analyte specific reagents. All positive and negative controls havebeen reviewed by the attending pathologist and are satisfactory. The testswere developed and their performance characteristics determined by [facility] Pathology department. They have not been cleared or approved by the USFood and Drug Administration. The FDA has determine d that such clearanceor approval is not necessary. Name Value Range Interpretation Code Description Data Montse rce(s) Supporting Document(s) ID Date Data Source [id number] 03/23/2021 12:39:54 PM [facility] MR BRAIN WITH AND WITHOUT CONTRAST [id number] FINAL RESULTInterpreted by:Daniel Thomason MDINDICATION: Brain metastases suspected.TECHNIQUE: Multiplanar multisequence MR images of the brain were obtained without and with intravenous contrast.COMPARISON: CT head dated 03/19/2021 performed at outside hospital.FINDINGS:Within the right thalamic region there is a 1.9 x 2.1 x 1.9 cm T1 and T2 heterogeneous enhancing lesion which demonstrates subtle peripheral mild diffusion restriction and central T2 hyperintense and enhancing cavitation. This lesion demonstrates minimal punctate internal foci of susceptibility artifact consistent with hemosiderin deposition. The lesion demonstrates mild effacement of the right lateral ventricle as well as surrounding vasogenic edema which extends to the right cerebral peduncle. There is approximately 2 mm of leftward midline shift.There are additional large enhancing lesions with similar signal characteristics within the left cerebellar hemisphere measuring 2.2 x 1.8 x 1.2 cm and near the vermis measuring 4.9 x 2.2 x 2.1 cm and resulting effacement of the fourth ventricle and diffuse vasogenic edematous change throughout the predominantly left cerebellum. There are additional punctate enhancing foci in the left cerebral hemisphere, left occipital lobe, left anterior temporal lobe and high right parietal lobe with varying degrees of surrounding vasogenic edema resulting in mild effacement of the left ambient cistern.. Additionally there is question of enhancing focus in the left frontal lobe (image 85/175, series 24).On DWI, there are no foci of restriction to suggest acute arterial territorial infarction. There is generalized cerebral volume loss with commensurate enlargement of ventricles. Cerebellar tonsils are slightly low-lying. There is a focus of encephalomalacia in the left basal ganglia.Imaged portions of the paranasal sinuses and mastoid air cells are clear. The orbits appear normal.IMPRESSION: 1. Multiple enhancing lesions, largest noted in the right thalamic region as well as at the left cerebellum and near the vermis with diffuse surrounding vasogenic edema and mass effect upon the right lateral ventricle, fourth ventricle and effacement of the ambient cistern. Findings are concerning for metastatic disease. 2. Additionally vasogenic edema results in crowding at the foramen magnum and potential development of tonsillar herniation. 3. Ventricle size does not appear to be significantly changed from prior CT, concerning for hydrocephalus with transependymal flow of CSF.4. Additional smaller enhancing lesions are identified in the left cerebral hemisphere, left occipital lobe, left anterior temporal lobe and high right parietal lobe with varying degrees of vasogenic edema.5. Additional findings as described above.Findings discussed with Dr. Coker at 12:43 AM on 03/23/2021.This document has been electronically signed by Xavier Lara MD on 03/23/2021 12:37 PM Name Value Range Interpretation Code Description Data Montse rce(s) Supporting Document(s) ID Date Data Source [id number] 03/23/2021 09:17:11 AM EDT [facility] Name Value Range Interpretation Code Description Data Montse rce(s) Supporting Document(s) History and Physical [facility] BQYVKl0cBxBBNfLl97/WQAerUTBgd8OfAQyjZLk2TXgnJURxS0FfLLM3lD0pCIS8LLsRUtJaIaPxZFM7 lbm [file] ICAgICAgICAgICAgICAgICAgICAgICAgICAgICAgIC AgICAgICAgICAgICAgICAgICAgICAgICAgICAgICAgICANCiAgICAgICAgICAgICAgICAgICAgICAgIC AgICAgICAgICAgICAgICAgICAgICAgICAgICAgICAgICAgICAgICAgICAgICAgICAgICAgICAgICAgIC AgICAgICAgICAgICAgICANCiAgICAgICAgICAgICAg ICAgICAgICAgICAgICAgICAgICAgICAgICAgICAgICAgICAgICAgICAgICAgICAgICAgICAgICAgICAg ICAgICAgICAgICAgICAgICAgICAgICAgICANCiAgICAgICAgICAgICAgICAgICAgICAgICAgICAgICAg ICAgICAgICAgICAgICAgICAgICAgICAgICAgICAgIC AgICAgICAgICAgICAgICAgICAgICAgICAgICAgICAgICAgICANCiAgICAgICAgICAgICAgICAgICAgIC AgICAgICAgICAgICAgICAgICAgICAgICAgICAgICAgICAgICAgICAgICAgICAgICAgICAgICAgICAgIC AgICAgICAgICAgICAgICAgICANCiAgICAgICAgICAg ICAgICAgICAgICAgICAgICAgICAgICAgICAgICAgICAgICAgICAgICAgICAgICAgICAgICAgICAgICAg ICAgICAgICAgICAgICAgICAgICAgICAgICAgICANCiAgICAgICAgICAgICAgICAgICAgICAgICAgICAg ICAgICAgICAgICAgICAgICAgICAgICAgICAgICAgIC AgICAgICAgICAgICAgICAgICAgICAgICAgICAgICAgICAgICAgICANCiAgICAgICAgICAgICAgICAgIC AgICAgICAgICAgICAgICAgICAgICAgICAgICAgICAgICAgICAgICAgICAgICAgICAgICAgICAgICAgIC AgICAgICAgICAgICAgICAgICAgICANCiAgICAgICAg ICAgICAgICAgICAgICAgICAgICAgICAgICAgICAgICAgICAgICAgICAgICAgICAgICAgICAgICAgICAg ICAgICAgICAgICAgICAgICAgICAgICAgICAgICAgICANCiAgICAgICAgICAgICAgICAgICAgICAgICAg ICAgICAgICAgICAgICAgICAgICAgICAgICAgICAgIC AgICAgICAgICAgICAgICAgICAgICAgICAgICAgICAgICAgICAgICAgICANCjw/vGOjX8vipUPvdcE3A2 ouZu6STx7QKV7bb4ElHJDaFAxandHgQqvKGzWbHVEzEuaYCqn3GCvaVH5QmWFqL8RbY3BdHTshJX5CCW ZkSGSnzRVdAWQsKMNbDtO7JARsBRajNX1KyELtZFos HBNsHLVzVmQxJPVmJELcPCMeUFMcBDNAPGThKWPfKfNrNXzuDP9Zj4CtyMG3LBo+Ou8BYW3kp9FoEAma XDGzHW1xak7PAFoRDxPoP7LafvP2BJAbTUKsZi1MDOMiWPTzjPApTLLyPQVZRhYxV0XgrC42NSHTOj1+ KYytjjPgGckXCpGxZBFay4SeBJb6IQ0BDYQiPHj2uU JoYESCKTD3DMhvElJjQBytVrCMs7coOSmjMlIcICYlFZGlBJ8sHSHdOPB0AsY4CFQTIL9AEMKjEGSsuD UwOYSkRDEFYD0FCQxlXOW4BKQvuzSgkUBuKJqlSX9QSCCadvQyGpZhIXYVENq+Tk0KZJ8ej7NjCWutWm JiNS8yjl7LNTmVKqUoO4Z5oGQjV5Z1SKmmVa5EIZIz ZSQdKlguEHJLKGjeKJ2QIV3zioH4AH5GjLFyHRRmEXSyxXFcKTb4M19nhBVqVHicTQ8WMTZ+Dion+Pg0K HFHlCMDfGABfIvDhVDHYSzWnA4KeK6XRr2FkG6GjWI25iLjciuPuMIxiKN5UFC8bCAWyUBGSWK5EvJPi cR0nasEhWZYuZDCBUeDyO47jkAUyZMPcQUZ2CADlPa 2HLCPkW4QreaDobVjfmpIbZEPuNFBGUI3ZSZpzhhDbdZCogDvpGT70uUhjYW1MLe4LCbVkWK0jpx7GvC UcAv5KXMNmIc9CZXZcGQTnTSPdPRX7DZMjGhRdQAxtYFWfQASmCAH9BSXrQSMsUN1UIzDnAXPzFeAdWB KeDRFwTROfzy1LPBQoNORsZOa0UOKuYFEzMAQoLBdd FDVdRQNeAUC5DGOaYWLaLQ1HTeHuETLdFWA8IQKfCSKaCMFajb9BEWMgCTKfBuolGZQrFMFiQLAqHWyj OWDkJVL6OSu9FNHrCIKoLP8UQeAjXIEmLNCrGNMkEIRtMOHhnm1GQKJhCUYsMJQ5XGOzOZDxTTYcDLvc YKEgYUL0Nad4YWPqWNSwWA1PPxQbYWBbDMZvAHyzFC GqQQGskg1JUBMeEKKbJuF0LKByYSWbXHIkCKlaWSDbTMCbDLoySRLlHTGgTR8BJxFtMWOlQJZ4LMykMF LzNULear1XTSIcQBTcIRK0TtYpGFApTBCuYQjfZBZyEKY4NKW5GKJkCSOvBK4KChCqRSJzABBrLrjtEV GsRLUmkg0IPAWpLCPfKRq7XyVjFJYsFRPcPUdzALWt IWJ5RYk4ITRcCPJeXB1SOkIzZAGaUMRpMGNrEYJgEZZujn9HPQJkXFUmMwy3NXPqOAHdBGMjKPewWQNi FDN9PWf0IREbPXDxYZ9TAdLbMXXzQyelOLjcZUEjHAVddl0LCOZtOESiEXGlAmAiOCCtMGSoEYekVBZj MCO8YlymXFQaDVYuXE6ULiIrHLQvRof5YgyoZHJvQQ Vrjw9QPSFyJANtXIknTGEdRSNbFLErBCzxMLXuHXQ8HKtcTEMlVTKzZR4AKtHvUMLpQcB5DAJaZPVyAB Lkey3SZFDdVOVyYQm5ZEHrDCWuLXMiSSpwDRDmMLEaJCZ2BWZgBONrAQ5GOlQnAABuCdIgWEKiKHQrKY Fifv6JoPWzjTqngo0WTRtYVl0NtXleXCCiNXrsPo1j aOOfZsKtGPAVSd8SfhZdXIPrNUFPCIrmPFPsYROtSXDfIXZbJBO9FNYuWXK5ZJH1PBQnEKYcGgNaHDp5 UwI8BUIkCRNxROR2INehU2E6ChufZCa6GUOwKhSlLZIuLWr+EH8bBVg+Xi0Mq9BetmY4okFzHGaoMgAs PA8UEODDO8NYRd== ID Date Data Source [id number] 03/23/2021 04:02:40 AM EDT [facility] Name Value Range Interpretation Code Description Data Montse rce(s) Supporting Document(s) Leukocytes [#/volume] in Blood by Automated count 18.4 10*3/uL 4-10 [facility] Erythrocytes [#/volume] in Blood by Automated count 3.32 10*6/uL 4.1- 5.3 L [facility] Hemoglobin [Mass/volume] in Blood 8.5 g/dL 11.5-15.5 L [facility] Hematocrit [Volume Fraction] of Blood by Automated count 26.6 % 3 6-45 L [facility] Erythrocyte mean corpuscular volume [Entitic volume] by Auto mated count 80.1 fL 80-96 [facility] Erythrocyte mean corpuscular hemoglobin [Entitic mass] by Automated count 25.6 pg 27-33 L [facility] Erythrocyte mean corpuscular hemoglobin concentration [Mass/volume] by Automated count 32.0 g/dL 32[facility]0-[facility] width [Ratio] by Automated count 18.5 % 11.5-14.5 [facility] Platelets [#/volume] in Blood by Automated count 761 10*3/uL 150-400 [facility] ID Date Data Source [id number] 03/22/2021 06:18:48 PM EDT [facility] Name Value Range Interpretation Code Description Data Montse rce(s) Supporting Document(s) Bicarbonate [Moles/volume] in Serum 22 mmol/L 22-29 [facility] Chloride [Moles/volume] in Serum or Plasma 105 mmol/L 98-107 [facility] Creatinine [Mass/volume] in Serum or Plasma 0.38 mg/dL 0.50-0.90 [facility] Glucose [Mass/volume] in Serum or Plasma 135 mg/dL 70-140 [facility] Potassium [Moles/volume] in Serum or Plasma 3.8 mmol/L 3.4-5.1 [facility] Sodium [Moles/volume] in Serum or Plasma 137 mmol/L 136-145 [facility] Urea nitrogen [Mass/volume] in Serum or Plasma 13 mg/dL 6-20 [facility] Anion gap 3 in Serum or Plasma 10 mmol/L 8-15 [facility] Osmolality of Serum or Plasma by calculation 286 mosm/kg 275-300 [facility] Creatinine/Urea nitrogen [Mass Ratio] in Serum or Plasma 34 [facility] Calcium [Mass/volume] in Serum or Plasma 8.4 mg/dL 8.6-10.0 [facility] Glomerular filtration rate/1.73 sq M pre dicted among non-blacks [Volume Rate/Area] in Serum or Plasma by Creatinine-based formula (MDRD) >6 0 [facility] Glomerular filtration rate/1.73 sq M pre dicted among blacks [Volume Rate/Area] in Serum or Plasma by Creatinine-based formula (MDRD) >60 [facility] ID Date Data Source [id number] 03/22/2021 11:56:47 AM [facility] Name Value Range Interpretation Code Description Data Montse rce(s) Supporting Document(s) Bicarbonate [Moles/volume] in Serum 21 mmol/L 22-29 [facility] Chloride [Moles/volume] in Serum or Plasma 109 mmol/L 98-107 [facility] Creatinine [Mass/volume] in Serum or Plasma 0.38 mg/dL 0.50-0.90 [facility] Glucose [Mass/volume] in Serum or Plasma 141 mg/dL 70-140 [facility] Potassium [Moles/volume] in Serum or Plasma 3.6 mmol/L 3.4-5.1 [facility] Sodium [Moles/volume] in Serum or Plasma 141 mmol/L 136-145 [facility] Urea nitrogen [Mass/volume] in Serum or Plasma 10 mg/dL 6-20 [facility] Anion gap 3 in Serum or Plasma 11 mmol/L 8-15 [facility] Osmolality of Serum or Plasma by calculation 293 mosm/kg 275-300 [facility] Creatinine/Urea nitrogen [Mass Ratio] in Serum or Plasma 26 [facility] Calcium [Mass/volume] in Serum or Plasma 8.4 mg/dL 8.6-10.0 L [facility] Glomerular filtration rate/1.73 sq M pre dicted among non-blacks [Volume Rate/Area] in Serum or Plasma by Creatinine-based formula (MDRD) >6 0 [facility] Glomerular filtration rate/1.73 sq M pre dicted among blacks [Volume Rate/Area] in Serum or Plasma by Creatinine-based formula (MDRD) >60 [facility] ID Date Data Source [id number] 03/22/2021 08:14:48 AM [facility] Name Value Range Interpretation Code Description Data Montse rce(s) Supporting Document(s) [facility] VGZCNi5eJtMSWqZij7IbObOtKVDtRP6ozqk0W6V3uGHeQ9XyiWKrl9kxO9FkT4DiEUGqUCEBCF4UsCLd jb2 [file] 0jvZG/r/+Mc/3luP4Ai5CGFi2j0207a977P589Gxty C33SU38+/EfDabOdX07fmYw5Jkd0W/a04tOez9h6cm7VTExe917/CZt50cs1a864/WHh+a52/FE7otG0 axUyz16w/XxN5E/kL+Gl3NHU1la0hB/XuX6+y25jTU411363A/1X+lV9665bb85R+A99Lqvn+QP5A/kT +RP5rm/VPbi+auvJ67Ow+kb6IP/c60+26KqEM7cz9k 56EltU4et+JdK//FI97fo+aeQPXD/ufR7XN+oxlKu8tqG5uzkv2dgb28qlUK+9g3qp5773aGirgq775v 7mt7hE6zmASFL/Py/hpl9/6RVCgfm8Q9pS8KHPB3O/kL+Qv5G/kX+Qf177+MmPP611G453a4HYZcob+u XOo4rtpjM/A90qg1u15KF0Z+1O5C/kL+Rv5G/kH+RD 45vmEOx66c4AkQU+ojFM44xy/1fmUG484Dpq//xE+uPcwO4HQcTuw5uzd61BuiyPAnosyc20U+lv/Xvc 9EH+yra6nwwp5z0IS+Zr7yX71+2/W/sUOwi0wUrH/tzu+LzFr+YOtkFP85ef+LlKX90f76d6230VeciD 38g/yD83v9/6i3vqON6y/MlZS08r/6fvLkr/9P3rKU qPm+9K75ik26/yB+hppC8uaqM/IX/j/ou91AG1wvw5eE7hQP/6il/v7oAgmnWpS/wmlxuM96GraZ+u/c Xt3ObRMqs/dnhyu3umy/hVHMJw+rUXa5h3nvDl9UAe/OpJI9+Lk6zo5bhrbwmfm1ovIhh0hgSo8Xin7/ rfeyabqew12IpnzSPoOL/Ln0Kme42B+tpB/OpJ3/tf l0/zmehoVg0Z2GcZdFIlhX6/3uJXcVaA+3PT8QI/kprnQjKmDo5eW+jxzcn2mc3EDD2/qg4o6BIjA3No jZbqGgSEsI2gOhDE/+5tJ0NWg0+3N7kqZK5KPTjnqbFW+/d9/e8RNv+4i5gkCCED+O+a8vh/b/27jjzO 3/c9D0z/tpZKfw166o7/f/W0ej73sj1u24Fnt/+93l u+5+/7esvx5+ev/oaxUwTh+EuM80G8YcyVEV/pZlao3n/rj0KsvK+qqgLf8+Me1y8VZ7FE3t++KgTv6/ trP8df/d2J8u/fec+cchZJ6Ti+/IS4d2neCK8g2nfDa86T4gKhkC95mgwG9Sde7qlo2/wXzIt8C/W3tO fjr+3m3h9Lgfy8D9uTHR8Zk0F/fl8/1Qa+v+X19h4n 5f74tu48E6P7w53lc0h+fvtXPF//pVmK6cotRdnKeoiZbD8lHmir2QNg984/Q94f7+9+XqpVrlyxIN82 Tl2B72/67nKsxhM9CD7/+8bnaEOOP+P0A35fdadO70q4egD0/rqAxE0T96IoTqfX5m43stVi5/hdvm+X 79vl+/bvfhTpr+rvIa/L9+3feBXpr+i62wkQ5mrdc7 Xt/cZXxI784lZDDxcgX17/t7y+7560dgS6g6/mainspring strip gauger/7q/fs7/vFX79/y/v4d5/ir+/eQ4wx5/2KNd3czfr n2h2KGGeKZl1JsIV5Tg3/va/X37/WV7z/f9/2jp3f9Jy/rx1/93bnyb/v+prB7d8u4ej+V2WauItwcn+ 4v7h0pwyUugQmffPO0QlsFxbU6jM0+7873n+97/5bX Q16P7/Xjr96/z+u19f/3euTr5/mLCsJv7jZiPSRh479IrAWGV36RTX/f87y+8m/7/p6033bpqz4/79/n /tvzPef+W3+7vN/lOFuOv+A10DoMWn83Iv7X28/95j67t9++H49mhc6+39Tk+Ao077ZZi7tv6Uz3uwx/ Vb/jsq+9pb+y/Rf5nhhBr2Mu4021mz86/ur+veX1La +SjV0x87banR+/99mzv//2KZf+e/bJ8fmtx+7fQ14/5juWNZkq0LW3edlvNOHbh/UITHr9TR8ov6U/72 04fDseVm9C/eHnQne8o3g2hwz8av7+MDJ/ldvb9+cnI/QS3z7ez1/feTN/VX9/+imWBb8jqoqp27L2p/ rveO8WS9i6i/s54VWl8p2j4zrq21d48/m+83v61ua9 R+avRr7+6TVwqjybjVhE6ywNE30/6JGI557gJ/V2x96AjD+A1T9V4diL+av8O+T3nSuwMDNc+R74c5P+ JtJuEGiNme93smdfww1ZxSZhi/+XuMExeQ9q3bgYc+TW/GXyL7eeY6+gxA+md5bWfPCjbSKyVW95LNQa 5JiuLzgk/0r6I8dU3YoXjk5fOryi2WKAKa+U73Pc1/ 0jRCWpwgJ4jXM8qdvKDXHjjs0glY7EnvtOrcYh5SwhA7YuUlPCzSlKTSKNzZyKUe4hDbxyrWEPl9YxuB OJZumWylOXtDPjFGaQUKJjuCM6jvuybHQNdcl/yrKizvl2kbK8lE6iA8zRqQCkzQh31EMAMkfOoGF1FD cZJG8CD7r/x1ViacLT2BII9QBwtU1UeWfQ74HFjtM6 Sm0elxDbopQULVVwFgXuana99LR+tS8c+2j9fBJxs7UIaRL4aSKIYtRSuiiCTzTuUTuVfWqRpyvTVxQY DNYLXJAOV8Nl23X3aVnLz+Pn8boOTwB5BGG0G8sCf+ZvT+uSNdyMp7Jlo1keaf/bX26V/8Oc5KnIiC6h rElQznQ1k40s3eHbah8beEmWGlM1d31e2rLGuri2PO PgXH6xFzmPn8DR3iRbtMX0eQoc8Eo/BaEkXo+WO+PLyOXG+SkKhe8vADVkW1m9C+Murphy+UzqgT5o5KybI8 [file] Jerson+ddrgb/A3+Aa+FT/2h0GLi4BocNmlObrBciwl4ds7g4ai/ir6q3i/iitiM7qxj3hjFoY7Jy7+XWgX P/Sr0wa/1X0G+jvQ34H+DvR3oL+hX+S8KQdoiH7Vi3K/wV/gL/A3+IjkZQ7C+srO16FaPS4xbO+dNvgC fumTHlZRbfAVfAV/gD/An+CO8Bp4R/wN/gbf8D/R33 WV/Vj4sw5JRft2MgE/j4X+XpR5mt9P/zQ9goK14Wec28P/F/q70F/GqwjoMeC0e9B3s/tQ6p89xl0ZTk iTx9HvdYnu7heh8qEvS0w5fF+IQrcUa0hqK/gD/Al+fB+pt+C1TCprt/A3+Aa+FT/oQ5yAifI/gV/f+8 Pqe3CE/WoH3/ca0klmF5k5gkL/wJ+4T33/jrBfWfDj ELA2fi03nmTuHpoc6ruf5IzOFk++f+dV3/vzqu/0pCo3Uxj5TkiqCw87zkutP5R/wfpnn9kPKA+Cv3Cf +y2oQ01rhPTd+ksBC6soKj45i5ubK4pwQ9lz7MmtzomJLpE4kilGo9A9afb/FIwdi481/irb4M/6/6Ff FVvUj5VjrD/6G/rVaRc/9KvTBr+BX+fbp6C/Uuf5p3 TwO/hlb5+iuD/6G/pV/H/XupjgUmG5zek17FPzddU3l4ja+ERxaOE2Gxw1LS3Qo02axFIMnoswvC2qyo /Qv7Nm7+DXecLZ6/clKF8xl+e2IRr17Tl/7Jl1XDim3cu/Q6t851t5z72/Xb8KP/Ls4f/I9nj03Wt+Qf /ds4r514N64n/yZfetvNXkgpUhsT9Z1j+1eetXEmVO 076i6rqQiS8LFyw879sDqvb2ckrTevBg+3D+9v7+5TZotL2PuNKmp443G9HM+33ewCiOcdCvYk6xp5GR 4+TWr/Vm70l5ckxjTVd5zGMpt79355G/Xb+O08418shwvdbQLRK/vyOnaWZ0g20K8OZ+3Bne6YpS9xDc a0R4R4iiuoGu+lWMw1H+sjnKXzZn+cttqEIdyI9TmJ bh8Wc4QjnD+7Y7vkhfFqvM01d5zGZ8cgxxR80ImuWXulxG5+Ab+Fb88A+eNvgN/YsiQd4knHs7ZfeVkb KP+bsG+ZH1Nc8E6/sr8X+8vzEH4/wJpDMu5QmjF+ZvnL/KdgO/gS/v18fAjbNdYW6LyglkN2dt6ykTi2 i0cogBkgDvVUb+MXfZ2+um8Vu4kh8WC+N95YyfMk65 udZlKS0arPDX7ZY82iiGB//vsWFbk6X/Msxfq/PPM/Sr0wZ/gb/A3+ULx1Sg6q/QNe2mWKipEQEcH0g6 S90JniQ5sl78oE3J73t1BipmR55fcv+ro02504Rk+lq4g6ZEJNsK/aoF3/t7Bd/7ewW/7QUwuxJKxBi6 pK/Jy/WgcPjy50/ZJhmnpIjEpc7DIu7YLf/Ix918NY bI1cI+tW6uRGaMy4Z/wJ/gT/BpMxmqsB4jxCYIc2Ow9Oaj0yn8j1537ioibFPL0Hxe8kqQey38c4x2Af lK+BeC7/6CzwN98XGm0bdR5P+HxZ5gMrxbzjM7/jg1Svpw3LbxhoHxWDr/7gsJx3wkLZ8342Gdm9K4ad zyboika9g/eWF7EttonzobW30R4C9Glt4Yw7p59Em6 KtsL/AV+kNwOhvzrXzqtjE7jqG/2gubwOr4d9HnlR7/h+tqPltZ+eRYukCS1JC+4j+L+A/wB/gR/gr/A X+AjJYjkeXauql3kC/0d6G+dq8ZuwE72n5WGfTkoS1IhvK7oKag/Z9T+u+T7IpjTQqpN3zukR/AX+Av8 PD7h7tAyR22Gb/WKfyfWLxbf9y/S7uhIvYhscA+zg9 5wr3Gc7jog6lVxocF+xi3Ldb7/l3i383uoU742tl/gG/i1/65V/v210fiuhzSs2da0qtP44EnGtml/g6 /gK/jo70J/F/lu9jrlG/AX+Bv8Om+2VsWXrVXxZWtXfNnaF/gN/Aa+gC/gd/A7+Hi/8U6Z4zlD1mvK9r uY9ucV3kfL0bgBsymG56zdtv5n5NkLP6N/On152SfT X0N/Ki333BiQx1vRMbuemH/D/CDST7U3PzhkJiyyBdkvFnptEdtkh/m7r5q/+7rAb+T00RW0Gs+D38FX 0Kr01kr0160RioVrVd/7ccL4Zv/a1wJ/g7/BN/Ct+K3Om+1kC7D0zy/AF/AF/A5+B1/BV/AH+FQ03Lfl q478860s/06xuoKbTN39O/BrPG+z319a4k35xULnoJ jlSaumo6kfysHcE/B+MiH7Ba2Uo2N/wF/go7+C/gr6K/D9pkp414Pqsy285Rd5b76Z15YjiTu2Cb3Qi/ fJ56zb4884x/iKyzV1ub7b+yFky4xWquYNitvn9mgDI0+9wG/gN/AF/Supervisor [employer] Operations/t+O4LdxjIJ1p+uTWOm+2Ff 3PtchnGkvy3dJroJ211YzeD++BF7b0fP/nRfeo+N89 LvAb+A18AV/A7+K74DW3ZR+AP8Av+7Njkz5jmvygvcxBp2Xk/yA1GHigr8fi8B/Z8wK/gd/HA23yem/v Wd8LO/mB7Lnr5l13bK+y1+1Z3/t71vf+nujvXPg/sI1u35atM+0M1ed9rL8enGcyvs7v9U168L/cbrnD fuXfjHtV/MJeFZ+yET+5c195lz0t9qj0sCaC/sb5q/ uwlr3t6Uq/eq1NcX+3x/b62iUAsXr281yv514zs65IIuuf95/CPrz9/JXsaDfwb/megCrvqh7C/Rth+/ mrOG+8/fnZ6Ia5f4+zOllslu3jok1/teI/+/mryPS4/jdGlARmxi4Tc0Y8lr+K6/17P2S+47tt8tsuK9 n/XL3W5cr/835lb2hE/tBt5Q/j3aJp0Jy6Rs30h9gC /2hb+Y+8MCqWK1ccX0p7huq8XvU0nM8mwhznvio3AAZ+YbUfGfIzGPIzGPIzGPIzGPIzGPIzGPIzGPIz GPIzGPQrg3/Q4B80+AcN/kG7Sp+0q/Dwfqa0Z9xZjqFr7QmG/eqyBkf3D5X+ZdCvrJU/9Gzpc0XT5e1J /SrbA/wB/gR/gr/AX+Na0Fw2imjlj8E/aDjfbsh/Zc h/ZfAPWvoHsw1+B7+DX/m+ILbB1S5iY/VgNpAv2yUSQuv1phTfglJE2NgI+4SQhlIkPwvhY5cVOvc6ke 9YF/ZFi7F44cQU8W+qEajouIo3UCr1Tds1sK+6WcH745H+uegFH71RDmJ0iJoNQ/opw7E62y0W1L25XJ y7ve4Jqq569vX1nbN4Unx4CIPs9Kq23mSWA2wO+WfT OP8c/Stzlmtiw0Rm7cnVfahvvf1IfRM/aLbonm2kot/FzSoaub1T76n2O6ze03uooKq/iC4stCQLb4Lv 4Cv4A/wB/gR/gr/wfxb+J/o7Kv+FnY3A7qvvwvdPd/H3VXjx9yn3I/8enIe8AhBh2UsSk7Vmp2ld97N6 33qxkV4D93sJtCYyVJ9pQZ7nBU8ogk8ylng9T1jtF1 Up3Hf6CLv6/3kMcuJuZk7oTwvt7rC9zmMlvlv/bdX+m6aX50wQ+eupt7McyjTSksb3Z1B3isM/srXBN/ Dgb5522wBT/OcD40Pl+r147A1S8bhW/mpva7LmbZ/iPth/Re0c4J5V5kkR/ikjfaESqcy8L3Z3sgP/Mt ivDPYrg/0DGC9y7Z/Ype7zLgXcms4+gq/gD/AH+BP8 8v+uHEtpoq4j9jl5Bx9Lq6mhDkllDkQxSIyEfNqR4PR3UHThWTjAESXHlHKJlDTqBdpCeYuus3IWnFFw aWPh6vg5KtPOmDXbcXzSFQFTdUAfvKhpy2avvbsfVpEWncaSXeCDPSrWvKpZLaIYSOaAsCoAKkHQXUjZ oQyEMhDKQCgDoQyEMhDKQCgDoQzC+GJ1BjVNE8MIKI Tk5xs5WwVCgfd0DlAwo03DwEhfq6FpTWziU67jmK3gRcBjiLZ4FO1FqxIEoR7p0yNkosPtS0XoiRI6XS 0AdvXBtM5m7vNhmsNAcPZu6OH2FiiGOQEFTDb0InQPItIAOTxPfYUZ9oZNnCWFhPSjpSliz1dq+TcxQN Hfl9qEXAP96jwuv4pmJjb7iA4brwurT8SUVKPh4cy9 IkpE+Q/J0TTVX9BeHr8NyHUzA6VugCn58X5DfGP484qNpYzwC50VlDepjMenhoBYBbnmAaOmqfsj+iI6 +rM6+rOUiBKhDBZlsCaRyecs/gPKIA/fH+QAai2UwWub3jGf0/job1O5DeMJM3PTCKVn1ec4YrZ0wkKn /g0nqM7XWbJEGXBXNQQfyMOx/DyFqU8BHWSJCETkJD [file] 2nR6jKNAUm6MX7OUAZQtyWyki5sypxjyAcaLOhIHYNjfBydxaULIEvJNFAHwcOTOYeUOKBOosWVUXgYO UVBHrqzHtnwXocbjHR9Trc5P7MAAtZnRWJENlmHSLZ nMN6bRZPF3QLntPwQ9EaD1sc+XhxQpRLUD7F9Q/7sDc1V00XFucjn3iKwMf+TahTqAkeXrZDZ6dgGkCi RXbU7gPVzNhU6iNrJ3W4PeJZ69EIRl5EVJnFnMwkjCFF524kfZvtYFfZAB9aCVgVNcNYDC70OSPFE3Yc nOBbaQYmYrTTGxHXYCphsVGOMI5LX6R7HsXdWVz+Uh cAmA0PNLH4GGPXpc8TUEJWzDANEAtjqPAdI6DQYpmhtyKEKf1EwsnxoCh6hy5f0nEX9Ql64VpGbN29Jm 77hRJ1iywB5dwu9hWj/u3CNHkaC5B9UOJ1zrKnOyJczant5QBD4TPWZShtxap9GrQu/HEhnOJOqxdMu7 7T9SKNJ0VMBeKhmGfBx/Unyy5QV6DBtnTRkno4fwXJ 89UXa+hbWeui/z6NaPAI4OE5v0HuN7FK8ss6a9T1C1aQU7thURl87P6a7l35TuYkz7E0ShZFw9VpL6z7 59FG6yNONwAAeoC6jrgZ4SGLyVOP/q1gFG7ExeLjJbaSmilPPpe9EWvW2Yw33gQPrlIvb3RhD+YNwXjP uC86huLAo7MSVsD9Q/jLBAlGOsF5qJaBqSC8Wwa5PS oVKKGzg8UDJH5UT5SDXpstnEQGRbfOxfd41o6NOw3yoFPw/11Ur0h6QmG0To/vD2d1+3t79/+/C/3959 fRU0J9edqDf46qu/+5eP33/6D2+ffPzFp5+0e4Ra9nJj/OzTj/ml6T1F8oC/bo3KAk7aJ12m3gn1FXXd Z4ecOv9b+oB0OzQfbh/qt1/87u23v/rul7uj4e66/u 7Tzz75+Ndvv/3is6/fvf/qsw+/+/ll//TZ29vb+y9/++LlK931rQ/11o1f535++Nc/9p9exa00/NF/u4 dHAAbyO460oP+/env/q999+NXn/56g7l43H/bFl+8/f/2Jd5/8j//motbPRW+/ef/u68++uO7tvlDXiy 9//fFnv/74l79+85Imoq4x+0ef/OmHf//uz99/+4e3 f/vPt6+/++Mfv/nzn7/95o//0EuvTx002+0f3/7179r+179/+2ZZc5f4U/2FC3F/7XBug3x+/vxvuuxx P/ddZXz//S/+anaikfV53oV//yEwmdcaFO6y/park superintendent/bW4XMiF4y3VMD1EO0iDr93QpSUfrwqkvJ+/+hTw a7fB//vyJL9vaf9Ud+vL3Be8//ewn10J3kbRT62bu4 /67jAx6y7UR+wdrhv3bv/1tv/oUwBbD75/B6KZbFsQQi+kFpTW60VEatostDzAur6vHE242J1//ce3P3 /z129/dPfXDvUW+Mrai17oK4AyZp5S7Cc2H+Fy0k7071Eqy/3z//mbPx+3P/Z38f8nwc3o20/vfrB/fv /V2x/+4/Xfv/vTDz+9vWd7+3dy3kSZ6y3zdrXNT91T Z59VYXzfl6IoC9c4/0HPxehXyE/+/VVGItwLT9H4y//qYL/5+zcmh3f82w6++5e/rOxXo8G1003//t3P 5kKru4m1Rmj/88//+vc/ufq8h3/69vtv/vijN2w/wj/55j9+/28ykuref2/y8mt94fi//GQ7k4V7/vhv f/vTR4bv//Sn7z+uTx5rKv48Kr05h19/zOvb0nrNOf P/fcGHb3//v9703efcl/eMF9imlweXhpIeCqKlL/76GnZ/+We45M246+lv37/72+f6xu39/jUaz4744y Wzw3b40IrD//+S+/KE6bqtsr/55n9++9be/vTvbz/aLvSOFn/WjK/cCJD3bhn6N+FhNw247QRzExySsf dLa/V82z1y737/pzy40ewa2scWF/nky99+9nz437sT vGDXedD/V6RPRXTKHS8xo2EtMPCjFgZfQB8cewfnZWHtUT4vbbs7E3PywGasSYtVFMYcWr3izVTjJI5C TZG3OTyfFWTiOOMgW9CnrG5bZ85agGIyJeJlPZFDNP8IakJ7DYH3IRU6MYRiJgXcUQLpSE80DRXzULDX Fl7aflOxDquJWmJqWR6zbix8S3A1iIJuG279eEdypx FsEY4Yi8ZzcHGqJG6WlIMmnDOfEVGjLHGtC9ehh3DqUWexBQJKSg4tvhFsZecZQyUyZT0ljzl3T8F8iG eukbSgTXMGKIvaTxdeUP7zuNakkpweE8TxmECuZPGoS5PdILOku13LDDHuPXqQQoLjLqPwACS9IWcmDG maXqLpAIQoEWImINKdNL9KhEMcXJZpFFNCXFqlDoum GJKcuG2xdGCMz0FvTADOF9FBGVsjE3IACWyEYDO3WXTiLTRtCE5KgRXzXKB0HFaKKARGZXjAWOxlLmOe p0C9XQRrD2XyQUNtuqTxYAZTXSopGjbcKM5evCrkgmdwX1NzjNWnBAIWMBGeHQPyHXBuHEHgS7Vnj5F2 J4LuVPtBGZORONaSDHffLmD9q18udmYWQDXcHEPhUC 4+UM1wj4KhVm3ZIHGdLM2rmkh4ZB0InMNeLS6UJZgbhgKmI8dvbpNwIhLqQTDXEF5xL9WogE80CXU+Pm QkMQ9qnib4dlWfLwOlDHHwXOZxKQRfGVdbAHSvUOQzVFTnEXX5IBY7RWEoGjLeUQMqZaBhUNrrBXZoHU UdqyWLNUMmIEU6FTg1IEGdMQArUDAyWKzhGUEjZEU4 LPUmMEAeASHyLL6bWxTfTSJwEWHpAWMrGlA3CaLbIhURIIJhOPBnQJCcSkArPXTgNPSkOKcuBSUdMTWh TUh6AKThCSUuJE2uCwThCWLwYRSwUFOsRLEfCHYitsCABDNgIJOiUWR5YJGsJNDzEISoQFzoFDHbSLPd ZGH6XXOxERBtMS5bXvVqPJPxNMO9WsYrQZGjJUPmpd VAXIOuFZIhQNC0THRkNSOeGAFxGXkoNVWfPNCmBcP9RSCaRHClUE4bNfUeBTAdEFK6KGZzQWYgOUTjsm TEJDBoTYDtCIz5EkXdSICgRWFrCOtiXQIaVPHnOOfdWHHsSHNsCO5kXgFaRDHuCARbCXTePIDaMKBhco AHQIJcGYRuJWE0OwIwJCPcUQWmBQseWSYyHCTmNYU1 GMHlIBOgWL3tZyUxYTMcUtZ7DzAeQQWaODCtvaDYLBOeQIGvTFXfYWUvGICfYZDaYXkcEFKbBWNtQwO1 JUNoJXCrKW3cFaUkJNBvEGQ8BDMrIQWzFKYqryAFAWKaFWFhCZApFNK6BVTyRRFwUCc5ttBmuWOeLcs0 Yu1UkCpyZBG9Dh3UlzIeKFGrLMIMQl5Ls112DQUmKWTTRjf+UkfywRTjgXxqGDILUcOaQjNGRPCMB2K= ID Date Data Source [id number] 03/22/2021 03:51:26 AM EDT [facility] Name Value Range Interpretation Code Description Data Montse e(s) Supporting Document(s) Leukocytes [#/volume] in Blood by Automated count 17.2 10*3/uL 4-10 [facility] Erythrocytes [#/volume] in Blood by Automated count 3.16 10*6/uL 4.1- 5.3 L [facility] Hemoglobin [Mass/volume] in Blood 8.1 g/dL 11.5-15.5 L [facility] Hematocrit [Volume Fraction] of Blood by Automated count 25.2 % 3 6-45 L [facility] Erythrocyte mean corpuscular volume [Entitic volume] by Auto mated count 79.8 fL 80-96 L [facility] Erythrocyte mean corpuscular hemoglobin [Entitic mass] by Automated count 25.7 pg 27-33 L [facility] Erythrocyte mean corpuscular hemoglobin concentration [Mass/volume] by Automated count 32.1 g/dL 32.0-36.0 [facility] width [Ratio] by Automated count 18.4 % 11.5-14.5 [facility] Platelets [#/volume] in Blood by Automated count 697 10*3/uL 150-400 [facility] ID Date Data Source [id number] 03/22/2021 04:17:42 AM [facility] Value Range Interpretation Code Description Data Montse rce(s) Supporting Document(s) Ferritin [Mass/volume] in Serum or Plasma 854 ng/ml 13-150 [facility] ID Date Data Source [id number] 03/22/2021 04:17:42 AM [facility] Value Range Interpretation Code Description Data Montse rce(s) Supporting Document(s) Iron [Mass/volume] in Serum or Plasma 50 ug/dl 37-145 [facility] Transferrin [Mass/volume] in Serum or Plasma 99 mg/dL 200-360 L [facility] Iron binding capacity [Mass/volume] in Serum or Plasma 138 ug/dL 278 -500 [facility] Iron saturation [Mass Fraction] in Serum or Plasma 36.0 % 20-55 [facility] ID Date Data Source [id number] 03/22/2021 04:17:42 AM [facility] Value Range Interpretation Code Description Data Montse rce(s) Supporting Document(s) Magnesium [Mass/volume] in Serum or Plasma 2.6 mg/dL 1.6-2.6 [facility] ID Date Data Source [id number] 03/22/2021 04:17:42 AM [facility] Value Range Interpretation Code Description Data Montse rce(s) Supporting Document(s) Phosphate [Mass/volume] in Serum or Plasma 2.6 mg/dL 2.5-4.5 [facility] ID Date Data Source [id number] 03/22/2021 04:17:42 AM [facility] Value Range Interpretation Code Description Data Montse rce(s) Supporting Document(s) Bicarbonate [Moles/volume] in Serum 22 mmol/L 22-29 [facility] Chloride [Moles/volume] in Serum or Plasma 109 mmol/L 98-107 [facility] Creatinine [Mass/volume] in Serum or Plasma 0.27 mg/dL 0.50-0.90 L [facility] Glucose [Mass/volume] in Serum or Plasma 131 mg/dL 70-140 [facility] Potassium [Moles/volume] in Serum or Plasma 3.8 mmol/L 3.4-5.1 [facility] Sodium [Moles/volume] in Serum or Plasma 139 mmol/L 136-145 [facility] Urea nitrogen [Mass/volume] in Serum or Plasma 8 mg/dL 6-20 [facility] Anion gap 3 in Serum or Plasma 8 mmol/L 8-15 [facility] Osmolality of Serum or Plasma by calculation 287 mosm/kg 275-300 [facility] Creatinine/Urea nitrogen [Mass Ratio] in Serum or Plasma 31 [facility] Calcium [Mass/volume] in Serum or Plasma 8.1 mg/dL 8.6-10.0 L [facility] Glomerular filtration rate/1.73 sq M pre dicted among non-blacks [Volume Rate/Area] in Serum or Plasma by Creatinine-based formula (MDRD) >6 0 [facility] Glomerular filtration rate/1.73 sq M pre dicted among blacks [Volume Rate/Area] in Serum or Plasma by Creatinine-based formula (MDRD) >60 [facility] ID Date Data Source [id number] 03/21/2021 10:59:39 PM EDT [facility] Name Value Range Interpretation Code Description Data Montse rce(s) Supporting Document(s) Bicarbonate [Moles/volume] in Serum 22 mmol/L 22-29 [facility] Chloride [Moles/volume] in Serum or Plasma 106 mmol/L 98-107 [facility] Creatinine [Mass/volume] in Serum or Plasma 0.26 mg/dL 0.50-0.90 L [facility] Glucose [Mass/volume] in Serum or Plasma 128 mg/dL 70-140 [facility] Potassium [Moles/volume] in Serum or Plasma 3.6 mmol/L 3.4-5.1 [facility] Sodium [Moles/volume] in Serum or Plasma 137 mmol/L 136-145 [facility] Urea nitrogen [Mass/volume] in Serum or Plasma 9 mg/dL 6-20 [facility] Anion gap 3 in Serum or Plasma 8 mmol/L 8-15 [facility] Osmolality of Serum or Plasma by calculation 284 mosm/kg 275-300 [facility] Creatinine/Urea nitrogen [Mass Ratio] in Serum or Plasma 34 [facility] Calcium [Mass/volume] in Serum or Plasma 8.5 mg/dL 8.6-10.0 L [facility] Glomerular filtration rate/1.73 sq M pre dicted among non-blacks [Volume Rate/Area] in Serum or Plasma by Creatinine-based formula (MDRD) >6 0 [facility] Glomerular filtration rate/1.73 sq M pre dicted among blacks [Volume Rate/Area] in Serum or Plasma by Creatinine-based formula (MDRD) >60 [facility] ID Date Data Source [id number] 03/22/2021 10:21:52 AM [facility] Service Cmnt XXX-Imp : NoneMicroorganism XXX Cult : Polymerase chain reaction assay was NEGATIVE for both methicillin-resistant Staphylococcus aureus (MRSA) and methicillin-susceptible Staphylococcus aureus (MSSA) Name Value Range Interpretation Code Description Data Montse rce(s) Supporting Document(s) ID Date Data Source [id number] 03/21/2021 06:22:38 PM [facility] Name Value Range Interpretation Code Description Data Montse rce(s) Supporting Document(s) Lactate [Moles/volume] in Serum or Plasma 1.5 mmol/l 0.5-2.2 [facility] ID Date Data Source [id number] 03/21/2021 03:31:07 PM [facility] Name Value Range Interpretation Code Description Data Montse rce(s) Supporting Document(s) Bicarbonate [Moles/volume] in Serum 23 mmol/L 22-29 [facility] Chloride [Moles/volume] in Serum or Plasma 102 mmol/L 98-107 [facility] Creatinine [Mass/volume] in Serum or Plasma 0.35 mg/dL 0.50-0.90 L [facility] Glucose [Mass/volume] in Serum or Plasma 172 mg/dL 70-140 [facility] Potassium [Moles/volume] in Serum or Plasma 3.7 mmol/L 3.4-5.1 [facility] Sodium [Moles/volume] in Serum or Plasma 133 mmol/L 136-145 L [facility] Urea nitrogen [Mass/volume] in Serum or Plasma 13 mg/dL 6-20 [facility] Anion gap 3 in Serum or Plasma 9 mmol/L 8-15 [facility] Osmolality of Serum or Plasma by calculation 281 mosm/kg 275-300 [facility] Creatinine/Urea nitrogen [Mass Ratio] in Serum or Plasma 36 [facility] Calcium [Mass/volume] in Serum or Plasma 8.7 mg/dL 8.6-10.0 [facility] Glomerular filtration rate/1.73 sq M pre dicted among non-blacks [Volume Rate/Area] in Serum or Plasma by Creatinine-based formula (MDRD) >6 0 [facility] Glomerular filtration rate/1.73 sq M pre dicted among blacks [Volume Rate/Area] in Serum or Plasma by Creatinine-based formula (MDRD) >60 [facility] ID Date Data Source [id number] 03/21/2021 05:00:52 PM EDT [facility] Name Value Range Interpretation Code Description Data Montse rce(s) Supporting Document(s) Cardiactroponin T pnl SerPlHS <14 [facility] ID Date Data Source [id number] 03/21/2021 01:10:29 PM EDT [facility] Value Range Interpretation Code Description Data Montse rce(s) Supporting Document(s) Osmolality of Urine 656 mosm/kg 300-1000 [facility] ID Date Data Source [id number] 03/21/2021 01:13:47 PM [facility] Value Range Interpretation Code Description Data Montse rce(s) Supporting Document(s) Color of Urine [facility] Clarity of Urine [facility] Specific gravity of Urine by Refractometry automated 1.051 1.003 -1.030 [facility] pH of Urine by Automated test strip 6.0 5.0-8.0 [facility] Protein [Mass/volume] in Urine by Automated test strip Neg [facility] Glucose [Mass/volume] in Urine by Automated test strip 50 mg/dL Neg [facility] Ketones [Mass/volume] in Urine by Automated test strip 5 mg/dL Neg [facility] Bilirubin.total [Presence] in Urine by Automated test strip Negative [facility] Hemoglobin [Presence] in Urine by Automated test strip Neg ative A [facility] Leukocyte esterase [Presence] in Urine by Automated test strip Negative [facility] Nitrite [Presence] in Urine by Automated test strip Negati ve [facility] Leukocytes [#/area] in Urine sediment by Automated count 1 /HPF 0 -5 [facility] Erythrocytes [#/area] in Urine sediment by Automated count 0-3 [facility] Service comment [facility] Epithelial cells.squamous [#/area] in Urine sediment by Auto mated count 3 /HPF None [facility] Mucus [#/area] in Urine sediment by Microscopy low power field None [facility] ID Date Data Source [id number] 03/21/2021 01:51:37 [facility] Name Value Range Interpretation Code Description Data Montse rce(s) Supporting Document(s) Sodium [Moles/volume] in Urine [facility] Confirmed ID Date Data Source [id number] 03/21/2021 11:44:09 [facility] Name Value Range Interpretation Code Description Data Montse rce(s) Supporting Document(s) [facility] GVSDYl7uIwEPBoUz71/NSFkyCZNxr7ZfHCklDKu3OUtjLWHtC2SyEHI9uY4nDXO6LMeICgIjByDkCEZk [facility] [file] ICAgICAgICAgICAgICAgICAgICAgICAgICAgICAgIC AgICAgICAgICAgICAgICAgICAgICAgICAgICAgICAgICAgICAgICAgICAgICAgICAgICAgICAgICAgIC AgICAgDQogICAgICAgICAgICAgICAgICAgICAgICAgICAgICAgICAgICAgICAgICAgICAgICAgICAgIC AgICAgICAgICAgICAgICAgICAgICAgICAgICAgICAg ICAgICAgICAgICAgICAgDQogICAgICAgICAgICAgICAgICAgICAgICAgICAgICAgICAgICAgICAgICAg ICAgICAgICAgICAgICAgICAgICAgICAgICAgICAgICAgICAgICAgICAgICAgICAgICAgICAgICAgDQog ICAgICAgICAgICAgICAgICAgICAgICAgICAgICAgIC AgICAgICAgICAgICAgICAgICAgICAgICAgICAgICAgICAgICAgICAgICAgICAgICAgICAgICAgICAgIC AgICAgICAgDQogICAgICAgICAgICAgICAgICAgICAgICAgICAgICAgICAgICAgICAgICAgICAgICAgIC AgICAgICAgICAgICAgICAgICAgICAgICAgICAgICAg ICAgICAgICAgICAgICAgICAgDQogICAgICAgICAgICAgICAgICAgICAgICAgICAgICAgICAgICAgICAg ICAgICAgICAgICAgICAgICAgICAgICAgICAgICAgICAgICAgICAgICAgICAgICAgICAgICAgICAgICAg DQogICAgICAgICAgICAgICAgICAgICAgICAgICAgIC AgICAgICAgICAgICAgICAgICAgICAgICAgICAgICAgICAgICAgICAgICAgICAgICAgICAgICAgICAgIC AgICAgICAgICAgDQogICAgICAgICAgICAgICAgICAgICAgICAgICAgICAgICAgICAgICAgICAgICAgIC AgICAgICAgICAgICAgICAgICAgICAgICAgICAgICAg ICAgICAgICAgICAgICAgICAgICAgDQogICAgICAgICAgICAgICAgICAgICAgICAgICAgICAgICAgICAg ICAgICAgICAgICAgICAgICAgICAgICAgICAgICAgICAgICAgICAgICAgICAgICAgICAgICAgICAgICAg ICAgDQogICAgICAgICAgICAgICAgICAgICAgICAgIC AgICAgICAgICAgICAgICAgICAgICAgICAgICAgICAgICAgICAgICAgICAgICAgICAgICAgICAgICAgIC YnXIRiBFCwHHWbGLRaVGn2M6rqLUVsZEHyGQ8fUUk7Dz1+QNsQAlWaLMH2kaGjiP4ATE7vo3TaPZdeAR Ugy5RmBPe8FO3TOMAjHYscEV7TKCoddj0XDGUaFIKp zZYJp4ueXuVnHPP1ECGzAlefDU5VZCCqH4xvggOqYRPnFNKEKIwbYXGKVSslNVECDWSvYAZvKwPbWrUw LBIsDYRmOIVQEO4AJoBjA5TifO98KNBLGn7+ZWdxkkIdGmbNXuTiFTVkf3DqNOh8QE3HELQwEzboa1Xp SdTiGKBJVMsjFC1ZTNA7KRBsOYSiZs8FXTFgQ520fd LmVW0QOc4NCvFkZF8vng4HWaIrPSPlVckSVkc6EVuqFL4UmDUcMCdKp11ukFt7gwPktZTTKXAlYOOjBZ TxlHyoDRAoDUVpQBWxJb1nIWCnYIHpTcJ3PRXCOH2DPGAhXGUepBTbVORzIQKYMA3WMJrrZLS6XNHrzx IjlEAjVSgpAQ1DEXFmmlLkPrUkHCWKSFq+Bq0TGW6m y5DjIBodIKPvZX7hlj1ERHdNIcOeE2K8nQMpP9U8FMcuTk2UBUSoCTHqNjClJCZKFRrhAO4LFA3gspJ3 XC1YfMHzWGBkMRGgwSIsOGr8X50ohIFcGXfqBL4QOWS+Dion+Va0RBIRiYMHaZWXkWdQyJCPICyDeU9Az S3ZZf2WtJ6TqDW90mHsnivKsFUstQY6UOZ6oCYRkQQ RBXP5DgQNjcR6johYlXfPgWCNXXbPuS89jkJIyHXCyNMWbTTKcFl9QTAWrU1GqghXxzOzaihEpSYNyFV LGQC4JLXkaqyBgsNErlPbbAF36aLlwFA7FIa9RUtQiTK1yyo2IgDYoKk6OZVUfFU5UDJRzQDXyLLHsDS H6ERBzWqOvFInqVWPvXERcWUP2MOLeFNHjSN8PVrNb LSRaVpYzXOrrYJVmPVBpxn1UBGXjDTRsOgfhEuHaZVHqTRBsSYwvKCSnQARqODG9VWXuUHArMB0NKaHg SBNiNGL1CZIrNQNoHHDxfy1ICUIoIYQmJfjnYEXrLHMcQGEoUTmwQAYmKIB7Yxj4AOYzJAKdUX6TTzSm CGUaBTy0XHDqKKHmZDGosf6XIHWtYXGwITZgXZDpYF JfAHAlDMzpTJSvMRZgAwD4RWCsZTMoDB9PMbAlIASkVMPsXnLzBZSaOFEdbo0NTKGcTWAhQfWuEOBtNH LdMHIaRWojNGOiDZL4VeEdSUBqHMLuYM6YBjSfQNPrXOP5NZwvNNOtCVQmgk4ZCGFrHVZaIQB1FgJxDW IcTVUuYEitGDQpJKY7ZWK7HCPzACXkGA2UVyIwADFv BKz2GVnoHLEzASWybo7TUSHeKXWsYKItAdBzFLWgRJVwHQfeMEIhMNVwJEd7WNDwSDIiXR5OLfSfIHSt CuZkMUluPSJlEMXxjz2HJQXbPCZwPJN3USHgSNFsOEAsYKteDXTxLPQyUWZ2HNAeGLShTZ6RYeFvGXAq OtX1LMxoOCGxTGPlat2XOPBfJAHkLuM7QCXuELPrCQ NoHJprAFGuJACxTUw4RXUvELCjBW5CUhDkDPImUjMaIsMlTOOmLDRuhm6CQNTgOJWkELI5EGIySMXgQL ZiKUikKUBnUZE4UpooPHRrREQpHW1QDwZlJMVkIxRqRqouIKNtSJJpud6PTARmHUCxQAN0JJJnGAXmMP JkMMeuUSCgLJV2PJftCSCdZNWwJA6SEySqSDFbLldo PjMnUJJlBIWlig5BHZHwMGPzQqGxFMLjZTScGIUtFYyuUVHcMAI7Lob0LYUtIGKcZY8VXtCoTSozQRBU Kmi0AFnxZ2t3TLIlFE3TK2Mly0WmTeTvTOBIWEnwTL8jehFhHTAuCt0LZ0xCVcmmBCUsOVM2S4YrMIZq HUbmKMVrOoEiEIYkMQW1LzJgGJ7hCGR8NfP5Byf7Ch FxKKO8U7C4HDEfNYZgXBP8WovxHTU4DxWgFD1BCp2CGuS5KMS8iQQeRv1CRne9CGhOVqVpBC9XVTk= ID Date Data Source [id number] 03/21/2021 09:08:01 AM [facility] Name Value Range Interpretation Code Description Data Montse rce(s) Supporting Document(s) Bicarbonate [Moles/volume] in Serum 22 mmol/L 22-29 [facility] Chloride [Moles/volume] in Serum or Plasma 100 mmol/L 98-107 [facility] Creatinine [Mass/volume] in Serum or Plasma 0.37 mg/dL 0.50-0.90 L [facility] Glucose [Mass/volume] in Serum or Plasma 134 mg/dL 70-140 [facility] Potassium [Moles/volume] in Serum or Plasma 4.0 mmol/L 3.4-5.1 [facility] Sodium [Moles/volume] in Serum or Plasma 134 mmol/L 136-145 L [facility] Urea nitrogen [Mass/volume] in Serum or Plasma 14 mg/dL 6-20 [facility] Anion gap 3 in Serum or Plasma 12 mmol/L 8-15 [facility] Osmolality of Serum or Plasma by calculation 280 mosm/kg 275-300 [facility] Creatinine/Urea nitrogen [Mass Ratio] in Serum or Plasma 38 [facility] Calcium [Mass/volume] in Serum or Plasma 9.6 mg/dL 8.6-10.0 [facility] Glomerular filtration rate/1.73 sq M pre dicted among non-blacks [Volume Rate/Area] in Serum or Plasma by Creatinine-based formula (MDRD) >6 0 [facility] Glomerular filtration rate/1.73 sq M pre dicted among blacks [Volume Rate/Area] in Serum or Plasma by Creatinine-based formula (MDRD) >60 [facility] ID Date Data Source [id number] 03/21/2021 09:11:26 AM [facility] Name Value Range Interpretation Code Description Data Montse rce(s) Supporting Document(s) Leukocytes [#/volume] in Blood by Automated count 14.3 10*3/uL 4-10 H [facility] Erythrocytes [#/volume] in Blood by Automated count 3.51 10*6/uL 4.1- 5.3 L [facility] Hemoglobin [Mass/volume] in Blood 8.7 g/dL 11.5-15.5 L [facility] Hematocrit [Volume Fraction] of Blood by Automated count 27.5 % 3 6-45 L [facility] Erythrocyte mean corpuscular volume [Entitic volume] by Auto mated count 78.3 fL 80-96 L [facility] Erythrocyte mean corpuscular hemoglobin [Entitic mass] by Automated count 24.8 pg 27-33 L [facility] Erythrocyte mean corpuscular hemoglobin concentration [Mass/volume] by Automated count 31.6 g/dL 32.0-36.0 [facility] E[facility] distribution width [Ratio] by Automated count 18.3 % 11.5-14.5 [facility] Platelets [#/volume] in Blood by Automated count 841 10*3/uL 150-400 [facility] ID Date Data Source [id number] 03/21/2021 07:12:55 AM EDT [facility] Name Value Range Interpretation Code Description Data Montse rce(s) Supporting Document(s) Consultation [facility] [id number]/XGGjhLXSju2FkRCyuZLn7LCifFHSfP8FzWHJ3rW7vUPL7MEcAFdSsBgLgZBHk lbm [file] [id number]3YQXn= ID Date Data Source [id number] 03/21/2021 04:43:23 AM EDT [facility] CT THORAX WITH CONTRAST [id number] RESU LT - FINALInterpreted by:Marissa Lopez BeginsSigned on Sun Mar 21, 2021 4:43 AM by Herberth Mackenzie MDA 6 mm short axis left axillary lymph node is seen this is indeterminate.THIS DOCUMENT HAS BEEN ELECTRONICALLY SIGNED BY HERBERTH Ann EndsPROCEDURE INFORMATION: Exam: CT Chest With Contrast; Diagnostic Exam date and time: 03/21/2021 2:56 AM Age: 45 years old Clinical indication: Pain; Other: Abnormal xray - lung nodule, >= 1 cm TECHNIQUE: Imaging protocol: Diagnostic computed tomography of the chest with contrast. 3D rendering (Not supervised by radiologist): MIP and/or 3D reconstructed images were created by the technologist. Radiation optimization: All CT scans at this facility use at least one of these dose optimization techniques: automated exposure control; mA and/or kV adjustment per patient size (includes targeted exams where dose is matched to clinical indication); or iterative reconstruction. Contrast material: OMNI 300; Contrast volume: 100 ml; Contrast route: INTRAVENOUS (IV); Other contrast: Oral, iohexol 240, 40; COMPARISON: ME XR CHEST FRONTAL ONLY [id number] PORTABLE 03/20/2021 11:17 AM FINDINGS: Lungs: There is an 8.5 x 5.9 x 8.3 cm solid and 7th slightly heterogeneous mass seen within the right upper lobe abutting the mediastinum and medial posterior chest wall. There is evidence of right upper lobe lung destruction with some large air blebs and likely underlying centrilobular emphysema present. Some postobstructive changes are seen peripheral to the mass. Pleural spaces: Unremarkable. No pneumothorax. No pleural effusion. Heart: Unremarkable. No cardiomegaly. No pericardial effusion. Aorta: Unremarkable. No aortic aneurysm. Lymph nodes: A small right hilar lymph node is seen measuring approximately 1 cm. A 6 mm AP window lymph node is seen. Bones/joints: A small sclerotic lesion is seen in the T5 vertebral body measuring 6 mm in diameter.. Soft tissues: Unremarkable. IMPRESSION: 1. Solid 8.5 cm right upper lobe mass abutting the mediastinum and posterior chest wall worrisome for neoplasm. 2. A prominent right hilar lymph node and a 6 mm AP when window lymph node is noted. 3. Centrilobular and paraseptal emphysema is noted most prominently in the right upper lobe and postobstructive changes are seen adjacent to the mass in the right upper lobe. 4. A single small T5 sclerotic lesion is noted otherwise no definite bony metastatic disease is seen. THIS DOCUMENT HAS BEEN ELECTRONICALLY SIGNED BY HERBERTH MACKENZIE MDThis document has been electronically signed by Herberth Mackenzie MD on 03/21/2021 4:42 AM Name Value Range Interpretation Code Description Data Montse rce(s) Supporting Document(s) ID Date Data Source [id number] 03/21/2021 04:35:28 AM [facility] CT ABDOMEN PELVIS WITH CONTRAST [id number] AL RESULTInterpreted by:ACACIA LopezROCEDURE INFORMATION: Exam: CT Abdomen And Pelvis With Contrast Exam date and time: 03/21/2021 2:56 AM Age: 45 years old Clinical indication: Pain; Other: Metastatic disease evaluation TECHNIQUE: Imaging protocol: Computed tomography of the abdomen and pelvis with contrast. Radiation optimization: All CT scans at this facility use at least one of these dose optimization techniques: automated exposure control; mA and/or kV adjustment per patient size (includes targeted exams where dose is matched to clinical indication); or iterative reconstruction. Contrast material: OMNI 300; Contrast volume: 100 ml; Contrast route: INTRAVENOUS (IV); Other contrast: Oral, iohexol 240, 40; COMPARISON: ME XR CHEST FRONTAL ONLY [id number] PORTABLE 03/20/2021 11:17 AM FINDINGS: Liver: The liver contains multiple relatively benign-appearing hypodensities, the largest is seen in the lateral segment of the left lobe measuring 2.8 cm in diameter and likely represents a cyst. Gallbladder and bile ducts: Normal. No calcified stones. No ductal dilation. Pancreas: Normal. No ductal dilation. Spleen: Normal. No splenomegaly. Adrenal glands: Normal. No mass. Kidneys and ureters: Normal. No hydronephrosis. Stomach and bowel: Oral contrast has reached the transverse colon on the exam no obstruction is present. Appendix: No evidence of appendicitis. Intraperitoneal space: Unremarkable. No free air. No significant fluid collection. Vasculature: Unremarkable. No abdominal aortic aneurysm. Lymph nodes: Unremarkable. No enlarged lymph nodes. Urinary bladder: Unremarkable as visualized. Reproductive: Unremarkable as visualized. Bones/joints: Unremarkable. No acute fracture. Soft tissues: Unremarkable. IMPRESSION: 1. Multiple liver hypodensities are present, the largest clearly represent benign cysts but the smaller ones are too small to accurately characterize. Recommend comparison with prior studies or MRI for further characterization as clinically indicated. 2. No evidence of metastatic disease otherwise identified. THIS DOCUMENT HAS BEEN ELECTRONICALLY SIGNED BY HERBERTH MACKENZIE MDThis document has been electronically signed by Herberth Mackenzie MD on 03/21/2021 4:35 AM Name Value Range Interpretation Code Description Data Montse rce(s) Supporting Document(s) ID Date Data Source [id number] 03/21/2021 02:05:20 AM [facility] Name Value Range Interpretation Code Description Data Montse rce(s) Supporting Document(s) Lactate [Moles/volume] in Serum or Plasma 0.8 mmol/l 0.5-2.2 [facility] ID Date Data Source [id number] 04/14/2021 09:31:00 AM [facility] Anatomic Molecular Pathology ReportName: TIBURCIO JOSEPHMRN: [id number] Number: [id number] Date: 03/21/2021 00:00Received Date: 04/05/2021 08:25Physician(s): BRENDAN BOWEN,GIANCARLO DURAN MDSpecimen(s) ReceivedA: Lung, Formalin Block [id number] A1, ALK by FISHDiagnosisTEST:ALK gene rearrangements by FISH (Fluorescence in situ Hybridization).RESULT:Percent tumor cells with ALK gene rearrangement (break-apart and/or 5'deletion) is 2%.ISCN - nuc lanette (5'ALK,3'ALK)x2~4(5'ALK con 3'ALKx2~4)[49/50] INTERPRETATION: NEGATIVE FOR ALK GENE REARRANGEMENT. 15% is used as a cut-off value: d15% is positive for ALK generearrangement while c15% is negative. ALK gene rearrangements, includingbreak apart and/or 5' deletion, can be identified in 3-7% of non- smallcell lung cancer, and are associated with better response to treatmentwith crizotinib.kg/romario Electronically Signed By Adelaida Solis M.D. Attending Pathologist 04/14/2021 09:31:03Reported at [facility] Clinical Pathology [address] [place] [address]. Gross DescriptionMETHODOLOGY:Interphase FISH is performed on paraffin embedded NSCLC utilizing theSeat[employer] Molecular ALK Break Apart FISH Probe Kit. This is a combination,direct label, dual color detection system utilizing 2 probes: 1) 3'- ALK,300 kb, labeled with SpectrumOrange, and 2) 5'-ALK, 442 kb, labeled withSpectrumGreen. Tumor cells with no ALK rearrangements have 2 yellowsignals (fused orange and green signal). Tumor with ALK rearrangement haveseparated orange and green signal (break apart) and/or deleted greensignal (5' deletion). Hybridization is carried out as per the statedprotocol with no significant background or random probe hybridizationdetected. A total of 50 -100 interphase tumor nuclei are examined manuallyby one or two scorers, depending on initial evaluation. d15% of tumorcells with ALK gene rearrangement is called positive.This FISH Probe Kit was approved by FDA for this application and has beenvalidated in the special procedure laboratory of Department of Pathology,[facility]. This report may include one or more immunohistochemical stain results thatuse analyte specific reagents. All positive and negative controls havebeen reviewed by the attending pathologist and are satisfactory. The testswere developed and their performance characteristics determined by [facility] Pathology department. They have not been cleared or approved by the USFood and Drug Administration. The FDA has determined that such clearanceor approval is not necessary. Name Value Range Interpretation Code Description Data Montse rce(s) Supporting Document(s) ID Date Data Source [id number] 03/25/2021 08:15:12 AM EDT [facility] Service Cmnt XXX-Imp : Specimen source n ot given.Microorganism XXX Cult : No growth 5 days Name Value Range Interpretation Code Description Data Montse rce(s) Supporting Document(s) ID Date Data Source [id number] 03/25/2021 08:15:12 [facility]-Imp : Specimen source n ot given.Microorganism XXX Cult : No growth 5 days Name Value Range Interpretation Code Description Data Montse rce(s) Supporting Document(s) ID Date Data Source [id number] 03/20/2021 06:56:35 PM [facility] Name Value Range Interpretation Code Description Data Montse rce(s) Supporting Document(s) Erythrocyte sedimentation rate <20 [facility] ID Date Data Source [id number] 03/20/2021 05:11:36 PM [facility] Name Value Range Interpretation Code Description Data Montse rce(s) Supporting Document(s) C reactive protein [Mass/volume] in Serum or Plasma 296.8 mg/L <8.0 [facility] ID Date Data Source [id number] 03/20/2021 05:11:36 PM [facility] Name Value Range Interpretation Code Description Data Montse rce(s) Supporting Document(s) Albumin [Mass/volume] in Serum or Plasma by Bromocresol green (BCG) dye binding method 3.3 g/dL 3.5-5.2 [facility] Bilirubin.total [Mass/volume] in Serum or Plasma 0.3 mg/dL <1.2 [facility] Calcium [Mass/volume] in Serum or Plasma 9.7 mg/dL 8.6-10.0 [facility] Chloride [Moles/volume] in Serum or Plasma 98 mmol/L 98-107 [facility] Creatinine [Mass/volume] in Serum or Plasma 0.40 mg/dL 0.50-0.90 L [facility] Glucose [Mass/volume] in Serum or Plasma 107 mg/dL 70-140 [facility] Alkaline phosphatase [Enzymatic activity/volume] in Serum or Plasma 153 U/L 35-104 [facility] Potassium [Moles/volume] in Serum or Plasma 4.2 mmol/L 3.4-5.1 [facility] Protein [Mass/volume] in Serum or Plasma 7.8 g/dL 6.4-8.3 [facility] Sodium [Moles/volume] in Serum or Plasma 136 mmol/L 136-145 [facility] Aspartate aminotransferase [Enzymatic activity/volume] in Serum or Plasma 42 U/L <32 [facility] Urea nitrogen [Mass/volume] in Serum or Plasma 18 mg/dL 6-20 [facility] Osmolality of Serum or Plasma by calculation 284 mosm/kg 275-300 [facility] Creatinine/Urea nitrogen [Mass Ratio] in Serum or Plasma 45 [facility] Bicarbonate [Moles/volume] in Serum 23 mmol/L 22-29 [facility] Alanine aminotransferase [Enzymatic activity/volume] in Seru m or Plasma 54 U/L <33 [facility] Anion gap 3 in Serum or Plasma 15 mmol/L 8-15 [facility] Glomerular filtration rate/1.73 sq M pre dicted among non-blacks [Volume Rate/Area] in Serum or Plasma by Creatinine-based formula (MDRD) >6 0 [facility] Glomerular filtration rate/1.73 sq M pre dicted among blacks [Volume Rate/Area] in Serum or Plasma by Creatinine-based formula (MDRD) >60 [facility] ID Date Data Source [id number] 03/20/2021 04:59:43 PM [facility] Name Value Range Interpretation Code Description Data Montse rce(s) Supporting Document(s) Lactate [Moles/volume] in Serum or Plasma 0.5-2.2 [facility] NOTIFIED ED [place] AT 6198 /8575 ID Date Data Source [id number] 03/20/2021 12:35:22 PM EDT [facility] XR CHEST FRONTAL ONLY [id number] RESULTI nterpreted by:Tiff Daniel MDINDICATION: 45-year-old female with history of altered mental status, presents for evaluation of the chest.TECHNIQUE: A single semierect AP radiograph of the chest was obtained.COMPARISON: None.FINDINGS:There is a 9 x 6 cm (CC x TV) opacity demonstrated at the right upper lung. Localization of this opacity is difficult on this solitary view. Follow-up lateral radiograph is recommended. Another opacity is demonstrated at the right lower lung. This may represent intraparenchymal nodule or an overlying nipple shadow. There is a small left pleural effusion with minimal associated linear atelectasis in the left lung base. There is no pneumothorax. The cardiac shadow is within normal limits. The visualized osseous structures are intact.IMPRESSION:1. There is a round right upper lung opacity measuring approximately 9 x 6 cm, as described above. An additional opacity is seen in the right lower lung. This may represent rounded atelectasis or a mediastinal mass. Follow-up lateral radiograph with nipple markers is recommended. If clinically warranted, a contrast CT examination of the chest may be obtained.2. There is a small left pleural effusion with associated linear atelectasis in the left lung base.This document has been electronically signed by Chris Martínez MD on 03/20/2021 12:33 PM Name Value Range Interpretation Code Description Data Montse rce(s) Supporting Document(s) ID Date Data Source [id number] 03/20/2021 03:48:04 PM EDT [facility] Name Value Range Interpretation Code Description Data Montse rce(s) Supporting Document(s) Blood group antibodies identified in Serum or Plasma [facility] Blood bank comment [facility] E Ag [Presence] on Red Blood Cells from Blood product unit [facility] ID Date Data Source [id number] 03/20/2021 02:10:19 PM [facility] Name Value Range Interpretation Code Description Data Montse rce(s) Supporting Document(s) Hemoglobin A1c/Hemoglobin.total in Blood by HPLC 5.3 % 4.0-6.0 [facility] (NOTE)<5.7% Average risk of diabetes (ADA)5.7-6.4% Increased risk of diabetes(ADA)>/= 6.5% Diagnostic for diabetes(ADA) Glucose mean value [Mass/volume] in Blood Estimated fr om glycated hemoglobin 105 mg/dL <126 [facility] ID Date Data Source [id number] 03/20/2021 12:46:33 PM [facility] Name Value Range Interpretation Code Description Data Montse rce(s) Supporting Document(s) aPTT in Platelet poor plasma by Coagulation assay 35.0 s 24.0-33. 0 [facility] ID Date Data Source [id number] 03/20/2021 12:46:33 PM [facility] Name Value Range Interpretation Code Description Data Montse rce(s) Supporting Document(s) Prothrombin time (PT) 16.1 s 11.6-14.0 H [facility] INR in Platelet poor plasma by Coagulation assay 1.34 [facility] Routine intensity oral anticoagulation I NR is typically 2.0-3.0. Target INR must be clinically individualized. ID Date Data Source [id number] 03/20/2021 01:20:25 PM [facility] Value Range Interpretation Code Description Data Montse rce(s) Supporting Document(s) Albumin [Mass/volume] in Serum or Plasma by Bromocresol green (BCG) dye binding method 3.7 g/dL 3.5-5.2 [facility] Bilirubin.total [Mass/volume] in Serum or Plasma 0.3 mg/dL <1.2 [facility] Calcium [Mass/volume] in Serum or Plasma 9.8 mg/dL 8.6-10.0 [facility] Chloride [Moles/volume] in Serum or Plasma 99 mmol/L 98-107 [facility] Creatinine [Mass/volume] in Serum or Plasma 0.49 mg/dL 0.50-0.90 L [facility] Glucose [Mass/volume] in Serum or Plasma 104 mg/dL 70-140 [facility] Alkaline phosphatase [Enzymatic activity/volume] in Serum or Plasma 159 U/L 35-104 [facility] Potassium [Moles/volume] in Serum or Plasma 4.0 mmol/L 3.4-5.1 [facility] Protein [Mass/volume] in Serum or Plasma 8.2 g/dL 6.4-8.3 [facility] Sodium [Moles/volume] in Serum or Plasma 141 mmol/L 136-145 [facility] Aspartate aminotransferase [Enzymatic activity/volume] in Serum or Plasma 46 U/L <32 [facility] Urea nitrogen [Mass/volume] in Serum or Plasma 17 mg/dL 6-20 [facility] Osmolality of Serum or Plasma by calculation 294 mosm/kg 275-300 [facility] Creatinine/Urea nitrogen [Mass Ratio] in Serum or Plasma 35 [facility] Bicarbonate [Moles/volume] in Serum 24 mmol/L 22-29 [facility] Alanine aminotransferase [Enzymatic activity/volume] in Seru m or Plasma 56 U/L <33 [facility] Anion gap 3 in Serum or Plasma 18 mmol/L 8-15 H [facility] Glomerular filtration rate/1.73 sq M pre dicted among non-blacks [Volume Rate/Area] in Serum or Plasma by Creatinine-based formula (MDRD) >6 0 [facility] Glomerular filtration rate/1.73 sq M pre dicted among blacks [Volume Rate/Area] in Serum or Plasma by Creatinine-based formula (MDRD) >60 [facility] ID Date Data Source [id number] 03/20/2021 01:22:15 PM [facility] Name Value Range Interpretation Code Description Data Montse rce(s) Supporting Document(s) Choriogonadotropin.beta subunit [Moles/volume] in Serum or Plasma <5 [facility] ID Date Data Source [id number] 03/20/2021 01:24:56 PM [facility] Name Value Range Interpretation Code Description Data Montse rce(s) Supporting Document(s) Leukocytes [#/volume] in Blood by Automated count 15.2 10*3/uL 4-10 H [facility] Erythrocytes [#/volume] in Blood by Automated count 4.44 10*6/uL 4.1- 5.3 [facility] Hemoglobin [Mass/volume] in Blood 11.0 g/dL 11.5-15.5 [facility] Hematocrit [Volume Fraction] of Blood by Automated count 35.3 % 3 6-45 L [facility] Erythrocyte mean corpuscular volume [Entitic volume] by Auto mated count 79.4 fL 80-96 L [facility] Erythrocyte mean corpuscular hemoglobin [Entitic mass] by Automated count 24.7 pg 27-33 L [facility] Erythrocyte mean corpuscular hemoglobin concentration [Mass/volume] by Automated count 31.1 g/dL 32.0-36.0 L [facility] Erythrocyte distribution width [Ratio] by Automated count 18.6 % 11.5-14.5 H [facility] Platelets [#/volume] in Blood by Automated count 1024 10*3/uL 150-400 [facility] UnconfirmedConfirmedCalled to and read b ack by armaan lou rn in er at [phone] Differential cell count method - Blood [facility] Neutrophils/100 leukocytes in Blood by Automated count 76 % [facility] Lymphocytes/100 leukocytes in Blood by Automated count 12 % [facility] Monocytes/100 leukocytes in Blood by Automated count 11 % [facility] Eosinophils/100 leukocytes in Blood by Automated count 0 % [facility] Basophils/100 leukocytes in Blood by Automated count 1 % [facility] Neutrophils [#/volume] in Blood by Automated count 11.71 10*3/uL 1.8- 7.0 [facility] Lymphocytes [#/volume] in Blood by Automated count 1.81 10*3/uL 1.2-4 .0 [facility] Monocytes [#/volume] in Blood by Automated count 1.59 10*3/uL 0-0.8 [facility] Eosinophils [#/volume] in Blood by Automated count 0.03 10*3/uL 0-0.5 [facility] Basophils [#/volume] in Blood by Automated count 0.08 10*3/uL 0-0.2 [facility] Nucleated erythrocytes/100 leukocytes [Ratio] in Blood by Automated count 0 /100{WBCs} 0-0 [facility] ID Date Data Source [id number] 03/20/2021 02:00:15 PM [facility] Name Value Range Interpretation Code Description Data Montse rce(s) Supporting Document(s) Thyrotropin [Units/volume] in Serum or Plasma 0.747 u[IU]/mL 0.270-4. 200 [facility] ID Date Data Source [id number] 03/20/2021 02:00:15 PM [facility] Name Value Range Interpretation Code Description Data Montse rce(s) Supporting Document(s) Cholesterol [Mass/volume] in Serum or Plasma 160 mg/dL <200 [facility] Triglyceride [Mass/volume] in Serum or Plasma 93 mg/dL <150 [facility] Cholesterol in HDL [Mass/volume] in Serum or Plasma 39 mg/dL >50 L [facility] Cholesterol in LDL [Mass/volume] in Serum or Plasma by calcu lation 102 mg/dL <100 [facility] Cholesterol in VLDL [Mass/volume] in Serum or Plasma by calc ulation 19 mg/dl 16-42 [facility] Cholesterol non HDL [Mass/volume] in Serum or Plasma 121 mg/dL <130 [facility] ID Date Data Source [id number] 03/20/2021 01:38:53 PM EDT [facility] Name Value Range Interpretation Code Description Data Montse rce(s) Supporting Document(s) ABO and Rh group [Type] in Blood [facility] Blood group antibody screen [Presence] in Serum or Plasma [facility] Blood bank comment [facility] ID Date Data Source [id number] 03/20/2021 11:43:00 AM EDT [facility] Name Value Range Interpretation Code Description Data Montse rce(s) Supporting Document(s) SARS-CoV-2 RNA 2019 nCoV Real-Time RT-PCR: NOT DETECTED [facility] This lab was ordered by [facility] and reported by [facility]. ID Date Data Source [id number] 03/20/2021 02:20:51 PM EDT [facility] Service Cmnt XXX-Imp : NoneRespiratory P CR Panel : PCR ResultsMicroorganism XXX Cult : See Labs Tab for 2019 nCoV RT-PCR resultsHAdV DNA QI MERLIN+non-probe : Not DetectedHCoV [id number] Nph QI MERLIN+non-probe : Not DetectedHCoV [id number] Nph QI MERLIN+non-probe : Not IbjfzratSEkLBS73 RNA Nph QI MERLIN+non-probe : Not [id number] RNA Upper resp QI MERLIN+probe : Not DetectedhMPV RNA Nph QINAA+non-probe : Not DetectedRV+EV RNA Nph QI MERLIN+non-probe : Not DetectedFLUAV RNA Nph QI MERLIN+ non-probe : Not DetectedFLUBV RNA Nph QI MERLIN+non-probe : Not DetectedHPIV1 RNA NphQINAA+non-probe : Not DetectedHPIV2 RNA Nph QINAA+non-probe : Not DetectedHPVI3 RNA Nph MERLIN+non-probe : Polymerase chain reaction is POSITIVE for Parainfluenza virus type 3.Isolation precautions required-refer to Infection Control Manual.HPIV4 RNA Nph Q MERLIN+non-probe : Not DetectedRSV RNA Nph Q MERLIN+non-probe : Not DetectedB pert.PT PrmtNph Q MERLIN+non-probe : Not DetectedC pneum DNA Nph Q MERLIN+non-probe : Not DetectedM pneum DNA Nph Q MERLIN+non-probe : N ot DetectedB [id number] DNA Nph MERLIN+non-probe : Not DetectedPlease note : Faxed to [phone] Name Value Range Interpretation Code Description Data Montse rce(s) Supporting Document(s) ID Date Data Source [id number] 03/20/2021 02:18:31 PM EDT [facility] Name Value Range Interpretation Code Description Data Montse rce(s) Supporting Document(s) Specimen source [Identifier] of Unspecified specimen [facility] SARS-CoV-2 RNA 2019 nCoV Real-Time RT-PCR: NOT DETECTED [facility] Assay Performed [facility] Patients first test for [facility] 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 Name Value Range Interpretation Code Description Data Montse rce(s) Supporting Document(s) SARS coronavirus 2 RNA [Presence] in Res piratory specimen by MERLIN with probe detection NEGATIVE [facility] This lab was ordered by [facility] a nd reported by [facility]. ID Date Data Source [id number] 04/15/2021 04:11:00 PM EDT [facility] Anatomic Molecular Pathology ReportName: TIBURCIO JOSEPHMRN: [id number] Number: [id number] Date: 03/20/2021 00:00Received Date: 04/05/2021 08:29Physician(s): BRENDAN BOWEN MD LEE, MIJUNG,[facility]imen[facility]s) ReceivedA: Lung, Formalin Block [id number] A1, BRAF Mutation AnalysisDiagnosisTESTS:BRAF V600E mutation (1799 T>A) at exon 15 by real time PCR.RESULTS:Wild type probe (yellow gain): Ct value and end-point fluorescence are27.49 and 0.643 respectively.Mutant probe (green gain): Ct value and end-point fluorescence are 45.00and 0.088 respectively.(Mutant probe EPF cut-off value: 0.156)INTERPRETATION:NEGATIVE FOR BRAF V600E MUTATION.BRAF V600E (1799 T>A) mutation at exon 15 is a genetic alterationidentified in a variety of neoplasm and present in approximately 3% oflung adenocarcinoma. BRAF V600E in lung adenocarcinoma might be associatedwith decreased sensitivity to EGFR inhibitor such as gefitinib, andincreased response to BRAF inhibitor such as vemurafenib. The test resultis considered positive if the Ct value (mutant probe) is less than 45 andthe EPF is higher than cut-off value. If the percentage of mutant DNA isless than 10% in a background of wild-type DNA, the mutation may not bedetected by this assay. This result is an adjunct to other clinical andpathologic information for appropriate patient management.romario/abrilElectronically Signed By Adelaida Solis M.D. Attending Pathologist 04/15/2021 16:11:00Reported at [facility] [address] [place] [address]. Gross DescriptionMETHODOLOGY:BRAF V600E(1799 T>A) mutation at exon 15 is detected by real time PCRusing allele-specific TaqMan probes and performed on paraffin embeddedtissues. The tumor area is identified by the pathologist and is manuallymicrodissected. The mutant probe was labeled with a FAM-fluorophore whilethe wild-type probe with a MARCELLUS-fluorophore. The amount of fluorescentemissions rendered by specific probe hybridization was associated theamounts of PCR products, and analyzed by JustFabGene Q real timeinstrument. The analytical sensitivity (or minimum percentage of mutantDNA needed) is approximately 10% given sufficient DNA input. Test development and its performance characteristics were determined bythe [facility], and has beenauthorized for clinical use by [facility]. Thetest has not been cleared or approved by the U.S. Food and DrugAdministration. The analyte specific reagents used in this assay do notrequire FDA approval. REFERENCES: 1. Navid Vanegas Alenda C, et al. Detection of BRAF X728Terihogij in colorectal cancer-comparison of automatic sequencing and realtime chemistry methodology. J Mol Diagn. 2006; 8:445611.2. Richard L, Jaelyn REECE, Jorge Luis N, et al. BRAF mutation analysis in fineneedle aspiration (FNA) cytology of the thyroid. Diagn Mol Pa thol.2006;15:102768.3. Cierra PK, Jason ME, Alondra M, et al. Clinical characteristics ofpatients with lung adenocarcinomas harboring BRAF mutations. J Clin Oncol.2011;29:6610-1890.This report may include one or more immunohistochemical stain results thatuse analyte specific reagents. All positive and negative controls havebeen reviewed by the attending pathologist and are satisfactory. The testswere developed and their performance characteristics determined by [facility] Pathology department. They have not been cleared or approved by the USFood and Drug Administration. The FDA has determined that such clearanceor approval is not necessary. Name Value Range Interpretation Code Description Data Montse rce(s) Supporting Document(s) ID Date Data Source [id number] 04/14/2021 01:44:00 PM [facility] Anatomic Molecular Pathology ReportName: TIBURCIO JOSEPHMRN: [id number] Number: [id number] Date: 03/20/2021 00:00Received Date: 04/05/2021 08:19Physician(s): BRENDAN BOWEN MD LEE, MIJUNG, MDSpecimen(s) ReceivedA: Lung, Formalin Block [id number] A1, EGFRDiagnosisTEST: EGFR gene mutations (exon 19 deletions, L858R, G719A, T790M, S768I,exon 20 insertions, L861Q) by therascreene RGQ real-time PCR RESULTS: An EGFR mutation is not detected.INTERPRETATION: NEGATIVE FOR EGFR GENE MUTATION.This test is FDA approved and intended to be used to select patients withnon-small cell lung can cer for whom EGFR tyrosine kinase inhibitor (TKI),such as afatinib, is indicated. Presence of exon 19 deletions, exon 98D023T or L861Q, exon 18 G719A or exon 20 S768I mutation is associated witha better response to TKI therapy. TKI therapeutic resistance of T790M andexon 20 insertions have been reported, and safety and efficacy of TKItherapy on these mutations have not been established. The results areadjuncts to other clinical and pathologic information available forevaluating the therapeutic response. Tumors that contain less than 20%mutation may not be detected in some mutation types by this assay. rw/kgElectronically Signed By Adelaida Solis M.D. Attending Pathologist 04/14/2021 13:44:00Reported at [facility] [address] [place] [address]. Gross DescriptionMETHODOLOGY:The therascreen EGFR RGQ PCR Kit ([employer], [place], [place]) is a real-timequalitative PCR assay used on the [employer] instrument for thedetection of seven types of mutations at EGFR oncogene. The kit requiresDNA extracted from formalin-fixed paraffin-embedded (FFPE) tissue ofnon-small cell lung cancer. The tumor area is identified by the attendingpathologist and ma nually microdissected. The assay uses Scorpionse andARMSe (Allele Refractory Mutation System) technologies, and isFDA-approved for clinical patient care. Allele-specific amplification isachieved by ARMS which exploits the ability of Taq DNA polymerase todistinguish between a matched and a mismatched base at the 3' end of a PCRprimer. Detection of amplification is performed using Scorpions, which arebifunctional molecules containing a PCR primer covalently linked to aprobe.REFERENCES:1. Urvashi Dubois., Evelina S., Rudy, A. et al. EGFR- targeted therapyfor non-small cell lung cancer: focus on EGFR oncogenic mutation. Int. J. Med. Sci. 2013; 10: 320. 2. Meghan Ortiz., et al. First- line gefitinib in patients withadvanced non-small cell lung cancer harboring somatic EGFR mutations. J.Clin.Oncol. 2008;15: 2442.3. Pito COREAS, Steffanie MISTRY, Sussy J et al. Epidermal growth factor receptormutations in lung cancer. Nature Review/Cancer. 2007;4155-4891.This report may include one or more immuno histochemical stain results thatuse analyte specific reagents. All positive and negative controls havebeen reviewed by the attending pathologist and are satisfactory. The testswere developed and their performance characteristics determined by [facility] Pathology department. They have not been cleared or approved by the USFood and Drug Administration. The FDA has determined that such clearanceor approval is not necessary. Name Value Range Interpretation Code Description Data Montse rce(s) Supporting Document(s) ID Date Data Source [id number] 04/14/2021 09:30:00 AM [facility] Anatomic Molecular Pathology ReportName: TIBURCIO JOSEPHMRN: [id number] Number: [id number] Date: 03/20/2021 00:00Received Date: 04/05/2021 08:27Physician(s): BRENDAN BOWEN MD LEE, MIJUNG,MDSpecimen(s) ReceivedA: Lung, Formalin Block, [id number] A1, ROS1 by FISHDiagnosisTEST:ROS1 gene rearrangements by FISH (Fluorescence in situ Hybridization).RESULT:Percent tumor cells with ROS1 gene rearrangement (break-apart and/or 5'deletion) is 4%.ISCN - nuc lanette (5'ROS1,3'ROS1)x2~3(5'ROS1 con 3'ROS1x2~3)[48/50] INTERPRETATION: NEGATIVE FOR ROS1 GENE REARRANGEMENT.15% is used as a cut-off value: d15% is positive for ROS1 generearrangements while c15% is negative. ROS1 gene rearrangements, includingbreak-apart and/or 5' deletion, can be identified in 1- 2% of non-smallcell lung cancer, and are associated with better response to treatmentwith crizotinib. kg/jajElectronically Signed By Adelaida Solis M.D. Attending Pathologist 04/14/2021 09:30:33Reported at [facility] Clinical Pathology [address] [place] [address]. Gross DescriptionMETHODOLOGY:Interphase FISH is performed on paraffin embedded NSCLC utilizing thecombined Carranza Molecular LSI ROS1(Boy) and ROS1(Tel) ROS1 Probes: 1)3'-ROS1(Boy), 557 kb, labeled with SpectrumGreen, and 2) 5'- ROS1(Tel),317kb, labeled with SpectrumOrange. Tumor cells with no QKT8ceskueekcfqxcl have 2 yellow signals (fused orange and green signal).Tumor cells with ROS1 rearrangement have orange and green signal(break apart) and/or deleted orange signal (5' deletion). Hybridization iscarried out as per the stated protocol with no significant background orrandom probe hybridization detected. A total of 50 -100 interphase tumornuclei are examined manually by one or two scorers, depending on initialevaluation. d15% of tumor cells with ROS1 gene rearrangement is calledpositive.This test was developed and its performance characteristics weredetermined by the [facility],and it has been authorized for clinical use by [facility]. The test has not been cleared or approved by the U.S. Food andDrug Administration. The analyte specific reagents used in this assay donot require FDA approval. REFERENCES: 1. MAIRA Collins, Justine AT, Theraquel MF et al. Identifying and Targeting LJW4Mnex Fusions in NonSmall Cell Lung Cancer. Clin Cancer Res 2012; 18(17);59452819.2. Dyer, Rogelio AT. Novel Targets in Non-Small Cell Lung Cancer:ROS-1 and RET fusions. The Oncologist. 2013;18:865-875.This report may include one or more immunohistochemical stain results thatuse analyte specific reagents. All positive and negative controls havebeen reviewed by the attending pathologist and are satisfactory. The testswere developed and their performance characteristics determined by [facility] Pathology department. They have not been cleared or approved by the USFood and Drug Administration. The FDA has determined that such clearanceor approval is not necessary. Name Value Range Interpretation Code Description Data Montse rce(s) Supporting Document(s) ID Date Data Source [id number] 03/15/2021 08:25:00 PM EDT [facility] 1 Medication Reconciliation Report [facility] Emergency Department [address] [place] [address] Phone #: ext- [phone] 03/15/2021 19:56 Patient: TIBURCIO JOSEPH Sex: F : 1975 Age: 45yWeight: 45.3 kgHeight/Length: 64 in.BMI: 17.2ALLERGIES: No Known Drug AllergyThe patient's Home Medications are listed below:NONE.The source(s) of the original Home Medication information:Not obtained.The following Medications were given to the patient in the Emergency Department:None.The following Medications were prescribed to the patient:None. Name Value Range Interpretation Code Description Data Montse [facility](s) Supporting Document(s) ID Date Data Source [id number] 03/15/2021 08:25:00 PM EDT [place] [address] Medication Administration Record [facility] Emergency Department [address] [place] [address] Phone #: ext- [phone] 03/15/2021 19:56 Patient: TIBURCIO JOSEPH Sex: F : 1975 Age: 45yWeight: 45.3 kgHeight/Length: 64 inBMI: 17.2ALLERGIES: No Known Drug AllergyDate/Time Medication Administered Medication Ordered Name Value Range Interpretation Code Description Data Montse rce(s) Supporting Document(s) ID Date Data Source [id number] 03/15/2021 08:25:00 PM EDT [facility] 1 Clinical Report - Nurses [facility] Emergency Department [address] [place] [address] Phone #: ext- [phone] 03/15/2021 19:56 Patient: TIBURCIO JOSEPH Sex: F : 1975 Age: 45yTRIAGEArrived by private vehicle. Historian: patient.Acuity: LEVEL 3.Chief Complaint: HEADACHE and MIGRAINE HEADACHE and BLURRED VISION.Alert. No acute distress.This started 3 days. ( PT reports having a frontal migraine WILSON with blurred vision and nausea for 3 days.She has had a history of a brain aneurysm in 2010 and had surgery to remove it at [facility]. She has notseen a neurologist in several years.). 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 SEPSIS SCREEN NEGATIVE. No suspected or confirmedsigns of infection present.THAO COMA SCORE: 15- eyes open- spontaneous (4); best verbal response- oriented (5); bestmotor response- obeys commands (6). --20:14 03/15/21 Aisha Bryant R.N.20:09 03/15/21. BP: 102/73. MAP: 82. HR: 84. RR: 18. O2 saturation: 99%. Temp: 97.9 F. Pain level now:02/26. --20:14 03/15/21 Aisha Bryant R.N.Weight: 45.3 kg stated. Height/Length: 64 inches Per Patient. BMI: 17.2. --20:10 03/15/21 Aisha Bryant R.N.MedicationsNone. --20:11 03/15/21 Aisha Bryant R.N.AllergiesNo Known Drug Allergy. --20:11 03/15/21 Aisha Bryant R.N.PROBLEMS:Brain aneurysm.Migraine Headache. --20:12 03/15/21 Aisha Bryant R.N.ADDITIONAL SURGERIES:Brain aneurysm surgery. --20:12 03/15/21 Aisha Bryant R.N.History 2 Clinical Report - Nurses [facility] Emergency Department [address] [place] [address] Phone #: ext- [phone] 03/15/2021 19:56 Patient: TIBURCIO JOSEPH Sex: F : 1975 Age: 45y PAST MEDICAL HX: Immunizations: up-to-date. Has had a hysterectomy. Denies current . SOCIAL HX: Heavy tobacco smoker- more than 2 packs per day. No alcohol use or drug use. No recent travel. No known contact with a sick individual. The patient was offered HIV testing but declined and hepatitis C testing but declined. The patient has not traveled outside the [place] Infectious disease exposure: The patient was not exposed to C-diff, MRSA, VRE, CRE or Cor onavirus. SELF HARM ASSESSMENT: Self harm assessment was performed. The patient answered "no" to the question(s) "Have you recently felt down, depressed, or hopeless?", "Do you have thoughts of harming or killing yourself?", "Do you have a plan for harming or killing yourself?", "Have you recently had thoughts about harming or killing others?", "Do you have any dangerous items in your possession?", "Have you noticed less interest or pleasure in doing things?", "Are you here because you tried to hurt yourself?" and "Have you ever tried to hurt yourself before today?". ABUSE ASSESSMENT: No report of abuse. NUTRITIONAL RISK ASSESSMENT: The nutritional risk assessment revealed no deficiencies. FUNCTIONAL ASSESSMENT: Functional assessment: no impairments noted. LEARNING NEEDS ASSESSMENT: The learning needs assessment revealed no barriers. FALL RISK ASSESSMENT: Fall risk assessment completed. No risk factors identified. SKIN INTEGRITY ASSESSMENT: Skin integrity risk assessment completed. No skin integrity risk identified. --20:14 03/15/21 Aisha Bryant R.N. Interventions Identification band on patient. To treatment room. No allergy band on patient. --20:14 03/15/21 Aisha Bryant R.N.DISPOSITION / DISCHARGE 21:10 03/15/21. The patient left the Emergency Department without being seen by a physician and comp letion of treatment; patient was accompanied by spouse. The patient appears to be alert, oriented x4, uncooperative and using abusive language. The patient stated is leaving due to personal reasons. Notified the ED physician and charge nurse of patient departure. Prior to leaving, she was advised to stay for completion of treatment and return if needed. She was informed of the risks of leaving. She left the Emergency Department ambulatory and via private vehicle. --21:15 03/15/21 Aisha Bryant R.N.Locked/Released at 03/15/2021 21:15 by Aisha Bryant R.N. 3 Clinical Report - Nurses [facility] Emergency Department [address] [place] [address] Phone #: ext- [phone] 03/15/2021 19:56 Patient: TIBURCIO JOSEPH Sex: F : 1975 Age: 45y Name Value Range Interpretation Code Description Data Montse rce(s) Supporting Document(s) ID Date Data Source [id number] 02/17/2021 09:03:00 [place] [address] RESPIRATORY CARE REPORT ==== ---------NAME------- NUMBER SEX AGE ADMIT DISC. XRAY# F/C MARIA INES Bonilla [id number] F 45 02/16/21 02/16/21 [id number] E/R DATE OF : 1975 M/R# [id number] #: [id number] TR-07 LOCATION: [place] [id number] COMP LETE:02/17/21 03:58 [place] [id number] PHYSICIAN: JALEN Gorman Name Value Range Interpretation Code Description Data Montse rce(s) Supporting Document(s) ID Date Data Source [id number] 02/17/2021 11:23:00 [place] [address] PHONE: [phone] FAX: [phone] Name .................. : JAKE Bonilla Acct Number.................. : [id number] ROOM. ................. : [facility] Number ................... : [id number] Stay type ............. : E/R Discharge Date......... ... : Admit Date ......... : 02/16/21 Admit Phys .................... : JALEN Gorman Date of ....... : 1975 Family Phys ................... : NO PCP Phone .................. : [phone] Age ................................ : 45 Film# .................. .:[id number] Sex ................................. : F Unsigned transcriptions are preliminary reports and do not represent a medical or legal document CHEST PORTABLE [id number] COMPLETE:02/16/21 18:41 KBO 75269 Reason(s): Chest Pain PORTABLE CHEST SINGLE VIEW: INDICATION: Chest pain COMPARISON: 10/27/2011 FINDINGS: Heart size normal. Left hilum and right lower hilum normal. There is a 51 x 96 cm mass in the medial right lung apex extending inferiorly to the right superior hilar region. Appearance suggests erosion of the inferior posterior aspect of the right fifth rib and possibly sixth rib. Elsewhere clear lungs. No pulmonary edema. Mild elevation of lateral left hemidiaphragm is chronic. No pleural effusions or pneumothorax. IMPRESSION: Interval development of right apical mass. Potential rib erosion. This should be presumed to represent malignancy until proven otherwise.. Electronically Reviewed and Signed By Jorge Luis Pruitt MD , 02/17/21 11:23, SCB Transcribe Initials: WILMAN , Transcribe Date: 02/16/21 20:13, Dictation Date: Copy for: EMERGENCY DEPT via modem Copy for: 710 MED REC DISCHARGED Page 1 of 1 Name Value Range Interpretation Code Description Data Montse rce(s) Supporting Document(s) ID Date Data Source [id number] 02/16/2021 04:17:00 PM EDT [facility] 1 OrderSheet [facility] Emergency Department [address] [place] [address] Phone #: ext- [phone] 02/16/2021 15:54 Patient: TIBURCIO JOSEPH Sex: F : 1975 Age: 45yWEIGHT:49.8 kg HEIGHT:64 inches BMI:18.9ALLERGIES: No Known Drug AllergyCHIEF COMPLAINT: vomiting, diarrheaDIAGNOSIS: Mediastinal mass, Vomiting, Suicidal behaviorLAB ORDERSOrder Description Priority Entered Acknowledged InitialedCMP STAT 16:28 02/16/2021 Ack'd: 17:15 18:21 [place] [facility] Qasim Murphy ; Carlo, Shaheed Tech, Gabrielle ER [id number] w Diff STAT 16:28 02/16/2021 Ack'd: 17:15 18:21 [place] [facility] Qasim Murphy ; Carlo, Shaheed Tech, Gabrielle ER [id number] STAT 16:28 02/16/2021 Ack'd: 17:15 18:21 [place] [facility] Qasim Murphy ; Carlo, Shaheed Tech, Gabrielle ER [id number] (Clean STAT 16:28 02/16/2021 Ack'd: 17:15 17:54 [place] EDCatch) Qasim Murphy ; Carlo, Shaheed Tech, Gabrielle ER [id number] Drug Screen STAT 16:28 02/16/2021 Ack'd: 17:15 17:54 [place] [facility] Qasim Murphy ; Carlo, Shaheed Tech, Gabrielle ER [id number] STAT 16:28 02/16/2021 Ack'd: 17:15 18:21 [place] [facility] Qasim Murphy ; Carlo Shaheed Tech, Gabrielle ER [id number] STAT 16:28 02/16/2021 Ack'd: 17:15 18:21 [place] EDLevel Qasim Murphy ; Carlo, Shaheed Tech, Gabrielle ER [id number] Level STAT 16:28 02/16/2021 Ack'd: 17:15 18:21 [place] [facility] Qasim Murphy ; Carlo, Shaheed Tech, Gabrielle ER [id number] CAH (Not STAT 18:20 02/16/2021 18:25 CarloSymptomatic as Qasim Murphy ; ShaheedDefined by CDC)(02/16/2021) (NotFirst Test) (NotHospitalized) (Not) (NotResident in 2 OrderSheet [facility] Emergency Department [address] [place] [address] Phone #: ext- [phone] 02/16/2021 15:54 [facility]: [id number] Sex: F : 1975 Age: 45yCongregate CareSetting) (NotEmployed inHealthcare Setting)DIAGNOSTIC STUDY ORDERSOrder Description Priority Entered Acknowledged InitialedChest Portable 1 STAT 16:28 02/16/2021 Ack'd: 17:15 18:21 [place] EDView Qasim Murphy ; Shaheed Matos Tech, Gabrielle ER(Oxygen?(No)) Tech1 Reason for Study: Chest PainMEDICATION/IV/DRIP/FLUID ORDERSOrder Description Priority Entered Acknowledged InitialedNS IV 1000 mL 16:28 02/16/2021 17:45 Carlo,Bolus: : Bolus 1000 Qasim Murphy ; [place] (X1)Toradol IVP 30 mg 19:34 02/16/2021 19:38 Carlo,(NOW x1) Qasim Murphy ; ShaheedGENERAL ORDERSOrder Description Priority Entered Acknowledged InitialedEKG 16:28 02/16/2021 Ack'd: 17:15 17:54 [place] [facility] Qasim Murphy ; Shaheed Matos, Gabrielle ER Tech1[Electronically signed by Shaheed Matos (21:43 02/16/2021)][Electronically signed by Qasim Murphy (02:14 02/17/2021)][Electronically locked by Shaheed Matos (21:43 02/16/2021)] Name Value Range Interpretation Code Description Data Montse rce(s) Supporting Document(s) ID Date Data Source [id number] 02/16/2021 04:17:00 PM EDT [facility] 1 Medication Reconciliation Report [facility] Emergency Department [address] [place] [address] Phone #: ext- [phone] 02/16/2021 15:54 Patient: TIBURCIO JOSEPH Sex: F : 1975 Age: 45yWeight: 49.8 kgHeight/Length: 64 in.BMI: 18.9ALLERGIES: No Known Drug AllergyThe patient's Home Medications are listed below:THE FOLLOWING MEDICATIONS NEED TO BE RECONCILED: Crushed aspirin 325 mg, daily Ibuprofen Oral (800 mg), 4x a day Tylenol Oral 1000 mg, 3x a dayThe source(s) of the original Home Medication information:Not obtained.The following Medications were given to the patient in the Emergency Department:NS [IV] IV Fluids bolus 1000 mL over 1 hour(s), administered: 17:30 02/16/2021Toradol [IVP] IVP 30 mg, administered: 19:38 02/16/2021The following Medications were prescribed to the patient:None. Name Value Range Interpretation Code Description Data Montse rce(s) Supporting Document(s) ID Date Data Source [id number] 02/16/2021 04:17:00 PM EDT [facility] 1 Medication Administration Record [facility] Emergency Department [address] [place] [address] Phone #: spo- [phone] 02/16/2021 15:54 Patient: TIBURCIO JOSEPH Sex: F : 1975 Age: 45yWeight: 49.8 kgHeight/Length: 64 inBMI: 18.9ALLERGIES: No Known Drug Allergy Date/Time Medication Administered Medication OrderedStart NS [IV] NS IV 1000 mL Bolus: : Bolus 332794:[id number] 02/16/2021 Dose: IV Fluids mL (X1)Shaheed Matos, Bolus: 1000 mL over 1 hour(s)---- Dispensed: 1000 mL bagStop Site: #1 right AC18:24 02/16/2021Shaheed Matos,Given TORADOL [IVP] (KETOROLAC Toradol IVP 30 mg (NOW x1)19:38 02/16/2021 TROMETHAMINE)Carlo, Shaheed, Dose: 30 mg IVP Site: #1 right Name Value Range Interpretation Code Description Data Montse rce(s) Supporting Document(s) ID Date Data Source [id number] 02/16/2021 04:17:00 PM EDT [facility] 1 General Instructions [facility] Emergency Department [address] [place] [address] Phone #: ext- [phone] 02/16/2021 15:54 Patient: TIBURCIO JOSEPH Sex: F : 1975 Age: 45yVomiting with nausea. Not intractable.Mediastinal mass.Suicidal ideation.(Electronically signed by Qasim Murphy 02/17/2021 02:14) Name Value Range Interpretation Code Description Data Montse rce(s) Supporting Document(s) ID Date Data Source [id number] 02/16/2021 04:17:00 PM EDT [facility] 1 Clinical Report - Nurses [facility] Emergency Department [address] [place] [address] Phone #: ext- [phone] 02/16/2021 15:54 Patient: TIBURCIO JOSEPH Sex: F : 1975 Age: 45yTRIAGEArrived by private vehicle. Historian: patient.Acuity: LEVEL 2.Chief Complaint: NAUSEA and VOMITING.16:06 02/16/21. Alert. No acute distress.( Patient reports nausea/vomiting x 3 days. States she is vomiting too many times to count each day.States when she is vomiting she has abdominal pain. One episode of diarrhea today. Denies fevers or illcontacts.).SEPSIS SCREEN: SIRS SCREEN NEGATIVE: heart rate greater than 90. SEPSIS SCREEN NEGATIVE.No suspected or confirmed signs of infection present. --16:06 02/16/21 Kalina Neumann R.N.15:56 02/16/21. BP: 98/66. MAP: 76. HR: 125. RR: 18. O2 saturation: 97%. Temp: 97.4 F. Pain level now:0/10. --16:06 02/16/21 Kalina Neumann R.N.Weight: 49.8 kg. Height/Length: 64 inches. BMI: 18.9. --16:02 02/16/21 Kalina Neumann R.N.MedicationsIbuprofen Oral (Tablet 800 mg), 4x a day. --15:57 02/16/21 Kalina Neumann R.N. Tylenol Oral 1000 mg, 3x a day. --15:57 02/16/21 Kalina Neumann R.N. Crushed aspirin 325 mg, daily. --15:58 02/16/21 Kalina Neumann R.N.AllergiesNo Known Drug Allergy. --15:58 02/16/21 Kalina Neumann R.N.PROBLEMS:Brain aneurysm. --15:59 02/16/21 Kalina Neumann R.N.ADDITIONAL SURGERIES:Brain aneurysm coil and stent (2006). --15:59 02/16/21 Kalina Neumann R.N.Hysterectomy. --16:00 02/16/21 Kalina Neumann R.N.Thcibrt96:06 02/16/21.PAST MEDICAL HX: No menstrual periods. Has had a hysterectomy.SOCIAL HX: Current every day light tobacco smoker (cigarette)- less than 1/2 a pack per day. No alcoholuse or drug use. The patient was offered HIV testing but declined and hepatitis C testing but declined. 2 Clinical Report - Nurses [facility] Emergency Department [address] [place] [address] Phone #: ext- [phone] 02/16/2021 15:54 Patient: TIBURCIO JOSEPH [facility]#: [id number] Sex: F : 1975 Age: 45y The patient has not traveled outside the [place] Infectious disease exposure: The patient was not exposed to C-diff, MRSA or Coronavirus. SELF HARM ASSESSMENT: Self harm assessment was performed. The patient answered "yes" to the question(s) "Have you recently felt down, depressed, or hopeless?", "Do you have thoughts of harming or killing yourself?", "Do you have a plan for harming or killing yourself?", "Have you noticed less interest or pleasure in doing things?" and "Have you ever tried to hurt yourself before today?" and "no" to the question(s) "Have you recently had thoughts about harming or killing others?", "Do you have any dangerous items in your possession?" and "Are you here because you tried to hurt yourself?". (tearful). ABUSE ASSESSMENT: No report of abuse. Precautions taken: (Pt reports attempt to harm herself 1 year ago. Pt states she would shoot herself. States she "pleads the fifth" when asked if she has a weapon at home.). NUTRITIONAL RISK ASSESSMENT: The nutritional risk assessment revealed no deficiencies. FUNCTIONAL ASSESSMENT: Functional assessment: no impairments noted. LEARNING NEEDS ASSESSMENT: The learning needs assessment revealed no barriers. FALL RISK ASSESSMENT: Fall risk assessment completed. Risk factors identified include dizziness. Fall in terventions initiated. Patient placed on stretcher. Side rails up x2. SKIN INTEGRITY ASSESSMENT: Skin integrity risk assessment completed. No skin integrity risk identified. --16:06 02/16/21 Kalina Neumann R.N. FAMILY HX: Father: Acute leukemia. --21:27 02/16/21 Qasim Murphy. Interventions 16:06 02/16/21. Identification band on patient. To treatment room. --16:06 02/16/21 Kalina Neumann R.N.PHYSICAL ASSESSMENTGENERAL / NEURO / PSYCH: Alert. Oriented X 4. Appears anxious.HEENT: Mucous membranes are pink.RESPIRATORY: Respirations not labored. Breath sounds within normal limits.CVS: Normal sinus rhythm noted. Capillary refill less than 2 seconds.GI / : The patient has had intermittent episodes of nausea. Emesis noted. Has vomited several times.She has diarrhea. This has occurred only once. Abdomen soft and nontender. Bowel sounds withinnormal limits.SKIN: Skin is warm and dry. --17:09 02/16/21 Shaheed Matos.NURSING PROGRESS NOTES16:15 02/16/21. ( Pt changed into hospital gown, personal belongings placed in pt belongings back and 3 Clinical Report - Nurses [facility] Emergency Department [address] [place] [address] Phone #: ext- [phone] 02/16/2021 15:54 Patient: TIBURCIO JOSEPH Sex: F : 1975 Age: 45yplaced at nurses station. Primary RN Shaheed, manager hi Maranda and Dr Murphy notified of patient's answers toself-harm screen.). --16:15 02/16/21 Kalina Neumann R.N.EKG time: (16:20 02/16/2021). EKG was performed by a tech and shown to the ED physician. --16: [facility] Lpvf894:20 02/16/21. BP: 112/76. HR: 107. RR: 10. O2 saturation: 100%. --16:21 02/16/21 [facility] [place][note 2] Pcja204:00 02/16/21. Suicide precautions maintained: a safety sweep of the room has been completed. Roommade safe and stripped of hazardous items. Continuous one on one supervision, tech at bedside, checksperformed every 15 minutes, clothing / valuables removed and placed at the nurse's station. Patient placedin direct sight of the nurse's station. ED Physician has been notified. Two patient identifiers checked.Call light placed in reach. Side rails up x 2. Bed placed in lowest position. Brakes of bed on. Patientwaiting for evaluation and results.SELF HARM ASSESSMENT: Self harm assessment was performed. The patient answered "yes" to thequestion(s) "Have you recently felt down, depressed, or hopeless?", "Do you have thoughts of harming orkilling yourself?", "Do you have a plan for harming or killing yourself?", "Have you recently had thoughtsabout harming or killing others?", "Do you have any dangerous items in your possession?", "Have younoticed less interest or pleasure in doing things?", "Are you here because you tried to hurt yourself?" and"Have you ever tried to hurt yourself before today?".ASQ suicide screening positive. Patient refused to answer the following question(s): "In the past fewweeks, have you wished you were ?", "In the past few weeks, have you felt that you or your familywould be better off if you were ?", "In the past week, have you been having thoughts about killingyourself?" and "Have you ever tried to kill yourself?". Acute positive screen (imminent risk identified).Patient refused to answer the acuity question: "Are you having thoughts of killing yourself right now?".Precautions taken: The patient has been placed under 1-on-1 and continuous supervision with a patientcare tech at bedside. The patient was placed in a safe room in direct sight of the nurses station. Clothesand valuables were removed and placed at the nurses station. The ED physician has been notified.NUTRITIONAL RISK ASSESSMENT: The nutritional risk assessment revealed no deficiencies.FUNCTIONAL ASSESSMENT: Functional assessment: no impairments noted.LEARNING NEEDS ASSESSMENT: The learning needs assessment revealed no bar riers.SKIN INTEGRITY ASSESSMENT: Skin integrity risk assessment completed. No skin integrity riskidentified. --17:15 02/16/21 Shaheed Matos17:20 02/16/2021 Site #1 started via IV in the right antecubital space with an 20g angiocath, with aseptictechnique and good blood return; three attempts. Saline lock flushed with 10 mL saline. --17:45 02/16/21Shaheed Matos 4 Clinical Report - Nurses [facility] Emergency Department [address] [place] [address] Phone #: ext- [phone] 02/16/2021 15:54 Patient: TIBURCIO JOSEPH A cct#: [id number] Sex: F : 1975 Age: 45y17:30 02/16/2021 Started bag #1 1000 mL IV Fluids NS; bolus of 1000 mL over 1 hour(s) via site #1 via IVpump. Allergies verified and confirmed 5 rights. IV patency established. IV site checked: no pain, redness,or swelling. IV flushed thoroughly pre- and post-medication administration. Information reviewed withpatient including reason for taking this medication, signs of allergic reaction and precautions. Verbalizesunderstanding. --17:45 02/16/21 Shaheed Matos18:01 02/16/21. BP: 100/71. HR: 96. RR: 20. O2 saturation: 100%. --18:02 02/16/21 [facility] TechGabrielle ER [id number] 02/16/2021 IV Fluids NS via IV site #1 Discontinued: bag #1 infused. Total amount infused: 1000 mL.IV patency established. IV site checked: no pain, redness, or swelling. IV flushed thoroughly. --18:258 Shaheed Matos18:30 02/16/21. BP: 91/64. HR: 92. RR: 17. O2 saturation: 100%. Pain level now 0/10. --18:32 02/16/21[facility] Tech[facility]rielle ER Invm8Qinkitzr: Pain: denies pain. Position: states comfortable. Proximity of possessions / care items: call lightwithin easy reach. Plug ins: assured IV pump plugged in; checked status of equipment in use; located allcords, tubes, and lines to prevent fall hazard. Set expectations: advised patient of rounding protocol timingand asked if they needed anything else at this time. Suicide precautions maintained: a safety sweep ofthe room is ongoing. Continuous one on one supervision, tech at bedside, checks performed every 15minutes. Patient placed in direct sight of the nurse's station. Two patient identifiers checked. Call lightplaced in reach. Side rails up x 2. Bed placed in lowest position. Brakes of bed on. --18:40 02/16/21Shaheed Matos19:01 02/16/21. BP: 95/67. HR: 99. RR: 17. O2 saturation: 100%. --19:01 02/16/21 [facility] [place][note 2] Qmpb928:31 02/16/21. BP: 94/72. HR: 101. RR: 15. O2 saturation: 100%. --19:31 02/16/21 [facility] [place][note 2] Dojo804:38 02/16/2021 Toradol (Ketorolac Tromethamine) IVP 30 mg given via site #1. Allergies verified andconfirmed 5 rights. IV patency established. IV site checked: no pain, redness, or swelling. IV flushedthoroughly pre- and post-medication administration. IVP given by RN. Information reviewed with patientincluding reason for taking this medication, signs of allergic reaction and precautions. Verbalizesunderstanding. --19:38 02/16/21 Shaheed MatosReassurance given to the patient. Suicide precautions maintained: a safety sweep of the room is ongoing.Continuous one on one supervision, tech at bedside, checks performed every 15 minutes. Patient placed indirect sight of the nurse's station. Reassessment after fluids administered. She is resting quietly. Calllight placed in reach. Side rails up x 2. Bed placed in lowest position. Brakes of bed on. Patientwaiting for transportation. --19:50 02/16/21 Shaheed Matos 5 Clinical Report - Nurses [facility] Emergency Department [address] [place] [address] Phone #: ext- [phone] 02/16/2021 15:54 Patient: TIBURCIO JOSEPH Sex: F : 1975 Age: 45y 20:01 02/16/21. BP: 98/67. HR: 94. RR: 11. O2 saturation: 100%. --20:01 02/16/21 [place] Octmami1 20:31 02/16/21. BP: 103/63. HR: 96. RR: 14. O2 saturation: 98%. Temp: 98.3 F. --20:32 02/16/21 [place] [employer] 20:32 02/16/21. Pain level now 0/10. --20:32 02/16/21 [place] [employer] 21:01 02/16/21. BP: 97/67. HR: 97. RR: 15. O2 saturation: 98%. Temp: 98.1 F. Pain level now 0/10. --21:01 02/16/21 [place] [employer].DISPOSITION / DISCHARGE 21:40 02/16/2021 Site #1 removed upon discharge. Bandage applied. --21:40 02/16/21 Shaheed Matos 21:41 02/16/21. Condition at departure: stable. Transferred to [facility]. Provided to EMS. Transported via ambulance by EMS. Report was given to a nurse via a phone call. Report included information regarding patient's care, treatment and allergies and current vital signs. All questions were answered. Report was acknowledged. Patient's personal items; items were placed in belongings bag and transported with the patient. --21:41 02/16/21 Shaheed Matos 21:38 02/16/21. BP: 101/68. MAP: 79. HR: 102. RR: 20. O2 saturation: 98% on room air. Temp: 98.1 F. Pain level now: 0/10. --21:41 02/16/21 Shaheed Matos Departure time: 21:43 02/16/2021. --21:43 02/16/21 Shaheed Matos.Locked/Released at 02/16/2021 21:43 by Shaheed Matos Name Value Range Interpretation Code Description Data Montse rce(s) Supporting Document(s) ID Date Data Source [id number] 02/16/2021 04:17:00 PM EDT [facility] 1 Clinical Report - Physicians/Mid Levels [facility] Emergency Department [address] [place] [address] Phone #: ext- [phone] 02/16/2021 15:54 Patient: TIBURCIO JOSEPH Sex: F : 1975 Age: 45y Time Seen: 16:30 02/16/2021. Arrived- By private vehicle. Historian- patient. Disposition decision: 19:37 02/16/2021.HISTORY OF PRESENT ILLNESS Chief Complaint: VOMITING and DIARRHEA. This started 3 days and is still present. It has been constant. The patient has had nausea, vomiting, diarrhea and abdominal pain. No black stools, bloody stools, constipation, flank pain or history of possible bad food exposure. No known contact with a sick [facility]. Has not recently been camping or on antibiotics. The illness is described as moderate. (The patient is having vomiting and diarrhea. No rectal bleeding or sick contacts. lower abdominal pain that is intermittent. No hematochezia. no bright red blood per rectum. However she admitted to suicidal thoughts in triage.). Similar symptoms previously. Recent medical care: Not recently seen/assessed.REVIEW OF SYSTEMS No fever, muscle aches, difficulty with urination, dark urine or headache. No cough, chest pain, excessive urination, skin rash or back pain. No mouth sores, cough, abnormal bleeding, fainting episodes or weakness. The patient has had fatigue, weight loss, abdominal pain, nausea and vomiting. She has had suicidal thoughts. All other systems reviewed and are negative.PAST HISTORY See nurses notes. No history of gallstones or diabetes mellitus. Problems: Brain aneurysm. Additional Surgeries: Brain aneurysm coil and stent (2006). Hysterectomy. Medications: Crushed aspirin 3 25 mg, daily. Tylenol Oral 1000 mg, 3x a day. Ibuprofen Oral (Tablet 800 mg), 4x a day. Allergies: No Known Drug Allergy. 2 Clinical Report - Physicians/Mid Levels [facility] Emergency Department [address] [place] [address] Phone #: [phone]- [phone] 02/16/2021 15:54 Patient: TIBURCIO JOSEPH Sex: F : 1975 Age: 45ySOCIAL HISTORY Current every day smoker. No alcohol use or drug use.FAMILY HISTORY Father: Acute leukemia.ADDITIONAL NOTES The nursing notes have been reviewed.PHYSICAL EXAM Vital Signs: 02/16/2021 16:20 BP: 112/76. MAP: 88. HR: 107. RR: 10. O2 saturation: 100%. 02/16/2021 15:56 BP: 98/66. MAP: 76. HR: 125. RR: 18. O2 saturation: 97%. Temp: 97.4 F. Pain level now: 0/10. Appearance: Alert. Oriented X3. No acute distress. Eyes: Pupils equal, round and reactive to light. ENT: Ears normal. Nose normal. Pharynx normal. Neck: Normal inspection. CVS: Tachycardia. Normal heart rhythm. Heart sounds normal. No cardiac murmur. Respiratory: No respiratory distress. Painless inspiration. No crackles or wheezes. Abdomen: Soft and nontender. No organomegaly. Back: Normal inspection. Skin: Skin warm. Normal skin color. (no jaundice). Extremities: Extremities exhibit normal ROM. No lower extremity edema. Neuro: Oriented X 3. No motor deficit. No sensory deficit. (angry mood).LABS, X-RAYS, AND EKG EKG: EKG time: 16:03 02/16/2021. No acute ischemia. Rate: 110. Tachycardia. Normal P waves. Normal NELIDA. Normal QRS complex. Normal axis. Normal ST and T waves and QT. Interpretation time: 16:10 02/16/2021. Chest X-ray: Large, right-sided parenchymal mass present. Normal lung markings present. Normal heart size. Views: AP (portable). The X-rays were interpreted by the radiologist. Laboratory Tests: COVID-19 CAH: (FAHAD: 02/16/2021 18:25) ( MsgRcvd 02/16/2021 19:02) Final results Test Result Flag Units (Reference) COVID-19 NOT DETECTED COVID-19 REENTER NOT DETECTED { PROCEDURAL CONTROL VALID KIT LOT # _[id number] 02/16/21.JSK. KIT EXP DATE _04/13/21 02/16/21.JSK. NORMAL RANGE IS NOT DETECTEDThe COVID-19 assay is a rapid molecular in vitro diagnostic testutilizing an isothermal nucleic acid amplification technology for thequalitative detection of nucleic acid from the SARS-CoV-2 viral RNA in directnasal or nasopharyngeal swabs. Testing should be performed within the first 7days of the onset of symptoms.NEGATIVE RESULTS SHOULD BE TREATED PRESU MPTIVE AND, IF INCONSISTENT WITHCLINICAL SIGNS AND SYMPTOMS OR NECESSARY FOR PATIENT MANAGEMENT, SHOULD BETESTED WITH DIFFERENT AUTHORIZED OR CLEARED MOLECULAR TESTS. NEGATIVE RESULTSDO NOT PRECLUDE SARS-CoV-2 INFECTION AND SHOULD NOT BE USED THE SOLE BASISFOR PATIENT MANAGEMENT DECISIONS. 3 Clinical Report - Physicians/Mid Levels [facility] Emergency Department [address] [place] [address] Phone #: ext- [phone] 02/16/2021 15:54 [id number] Sex: F : 1975 Age: 45yCMP: (FAHAD: 02/16/2021 16:38) ( MsgRcvd 02/16/2021 17:27) Final results Test Result Flag Units (Reference) COMPREHENSIVE METABOLIC PANEL COMPREHENSIVE METABOLIC PANEL SODIUM 136 mEq/L (134 - 153) POTASSIUM 3.7 mEq/L (3.6 - 5.0) CHLORIDE 97 L mEq/L (98 - 107) CO2 22 MEQ/L (22 - 30) GLUCOSE 119 H MG/DL (70 - 99) BUN 9 MG/DL (7 - 21) CREATININE 0.4 L MG/DL (0.7 - 1.5) BUN/CREAT 23 (8 - 27) TOTAL PROTEIN 7.1 G/DL (6.3 - 8.2) ALBUMIN 3.5 L G/DL (3.9 - 5.0) GLOBULIN 3.6 H GM/DL (2.4 - 3.2) A/G RATIO 1.0 (0.8 - 2.0) CALCIUM 9.6 MG/DL (8.4 - 10.2) TOTAL BILI <0.7 MG/DL (0.2 - 1.3) ALKALINE PHOS 104 U/L (38 - 126) SGOT/AST 21 U/L (5 - 40) SGPT/ALT 24 U/L (7 - 56) ANION GAP 17.0 H mmol/L (8.0 - 16.0) AGE 45 yrs NON-AA GFR >60 mL/min AFR AMER GFR >60 mL/min Male GFR Interprentation 20-49 yrs >60 mL/min Qfnhlx67-77 yrs >56 mL/min Normal 60-69 yrs >49 mL/min Normal 70-79yrs>42 mL/min Normal 80 and above >35 mL/min Normal Female GFRInterpretation 20-39 yrs >60 mL/min Normal 40-49 yrs >58 mL/minNormal 50-59 yrs >51 mL/min Normal 60-69 yrs >45 mL/min Rjdxld62-80 yrs >39 mL/min Normal 80 and above >32 mL/min NormalCBC w Diff: (FAHAD: 02/16/2021 16:38) ( MsgRcvd 02/16/2021 17:30) Correction to results Test Result Flag Units (Reference) CBC W/AUTOMATED DIFF CORRECTED REPORT COMPLETE BLOOD COUNT WBC 16.4 H 10/uL (4.2 - 11.0) RBC 4.42 10/uL (4.20 - 5.40) HEMOGLOBIN 11.3 L g/dL (12.0 - 16.0) HEMATOCRIT 36.3 L % (37.0 - 47.0) MCV 82.1 fL (81.0 - 101) MCH 25.6 L pg (27.0 - 34.0) MCHC 31.1 g/dL (31.0 - 36.0) RDW 16.9 H % (11.5 - 14.5) PLATELETS 921 H 10/uL (150 - 450) MPV 8.0 fL (7.4 - 10.4) NEUT 77.0 % (37.0 - 80.0) LYMPH 12.8 L % (25.0 - 40.0) MONO 8.6 H % (3.0 - 8.0) EOS 0.7 % (0.0 - 7.0) BASO 0.3 % (0.0 - 2.5) %IG 0.6 H % (0.0 - 0.0) %NRBC 0.0 % (0.0 - 0.0) #NEUT 12.66 H 10/uL (2.00 - 6.90) #LYMPH 2.11 10/uL (0.60 - 3.40) #MONO 1.41 H 10/uL (0.00 - 0.90) #EOS 0.11 10/uL (0.00 - 0.70) 4 Clinical Report - Physicians/Mid Levels [facility] Emergency Department [address] [place] [address] Phone #: ext- [phone] 02/16/2021 15:54 Patient: TIBURCIO JOSEPH Sex: F : 1975 Age: 45y #BASO 0.05 10/uL (0.00 - 0.20) #IG 0.10 10/uL (0.00 - 0.10) #NRBC 0.00 10/uL (0.00 - 0.00) MANUAL DIFF SEE BELOW Above is a corrected result. Previously reported on ( MsgRcvd 02/16/2021 17:04) as: MANUAL DIFF NOT INDICATED SEGS 67 % (37 - 80) %LYMPH 21 L % (25 - 40) %MONO 11 H % (3 - 8) %BASO 1 % (0 - 2) RBC MORPH MORPH IS NORMAL FOLLOWING RESULTS REPORTED IN ERROR MANUAL DIFFRBC MORPH { CORRECTETOH: (FAHAD: 02/16/2021 16:38) ( MsgRcvd 02/16/2021 17:27) Final results Test Result Flag Units (Reference) ALCOHOL <10.0 MG/DL ALCOHOL % 0.01 % (0.00 - 0.01) *FOR MEDICAL PURPOSES ONLY*Urinalysis: (FAHAD: 02/16/2021 18:00) ( [facility] 02/16/2021 18:37) Final results Test Result Flag Units (Reference) URINALYSIS URINALYSIS SOURCE R COLOR yellow (NORMAL: Yello CLARITY clear (NORMAL: Clear SPEC GRAVITY 1.010 (1.001 - 1.030 pH 6 (5 - 9) GLUCOSE NORM (NORMAL: Negat BILIRUBIN NEG (NORMAL: Negat KETONE NEG (NORMAL: Negat PROTEIN NEG (NORMAL: Negat NITRITE NEG (NORMAL: Negat BLOOD 25 A (NORMAL: Negat LEUK EST NEG (NORMAL: Negat UROBILINOGEN NOR (less than 1.0 MICROSCOPIC See Below WBC 0 - 1 (NORMAL: NONE RBC 0 - 1 (NORMAL: NONE EPITHELIAL MODERATE A (NORMAL: NONE BACTERIA 1+ SMALL (NORMAL: NONEDrug Screen-Urine: (FAHAD: 02/16/2021 18:00) ( [facility] 02/16/2021 18:37) Final results Test Result Flag Units (Reference) DRUG SCREEN URINE URINE DRUG SCREEN AMPHETAMINES NEGATIVE (NORMAL: NEGAT BARBITURATES NEGATIVE (NORMAL: NEGAT BENZO NEGATIVE (NORMAL: NEGAT COCAINE NEGATIVE (NORMAL: NEGAT THC NEGATIVE (NORMAL: NEGAT OPIATES NEGATIVE (NORMAL: NEGAT 5 Clinical Report - Physicians/Mid Levels [facility] Emergency Department [address] [place] [address] Phone #: ext- [phone] 02/16/2021 15:54 Patient: TIBURCIO JOSEPH Sex: F : 1975 Age: 45y PCP NEGATIVE (NORMAL: NEGAT \\BLDo\\URINE DRUG SCREEN INTERPRETATION\\BLDx\\ THE CUTOFFF LEVELS FORDETECTION ARE FOLLOWS: AMPHETAMINES 1000 ng/mlBARBITUARATES 200 ng/ml BENZODIAZEPINES 100 ng/mlTHC 50 ng/ml PHENCYCLIDINE 25 ng/mlOPIATES 300 ng/ml COCAINE 300 ng/mlALL POSITIVES ARE CONSIDERED PRESUMPTIVE POSITIVE CONFIRMATION WILL BE PERFORMED AT [facility].TSH: (FAHAD: 02/16/2021 16:38) ( [facility] 02/16/2021 17:37) Final results Test Result Flag Units (Reference) TSH 1.05 uIU/mL (0.47 - 5.01)Acetaminophen Level: (FAHAD: 02/16/2021 16:38) ( [facility] 02/16/2021 17:27) Final results Test Result Flag Units (Reference) ACETAMINOPHEN <5.0 UG/ML (0.0 - 30.0)Salicylate Level: (FAHAD: 02/16/2021 16:38) ( [facility] 02/16/2021 17:27) Final results Test Result Flag Units (Reference) SALICYLATE 2.2 mg/dL (2.0 - 20.0)Chest Portable 1 View: (FAHAD: 02/16/2021 16:28) ( [facility] 02/16/2021 20:18) In ProgressCHEST PORTABLEReason(s): Chest PainTRANSPORTATION: A IV? O2? Oxygen?(No) Room: ED Exam CHEST PORTABLE [facility] [address] [place] [address] PHONE: [phone] FAX: [phone] Name .................. : JAKE Bonilla Acct Number.................. : [id number] ROOM. ................. : TR-07 Number ................... : [id number] Stay type ............. : E/R Discharge Date......... ... : Admit Date ......... : 02/16/21 Admit Phys .................... : JALEN Gorman Date of ....... : 1975 Family Phys ................... : NO PCP Phone .................. : [phone] Age ................................ : 45 Film# .................. .:[id number] Sex ................................. : F Unsigned t ranscriptions are preliminary reports and do not represent a medical or legal document CHEST PORTABLE [id number] COMPLETE:02/16/21 18:41 KBO Reason(s): Chest Pain PORTABLE CHEST SINGLE VIEW: INDICATION: Chest pain COMPARISON: 10/27/2011 FINDINGS: Heart size normal. Left hilum and right lower hilum normal. 6 Clinical Report - Physicians/Mid Levels [facility] Emergency Department [address] [place] [address] Phone #: ext- [phone] 02/16/2021 15:54 Patient: TIBURCIO JOSEPH Sex: F : 1975 Age: 45y There is a 51 x 96 cm mass in the medial right lung apex extending inferiorly to the right superior hilar region. Appearance suggests erosion of the inferior posterior aspect of the right fifth rib and possibly sixth rib. Elsewhere clear lungs. No pulmonary edema. Mild elevation of lateral left hemidiaphragm is chronic. No pleural effusions or pneumothorax. IMPRESSION: Interval development of right apical mass. Potential rib erosion. This should be presumed to represent malignancy until proven otherwise.. Electronically Reviewed and Signed By DCTNAME , SIGNDATE, SCB Transcribe Initials: WILMAN , Transcribe Date: 02/16/21 20:13, Dictation Date: <<REPDIST>> Page 1 of 1.PROGRESS AND PROCEDURES Course of Care: 16:44 02/16/21. Patient has a benign abdominal exam. tacycardic but no other obvious signs of dehydration. Patient however admitted to having suicidal ideations and plans. She has had admissions to [facility] for mental illness 19:35 02/16/21. Tachycardia improved with IVF. pulse of 90 bpm. Toradol given for pain. No signs of acute abdomen. Patient is medically cleared for psych. Despite her not wanting to go to [facility], she did admit to suicidal ideations. 20:17 02/16/21. Patient accepted at [facility] but ED physician made aware of lung mass. She has not seen a physician in over 9 years. I do not feel the vomiting is secondary to the lung mass. No vomiting in ED. Critical care performed (35 minutes). Time is exclusive of separately billable procedures. Time includes: direct patient care, patient reassessment and medical consultation. Old medical records ordered. Disposition: Benefits, risks and alternatives to transfer explained to patient. Transferred to [facility].CLINICAL IMPRESSION Vomiting with nausea. Not intractable. 7 Clinical Report - Physicians/Mid Levels [facility] Emergency Department [address] [place] [address] Phone #: ext- [phone] 02/16/2021 15:54 Patient: TIBURCIO JOSEPH Sex: F : 1975 Age: 45y Mediastinal mass. Suicidal ideation.(Electronically signed by Qasim Murphy 02/17/2021 02:14) Name Value Range Interpretation Code Description Data Montse rce(s) Supporting Document(s) ID Date Data Source [id number] 02/16/2021 06:25:00 PM EDT [facility] Name Value Range Interpretation Code Description Data [facility] rce(s) Supporting Document(s) COVID19 Case rprt NOT DETECTED [facility] This lab was ordered by [facility] and reported by [facility]. ID Date Data Source [id number] 02/16/2021 07:01:00 PM EDT [facility] NOT DETECTEDNOT DETECTED{ PROC EDURAL CONTROL VALID KIT LOT # _[id number] 02/16/21.JSK. KIT EXP DATE _04/13/21 02/16/21.JSK. NORMAL RANGE IS NOT DETECTEDThe COVID-19 assay is a rapid molecular in vitro diagnostic testutilizing an isothermal nucleic acid amplification technology for thequalitative detection of nucleic acid from the SARS-CoV-2 viral RNA in directnasal or nasopharyngeal swabs. Testing should be performed within the first 7days of the onset of symptoms.NEGATIVE RESULTS SHOULD BE TREATED PRESUMPTIVE AND, IF INCONSISTENT WITHCLINICAL SIGNS AND SYMPTOMS OR NECESSARY FOR PATIENT MANAGEMENT, SHOULD BETESTED WITH DIFFERENT AUTHORIZED OR CLEARED MOLECULAR TESTS. NEGATIVE RESULTSDO NOT PRECLUDE SARS-CoV-2 INFECTION AND SHOULD NOT BE USED THE SOLE BASISFOR PATIENT MANAGEMENT DECISIONS. Name Value Range Interpretation Code Description Data [facility] rce(s) Supporting Document(s) ID Date Data Source [id number] 02/16/2021 06:37:00 PM EDT [facility] Name Value Range Interpretation Code Description Data [facility] rce(s) Supporting Document(s) DRUG SCREEN URINE [facility] URINE DRUG SCREEN Amphetamine [Presence] in Urine by Screen method NEGATIVE NORMAL: N EGATIVE [facility] BARBITURATES NEGATIVE NORMAL: NEGATIVE [facility] BENZO NEGATIVE NORMAL: NEGATIVE [facility] COCAINE NEGATIVE NORMAL: NEGATIVE [facility] Tetrahydrocannabinol [Presence] in Urine NEGATIVE NORMAL: NEGATIVE [facility] OPIATES NEGATIVE NORMAL: NEGATIVE [facility] Phencyclidine [Presence] in Urine by Screen method NEGATIVE NOR MAL: NEGATIVE [facility] \\BLDo\\URINE DRUG SCR EEN INTERPRETATION\\BLDx\\ THE CUTOFFF LEVELS FOR DETECTION ARE FOLLOWS: AMPHETAMINES 1000 ng/ml BARBITUARATES 200 ng/ml BENZODIAZEPINES 100 ng/ml THC 50 ng/ml PHENCYCLIDINE 25 ng/ml OPIATES 300 ng/ml COCAINE 300 ng/ml ALL POSITIVES ARE CONSIDERED PRESUMPTIVE POSITIVE CONFIRMATION WILL BE PERFORMED AT PHYSICIAN REQUEST. ID Date Data Source [id number] 02/16/2021 06:36:00 PM EDT [facility] Name Value Range Interpretation Code Description Data Montse rce(s) Supporting Document(s) [facility] COL[facility] yellow NORMAL: Yellow [facility] CLARITY clear NORMAL: Clear [facility] Specific gravity of Urine by Test strip 1.010 1.001 - 1.030 [facility] pH 6 5 - 9 [facility] al Glucose [Mass/volume] in Urine by Test strip NORM [facility] Bilirubin.total [Presence] in Urine by Test strip NEG NORMAL: Negative [facility] Ketones [Presence] in Urine by Test strip NEG NORMAL: Negative [facility] Protein [Mass/volume] in Urine by Test strip [facility]G [facility] Nitrite [Presence] in Urine by Test strip NEG NORMAL: Negative [facility] BLOOD 25 NORMAL: Negative [facility] LEUK EST NEG NORMAL: Negative [facility] Urobilinogen [Mass/volume] in Urine by Test strip NOR less martha n 1.0 mg/dL [facility] MICROSCOPIC See Below [facility] ital WBC 0 - 1 NORMAL: NONE SEEN [facility] Erythrocytes [#/volume] in Urine by Test strip 0 - 1 NORMAL: NON E SEEN [facility] EPITHELIAL MODERATE NORMAL: NONE SEEN A [facility] Bacteria [Presence] in Urine sediment by Light microscopy 1+ SMALL NORMAL: NONE SEEN [facility] ID Date Data Source [id number] 02/16/2021 05:37:00 PM EDT [facility] Name Value Range Interpretation Code Description Data Montse rce(s) Supporting Document(s) Thyrotropin [Units/volume] in Serum or Plasma by Detec tion limit <= 0.05 mIU/L 1.05 uIU/mL 0.47 - 5.01 [facility] ID Date Data Source [id number] 02/16/2021 05:29:00 PM EDT [facility] Name Value Range Interpretation Code Description Data Montse rce(s) Supporting Document(s) CBC W/AUTOMATED DIFF [facility] CORRECTE D REPORT COMPLETE BLOOD COUNT Leukocytes [#/volume] in Blood by Automated count 16.4 10^3/uL 4.2 - 11.0 H [facility] Erythrocytes [#/volume] in Blood by Automated count 4.42 10^6/uL 4. 20 - 5.40 [facility] Hemoglobin [Mass/volume] in Blood 11.3 g/dL 12.0 - 16.0 L [facility] Hematocrit [Volume Fraction] of Blood by Automated count 36.3 % 3 7.0 - 47.0 L [facility] Erythrocyte mean corpuscular volume [Entitic volume] by Auto mated count 82.1 fL 81.0 - 101 [facility] Erythrocyte mean corpuscular hemoglobin [Entitic mass] by Automated count 25.6 pg 27.0 - 34.0 L [facility] Erythrocyte mean corpuscular hemoglobin concentration [Mass/volume] by Automated count 31.1 g/dL 31.0 - 36.0 [facility] Erythrocyte distribution width [Ratio] by Automated count 16.9 % 11.5 - 14.5 H [facility] Platelets [#/volume] in Blood by Automated count 921 10^3/uL 150 - 45 0 H [facility] Platelet mean volume [Entitic volume] in Blood by Automated count 8.0 fL 7.4 - 10.4 [facility] Neutrophils/100 leukocytes in Blood by Automated count 77.0 % 37. 0 - 80.0 [facility] Lymphocytes/100 leukocytes in Blood by Manual count 12.8 % 25.0 - 40.0 L [facility] Monocytes/100 leukocytes in Blood by Automated count 8.6 % 3.0 - 8.0 H [facility] Eosinophils/100 leukocytes in Blood by Automated count 0.7 % 0.0 - 7.0 [facility] 0.3 Basophils/100 leukocytes in Blood by Automated count 0.3 % 0.0 - 2.5 [facility] %IG 0.6 % 0.0 - 0.0 H [facility] %NRBC 0.0 % 0.0 - 0.0 [facility] Neutrophils [#/volume] in Blood by Automated count 12.66 10^3/uL 2. 00 - 6.90 H [facility] Lymphocytes [#/volume] in Blood by Automated count 2.11 10^3/uL 0.60 - 3.40 [facility] Monocytes [#/volume] in Blood by Automated count 1.41 10^3/uL 0.00 - 0.90 H [facility] Eosinophils [#/volume] in Blood by Automated count 0.11 10^3/uL 0.00 - 0.70 [facility] Basophils [#/volume] in Blood by Automated count 0.05 10^3/uL 0.00 - 0.20 [facility] #IG 0.10 10^3/uL 0.00 - 0.10 [facility] #NRBC 0.00 10^3/uL 0.00 - 0.00 [facility] MANUAL DIFF SEE BELOW [facility] ital Segmented neutrophils/100 leukocytes in Blood by Manual count 67 % 37 - 80 [facility] %LYMPH 21 % 25 - 40 L [facility] %MONO 11 % 3 - 8 H [facility] 1 RBC MORPH MORPH IS NORMAL [facility] FOLLOWING RESULTS REPORTED IN ERROR MANUAL DIFF RBC MORPH { CORRECT ID Date Data Source [id number] 02/16/2021 05:27:00 PM EDT [facility] Name Value Range Interpretation Code Description Data Montse rce(s) Supporting Document(s) COMPREHENSIVE METABOLIC PANEL [facility] COMPREHENSIVE METABOLIC PANEL Sodium [Moles/volume] in Serum or Plasma 136 mEq/L 134 - 153 [facility] Potassium [Moles/volume] in Serum or Plasma 3.7 mEq/L 3.6 - 5.0 [facility] Chloride [Moles/volume] in Serum or Plasma 97 mEq/L 98 - 107 L [facility] Carbon dioxide, total [Moles/volume] in Serum or Plasma 22 MEQ/L 22 - 30 [facility] Glucose [Mass/volume] in Serum or Plasma 119 MG/DL 70 - 99 H [facility] BUN 9 MG[facility]DL 7 [facility] Creat[facility] [Mass/volume] in Serum or Plasma 0.4 MG/DL 0.7 - 1.5 L [facility] BUN/CREAT 23 8 - 27 [facility] Protein [Mass/volume] in Serum or Plasma 7.1 G/DL 6.3 - 8.2 [facility] Albumin [Mass/volume] in Serum or Plasma 3.5 G/DL 3.9 - 5.0 L [facility] Globulin [Mass/volume] in Serum by calculation 3.6 GM/DL 2.4 - 3.2 H [facility] A/G RATIO 1.0 0.8 - 2.0 [facility] Calcium [Mass/volume] in Serum or Plasma 9.6 MG/DL 8.4 - 10.2 [facility] Bilirubin.total [Mass/volume] in Serum or Plasma <0.7 MG/DL 0.2 - 1.3 [facility] Alkaline phosphatase [Enzymatic activity/volume] in Serum or Plasma 104 U/L 38 - 126 [facility] Aspartate aminotransferase [Enzymatic activity/volume] in Serum or Plasma 21 U/L 5 - 40 [facility] Alanine aminotransferase [Enzymatic activity/volume] in Seru m or Plasma 24 U/L 7 - 56 [facility] Anion gap 3 in Serum or Plasma 17.0 mmol/L 8.0 - 16.0 H [facility] AGE 45 yrs [facility] NON-AA GFR >60 mL/min [facility] AFR AMER GFR >60 mL/min [facility] Male GFR In terprentation 20-49 yrs >60 mL/min Normal 50-59 yrs >56 mL/min Normal 60-69 yrs >49 mL/min Normal 70-79yrs >42 mL/min Normal 80 and above >35 mL/min Normal Female GFR Interpretation 20-39 yrs >60 mL/min Normal 40-49 yrs >58 mL/min Normal 50-59 yrs >51 mL/min Normal 60-69 yrs >45 mL/min Normal 70-79 yrs >39 mL/min Normal 80 and above >32 mL/min Normal ID Date Data Source [id number] 02/16/2021 05:27:00 PM EDT [facility] Name Value Range Interpretation Code Description Data Montse rce(s) Supporting Document(s) SALICYLATE 2.2 mg/dL 2.0 - 20.0 [facility] ital ID Date Data Source [id number] 02/16/2021 05:27:00 PM EDT [facility] Name Value Range Interpretation Code Description Data Montse rce(s) Supporting Document(s) Acetaminophen [Presence] in Urine <5.0 UG/ML 0.0 - 30.0 [facility] ID Date Data Source [id number] 02/16/2021 05:27:00 PM EDT [facility] Name Value Range Interpretation Code Description Data Montse rce(s) Supporting Document(s) Ethanol [Moles/volume] in Blood <10.0 MG/DL [facility] ALCOHOL % 0.01 % 0.00 - 0.01 [facility] ital *FOR MEDICAL PURPOSES ONLY * Procedure Social History No Information Vital Signs ID Date Data Source [id number] 03/23/2021 12:40:45 PM EDT [facility] Name Value Range Interpretation Code Description Data Source(s) TRANSFER FROM [facility] ID Date Data Source [id number] 04/15/2021 04:11:16 PM EDT [facility] Name Value Range Interpretation Code Description Data Source(s) TRANSFER FROM [facility]
[2021-04-20 12:00] LABS: ALBUMIN 1.8 GM/DL (3.2-5.2); ALT/SGPT 174 U/L (12-78); BILIRUBIN,DIRECT < 0.1 MG/DL (0.0-0.2); BILIRUBIN,TOTAL 0.2 MG/DL (0.2-1.0); BLOOD UREA NITROGEN 20 MG/DL (7-18); CALCIUM LEVEL 8.5 MG/DL (8.5-10.1); CARBON DIOXIDE LEVEL 28 MEQ/L (21-32); CHLORIDE LEVEL 106 MEQ/L (98-107); CK-MB VALUE MASS 1.3 NG/ML (<3.6); CPK CREATINE PHOSPHOKINASE 29 U/L (26-192); GLOMERULAR FILTRATION RATE > 60.0 (>58); GLUCOSE, FASTING 114 MG/DL (70-100); MB/CK RELATIVE INDEX 4.48 (< OR =4); NT-PRO BNP 135 PG/ML (<125); POTASSIUM SERUM 4.1 MEQ/L (3.5-5.1); SODIUM LEVEL 139 MEQ/L (136-145); THYROID STIMULATING HORMONE 0.047 uIU/ML (0.358-3.740); THYROXINE (T4) 5.7 UG/DL (4.5-12.0); TOTAL PROTEIN 5.4 GM/DL (6.4-8.2); TROPONIN I < 0.02 NG/ML (< 0.10)
[2021-04-20] MEDS ORDERED: AZITHROMYCIN INJ 500 MG, VIAL MATE ADAPTER 1 EACH in NS 250 ML IV ONE (12:00)
[2021-04-20] MEDS ORDERED: HOME MED LIST COMPLETE! XX SCH (13:05)
[2021-04-20] MEDS ORDERED: NICOTINE 21MG/24HR 1 EA TRANSDERMAL TD ONE (13:20)
--- OUTSIDE RECORDS SUMMARY | 2021-04-20 13:34 | CCD ---
Author Author [facility] Organization [facility] Address Unknown Phone Unavailable Care Team Providers Care Separating Machine Operator Name Role Phone Lori CAMPOS MD Unavailable Unavailable Lori CAMPOS MD Unavailable Unavailable Lori CAMPOS MD Unavailable Unavailable Lori CAMPOS MD Unavailable Unavailable Lori CAMPOS MD Unavailable Unavailable Lori CAPMOS MD Unavailable Unavailable Lori CAMPOS MD Unavailable [...] Unavailable UnavailSTEPHEN Saunders MD Unavailable Unavailable STEPHEN SERIVN MD Unavailable Unavailable STEPHEN SERVIN MD Unavailable [...] is protected by Article 27-F of the [facility] Public Health law. If you continue you may have access to information: Regarding HIV / AIDS; Provided by facilities licensed or operated by the [facility] Office of Mental Health; or Provided by the [facility] Office for People With Developmental Disabilities. If such information is present, then the following [facility] mandated warning applies: This information has been [...] law may result in a fine or chcf sentence or both. A general authorization for the release of medical or other information is NOT sufficient authorization for further disc losure. Allergies and Adverse Reactions Type Description Substance Reaction Status Data Source(s ) Propensity to adverse reactions NO KNOWN ALLERGIES NO KNOWN ALLERGIES [facility] No Known Allergies No Known Allergies [facility] Encounters Encounter Providers Location Date Indications Data Source(s ) Outpatient Attender: CARMEN SABILLON MD 05/12/2021 12:00:00 AM [facility] Outpatient Referrer: GIANCARLO PATHAK MD 05/04/2021 12:00:00 AM [facility] Outpatient Attender: GIANCARLO PATHAK MD 04/21/2021 12:00:00 AM EDT [facility] Outpatient Referrer: GIANCARLO PATHAK MD 04/19/2021 12:00: 00 AM EDT Malignant neoplasm of unspecified part of unspecified bronchus or lung [facility] Malignant neoplasm of unspecified part o f unspecified bronchus or lung Outpatient Attender: HELDER CASTANEDA MD, PHARMD Attender: NAYLA CAMPOS MDReferrer: Brendan Bowen MD -RONCACTR 04/14/2021 12:00:00 AM EDT [facility] billing Outpatient Attender: Vahe Matos A-ONCCACTR 04/08/2021 12:15:49 PM EDT [facility] Outpatient Attender: CARMEN SABILLON MDReferrer: Brendan joyce MD -RONCACTR 04/07/2021 12:00:00 AM EDT - 04/07/2021 03:53:21 PM EDT on treat [facility] on treat Outpatient Referrer: Brendan Bowen MD 04/06/20 12:00:00 AM EDT [facility] billing Outpatient Referrer: Brendan Bowen MD 04/01/2021 12:00:00 AM EDT - 04/06/2021 09:17:49 AM EDT [facility] billing Outpatient Attender: CARMEN SABILLON MD -RONCACTR 03/30/20 12:00:00 AM EDT - 03/30/2021 01:36:38 PM T [facility] Inpatient Attender: Brendan Bowen MDReferrer: Brendan Bowen MD 03/23/2021 12:00:00 AM T [facility] Outpatient Attender: Brendan French MDAttender: Hollie OtiteAttender: Zay TanAdmitter: Brendan Bowen MDReferrer: GIANFRANCO CANDELARIOENConsultant: NIALL CHURCH MDConsultant: STPEHEN SERVIN MD [id number] 12:00:00 AM EDT - 03[facility]31[facility]21 [facility] Attender: AZEEM JACQUESConsultant: PCP BRENDA 03/15/2021 08:25:00 PM EDT - 03/15/2021 09:16:[address] [facility] Patient discharged. Emergency Attender: Qasim Murphy MDConsultant: PCP NO 02/16/2021 04:17:00 PM EDT - 02/16/2021 09:43:00 PM EDT [facility] Patient discharged. Medications Medication Brand Name Start [...] MOUTH THREE TIMES A DAY SOLD: 03/31/2021 [employer] Insurance Providers Payer name Policy type / Coverage type Policy ID Covered republican ID Covered republican's relationship to iraheta Policy Iraheta Plan Information [facility] I [id number] Self [id number] [facility] I [id number] Self [id number] [facility] I [id number] Self [id number] [facility]/P [id number] [facility] [id number] SP [id number] [facility] [id number] SP [id number] MEDICAID [id number] SP [id number] [facility] EPALS [id number] SP [id number] [facility] [id number] SP [id number] [facility] [id number] [facility] [id number] SP [id number] SELF PAY ONLY [id number] SP [id number] Problems, Conditions, and Diagnoses Code Display Name Description Problem Type Effective Dates Data Source(s) C34.90 Malignant neoplasm of unspecified part o f unspecified bronchus or lung Malignant neoplasm of unspecified part of unspecified bronchus or lung Diagnosis 04/19/2021 12:58:49 PM [facility] billing billing Diagnosis 04/14/2021 10:59:19 AM [facility] on treat on treat Diagnosis 04/07/2021 01:15:16 PM [facility] [id number] Procedure and treatment not carried out due to patient leaving prior to being seen by health care provider Procedure and treatment not carried out due to patient leaving prior to being seen by health care provider Diagnosis 03/15/2021 08:25:00 PM EDT [facility] R519 Headache, unspecified Headache, unspecified Diagnosis 03/15/2021 08:25:00 PM EDT [facility] [id number] CONTACT WITH AND SUSPECTED EXPOSURE TO C OVID-19 CONTACT WITH AND SUSPECTED EXPOSURE TO COVID-19 Diagnosis 02/16/2021 04:17:00 PM EDT [facility] [id number] Nicotine dependence, cigarettes, uncompl icated Nicotine dependence, cigarettes, uncomplicated Diagnosis 02/16/2021 04:17:00 PM EDT [facility] J9859 Other diseases of mediastinum, not elsew here classified Other diseases of mediastinum, not elsewhere classified Diagnosis 02/16/2021 04:17:00 PM T [facility] [id number] Suicidal ideations Suicidal ideations Diagnosis 04:17:[address] [facility] R112 Nausea with vomiting, unspecified Nausea with vo miting, unspecified Diagnosis 02/16/2021 04:17:[address] [facility] Surgeries/Procedures No Information Results ID Date Data Source [id number] 04/20/2021 10:35:50 AM [facility] PET W CT IMAGING SKULL TO THIGH [id number] AL RESULTInterpreted by:Tiff Thurman MDINDICATION: 45-year-old female with history of metastatic nonsmall cell lung cancer, presents for evaluation of extent of disease.TECHNIQUE: The study was performed at the [facility]. Approximately 60 minutes following IV tracer administration, [...] rce(s) Supporting Document(s) ID Date Data Source [id number] 04/14/2021 12:14:04 PM [facility] Name Value Range Interpretation Code Description Data Montse rce(s) Supporting Document(s) Progress Note [facility] ZHTWYb6mHgMXReNp81/EPJvyJCEhu8MfMPiaUIc0FUtvQZMrP2SwKNN4yI7yRIS7NQcVCwTsVdXqXVZ3 lbm [file] ICAgICAgICAgICAgICAgICAgICAgICAgICAgICAgICAgICAgICAgICAgICAgICAgICAgICAgICAgICAg ICAgICAgICAgICAgICAgICAgICAgICAgICAgICAgDQogICAgICAgICAgICAgICAgICAgICAgICAgICAg ICAgICAgICAgICAgICAgICAgICAgICAgICAgICAgIC AgICAgICAgICAgICAgICAgICAgICAgICAgICAgICAgICAgICAgICAgDQogICAgICAgICAgICAgICAgIC AgICAgICAgICAgICAgICAgICAgICAgICAgICAgICAgICAgICAgICAgICAgICAgICAgICAgICAgICAgIC AgICAgICAgICAgICAgICAgICAgICAgDQogICAgICAg ICAgICAgICAgICAgICAgICAgICAgICAgICAgICAgICAgICAgICAgICAgICAgICAgICAgICAgICAgICAg ICAgICAgICAgICAgICAgICAgICAgICAgICAgICAgICAgDQogICAgICAgICAgICAgICAgICAgICAgICAg ICAgICAgICAgICAgICAgICAgICAgICAgICAgICAgIC AgICAgICAgICAgICAgICAgICAgICAgICAgICAgICAgICAgICAgICAgICAgDQogICAgICAgICAgICAgIC AgICAgICAgICAgICAgICAgICAgICAgICAgICAgICAgICAgICAgICAgICAgICAgICAgICAgICAgICAgIC AgICAgICAgICAgICAgICAgICAgICAgICAgDQogICAg ICAgICAgICAgICAgICAgICAgICAgICAgICAgICAgICAgICAgICAgICAgICAgICAgICAgICAgICAgICAg ICAgICAgICAgICAgICAgICAgICAgICAgICAgICAgICAgICAgDQogICAgICAgICAgICAgICAgICAgICAg ICAgICAgICAgICAgICAgICAgICAgICAgICAgICAgIC AgICAgICAgICAgICAgICAgICAgICAgICAgICAgICAgICAgICAgICAgICAgICAgDQogICAgICAgICAgIC AgICAgICAgICAgICAgICAgICAgICAgICAgICAgICAgICAgICAgICAgICAgICAgICAgICAgICAgICAgIC AgICAgICAgICAgICAgICAgICAgICAgICAgICAgDQog ICAgICAgICAgICAgICAgICAgICAgICAgICAgICAgICAgICAgICAgICAgICAgICAgICAgICAgICAgICAg YZAlZJTvEPKrTPBfYYIvOJGfBMHlUYWiKUGyZZLuILHqTVTvSSAsWWq7E5ieWWRyKUDeZQ5wVXi2Iu9+ VRxIKiVxPVP6kzMcvZ4GGV4bo4SuUDhnPJJmy0AcBL u3GJ3MBHSvFGxkSB8BRZjhey4AJPGgKFFkzPHWu8kdNvWoOFO4DIYgFdpyEZ1KVNNtF3hzvyGkCTBnYG OKLHqkFOWUHYPyZCMnOoNuZZjkDH4Gd2GlhYUyGCu+Qb2MSG1wm6IsLVpsKeHjFZ2zbr6GDIsVFtJqK9 MitcE1DRP6VLUkWj3LATOfHJRtmVQuOOUbXEKGHqMy T7HmjC25WCSTWm4+WVswkiNqGvjXCqJ2GCHhh0EtCQw1FS0CMYTkXBo3mEKjBXJqM3Vpm5GvZy28HZXg ArwuBYJmqhHTUFsaJEEBUQFejAGzNW8tNl7tZWBmBNAoBlT1UHHLTD7FCYBoBIGrhYGnBXXxDKBKJJ2M DTsxSGS5UGIjklAhuEXzCMxgNU8RMYCdlhLfScwiPL BSDQo+Eg0GQW7pf7HxEXr9RMIhb9VmNDd4AY2LOCLzOBiwJAWaXU4wa9DeX9R9BaC1jILeB1zxjhsxV6 PabsOrpoZnIWNiUVWtRT4EOF1VVK2JPZWrKQqqHF0VZMK9ZCy9JzP6MffgYTAfPKK2C69mHNpjSO8AWY v3D2SdZ6XXZKYyJDPXHFChbXE7UMMTOe9ES4WRWpuY ONAFZq9MYmStJ7CER6uZB78OIO0QFYO+PiANCj4+VMirofCiWqeJKlA3VTThs9GyQJf3HG7HRZKgBRpi VB7WYPMbhH2qLMcpCM0WFpGuLCYyLCIIXtNbJ40zkAWbWEt4N4ViYmBnTGZeRjbsMCKxBVinPvLkELFc WyBdDQogID4+ID4+HUmzXY3DNLsenhSdXPTpXp0ZGL KeZXPnSV9gJVPjMRWpZ4M1fYpqZZBHQsZbO5rbmpesBF3bPZKlP683vVnitbFjKQW7PESmQx7EBUSsJF N4DNKzlJHkIwOrRYSBKPxrVJ1MsTXcBBA2lW9zEJztXWKbHOXwO9uLDoUrrOzrAB85oHeidhZoqJHwWM o+Zi5QKP6rt9ZlMSp4npSfNMvfASTdYJozUZUeTQXa DMLwNNP8UMH4THZQXjGsARRdNNMbLTkpGANzQLOads4CEXGmYKNpFGB1LgRbPZAjBAObDXeiDVRoYYD0 VGJ7AGLuAZElMT3GTeXfWQQvRKMnJCmwRVVfFHBfcr5BNVBuHSNqHqW8FeFnSYXmHHOoOHsiLKLrDND3 QNX0MTRiOZQyRH8QJmMfWEGiPVR5ZEHjSJTvEOGqco 1PDDCwTVFwVlo7IpLvVFCkWVErFGifSEMkZAR8VLz2PHXyJLJoFN0ZXbQoHDIzUDz0ZWAaMGScHPKwgz 9GBRNzTNJmOSR0LONjMNMtJTOdFMygDEQeZJG9SgWiHHSnHYFxRT4RPtUuALQhTPk0RPrmOUZhWKErdc 0KMDAwMDAxMDAzMSAwMDAwMCBuDQowMDAwMDEwOTkw JRNiPGPpGY8VRnBhCNSdUXGyIQXcCUHfSLSnos0XCYCmDFZtYZL8DZXrWZMtMAJvZWfbTJWyPUJgVURu OZIkTLQaEB8PLfHhBKZbGfDsUrZoOQZtELDwgq0JFQXkLNEwOkQ1XNFtVUWrEYAdEWwjPKJaHVZhUFb9 SNQpKVUqUM5AOzIjZQKkGkZ8LMUiDQNvYWOffd6RNJ UmOWMwOFW4QTEdPUBxMMGsSVfcGWTiNUV6GKjhTAMqZCLtUZ5SPiKhUZFfVxGhDPEoXUVeUPBuei2HHD ZlZDUwQMG2DbDuMFAyPMWgAOfgRXXbDXE9XYN8LTQmBGWuBX2EOuMqRYVwLzQ4EQhsQOPxXZYfph4HIB FoRQTpOwKpZZIoEDNsUXOcZSn5khYjrDJlAPd2HU1F E2QcuiLgUfEHDu2Jh598FMH2HXRzJj5BQ3lbPh0jOTPwSOCORf9PEIs2KoCrTaa2YjTpNZtkH9HcXYMb ZcP4UKAhNYU2ITQlHHa+YGhsMhZqPxZuNKNoYPJqRwLyMBApMPm6WvD6DBGiNXHwTV8qHAPMLl0+DQpz sBGyuZdpCYJURpS8ELN9EGlyVEEOYx8A ID Date Data Source [id number] 04/08/2021 12:15:49 PM EDT [facility] Name Value Range Interpretation Code Description Data Montse rce(s) Supporting Document(s) Progress Note [facility] TBHEYw8kRqMFWgXh35/AAWerDBSyq6KnMPomAFx9HHldVTVlH3QePYS6fL5iXRR7HGwHGyYtVlCtRNLj lbm [file] AgICAgICAgICAgICAgICAgICAgICAgICAgICAgICAgICAgICAgICAgICAgICAgICAgICAgICAgICAgIC AgICAgICAgICAgICAgICAgICAgICAgICAgICAgICAN CiAgICAgICAgICAgICAgICAgICAgICAgICAgICAgICAgICAgICAgICAgICAgICAgICAgICAgICAgICAg ICAgICAgICAgICAgICAgICAgICAgICAgICAgICAgICAgICAgICAgICANCiAgICAgICAgICAgICAgICAg ICAgICAgICAgICAgICAgICAgICAgICAgICAgICAgIC AgICAgICAgICAgICAgICAgICAgICAgICAgICAgICAgICAgICAgICAgICAgICAgICAgICANCiAgICAgIC AgICAgICAgICAgICAgICAgICAgICAgICAgICAgICAgICAgICAgICAgICAgICAgICAgICAgICAgICAgIC AgICAgICAgICAgICAgICAgICAgICAgICAgICAgICAg ICANCiAgICAgICAgICAgICAgICAgICAgICAgICAgICAgICAgICAgICAgICAgICAgICAgICAgICAgICAg ICAgICAgICAgICAgICAgICAgICAgICAgICAgICAgICAgICAgICAgICAgICANCiAgICAgICAgICAgICAg ICAgICAgICAgICAgICAgICAgICAgICAgICAgICAgIC AgICAgICAgICAgICAgICAgICAgICAgICAgICAgICAgICAgICAgICAgICAgICAgICAgICAgICANCiAgIC AgICAgICAgICAgICAgICAgICAgICAgICAgICAgICAgICAgICAgICAgICAgICAgICAgICAgICAgICAgIC AgICAgICAgICAgICAgICAgICAgICAgICAgICAgICAg ICAgICANCiAgICAgICAgICAgICAgICAgICAgICAgICAgICAgICAgICAgICAgICAgICAgICAgICAgICAg ICAgICAgICAgICAgICAgICAgICAgICAgICAgICAgICAgICAgICAgICAgICAgICANCiAgICAgICAgICAg ICAgICAgICAgICAgICAgICAgICAgICAgICAgICAgIC AgICAgICAgICAgICAgICAgICAgICAgICAgICAgICAgICAgICAgICAgICAgICAgICAgICAgICAgICANCi AgICAgICAgICAgICAgICAgICAgICAgICAgICAgICAgICAgICAgICAgICAgICAgICAgICAgICAgICAgIC AgICAgICAgICAgICAgICAgICAgICAgICAgICAgICAg ICAgICAgICANCjw/vDBtO6vdhJLmdkZ1O3xsWy4HNg7MID6rt9CkBAUlOMnzijOaIusGMkOxLETgLnxG Hcv7BXeuJL6LdEBlI7MpG8HjFUtkXY5VGVGzLXWmcPWmPZWsBJHxOtD8HJVlBPglSV1ThDVoMKshLBNx VCUmQU4UPFLrV455kyPkYW8UKa7JQnQcUZ4duu4CBk IkJWWlHfvRWqe9BTlgTJ4GvKZcfXVtFeJhBYBGNbWhH0tal3AlXhXvFSUOURroIG3Ey6VtjOBcJVp+Pg 3DIA7le9MtHZibTjUyDV8pbx8XOYdODlLyD7YydMrfAKBkb6ctOIOmKS1nqKDmEDA8DWKxPCNpLL98iT LXl3udzvGYoD6jdcsfVNGKIvMapIPjOW9gMD2bDCKb BDWyEzD4SOAVDO1ZAJJpMBKuqEArUVDpGXHANE5UGHhfTKG5DFXvhaKkrZOiPUmwZH2DIAYlqtXzPjHc MCBSDQo+Tl5MTB2wd3DmTUphNNVnCE2pqa0KFSiYCtHnK5S4kEEnN5O6PPhwJx1MYVJzANAtXeJcOCEM QWlrPA7ZBZ8wefY5OK6WsGPfABCnKIUhrINgNWb6W5 4bdROdRBwnHR1DCZS+Dion+Pg5ELWJwGAMpBRNcEtGuKFKEYqHmY9PsU5MTw9QgL5YdIS06vWsbtbOzEL qxUQ7MUC5cLAKzJJSWUR2ZnMVppQ8aetMhMyMhLTGMAmQlH87faXQkGPQqEEZkYPVvHa7AEURvT2Hdep MczWydtlBsZHQsMNRJAA5WNKobghZxxURbrWdtDT72 jUwsDE7RQx7UMiFoAG6vtt4KpPLxAh6UWNEjWO7HHEWvIBUqUEOfOTX0AHTzOrVwUUxvXYRyCRUeWGH5 OLNcYPBwJV9BIcWlLPFvCKhpFSVzWOQoKROegr8WZXQoHPAdKBl8UoFqZFHxNPZnSBptUDIoEJVvFNT3 WLQbZTWpBZ8JZsEzKISyLUO5KABiEOIsARDtmb8IEN IxEWMnMBq6IrWjECLhCAEdPNevFLPbRDMtTzY0GGBpAQHtEQ6CPxDaHXXpJNL2YTJiYYPtMUHibj6KIQ GsEIFhTcH3EvXaFZYaBMHjBYsbSKScPQV9XXGaYLLnLZEjJE5ZQtZxVQMvBOLtSFGpSQOxQXGkbc5HCN YzLIWhJLCiEUElNUKiFAJxNTuqPXHwMVZ2Mkz0ZJFx ESQxOW3RSwKvTRLmMZYqYHCbIOFyGTTdcq3MGWHzEDTfLaHlZGLlOCTwIZEsXKhoCZToVKT1VZI1MOWu TRSyGH4FGqYbREEgYKX5WLHdPRPcIURmjr2SQQMaSVOpNtDlKMWaNWEvJLGnDOrgGRLbBVH8AXWfSEMk AUPjHR3HGvTpWXOrGJw2XFYfNIIsQCXmoy9QLQMmNM NgALGnBeYoNLVmQPPsRMnfUKZaSXQ0EJY0GYWrNTUmRC8JDaZoCFWiCCw3HUMrXEQnVAOhwa5WSCOqLY OuLJV2JLGkGMHaWTWuKAe6cnGopUReFJa9DN4RW8ItybPeKgEJFf0Wy969PXI9OBJqKt7MN9flOz3bQP XfBMXVFv2SHDe6U9EeXWY5LKAaJQR7MaPeQgG7ZvK1 EsTxNAFqV5BaOEY+TAm7ZwI9NQKpXKTmRhYeZBCgFPvkJTwwQYSjJyA0HbSmJe6mVSNKUo9+DQpzdGFy eFbvDXULQqAkZhA8JJrqZOJIQm4X ID Date Data Source [id number] 04/07/2021 01:53:25 PM EDT [facility] Name Value Range Interpretation Code Description Data Montse rce(s) Supporting Document(s) Progress Note [facility] YLPBNh2rBaWXVdWs93/VBKvrHTPef2QkFZdhQIi2QRrvUMJsX5UlOOG5oH0wHEG7WUgJWmPsWqGxELZd lbm [file] AgICAgICAgICAgICAgICAgICAgICAgICAgICAgICAg ICAgICAgICAgICAgICAgICAgICAgICAgICAgICAgICAgICAgICAgICAgICAgICAgICAgICAgICAgICAg ICANCiAgICAgICAgICAgICAgICAgICAgICAgICAgICAgICAgICAgICAgICAgICAgICAgICAgICAgICAg ICAgICAgICAgICAgICAgICAgICAgICAgICAgICAgIC AgICAgICAgICAgICANCiAgICAgICAgICAgICAgICAgICAgICAgICAgICAgICAgICAgICAgICAgICAgIC AgICAgICAgICAgICAgICAgICAgICAgICAgICAgICAgICAgICAgICAgICAgICAgICAgICAgICANCiAgIC AgICAgICAgICAgICAgICAgICAgICAgICAgICAgICAg ICAgICAgICAgICAgICAgICAgICAgICAgICAgICAgICAgICAgICAgICAgICAgICAgICAgICAgICAgICAg ICAgICANCiAgICAgICAgICAgICAgICAgICAgICAgICAgICAgICAgICAgICAgICAgICAgICAgICAgICAg ICAgICAgICAgICAgICAgICAgICAgICAgICAgICAgIC AgICAgICAgICAgICAgICANCiAgICAgICAgICAgICAgICAgICAgICAgICAgICAgICAgICAgICAgICAgIC AgICAgICAgICAgICAgICAgICAgICAgICAgICAgICAgICAgICAgICAgICAgICAgICAgICAgICAgICANCi AgICAgICAgICAgICAgICAgICAgICAgICAgICAgICAg ICAgICAgICAgICAgICAgICAgICAgICAgICAgICAgICAgICAgICAgICAgICAgICAgICAgICAgICAgICAg ICAgICAgICANCiAgICAgICAgICAgICAgICAgICAgICAgICAgICAgICAgICAgICAgICAgICAgICAgICAg ICAgICAgICAgICAgICAgICAgICAgICAgICAgICAgIC AgICAgICAgICAgICAgICAgICANCiAgICAgICAgICAgICAgICAgICAgICAgICAgICAgICAgICAgICAgIC AgICAgICAgICAgICAgICAgICAgICAgICAgICAgICAgICAgICAgICAgICAgICAgICAgICAgICAgICAgIC ANCiAgICAgICAgICAgICAgICAgICAgICAgICAgICAg ICAgICAgICAgICAgICAgICAgICAgICAgICAgICAgICAgICAgICAgICAgICAgICAgICAgICAgICAgICAg ICAgICAgICAgICANCjw/eJVzX1pblDYlmiI8Z9auHn4JLa9QMM1hn7ZvTDNaXPqxfjLzErqKTvIeTHHw CevDNke1VIffKB0WyHCuF6WmY6CbDYcnOT5IQEOrIR ImbOGhVHZcAELkYdJ4DANjTRkzOL0YnBSjSBgeCTLwGSUwVEMzVVIhOLZeRNTXSB5KGuMyP4YzfE30QI MNCj4+REnkmzUmFdtWGoSgFCJcf1NdXEv7YQ8EZXPaZboxi8HyUoOyTMHCDIaqNT8SBIT5AGOcGOMlRs 8EVXWrI950qgAaYB9UKp9DYxFyUY2kaq4CDkDiPDHv VikUOsl4BNycDW1NoDXcZRfLqa8uzeGoxhNNv1ZmbsGirFWSPTTpLpYIgPmsRXnzvO9tBO5WHWJ6CDLb KtVzHkUlRgEyCVK9XlMoMM2eDFziVP8ASWL0TFzhJXGlUHNvW0sGMcEtVCFvZOOpaFbjVF3MQuMlF2Vk cmVudCAzMCAwIFINCj4+DQplbmRvYmoNCjYgMCBvYm iXYbv2RIxlBM7RrLMtFJ1Tke4kuNEnO2XqbAqyLEPqEGnylsSdDu3tHVSbAGvrMJKmVB0lG9loW2csO7 CkQMTPPyTmH1KpC3AkNeJwNBO6AZBzXqYoZHWaPCODBnGcD2UhRCnlPqLqKNAVBY1GOrngUJNeSwyQRK jNI2HREReMOAUIQs1JJ70EU75EMUYIIK4CV8uRGsqe ID4+VR0QHc5KTpCdNH9oil9QMjDsQUNbEftMFrn9WVpkTP7LaEFxC3IocMLnb5zOSsJcR2VGAKO1MMZp Lf1CJZKpFmXjLDWgGIxsJD3eMYUfKYIHeLtwnjD4CA1NYG4tcbSiLI6SIeIwMw7lQf4XYvAgG2QpM1Of LVHhAMPFEYqxMA8TBTjjGE2qRG1Yl7TYiBEemK3zao 6UBTRlLHQcPchpoy3FVetkB2N1zYjtQJReZnEnUGYJFHocVB5LKXNhMRF8PSZqZNHlQPHULvWbE12jQG 3RM2Aqb88xMlF7VWZfCaAjRQxvCJ43sGtcehEtsKPxaBvyND7ZPp0+DQplbmRvYmoNCnhyZWYNCjAgMz YQRcMcJNTpWXSfTOOpXiP3AiPfZo6LVHQsKGPuTUHb WlPoUDZfSNLoFFquWVBkVAH0DuD7ICKoBHJuJC3UQuNbSRXtZmuaUPOxJULkWMOkgm1DMNIyGRNpAIW3 FfEuYCNqXLJkCBnwEGIzFEQaOyMnNPTsLQPoRU1RUeTlIIEqPcm3KLnwXKMlSPPflk7LMRTjMJEnGlY8 CZTbSSAfMZDeCKjzTGXdNVE2ZgKdPNOfHTPkHH8RWw YuAKWpDJF1VGMpIOHxMENvmq7KWHOkJKWtCcz0OlYiSWDmGCVzMDwpFBQjZNH3CIQ2ZUKxALNqOY5XWc DzNTPaIPx0SGbdVIYcQDGhfx1IUOMfLHAxSLQuOVSdVCWjFNPuNUqoVERaWFK0Xdm8MPMoCCBtAB0UJz GdQWPcAUSdXPMhCLSsWSCymx5JKIDfOHAiTRD0EWUv XUTqIFRzBIpiHMUwSMElPfJ9PVOzJUPqAU7PSsEaBYPlTiNhLwRaTWKrBNEvmi0EFCPjPYFhFvItJBHz ICUhHSPtPNxaDFQvFYAvBsWsBTVxFQEsTJ6EYsMiSGCgCfX7WxAdAAKgVZCmgc1JUXJeUPAuErFmPgZp JUTvWROvHJxyJXRuPFHpGHRtLHLpEIJuWV3UTgUkZX HuIjWzAaCzKZRtAXVhpb9FYJXrNRTyPZHvFyOqMDMmFLAnLGzeBZFjSAE6GtO8HHDwHNQzLP3MGeYuLR JrGdV1MaMmXCAjXIMzwj7ZLOOpFYNfTPNsKlEcQXFyHRHxHMrhTMCfHDF2AJK6IHYiMUTxLJ3DHxTiZL AoFts8KHPuUBPnWBQrdt9LKPAeEFRkFeX1LpWePCBk COVgOFswXPNlSDY9AUb0YGAwTPDoEB5MNrOwFOofZGZKGse9XYuiH5d5SJEmYh8RM7Qhj1PpPbYyJMHB ULodYF3qrbLbKPHsRf1MU0kXAcbfNQyeLOM4PYQyPbR0UhXlPULdEHGrCeRgNCVsQbLdVS5iTWVrYZX1 BBxbHyXyLyRcZuZ4QXI8VAGnK1OvTsGcOsHwKpYi LS6GGc3MNhU5QHY6eAUoKc6IIqrgAepSRhLuOZ2BNPb= ID Date Data Source [id number] 04/06/2021 12:00:00 AM EDT [facility] Name Value Range Interpretation Code Description Data Montse rce(s) Supporting Document(s) SARS-CoV2 Rapid Antigen Negative [facility] This lab was ordered by [facility] and reported by [facility]. ID Date Data Source [id number] 04/01/2021 11:50:39 AM EDT [facility] Name Value Range Interpretation Code Description Data Montse rce(s) Supporting Document(s) [facility] TRARRo1gSqKNJtYy16/JURkoFDWrh5TlHQwfODg6CWneOCFsG3EyAXK9nX8gZTT4UXhFHiLsLtXlCHJ4 lbm [file] e8yBlyywj8N2Paay41sna3Ws73aw4q/rf7a/Caa4+zj96x+L+[employer] managed backup services+ILW0DUonwGPUGtV4MeIM+ifdOOL [file] ICAgICAgICAgICAgICAgICAgICAgICAgICAgICAgICAgICAgICAgICAgICAgICAgICAgICAgICAgICAg ICAgICAgICAgICAgICAgICAgICAgICAgICAgICAgICAgICAgDQogICAgICAgICAgICAgICAgICAgICAg ICAgICAgICAgICAgICAgICAgICAgICAgICAgICAgIC AgICAgICAgICAgICAgICAgICAgICAgICAgICAgICAgICAgICAgICAgICAgICAgDQogICAgICAgICAgIC AgICAgICAgICAgICAgICAgICAgICAgICAgICAgICAgICAgICAgICAgICAgICAgICAgICAgICAgICAgIC AgICAgICAgICAgICAgICAgICAgICAgICAgICAgDQog ICAgICAgICAgICAgICAgICAgICAgICAgICAgICAgICAgICAgICAgICAgICAgICAgICAgICAgICAgICAg ICAgICAgICAgICAgICAgICAgICAgICAgICAgICAgICAgICAgICAgDQogICAgICAgICAgICAgICAgICAg ICAgICAgICAgICAgICAgICAgICAgICAgICAgICAgIC AgICAgICAgICAgICAgICAgICAgICAgICAgICAgICAgICAgICAgICAgICAgICAgICAgDQogICAgICAgIC AgICAgICAgICAgICAgICAgICAgICAgICAgICAgICAgICAgICAgICAgICAgICAgICAgICAgICAgICAgIC AgICAgICAgICAgICAgICAgICAgICAgICAgICAgICAg DQogICAgICAgICAgICAgICAgICAgICAgICAgICAgICAgICAgICAgICAgICAgICAgICAgICAgICAgICAg ICAgICAgICAgICAgICAgICAgICAgICAgICAgICAgICAgICAgICAgICAgDQogICAgICAgICAgICAgICAg ICAgICAgICAgICAgICAgICAgICAgICAgICAgICAgIC AgICAgICAgICAgICAgICAgICAgICAgICAgICAgICAgICAgICAgICAgICAgICAgICAgICAgDQogICAgIC AgICAgICAgICAgICAgICAgICAgICAgICAgICAgICAgICAgICAgICAgICAgICAgICAgICAgICAgICAgIC AgICAgICAgICAgICAgICAgICAgICAgICAgICAgICAg ICAgDQogICAgICAgICAgICAgICAgICAgICAgICAgICAgICAgICAgICAgICAgICAgICAgICAgICAgICAg DBMvANBsMFQjLICpOJOcSEKqXSAeVLBdBVTuZNMxMQNqGTNpHXHfGJVtLTGpYQj2A4bpUQRmSALsRZ4a ACs5Ne1+XNaVLvIjSXE4rgMmbL8WDG6mw6WyDRjaFL Mck6FpNYd1RR8SDYJqJUcuLT1BPTjhiq3PISFgUSCpwZJUg2lxTlSsYWQ2GCGeQlqoUW2XWJLoR8uinn BdBZEsDYUBGHpkWBXCZTifGKPSNVWeKRBoYnIwUwUdYKVlBFTjFJNXXZQ9BBCiWeCfZZsjHF9Af2ZonB A3DQo+Kf3HKG0to5JqLWt2GONqPG0jby6NLSxXNbKg H9DgmmH6NZZ3ATJbDi5MXXUiZGFlmQO6SoVqYRDARxRxB6RkfD49GHXLGj2+YGhgheFsTztKKrZ0OPNj x4DkOZk8LU9EAIRkFEi7nSLjR68ah3RnhIAxPtusKIFmoOAJKB3ojsZdVB0AWwZjGVHyLPSkRTLxMsCh MKTrVsxaBZDVOUtGDlAiW2Abm7CzBeZ6SLUdBrPsST ngOZPpJlX5JG98xOzhZB3EWLOsRYYlJD67MTI0DNGpFi6HDc5NWiMyYV1wky7GCVecDUMmJfwOPdn0ST ajUN6EqJUsF1CsqLZcs4eGLjGpB7NKCWBsYXJrIt1ICIVkBzRiTKIiFPakQI5oHRJeUQRGlRvppfR5KJ 8KDC2qjqIwER9BXfYrJx9cRo9ASdBtO3TdG4OmFTAz HTHTJTmdWH4BQIdmAZ6hCG4Ya2ZBiXAzdP5yes0SRZWrJOYkExnvnh5GFivuP6P3vQszUKRsMZHhCSJG PYktZG1ORKOeDRK7EUM6DBSjCZUGIaJxP18sXF6QV0Urz60wEtG5EUGaJhIfDXdiXY45fHecywLblUFg dOhhKA0WDl1+DQplbmRvYmoNCnhyZWYNCjAgNDgNCj LmHQPwXJKhVFYgXzE5KhWpCj5YCCNgFRFhRQDvXqAcXLStRIIyFSiiTZPkCQH6NSB9IWEuVVZtJB5LBh LjZXLaZUc6NWPwTWNvCFGppu5WPMTaEKKlBNP9ElEcHHRbXAWdRVavJJJjHBB4ViU3WNZmYEQdMI3GDy YyFIBwMEX3LTgtNARjTBUszy7YROVwZSZjXGevKTYo ZSUjQJRdHLuzJRGbRFJ2ZUZ3GPTvHPKeRT2IQuNhGOXzBCAgSJazXFAxFXNhxr8ZUOCpULBeRFJ7GhQv WOUeFGWaDOipFARuFZM7IND3MBQxWMQjLB4RLcMePFPjTOSrLOTwNTEgDTVxsj9LNUXyIZOmGTPmZxFj NRBmCIZjRHenHVLqSRJ1ULDpFBEcQWBdOG9KAbWrNQ RuVqPcLhHxYYJsWJOivl4TAXNyHVLwXRN7YXIdWUIfQIClRRgkHIAnWNBhGAN4UGCyWDPkOU3VCeBlZT NrGhHnFwAzTDUlFIBqaw2ERKZdWQNhBPGjFgSmVLKyWIRmTHjgLAThOTW0PFHsDFOtUTTtNK9ZBlIfDR YmNeT6HLLpACGjJQVafd2GLFMkRGOgGFM5DgTpEOKh RVIbTGkcFRPaNHK0VuH8XJTrOXScLM9XFoEfNZQgXkE6FSSfPNEfILUxry7PZVMuZUYbRnqqKjVjZCEh MMMmWRwoKFHnRFR8HXO1THUcJCUiRL1RRgHtKDZtDgnoOEUdHFCvAGLgnj1DBRNuYHFtZZY6QzVfPIIp CVOqMJmzHYEyYUL4TAQ2ERPkQPHiJP9IDsAxEDVrTa k3TWTeAKMfTZBifi3MANYcMGOjErBnYfXvDPBhRDMcKVtaARTvFWTuOJEzCIHwXEIoFF9KItYtQRRkNf VlAmMuHUApBSUtrd1EKMLaZDCyWFS6LmQeUYUqLFOrJCpfTTPsXXD4TULlXAJbUNEtYJ1UMeJwDIPrIL X4WDMqGHYjFZLslz4DXGNiHBZ9FdXpNhQaRREaQSDo BHlqKAVmFFE5DaGqSRDbNJOuNB1BFdQdTUZaJFM6MdQpCHDqKSTnci2AFVFhQYD4WnebXwRaRHVyYOIg EOaaZJYxSFX9MyYfMLHrACXxOA3VAxSqGJKbNKg4LSKnVPHzXETzat6OPZDcPSR7ZSCjMvVeZRIkFSMf YRnmYOMvBLF0RSJzWDUbQDXrLV7BZpQhCJUpPLh6Ww jnSSRpCSDhhp8EIRBiRTE9UUH8AHZvRRGwYZWjUIoaTGDkGTKfJXodZIXsICSfEA0OFxGmIRmxUAHNYo u1SLcoH5v7YPS0KJ9IT5Hkq2YnEAjjSNQGHBjsZC5qqxSgIYQzLm4RC8qZEnobUFH6Z8KdMuFeNosqKJ GkUVUuHWW2SImhPMIsDxNtIW8gFUE5NeGtL1EcDPH9 POI8YNQ9CsTvPkY4BQAgLBGbVLR6EsRcUV7RMp2ZOwZ6MZO2lMCmUx3GGCC6BzzUQgMeXU7HPVv= ID Date Data Source [id number] 03/31/2021 06:06:21 PM EDT [facility] Name Value Range Interpretation Code Description Data Montse rce(s) Supporting Document(s) History and Physical [facility] SMLYRz9nJgSMVbGf01/HKDwgRRDhd5QvVUwsFOi0HGgdMDFdL1ZvTNL6gA8mVVV5YEtRYgQdJxRqSTKc lbm [file] ICAgICAgICAgICAgICAgICAgICAgICAgICAgICAgIC AgICAgICAgICAgICAgICAgICAgICAgICAgICAgICAgICAgICAgICAgICAgICAgICAgICAgICAgICANCi AgICAgICAgICAgICAgICAgICAgICAgICAgICAgICAgICAgICAgICAgICAgICAgICAgICAgICAgICAgIC AgICAgICAgICAgICAgICAgICAgICAgICAgICAgICAg ICAgICAgICANCiAgICAgICAgICAgICAgICAgICAgICAgICAgICAgICAgICAgICAgICAgICAgICAgICAg ICAgICAgICAgICAgICAgICAgICAgICAgICAgICAgICAgICAgICAgICAgICAgICAgICANCiAgICAgICAg ICAgICAgICAgICAgICAgICAgICAgICAgICAgICAgIC AgICAgICAgICAgICAgICAgICAgICAgICAgICAgICAgICAgICAgICAgICAgICAgICAgICAgICAgICAgIC ANCiAgICAgICAgICAgICAgICAgICAgICAgICAgICAgICAgICAgICAgICAgICAgICAgICAgICAgICAgIC AgICAgICAgICAgICAgICAgICAgICAgICAgICAgICAg ICAgICAgICAgICANCiAgICAgICAgICAgICAgICAgICAgICAgICAgICAgICAgICAgICAgICAgICAgICAg ICAgICAgICAgICAgICAgICAgICAgICAgICAgICAgICAgICAgICAgICAgICAgICAgICAgICANCiAgICAg ICAgICAgICAgICAgICAgICAgICAgICAgICAgICAgIC AgICAgICAgICAgICAgICAgICAgICAgICAgICAgICAgICAgICAgICAgICAgICAgICAgICAgICAgICAgIC AgICANCiAgICAgICAgICAgICAgICAgICAgICAgICAgICAgICAgICAgICAgICAgICAgICAgICAgICAgIC AgICAgICAgICAgICAgICAgICAgICAgICAgICAgICAg ICAgICAgICAgICAgICANCiAgICAgICAgICAgICAgICAgICAgICAgICAgICAgICAgICAgICAgICAgICAg ICAgICAgICAgICAgICAgICAgICAgICAgICAgICAgICAgICAgICAgICAgICAgICAgICAgICAgICANCiAg ICAgICAgICAgICAgICAgICAgICAgICAgICAgICAgIC AgICAgICAgICAgICAgICAgICAgICAgICAgICAgICAgICAgICAgICAgICAgICAgICAgICAgICAgICAgIC AgICAgICANCjw/lAJiA2wrgKUoxuK0O7aiPi8MEc4KTD0pb6GoJEYvJZzjqxIkVidRUuOhNVUnHydFHf x5CFouJW8UiRNlA8VkZ3XwJOqeHD8AQZZfYWBwyYWy RTUbFZTbXuV2BVBsDAsrGT2ZgNNxVTldDPVcSQEdYD9YXZWbJ128syKjXJ8FLw0CKxRiFY3vgy4ALOmo QYJvIvrDZkc6WWlxUZ5MlLWxkBZvOWMuCBWWPgOjT1ehm9GzVIqjQVLWRAqzBE8Gh4QgsBCeWZz+Pg0K TK4ba1StUDnwWQRzYD0axr5ENPaSWvGyD7NloAqeZT leWEHkbGMXSHEzRQJaHWErjEfkSWUxCJXyXNTnWy9wUAMyAWZ0QgC5ZERILT2ECOHcFOYrfAMmLMIcMU RTIM9NVPtzZFG1XEEipmHklZXcYEbgHF0RNYZnfsBpGAwpQGGYORw+Wx6GXS2ak2FsDIfwFKJpGM9yqu 3MGPgSFuRhI8Y3iXTzI3J7BTudDq2KMQUoSQYhUQHd XWJUDFqiQW8RWC7ojgQ0WH6HmJKcVLUvKOPxuRHlIDn5S70rnHAlTPhuEL5FKKD+Dion+Kc8IPXBgTXVz SITrKyEbDRYXBmFyH2IpQ4QEd4InW5AuKP49hWtruhZaMUglPQ3ETP3qYOCiENMNSV8PcMRotU7evpDz XkNeQSYMDvReY69xuBNwSNRtSBF2KUKdJq1ANXTcM1 JibtUdsOupeeWaFRMiIQFDYU4EDSroduHhzKXvbMdjKR49kOgqLP5KWv5WItTiNQ6wcz8YqABhDi4NQX PqWM8UIMUqGMIvSQAtNPF5BSXtMfDrYVvfBQSeYELtGVU5AHSwIGEeOF7ZGqGhTXAxNIXdPKieHBMfAD Gakg0XRLQlWBHnCiujAiHaYOMsJEYpTKzbXXHwWKYo JMH8AZDzMATePB1ONxVeMGDdPQT4PXpsAZOsJNClgc6PLHYsTUTvRzM7NmLpSZIpNTDaXWchUMIrGJAj IQMxIDHeICKrRV8SAhYpRPLnKPAnVQteXFXkFHBdeu1LTRYzMWEeRoE0FIEwBYTpPGIlUOvrTSBkTEQ2 WxO5LITwECDjMY2OSqBxZBYqPFH2IGkpYZWiUWIjfu 0WQFZlYRWsRNdmEIEhSDFnBEZvGQkaXTZpUQP0Hob1IBGzYGIlRG9MJrWyDJCoHAG2HOGxHPGjBVCftk 3DKRYsQUZvQkU6IMAsQEUkCIAsDPmyRTRwFGR2SDn0GKRuGVFfNN1NNfJnFPRjVQr7EcPgXWOlXZOesn 6PZLIxDADyXBWgDdUyNWIbWGRgOLkrIYJzAPQ0TMWp NWJwZLLgHW4SVePjFAqhDEEJViz8YBosD2m9HZJjZZ9OO0Tia0VjZHcqOIUPLTaxQH7iugIxYJNrUx5U F8zVRazwMxLqRCE4VPmrRsL3ITmyKMV1YnM5XIRdGXBzOSy0QK9yLMAoQaN8ZMi1M8OyYBe4KEZcJIUz JMarCKA3EQS3IuF2UcKgLP3LKs0OGiM7GGJ6eQWpVy3QQSP6ES4JHVICL8IEDx== ID Date Data Source [id number] 03/31/2021 05:21:36 PM EDT [facility] Name Value Range Interpretation Code Description Data Montse rce(s) Supporting Document(s) Discharge Summary [facility] QAAAWs8rCyOJOeYy68/PTFenFKNbe4GjPRexNGu1WGlbSPKvB7SrARB2yF0hCLW8CHgRLtLkWzRmIIRa lbm [file] Y3EfMTKqYvGO5SCCv= ID Date Data Source [id number] 03/31/2021 03:50:58 PM EDT [facility] Name Value Range Interpretation Code Description Data Montse rce(s) Supporting Document(s) Consultation [facility] IOJHLc0gFiQOQiDk59/HHJgaJJGpk7VfCXwtVTg3LCbvEWRsS9JjKII3fK5mPSO9GUfIQqOsFwSfHAQe lbm [file] K7LlE2YlGyER8tNCZEBn6+SRtshWGjzAmvJAFSLkc9XidLCnMsLZ6KEAq= ID Date Data Source [id number] 03/31/2021 03:53:14 PM EDT [facility] Name Value Range Interpretation Code Description Data Montse rce(s) Supporting Document(s) Lactate [Moles/volume] in Serum or Plasma 2.4 mmol/l 0.5-2.2 [facility] ID Date Data Source [id number] 03/31/2021 05:06:42 AM [facility] Value Range Interpretation Code Description Data Montse rce(s) Supporting Document(s) Leukocytes [#/volume] in Blood by Automated count 28.2 10*3/uL 4-10 [facility] Erythrocytes [#/volume] in Blood by Automated count 3.18 10*6/uL 4.1- 5.3 [facility] Hemoglobin [Mass/volume] in Blood 8.3 g/dL 11.5-15.5 [facility] Hematocrit [Volume Fraction] of Blood by Automated count 26.3 % 3 6-45 [facility] Erythrocyte mean corpuscular volume [Entitic volume] by Auto mated count 82.7 fL 80-96 [facility] Erythrocyte mean corpuscular hemoglobin [Entitic mass] by Automated count 26.2 pg 27-33 L [facility] Erythrocyte mean corpuscular hemoglobin concentration [Mass/volume] by Automated count 31.6 g/dL 32.0-36.0 [facility] width [Ratio] by Automated count 19.7 % 11.5-14.5 [facility] Platelets [#/volume] in Blood by Automated count 589 10*3/uL 150-400 [facility] ID Date Data Source [id number] 03/31/2021 05:21:09 AM [facility] Value Range Interpretation Code Description Data Montse rce(s) Supporting Document(s) Magnesium [Mass/volume] in Serum or Plasma 1.9 mg/dL 1.6-2.6 [facility] ID Date Data Source [id number] 03/31/2021 05:21:09 AM [facility] Value Range Interpretation Code Description Data Montse rce(s) Supporting Document(s) Phosphate [Mass/volume] in Serum or Plasma 2.8 mg/dL 2.5-4.5 [facility] ID Date Data Source [id number] 03/31/2021 05:10:49 AM [facility] Value Range Interpretation Code Description Data Montse rce(s) Supporting Document(s) Lactate [Moles/volume] in Serum or Plasma 1.8 mmol/l 0.5-2.2 [facility] ID Date Data Source [id number] 03/30/2021 11:20:45 PM EDT [facility] Name Value Range Interpretation Code Description Data Montse rce(s) Supporting Document(s) Lactate [Moles/volume] in Serum or Plasma 2.7 mmol/l 0.5-2.2 [facility] ID Date Data Source [id number] 03/30/2021 03:55:47 PM EDT [facility] Name Value Range Interpretation Code Description Data Montse rce(s) Supporting Document(s) [facility] UOHCWu6bIgHULqSo68/OYSlxRMDwt7BfTSneSPc0FMljJPPuE3JvAOD3jK6cHAQ9VImZSxMjShGbSNHe lbm [file] +eu87TKoXV/vrmwN0Fa7CPwcK5aRwM4YxOQrV7a8Wt5fj3rVpUNkS/yABdRI/desk reporter/Di+gcdHjv3+DoQN [file] cLYq/ztnxKmp2852xeMnyRTp498RPQKr+wood grinder operator+1FkjCNe3X8g2E64ild3n1jgqVJxo1lGhdNAv68iw/fT [file] NZdb62EAqOMKmwGvTUz6dqnSjcs7SjFCgthNlu2RSAFv9/o0/QKJZT3ZtQa3rWetl4ZAUGUy87QpK+Wick Tender 3HxSqw1hprzqJoH0SGgGG0HSqxyaRjK5+zLNEgXUXecWx5BG8i2WckHWa6ayykWMTBAwVhsjCLk2/tb/ KArG6xnWjxmnl9AX9hpRNWbbCjpOAqAdjCKTFopd1M j4ZrWdxxkBxX7lspStG68BHxQPPTE7hIhKWNiLQHrKnK8jz7NF895oRFint8KzyC+HCp8nmUQZ4jpF8U iycYoFLHuJl/1JX0kazTLH03UZae7IdMFsJz0u3j/Tg+cevuGk1sagnb54nBdrL7vCnvCzyJEKv8rJwm ME6emYbnqWIStLNCWCPDr3iuHB8/jzjFlvYt6VNqgA 53drPjylliqRCveGlgIfra1YvS7dG4Bl11KE7eMy7QwmgrK6XOCvyPvPnGJt9sR8+w3kQSdNNaw+Edar LC0QmkqCKqgrgALtwJOxy62VDpOKe4ErEVs7MaaZRevewTLILzC0cUqE6aSGxRecm9vCq/hobz4fM7Ia X+6/gYKs0Zgh243sTe0mJfd49AotWmxsy+xf8VMcKV KtfbSve0dR8ieDzjv9/YQKUW4zWkA9CBWAknyhFT84HJCGl2fB6VL6kVZcNPc25BsdunjEW3F8R3PEJl T5gvuBGxtJQ4BMunFZ3VV2CoVb7f1eXV7QuQ27ElTKpbt7IegNEgS2JdqbkLf0bEYEpv2sY4VCQ5iwVO qdP9l24Rj/Cyr8GjfUw3KKLfOhAJFL0u5512oaJgs+ a1jCLup34FxmnQciH6eaVndCjyL+tHqVN6W8H7MDnDBC5jmAwktgt7yNI8zNeBrQ5Hw7nbQLMuGzI89G NYpz8LJYF2oukdWTVadn5wQoo43vz86lz2uq4R6xbgNaCbKwxFuEvxOD+IiMa7U9Zqzz6dk5HF+bebwr 0XR5z4EXELLtp12ZVaOCJOIyNAT9Xcj9gySF52Rojl 6dgUPnNHGoqn2fwuT/6z5kNd12RhxUFsDIx4ETfGAXKFnd1EY42pE6Y3B0NeNNUjmFA5cPW76hu9kikE o1hqeKyDoj1kwxgbV546DehUEj5jRwwk7OWaB6RWGNRsRkUhhjpXIMc+mfAaQZOb9ZdyCquehOVUBXcs Gfv6tegNbeHG4W9VpVdbCgxCG4wECwvFm5Wt6L8E7G w63ArttkFzSAWN4yBinT5hYkzJM6vzMEb+H+uDpPu4uFWdkczjk0lR9o8mt11/61NnVFzBo7v4gFJBuO IrzFSeal8+fYXeN5vPoNU3nSuVSG0b6GXARcbCREqPHu1z1fzowRH1SX9VBlxTO+p9GRh2uO0WI+9a6K 36OK2YwAuL2FksAyxiknRz1FEXPpjqC7/0zQti/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 h/OHu+ND6aGfAj1kNqlmJLnnhHNf8mWRzZ9dad5cFdBvIH9EpV9k3MChDJvtEVbvp19CtCltJ+Ik/Zt6 +LtXPT20l4bXQYLWWNOYDYukHYB122Zu0T+LE7JK6lxikkYzVsy8xCrXS0IO3GdFgyFn+HMK8838vUua KjjTuRLy5p6V6pTn8dizH/6ns4uIFJsYsQSQI6ZKKO 0f6CIyLC5oQ6IiYB+Llb4ZCDmrsOuavYYhjLvNwh1cEj6niEHuDM44UsP77sdCWPxJu+8D1PZkqsPy8B Q2QuFWVmJ7sOSSqXriFrVQiouzwkvmS7HCZAtR1eFq575QqQQenW66vq/WXAH2SHn5P/DDiSc3yWRL1L Uk719EM/Iu1IsHCHRPkn44KV/Ky5DkYvE6UK+1XVIh A4WcjYCsLAd6yAulj/BwfYRUZsOb36tpNdlG1/CQPceGdFz7nrtf7K7MR6woFqIy0pctvXE7LI6fanxa rlPxIh02doSIEAPOPw9aMEXpkf0BMURgfLEk30JYyd4BQfq+qGrK+9+PKlv+Lf5w+KHKKe9/P8ps+bf4 w+QpxrnF3sphY2bqzRJIj80FA7zm7osixZEEHgKX1a u+tFmzb/GHww/VTnn/+9Jmzb/FHw4/VDvl/e9LmzX/Fn84/NTVvtJ+ZxApNGj5GWPuqggthQa/9t4Ycu Alejandra+O519qnw1uUzYJvJ5KN6x++wQphkkmhSe0BK+K338pnD/ile0T61KF+2o8H1wtCqQMWBS+UP2bfgG p/Yf3EzKOi4fabqJ/abNg3+LGqq5ifbU84uxQz7+AP iB+qnfL+96TNhn+DPyB+6mpfar+oenYszgowzLIafGFJar/f7onj7IN98q0sNNrZ+xZ/PIjL6YV7vfjx Nvxb/MDbJ0SO1h+etNnwb/PJc91k9Ettc8TQgaSFOPusP2QrXPTm075eHv1fgpp1502lm2rb3e+HH6qd 9n46tb6rq6j/BA2wluu963r2j/4t/jS3inf2zd1C6y [file] senior chemist/5FiaBEabPSI+W2fReqr2Tja8o4D06MAaNlhDrNnAy5SI9KcFM273Ckcs/KivYt5Wungla20iIY2AY [file] dDbqZOIBFfYxNsH6REecVEFRLd8X ID Date Data Source [id number] 03/30/2021 04:47:28 PM EDT [facility] Name Value Range Interpretation Code Description Data Montse rce(s) Supporting Document(s) Lactate [Moles/volume] in Serum or Plasma 1.9 mmol/l 0.5-2.2 [facility] ID Date Data Source [id number] 03/30/2021 01:38:09 PM EDT [facility] Name Value Range Interpretation Code Description Data Montse rce(s) Supporting Document(s) Progress Note [facility] BPSTLg2iUuJXQoXe42/CNGbtYLLqa6XkBEdbTNu3KDwuQMNaA7KvEFI1uJ3kHYA4JXvPGfUsWnPwZYGy lbm [file] Is2Dh0HqqeC4hgNkGPyjNBWtIH8SSUSPA8ZBRa== ID Date Data Source [id number] 03/30/2021 09:57:46 AM [facility] Name Value Range Interpretation Code Description Data Montse rce(s) Supporting Document(s) Lactate [Moles/volume] in Serum or Plasma 2.7 mmol/l 0.5-2.2 [facility] ID Date Data Source [id number] 03/30/2021 04:46:23 AM [facility] Name Value Range Interpretation Code Description Data Montse rce(s) Supporting Document(s) Leukocytes [#/volume] in Blood by Automated count 24.2 10*3/uL 4-10 [facility] Erythrocytes [#/volume] in Blood by Automated count 3.20 10*6/uL 4.1- 5.3 L [facility] Hemoglobin [Mass/volume] in Blood 8.3 g/dL 11.5-15.5 L [facility] Hematocrit [Volume Fraction] of Blood by Automated count 25.9 % 3 6-45 L [facility] Erythrocyte mean corpuscular volume [Entitic volume] by Auto mated count 81.0 fL 80-96 [facility] Erythrocyte mean corpuscular hemoglobin [Entitic mass] by Automated count 25.9 pg 27-33 L [facility] Erythrocyte mean corpuscular hemoglobin concentration [Mass/volume] by Automated count 31.9 g/dL 32.0-[facility].0 [facility] width [Ratio] by Automated count 20.2 % 11.5-14.5 [facility] Platelets [#/volume] in Blood by Automated count 611 10*3/uL 150-400 [facility] ID Date Data Source [id number] 03/30/2021 05:01:36 AM [facility] Value Range Interpretation Code Description Data Montse rce(s) Supporting Document(s) Magnesium [Mass/volume] in Serum or Plasma 1.8 mg/dL 1.6-2.6 [facility] ID Date Data Source [id number] 03/30/2021 05:01:36 AM [facility] Value Range Interpretation Code Description Data Montse rce(s) Supporting Document(s) Phosphate [Mass/volume] in Serum or Plasma 3.3 mg/dL 2.5-4.5 [facility] ID Date Data Source [id number] 03/29/2021 11:53:56 PM [facility] Value Range Interpretation Code Description Data Montse rce(s) Supporting Document(s) Lactate [Moles/volume] in Serum or Plasma 2.4 mmol/l 0.5-2.2 [facility] ID Date Data Source [id number] 03/29/2021 06:54:52 PM [facility] Value Range Interpretation Code Description Data Montse rce(s) Supporting Document(s) Lactate [Moles/volume] in Serum or Plasma 2.4 mmol/l 0.5-2.2 [facility] ID Date Data Source [id number] 03/29/2021 12:55:21 PM [facility] Value Range Interpretation Code Description Data Montse rce(s) Supporting Document(s) Lactate [Moles/volume] in Serum or Plasma 2.2 mmol/l 0.5-2.2 [facility] ID Date Data Source [id number] 03/29/2021 06:53:16 AM [facility] Name Value Range Interpretation Code Description Data Montse rce(s) Supporting Document(s) Leukocytes [#/volume] in Blood by Automated count 23.1 10*3/uL 4-10 [facility] Erythrocytes [#/volume] in Blood by Automated count 3.26 10*6/uL 4.1- 5.3 L [facility] Hemoglobin [Mass/volume] in Blood 8.3 g/dL 11.5-15.5 L [facility] Hematocrit [Volume Fraction] of Blood by Automated count 26.6 % 3 6-45 [facility] Erythrocyte mean corpuscular volume [Entitic volume] by Auto mated count 81.6 fL 80-96 [facility] Erythrocyte mean corpuscular hemoglobin [Entitic mass] by Automated count 25.4 pg 27-33 L [facility] Erythrocyte mean corpuscular hemoglobin concentration [Mass/volume] by Automated count 31.1 g/dL 32.0-36.0 [facility] distribution width [Ratio] by Automated count 19.4 % 11.5-14.5 [facility] Platelets [#/volume] in Blood by Automated count 559 10*3/uL 150-400 [facility] ID Date Data Source [id number] 03/29/2021 07:37:22 AM [facility] Name Value Range Interpretation Code Description Data Montse rce(s) Supporting Document(s) Bicarbonate [Moles/volume] in Serum 21 mmol/L 22-29 L [facility] Chloride [Moles/volume] in Serum or Plasma 104 mmol/L 98-107 [facility] Creatinine [Mass/volume] in Serum or Plasma 0.30 mg/dL 0.50-0.90 [facility] Glucose [Mass/volume] in Serum or Plasma 117 mg/dL 70-140 [facility] Potassium [Moles/volume] in Serum or Plasma 3.7 mmol/L 3.4-5.1 [facility] Sodium [Moles/volume] in Serum or Plasma 135 mmol/L 136-145 L [facility] Urea nitrogen [Mass/volume] in Serum or Plasma 12 mg/dL 6-20 [facility] Anion gap 3 in Serum or Plasma 11 mmol/L 8-15 [facility] Osmolality of Serum or Plasma by calculation 280 mosm/kg 275-300 [facility] Creatinine/Urea nitrogen [Mass Ratio] in Serum or Plasma 38 [facility] Calcium [Mass/volume] in Serum or Plasma 8.4 mg/dL 8.6-10.0 L [facility] Glomerular filtration rate/1.73 sq M pre dicted among non-blacks [Volume Rate/Area] in Serum or Plasma by Creatinine-based formula (MDRD) >6 0 [facility] Glomerular filtration rate/1.73 sq M pre dicted among blacks [Volume Rate/Area] in Serum or Plasma by Creatinine-based formula (MDRD) >60 [facility] ID Date Data Source [id number] 03/29/2021 07:37:22 AM [facility] Name Value Range Interpretation Code Description Data Montse rce(s) Supporting Document(s) Magnesium [Mass/volume] in Serum or Plasma 1.8 mg/dL 1.6-2.6 [facility] ID Date Data Source [id number] 03/29/2021 07:37:22 AM [facility] Name Value Range Interpretation Code Description Data Montse rce(s) Supporting Document(s) Phosphate [Mass/volume] in Serum or Plasma 3.6 mg/dL 2.5-4.5 [facility] ID Date Data Source [id number] 03/29/2021 06:51:32 AM [facility] Value Range Interpretation Code Description Data Montse rce(s) Supporting Document(s) Lactate [Moles/volume] in Serum or Plasma 1.7 mmol/l 0.5-2.2 [facility] ID Date Data Source [id number] 03/29/2021 05:23:43 AM [facility] CT HEAD WITHOUT CONTRAST [id number] RESU LTInterpreted by:Herberth Mackenzie, MDPROCEDURE INFORMATION: Exam: [...] iterative reconstruction. COMPARISON: CT HEAD WITHOUT CONTRAST [id number] 03/26/2021 9:04 AM FINDINGS: Tubes, catheters and [...] rce(s) Supporting Document(s) ID Date Data Source [id number] 03/28/2021 11:52:57 PM [facility] Name Value Range Interpretation Code Description Data Montse rce(s) Supporting Document(s) Lactate [Moles/volume] in Serum or Plasma 1.4 mmol/l 0.5-2.2 [facility] ID Date Data Source [id number] 03/28/2021 05:56:26 PM [facility] Name Value Range Interpretation Code Description Data Montse rce(s) Supporting Document(s) Lactate [Moles/volume] in Serum or Plasma 1.6 mmol/l 0.5-2.2 [facility] ID Date Data Source [id number] 03/28/2021 01:23:45 PM [facility] Name Value Range Interpretation Code Description Data Montse rce(s) Supporting Document(s) Lactate [Moles/volume] in Serum or Plasma 2.4 mmol/l 0.5-2.2 [facility] ID Date Data Source [id number] 03/28/2021 11:08:25 AM [facility] Value Range Interpretation Code Description Data Montse rce(s) Supporting Document(s) Lactate [Moles/volume] in Serum or Plasma 2.8 mmol/l 0.5-2.2 [facility] ID Date Data Source [id number] 03/28/2021 06:20:48 AM [facility] Value Range Interpretation Code Description Data Montse rce(s) Supporting Document(s) Leukocytes [#/volume] in Blood by Automated count 26.5 10*3/uL 4-10 [facility] Erythrocytes [#/volume] in Blood by Automated count 3.27 10*6/uL 4.1- 5.3 [facility] Hemoglobin [Mass/volume] in Blood 8.3 g/dL 11.5-15.5 [facility] Hematocrit [Volume Fraction] of Blood by Automated count 26.5 % 3 6-45 [facility] Erythrocyte mean corpuscular volume [Entitic volume] by Auto mated count 81.1 fL 80-96 [facility] Erythrocyte mean corpuscular hemoglobin [Entitic mass] by Automated count 25.3 pg 27-33 L [facility] Erythrocyte mean corpuscular hemoglobin concentration [Mass/volume] by Automated count 31.2 g/dL 32.0-36.0 [facility] distribution width [Ratio] by Automated count 19.2 % 11.5-14.5 [facility] Platelets [#/volume] in Blood by Automated count 556 10*3/uL 150-400 [facility] ID Date Data Source [id number] 03/28/2021 06:40:04 AM [facility] Value Range Interpretation Code Description Data Montse rce(s) Supporting Document(s) Bicarbonate [Moles/volume] in Serum 19 mmol/L 22-29 L [facility] Chloride [Moles/volume] in Serum or Plasma 106 mmol/L 98-107 [facility] Creatinine [Mass/volume] in Serum or Plasma 0.32 mg/dL 0.50-0.90 L [facility] Glucose [Mass/volume] in Serum or Plasma 125 mg/dL 70-140 [facility] Potassium [Moles/volume] in Serum or Plasma 3.8 mmol/L 3.4-5.1 [facility] Sodium [Moles/volume] in Serum or Plasma 135 mmol/L 136-145 [facility] Urea nitrogen [Mass/volume] in Serum or Plasma 9 mg/dL 6-20 [facility] Anion gap 3 in Serum or Plasma 10 mmol/L 8-15 [facility] Osmolality of Serum or Plasma by calculation 281 mosm/kg 275-300 [facility] Creatinine/Urea nitrogen [Mass Ratio] in Serum or Plasma 28 [facility] Calcium [Mass/volume] in Serum or Plasma 8.4 mg/dL 8.6-10.0 L [facility] Glomerular filtration rate/1.73 sq M pre dicted among non-blacks [Volume Rate/Area] in Serum or Plasma by Creatinine-based formula (MDRD) >6 0 [facility] Glomerular filtration rate/1.73 sq M pre dicted among blacks [Volume Rate/Area] in Serum or Plasma by Creatinine-based formula (MDRD) >60 [facility] ID Date Data Source [id number] 03/28/2021 06:40:04 AM [facility] Name Value Range Interpretation Code Description Data Montse rce(s) Supporting Document(s) Magnesium [Mass/volume] in Serum or Plasma 1.8 mg/dL 1.6-2.6 [facility] ID Date Data Source [id number] 03/28/2021 06:40:04 AM [facility] Name Value Range Interpretation Code Description Data Montse rce(s) Supporting Document(s) Phosphate [Mass/volume] in Serum or Plasma 3.0 mg/dL 2.5-4.5 [facility] ID Date Data Source [id number] 03/28/2021 12:43:20 AM [facility] Name Value Range Interpretation Code Description Data Montse rce(s) Supporting Document(s) Lactate [Moles/volume] in Serum or Plasma 1.6 mmol/l 0.5-2.2 [facility] ID Date Data Source [id number] 03/27/2021 07:32:40 PM [facility] Value Range Interpretation Code Description Data Montse rce(s) Supporting Document(s) Phosphate [Mass/volume] in Serum or Plasma 2.0 mg/dL 2.5-4.5 L [facility] ID Date Data Source [id number] 03/27/2021 07:32:40 PM [facility] Value Range Interpretation Code Description Data Montse rce(s) Supporting Document(s) Potassium [Moles/volume] in Serum or Plasma 3.3 mmol/L 3.4-5.1 L [facility] ID Date Data Source [id number] 03/27/2021 07:30:09 PM [facility] Value Range Interpretation Code Description Data Montse rce(s) Supporting Document(s) Lactate [Moles/volume] in Serum or Plasma 3.4 mmol/l 0.5-2.2 [facility] ID Date Data Source [id number] 03/27/2021 12:54:49 PM [facility] Value Range Interpretation Code Description Data Montse rce(s) Supporting Document(s) Potassium [Moles/volume] in Serum or Plasma 3.6 mmol/L 3.4-5.1 [facility] ID Date Data Source [id number] 03/27/2021 12:54:49 PM [facility] Value Range Interpretation Code Description Data Montse rce(s) Supporting Document(s) Phosphate [Mass/volume] in Serum or Plasma 3.3 mg/dL 2.5-4.5 [facility] ID Date Data Source [id number] 03/27/2021 12:51:48 PM [facility] Value Range Interpretation Code Description Data Montse rce(s) Supporting Document(s) Lactate [Moles/volume] in Serum or Plasma 2.5 mmol/l 0.5-2.2 [facility] ID Date Data Source [id number] [facility] Description Data Montse rce(s) Supporting Document(s) Lactate [Moles/volume] in Serum or Plasma 2.9 mmol/l 0.5-2.2 [facility] ID Date Data Source [id number] 03/27/2021 06:29:01 AM [facility] Name Value Range Interpretation Code Description Data Montse rce(s) Supporting Document(s) Leukocytes [#/volume] in Blood by Automated count 24.3 10*3/uL 4-10 [facility] Erythrocytes [#/volume] in Blood by Automated count 3.27 10*6/uL 4.1- 5.3 [facility] Hemoglobin [Mass/volume] in Blood 8.3 g/dL 11.5-15.5 [facility] Hematocrit [Volume Fraction] of Blood by Automated count 26.7 % 3 6-45 [facility] Erythrocyte mean corpuscular volume [Entitic volume] by Auto mated count 81.7 fL 80-96 [facility] Erythrocyte mean corpuscular hemoglobin [Entitic mass] by Automated count 25.3 pg 27-33 [facility] Erythrocyte mean corpuscular hemoglobin concentration [Mass/volume] by Automated count 30.9 g/dL 32.0-36.0 [facility] width [Ratio] by Automated count 19.0 % 11.5-14.5 [facility] Platelets [#/volume] in Blood by Automated count 576 10*3/uL 150-400 [facility] ID Date Data Source [id number] 03/27/2021 06:44:46 AM [facility] Value Range Interpretation Code Description Data Montse rce(s) Supporting Document(s) Magnesium [Mass/volume] in Serum or Plasma 1.8 mg/dL 1.6-2.6 [facility] ID Date Data Source [id number] 03/27/2021 06:44:46 AM [facility] Name Value Range Interpretation Code Description Data Montse rce(s) Supporting Document(s) Bicarbonate [Moles/volume] in Serum 16 mmol/L 22-29 [facility] Chloride [Moles/volume] in Serum or Plasma 111 mmol/L 98-107 [facility] Creatinine [Mass/volume] in Serum or Plasma 0.46 mg/dL 0.50-0.90 [facility] Glucose [Mass/volume] in Serum or Plasma 136 mg/dL 70-140 [facility] Potassium [Moles/volume] in Serum or Plasma 3.4 mmol/L 3.4-5.1 [facility] Sodium [Moles/volume] in Serum or Plasma 135 mmol/L 136-145 [facility] Urea nitrogen [Mass/volume] in Serum or Plasma 10 mg/dL 6-20 [facility] Anion gap 3 in Serum or Plasma 9 mmol/L 8-15 [facility] Osmolality of Serum or Plasma by calculation 282 mosm/kg 275-300 [facility] Creatinine/Urea nitrogen [Mass Ratio] in Serum or Plasma 22 [facility] Calcium [Mass/volume] in Serum or Plasma 8.4 mg/dL 8.6-10.0 [facility] Glomerular filtration rate/1.73 sq M pre dicted among non-blacks [Volume Rate/Area] in Serum or Plasma by Creatinine-based formula (MDRD) >6 0 [facility] Glomerular filtration rate/1.73 sq M pre dicted among blacks [Volume Rate/Area] in Serum or Plasma by Creatinine-based formula (MDRD) >60 [facility] ID Date Data Source [id number] 03/27/2021 06:44:46 AM [facility] Name Value Range Interpretation Code Description Data Montse rce(s) Supporting Document(s) Phosphate [Mass/volume] in Serum or Plasma 2.2 mg/dL 2.5-4.5 L [facility] ID Date Data Source [id number] 03/27/2021 02:22:14 AM [facility] Value Range Interpretation Code Description Data Montse rce(s) Supporting Document(s) Lactate [Moles/volume] in Serum or Plasma 2.3 mmol/l 0.5-2.2 H [facility] ID Date Data Source [id number] 03/26/2021 09:05:45 PM [facility] Value Range Interpretation Code Description Data Montse rce(s) Supporting Document(s) Creatine kinase [Enzymatic activity/volume] in Serum or Plasma 10 U /L 20-180 L [facility] ID Date Data Source [id number] 03/26/2021 09:05:45 PM [facility] Value Range Interpretation Code Description Data Montse rce(s) Supporting Document(s) Albumin [Mass/volume] in Serum or Plasma by Bromocresol green (BCG) dye binding method 2.9 g/dL 3.5-5.2 [facility] Bilirubin.total [Mass/volume] in Serum or Plasma <1.2 [facility] Bilirubin.direct [Mass/volume] in Serum or Plasma <0.3 [facility] Alkaline phosphatase [Enzymatic activity/volume] in Serum or Plasma 74 U/L 35-104 [facility] Aspartate aminotransferase [Enzymatic activity/volume] in Serum or Plasma 25 U/L <32 [facility] Alanine aminotransferase [Enzymatic activity/volume] in Seru m or Plasma 50 U/L <33 [facility] Protein [Mass/volume] in Serum or Plasma 5.7 g/dL 6.4-8.3 [facility] ID Date Data Source [id number] 03/26/2021 06:34:40 PM [facility] Name Value Range Interpretation Code Description Data Montse rce(s) Supporting Document(s) Magnesium [Mass/volume] in Serum or Plasma 2.1 mg/dL 1.6-2.6 [facility] ID Date Data Source [id number] 03/26/2021 06:34:40 PM [facility] Value Range Interpretation Code Description Data Montse rce(s) Supporting Document(s) Phosphate [Mass/volume] in Serum or Plasma 1.6 mg/dL 2.5-4.5 [facility] ID Date Data Source [id number] 03/26/2021 07:33:27 PM [facility] Value Range Interpretation Code Description Data Montse rce(s) Supporting Document(s) Procalcitonin [Mass/volume] in Serum or Plasma 0.10 ng/mL <0.10 [facility] (NOTE) < 0.25 ng/mL Bacterial infec [...] to sepsis/septic shock. ID Date Data Source [id number] 03/26/2021 06:13:54 PM [facility] Name Value Range Interpretation Code Description Data Montse rce(s) Supporting Document(s) Lactate [Moles/volume] in Serum or Plasma 6.3 mmol/l 0.5-2.2 [facility] Results called to and read back by Serg CORONEL AT [id number] /[id number] ID Date Data Source [id number] 03/26/2021 12:14:33 PM [facility] Name Value Range Interpretation Code Description Data Montse rce(s) Supporting Document(s) Lactate [Moles/volume] in Serum or Plasma 3.5 mmol/l 0.5-2.2 [facility] ID Date Data Source [id number] 03/26/2021 10:45:03 AM [facility] CT HEAD WITHOUT CONTRAST [id number] RESU LTInterpreted by:PRINCE ZhuLINICAL INDICATION: Hydrocephalus.TECHNIQUE: Multiaxial [...] rce(s) Supporting Document(s) ID Date Data Source [id number] 03/26/2021 09:20:47 AM [facility] Name Value Range Interpretation Code Description Data Montse rce(s) Supporting Document(s) Lactate [Moles/volume] in Serum or Plasma 4.0 mmol/l 0.5-2.2 [facility] Results called to and read back by GIOVANI PINEDO RN [id number] BY [id number] ID Date Data Source [id number] 03/26/2021 08:01:34 AM [facility] Name Value Range Interpretation Code Description Data Montse rce(s) Supporting Document(s) [facility] QWDZOn9xHgDXUtMyv2MdVoVnKCGmHR2toxr0G6K9lMDqL4NtwPFpn7yoT5UxR2TdTNCrEIMOFT1XkQAo jb2 [file] eSsgv3BhAGb903bbltz3V58GS0IMzwEWeOqttQseOk3Sp+dvL//MARY BETH/zwLw9Fx1aU756+6TjugL8Ew618 rfyac3Z7ft000dm3P/u8X3WjEUgC84I89PDf3XTuIlcu7cT/d/we9pZ/tcvAYW/5V1XG+oMp63UMgoLm yXTxaST8No/AO/DjP/fhz1Q0TB/AHbgDx/0V3N/yr3 y20WOs2MEqHeg1Lm1j5h1h5n/NTi76Uk/8zF7+lRV+1n+74oOKWh/s9Ru/UH78+M2iw7h7EF28u/XBOZ /Pj60blsL3cpx8q09UwmLY6bEMowy354J8vkgiq8e7cvmV+1HwT18492Ho5Lcw8CkwlVK7p4+zf6ceGH /kAOoQjhjPDsQ2j7rPj79u/tVTBq74/XlfmBtGThm4 ATfgA/kI4zLjyHRH9Mu2C91+1S6f6x/uqkXj8ev+ZB/nfb+v+Sea1u4qsgr98TttgJeZJcPVPmQ/VXO5 togk5tyjQ5y+p4/jzf8B7nU9x911s1djAbrP9M5IrAbgm69UnTYynbPdOWBxW0b6z90BB/xtzGp7uo4Y H1V+6XCKluhfBh7jpt/45H3r7lcrU89G43lbpG+YG0 FkrP+426GbZbEgDfF1qKxbVbuzl3SUyVvQkxTbafNuMaEFKuW3pXplwyDX/+pa/ggwi5eJ/lVb5dN/y7 +qflf+PL0owFq3Cwv3k6w3/+1osNG9Kq/A++omjwWiOM9J44HthE1Xq6QtUIN+B55H5V+VtoHnb/lXuw y8AW/AMT7Dv+ysuom0yb4/qsO/6vCvehrwcfpR+Vinod [file] x3INoYEFIMelkttnhY2SoT1PBgGHQPdUJNGDRdAQKI cpHSJEeXRAJ1zn/lr5X3KJmFENyB3sXpBlv2vAMsJCyEAJ8C1aHlY6u5wZOuHVkCGY0D9aHqB3i9oXCs KKiUlLFTOFYlWUTLguDHpTLZlGuAXltMMNZRDasnnE2xccYcDfoDXCOrhDSJXkXxtZJZXh3wVToMrJVC Ih2aOPkXbWFAPq2zOHkYrYTUQn9wGDqObNJXUh4jBZ jUoFEDoQZCDYQaCDUQaiDUQKgB/RJke0b8A4Z+ylJWEWfQBu5B1JozsEF7Ty0DYbw6XXos6DKlpEPYhX XYSDYsTYKxuPDRE3HzXAPNaXQLU9PZQz7AGcs3INbp0TXtfJQFpksjohtrHjCx0XiCheyoPbOesFWEth sBfaJVfvhMmdJV1nsMWoydrLzcgHFRhPwj0F2HkU48 BJ4SZJ7LWS8kAM02IY2FVn6TZi6UFZuUraXfStYreXoqrPGPM7FIXi1ZYtq6FPQiYKSFLXU5BYCUzeCG S7AY+ItEKmsu9fnZtkn4cOk+EEnRzVPPeCqH66qgC9THpppALHRpXWBCLhRFtJGkQVEVHGOrbIwE8Wtk wXZXMJfXTliV60IyOPLBJ48+4YgHqHSSbvwajryV2o P2UiMFt+Z7UHxNnmAXIHNcLaYAvmeMFAtiSLqEkq6B1UuLnaJqU/VP9kOXEltjYgL9DgUmVKyFgw6p+0 PkVpE7DbX9NZ7KxkUiQI9lg2BrTnFEcJ4p6i/cqQ3W/0EVgIu9PopiY2Ona4o/+WKFTCPTyAgZIaNklE wq41tXXGOQ63SNwyHhJAxaRQMBpxMxzWGpi9o3cUID YoMMs2fAibpkMZo3iGVTo1tgz93v/i7b9PltQnatIkeZ79hl2ZgpV/HLkmADoI5G9gURB1AotR9y94/u NZa+VUz3jU45PyMlxXpbzABFvGIPXAe2EQBJWgIlt4giURpWGGOQGAPw7rbUnEM9yYfZ5rRSyLSJXMGb nMyTTShktYLpGky5lnbPiVEPXfpXQnDkYBmjIfn0I0 oEg9LGRgsphODMgz12S8JlAnytNfUqr9cPekVChJBazQ32WUrFNxzJpKWq4tq2bSmc0XU14BocTu8Ega 18Z4TeAKbt/2AeaedIWJXO/6K846pQ2PTLUDWJaYHtVyGvfQXMZNPgxeOdwDmnD8VYsDCSFq3Mq9SF5x ErVFIdfammk1O3+okrf8I+hXBvKbdPIZ2TvGd5cJOw kWlkhAzbAecTO+hand mexican food maker+qMKclFBGTgBdvPRVQvnVYWFtCSaGZLk5V+gMwKbaVWeCpkhIyQUTJKppPpZIzM yRlRVkpSeFLbgXEWKg9Gl/lwv/FFTKKp8Sb+3e+Ob/a4J0WtnRQNtNjEE731TGtMWjh9av4NB++OufW+ tc9uds0OVmf7h4O2cN2hmheHPgaRnwpRVZHC7udwpr zGi0yLnjrj7cZRjbywDxEWecZEoxmyBWwFw0RegYjAVOCd8hOfHP5GQmPDD6G0F4RDWtQKCxUklQxBLV InhF+bePa4XuGQykcCOgyMJPHNDjZQrQ9GKcvVapCrTLIhKvdK/JVdGWQGFE2/TOL0jxLbnlGAqFThJ7 4rT0Pd+sQn1oaaApYFDusqDsoHfeB4MTj6XSGfP70V K6jaK1wJeIRlBapWQJ9xDD3WETjgUWKIfLbrDOfew3mc08QcoF1chk3SsxMOyXg5WFsFLcJa7UXaVKiS i8DDyvvaYEzGoHRhhkT7kmnksTWIWxVnpCSjcFouIpE9gU3YYRwNPMxkz1VVWYqKgBjENoIUIIYyDtCG nUoPHWPeFHVWnOREM1HZRQfwpS2mGlhjnYEEfPPIK2 EDSq5NZwk0CPmm3HAaiQCLzPVXKFo61ONgU8PXSVb45VGgA0ZMOLp52KThK0LWVUt37JQtQ6MKNIa90S DuXfHpP0tEA0LWEk9LBlf4LCyj4SLcuSJLuzMYCBfzRYBmceRPlAaENPHlHuXRdFiPjfMqmnQClkqWeu mDY+FfaIi4Jy8LpCEo4qVKKVxrKn0LS2VyHs4abDSW JAM/1jgiNa2Ef30t6EJGwbKXRGBz1TPjkSVNimIMBTvdMAYhfoOEaOtRCpUsHs9YeKnEYMouCSGaiWQN a0AGVM0RIqU6JQuB4CMsLCWTkCWWOEJlIDFGexAXDCvMGnBbAnvHwfrsRGesdCRfnDGBl5JQVA3TPjE7 FXpG1ABtEWOJwMZHOycaxOI/8+B+73M8adH8iWk3Tm /ceb6g6nb967prc/PgfufB/c6D+17W6qoP2yzn8H99xX22kR/vGPSPWqGnmf7UTmHIYANWH/9YJL6j7I 8c9BMH/oTMY3TQLeh9Vlw1mXJ/vsLYHQboqdNmPQtViAFyNi8xYPhk9AIxjZLHoVWEWKDfZPQGwzHSXU wYHVKUJa6xCoSKlSnBAPMlMQJHpKMBV0GXKf9JNlt8 [file] JfLgPZL7dmTa8xNdFzHNZNM2Iba9LcMXTjBOGUYc6+JzV8IFJ8uVUiAta1CkZjSPhlSAUIEp== ID Date Data Source [id number] 03/26/2021 06:43:02 AM [facility] Name Value Range Interpretation Code Description Data Montse rce(s) Supporting Document(s) Leukocytes [#/volume] in Blood by Automated count 27.7 10*3/uL 4-10 H [facility] Erythrocytes [#/volume] in Blood by Automated count 3.68 10*6/uL 4.1- 5.3 [facility] Hemoglobin [Mass/volume] in Blood 9.4 g/dL 11.5-15.5 [facility] Hematocrit [Volume Fraction] of Blood by Automated count 29.8 % 3 6-45 [facility] Erythrocyte mean corpuscular volume [Entitic volume] by Auto mated count 81.0 fL 80-96 [facility] Erythrocyte mean corpuscular hemoglobin [Entitic mass] by Automated count 25.4 pg 27-33 [facility] Erythrocyte mean corpuscular hemoglobin concentration [Mass/volume] by Automated count 31.4 g/dL 32.0-36.0 [facility] Erythrocyte distribution width [Ratio] by Automated count 18.7 % 11.5-14.5 [facility] Platelets [#/volume] in Blood by Automated count 780 10*3/uL 150-400 H [facility] ID Date Data Source [id number] 03/26/2021 08:07:16 AM [facility] Value Range Interpretation Code Description Data Montse rce(s) Supporting Document(s) Cancer Ag 19-9 [Units/volume] in Serum or Plasma 36 U/mL <35 [facility] This test uses [employer] CA 19-9 electrochem iluminescent immunoassay. Results obtained with different test methods or kits cannot be used interchangeably. CA 19-9 is useful in monitoring pancreatic, hepatobiliary, gastric, hepatocelllular, and colorectal cancer. CA 19-9 value regardless of level, should not be interpreted as absolute evidence of the presence or absence of malignant disease. ID Date Data Source [id number] 03/26/2021 08:07:16 AM EDT [facility] Name Value Range Interpretation Code Description Data Montse rce(s) Supporting Document(s) Carcinoembryonic Ag [Mass/volume] in Serum or Plasma 8.9 ng/ml <3.4 H [facility] Levels of CEA should not be interpreted as absoulute evidence of the presence or absence of disease. It should not be used as a screening test for Cancer. CEA values obtained using different methodologies cannot be used interchangeably. This method is manufactured by [employer] and is an electrochemiluminesence immunoassay. ID Date Data Source [id number] 03/26/2021 08:07:16 AM [facility] Name Value Range Interpretation Code Description Data Montse rce(s) Supporting Document(s) Bicarbonate [Moles/volume] in Serum 15 mmol/L 22-29 L [facility] Chloride [Moles/volume] in Serum or Plasma 110 mmol/L 98-107 [facility] Creatinine [Mass/volume] in Serum or Plasma 0.34 mg/dL 0.50-0.90 L [facility] Glucose [Mass/volume] in Serum or Plasma 115 mg/dL 70-140 [facility] Potassium [Moles/volume] in Serum or Plasma 3.5 mmol/L 3.4-5.1 [facility] Hemolyzed Sodium [Moles/volume] in Serum or Plasma 138 mmol/L 136-145 [facility] Urea nitrogen [Mass/volume] in Serum or Plasma 5 mg/dL 6-20 L [facility] Anion gap 3 in Serum or Plasma 13 mmol/L 8-15 [facility] Osmolality of Serum or Plasma by calculation 284 mosm/kg 275-300 [facility] Creatinine/Urea nitrogen [Mass Ratio] in Serum or Plasma 16 [facility] Calcium [Mass/volume] in Serum or Plasma 8.4 mg/dL 8.6-10.0 L [facility] Glomerular filtration rate/1.73 sq M pre dicted among non-blacks [Volume Rate/Area] in Serum or Plasma by Creatinine-based formula (MDRD) >6 0 [facility] Glomerular filtration rate/1.73 sq M pre dicted among blacks [Volume Rate/Area] in Serum or Plasma by Creatinine-based formula (MDRD) >60 [facility] ID Date Data Source [id number] 03/25/2021 11:47:33 PM [facility] XR CHEST FRONTAL ONLY [id number] RESULTI nterpreted by:Willam Salcedo [facility]: Exam: XR Chest Exam date and [...] of the chest. Views: 1 view. COMPARISON: [place] XR CHEST FRONTAL ONLY [id number] PORTABLE 03/23/2021 3:32 PM; thoracic CT of [...] rce(s) Supporting Document(s) ID Date Data Source [id number] 03/30/2021 11:13:49 AM EDT [facility] Service Cmnt XXX-Imp : BloodRACMicroorga nism XXX Cult : No growth 5 days Name Value Range Interpretation Code Description Data Montse rce(s) Supporting Document(s) ID Date Data Source [id number] 03/25/2021 10:38:10 PM EDT [facility] Name Value Range Interpretation Code Description Data Montse rce(s) Supporting Document(s) Leukocytes [#/volume] in Blood by Automated count 22.1 10*3/uL 4-10 H [facility] Erythrocytes [#/volume] in Blood by Automated count 3.93 10*6/uL 4.1- 5.3 L [facility] Hemoglobin [Mass/volume] in Blood 10.1 g/dL 11.5-15.5 L [facility] Hematocrit [Volume Fraction] of Blood by Automated count 32.1 % 3 6-45 L [facility] Erythrocyte mean corpuscular volume [Entitic volume] by Auto mated count 81.5 fL 80-96 [facility] Erythrocyte mean corpuscular hemoglobin [Entitic mass] by Automated count 25.8 pg 27-33 L [facility] Erythrocyte mean corpuscular hemoglobin concentration [Mass/volume] by Automated count 31.6 g/dL 32.0-36.0 [facility] E[facility]th[facility] distribution width [Ratio] by Automated count 18.9 % 11.5-14.5 H [facility] Platelets [#/volume] in Blood by Automated count 852 10*3/uL 150-400 [facility] ID Date Data Source [id number] 03/25/2021 11:00:18 PM [facility] Name Value Range Interpretation Code Description Data Montse rce(s) Supporting Document(s) Cardiactroponin T pnl SerPlHS <14 [facility] Questionable Result, New Specimen Reques arielle ID Date Data Source [id number] 03/25/2021 11:47:18 PM [facility] Name Value Range Interpretation Code Description Data Montse rce(s) Supporting Document(s) Bicarbonate [Moles/volume] in Serum 14 mmol/L 22-29 [facility] Questionable Result, New Specimen Reques arielle Chloride [Moles/volume] in Serum or Plasma 110 mmol/L 98-107 [facility] Questionable Result, New Specimen Reques arielle Creatinine [Mass/volume] in Serum or Plasma 0.42 mg/dL 0.50-0.90 [facility] Questionable Result, New Specimen Reques arielle Glucose [Mass/volume] in Serum or Plasma 206 mg/dL 70-140 [facility] Questionable Result, New Specimen Reques arielle Potassium [Moles/volume] in Serum or Plasma 4.1 mmol/L 3.4-5.1 [facility] Questionable Result, New Specimen Reques arielle Sodium [Moles/volume] in Serum or Plasma 138 mmol/L 136-145 [facility] Questionable Result, New Specimen Reques arielle Urea nitrogen [Mass/volume] in Serum or Plasma 7 mg/dL 6-20 [facility] Questionable Result, New Specimen Reques arielle Anion gap 3 in Serum or Plasma 14 mmol/L 8-15 [facility] Questionable Result, New Specimen Reques arielle Osmolality of Serum or Plasma by calculation 290 mosm/kg 275-300 [facility] Questionable Result, New Specimen Reques arielle Creatinine/Urea nitrogen [Mass Ratio] in Serum or Plasma 17 [facility] Questionable Result, New Specimen Reques arielle Calcium [Mass/volume] in Serum or Plasma 8.0 mg/dL 8.6-10.0 L [facility] Questionable Result, New Specimen Reques arielle Glomerular filtration rate/1.73 sq M pre dicted among non-blacks [Volume Rate/Area] in Serum or Plasma by Creatinine-based formula (MDRD) >6 0 [facility] Questionable Result, New Specimen Reques arielle Glomerular filtration rate/1.73 sq M pre dicted among blacks [Volume Rate/Area] in Serum or Plasma by Creatinine-based formula (MDRD) >60 [facility] Questionable Result, New Specimen Reques arielle ID Date Data Source [id number] 03/25/2021 11:47:18 PM [facility] Value Range Interpretation Code Description Data Montse rce(s) Supporting Document(s) Magnesium [Mass/volume] in Serum or Plasma 5.3 mg/dL 1.6-2.6 [facility] Results called to and read back by DYLAN ROBERTS RN ON 9F AT [phone] BY 2128ConfirmedQuestionable Result, New Specimen Requested ID Date Data Source [id number] 03/25/2021 11:47:18 PM [facility] Value Range Interpretation Code Description Data Montse rce(s) Supporting Document(s) Phosphate [Mass/volume] in Serum or Plasma 1.7 mg/dL 2.5-4.5 [facility] Questionable Result, New Specimen Reques arielle ID Date Data Source [id number] 03/25/2021 10:55:41 PM [facility] Value Range Interpretation Code Description Data Montse rce(s) Supporting Document(s) Lactate [Moles/volume] in Serum or Plasma 3.6 mmol/l 0.5-2.2 H [facility] ID Date Data Source [id number] 03/30/2021 11:13:49 AM EDT [facility] Service Cmnt XXX-Imp : BloodLFAMicroorga nism XXX Cult : No growth 5 days Name Value Range Interpretation Code Description Data Montse rce(s) Supporting Document(s) ID Date Data Source [id number] 03/26/2021 01:26:07 AM [facility] Name Value Range Interpretation Code Description Data Montse rce(s) Supporting Document(s) Color of Urine [facility] Clarity of Urine [facility] Specific gravity of Urine by Refractometry automated 1.008 1.003 -1.030 [facility] pH of Urine by Automated test strip 8.0 5.0-8.0 [facility] Protein [Mass/volume] in Urine by Automated test strip Neg [facility] Glucose [Mass/volume] in Urine by Automated test strip Neg [facility] Ketones [Mass/volume] in Urine by Automated test strip Neg [facility] Bilirubin.total [Presence] in Urine by Automated test strip Negative [facility] Hemoglobin [Presence] in Urine by Automated test strip Neg [facility] Leukocyte esterase [Presence] in Urine by Automated test strip Negative [facility] Nitrite [Presence] in Urine by Automated test strip Negati [facility] Leukocytes [#/area] in Urine sediment by Automated count 1 /HPF 0 -5 [facility] Erythrocytes [#/area] in Urine sediment by Automated count 5 /HPF 0-3 H [facility] Service comment [facility] Epithelial cells.squamous [#/area] in Urine sediment by Automate d count None [facility] Mucus [#/area] in Urine sediment by Microscopy low power field None [facility] ID Date Data Source [id number] 03/25/2021 03:58:55 PM EDT [facility] Name Value Range Interpretation Code Description Data Montse rce(s) Supporting Document(s) [facility] VMCJPc7pCtCPDoPv03/KLXtkOSFzm1PsCNrsIYg4JUnmIVIiG2AbSJT4yT8bMVA5RHyBOhQcRpZiFLQ2 [facility] [file] ICAgICAgICAgICAgICAgICAgICAgICAgICAgICAgICAgICAgICAgICAgICAgICAgICAgICAgICAgICAg ICAgICAgICAgICAgICAgICAgICAgICAgICAgDQogIC AgICAgICAgICAgICAgICAgICAgICAgICAgICAgICAgICAgICAgICAgICAgICAgICAgICAgICAgICAgIC AgICAgICAgICAgICAgICAgICAgICAgICAgICAgICAgICAgICAgDQogICAgICAgICAgICAgICAgICAgIC AgICAgICAgICAgICAgICAgICAgICAgICAgICAgICAg ICAgICAgICAgICAgICAgICAgICAgICAgICAgICAgICAgICAgICAgICAgICAgICAgDQogICAgICAgICAg ICAgICAgICAgICAgICAgICAgICAgICAgICAgICAgICAgICAgICAgICAgICAgICAgICAgICAgICAgICAg ICAgICAgICAgICAgICAgICAgICAgICAgICAgICAgDQ ogICAgICAgICAgICAgICAgICAgICAgICAgICAgICAgICAgICAgICAgICAgICAgICAgICAgICAgICAgIC AgICAgICAgICAgICAgICAgICAgICAgICAgICAgICAgICAgICAgICAgDQogICAgICAgICAgICAgICAgIC AgICAgICAgICAgICAgICAgICAgICAgICAgICAgICAg ICAgICAgICAgICAgICAgICAgICAgICAgICAgICAgICAgICAgICAgICAgICAgICAgICAgDQogICAgICAg ICAgICAgICAgICAgICAgICAgICAgICAgICAgICAgICAgICAgICAgICAgICAgICAgICAgICAgICAgICAg ICAgICAgICAgICAgICAgICAgICAgICAgICAgICAgIC AgDQogICAgICAgICAgICAgICAgICAgICAgICAgICAgICAgICAgICAgICAgICAgICAgICAgICAgICAgIC AgICAgICAgICAgICAgICAgICAgICAgICAgICAgICAgICAgICAgICAgICAgDQogICAgICAgICAgICAgIC AgICAgICAgICAgICAgICAgICAgICAgICAgICAgICAg ICAgICAgICAgICAgICAgICAgICAgICAgICAgICAgICAgICAgICAgICAgICAgICAgICAgICAgDQogICAg ICAgICAgICAgICAgICAgICAgICAgICAgICAgICAgICAgICAgICAgICAgICAgICAgICAgICAgICAgICAg ICAgICAgICAgICAgICAgICAgICAgICAgICAgICAgIC UhPIEsFNa2V9ypKZEaSPDaZN7fDKs3Vs3+ZJpSJrZsNEW0bwQswF4QMN7uy5RtITggCWUsk7BhZBw7GU 9WKHUuTRjwTX5UAVmhcz1ZCPRkIEGvsYTHl8huKxHvZIE4KHGlTzlfKW2ITKZhJ4zjraYwVBSxTXQCKP qnMVDLPU0SZiJqQ5PphU21HJWZCr4+DQplbmRvYmoN ErO6XRHtw6EfHEp4GN7SHMWmBcpey8FoHbGvAYRFGFklDK0OAVS9IBGzUGGnMb0AMEPbC368ogUtKF8I Nk6GLeCbBH3fze3GBfUtTPUgKjgXQre1TQoeDM9NvOFfBImZn90gbIk7fbItnPCSWUmjIJWCyLp5MDBm GGZxHPJhZz5tRQCrPNGrEnJ1ZMVANA1ZEZIoJJUtoT QlLWAtQRLVKK4VUAlmWTR3PRHbfpCktWCeUUflFN3CIEColyMiYFcaMOKDVCl+Hb7RJD6wy2SbOIaaGB KcIT0psb4DIXnEVkHcN5F9rRZsM0S0PTskLj8WIXToUPWbVUidPUCHVQrhMN0FBP7bzuC1ON1UpDLsWN CpPZBaqJQbXCe0G99avXUnOVldGF1BUDO+Dion+Pg0K NHQaTHAtGTVrAnYnWQADLzSrX0OwC0MNl0QwM7SeUO72wHiexeOrZZcnWK3UKA5kOKSmCXKSBZ2LqREp fL5eikQhJQYaQRAVRvUrI33waJBuRYWlXYT1ZDUyEi3UATDiL9AgfjMhoUfoeyAuCACsKYQGLR4YHXpp qlXhwSXbkFzeKO44eMglJP3GDc8XCtFaBO5nix5YlX DpFa5DZYIgXx7SFBNjOZJqPAJpUHG1QRCxKlZbKDdnYATsLQMjKDZ2PVOaWQLnTW6XHuXnEMLsFLY6KH SgVOGiGSBivo3CJVRoTNXvWjHmKjJyKVMbWXMtPLawLDDhJEUjHUG2WXRjOJPlGI2RXlKbVAKbTBF4DV OoRTGeIHVtio0CDORuQLHpUzp4CXMdBOWqYPOkBWcx ZKJjOAI1JaVvXCZaSMLrDQ4MZcOsUKDgYJA2JjNwHXTqTNApvg7GDAKkNUTuAfd2CKQtZNWeZJCwNLyu QMNzOBB9UTabQULeGXGnOG2CDbJnQWQdRPgwJbDtVYVfODZeuo1UBNHtIJHhGUDdDTYgYJNlGPBsGMbn JJAbNQH7WuEsTYUzRBJbXG3XOrKhDLPyZTu8LqNcTZ PgWZNrxw2CRPWkEOYaMBR1KGImHKZbSUQnYWsmACCqYAUxLcm1FLByHLIlVO5VBmJnASZlVVE2ZpZsPH ObTFNukm7CIDArFGIlRGU4MiJaTBBkYBAqPUkhAELxGIMrXrT4EYQlABDtZU3VLkTaTCBpGAX8HOuhWC XaYOVxuu7ZEJQfQRJlQhzhFQOpZJZjHPMkPVo9aiAw mIZmDPy1TB1XX5GyvcMqMfBMTi1Wp377RZXeQNPkLi6DG0ojAa3zWSZvKCNVQz2VFJh0EmKaWQAbRaZd FCF4MzZ4OqmmR0FrAqnbYORiRjVoDLM+DKq3KBHoNxF6GZKaHpD0FIh9RmMaLsNxWVChUTJuAELyZz2l XSANCj4+KMoprHQfhXioZIOJIsWoHBh1GQtxPQXWPo7P ID Date Data Source [id number] 03/25/2021 03:56:25 PM EDT [facility] CT HEAD WITHOUT CONTRAST [id number] RESU LTInterpreted by:PRINCE ZhuLINICAL INDICATION: Brain metastasis.TECHNIQUE: [...] rce(s) Supporting Document(s) ID Date Data Source [id number] 03/30/2021 08:59:28 AM EDT [facility] Service Cmnt XXX-Imp : NoneGram Stn XXX : No WBC's or organisms seen.Specimen concentrated prior to staining.Microorganism XXX Cult : No growth 5 days Name Value Range Interpretation Code Description Data Montse rce(s) Supporting Document(s) ID Date Data Source [id number] 03/25/2021 06:30:56 PM [facility] Value Range Interpretation Code Description Data Montse rce(s) Supporting Document(s) Color of [facility] spinal fluid [facility] Clarity of [facility] spinal fluid [facility] Erythrocytes [#/volume] in Cerebral spinal fluid by Manual count 143 /uL <2 H [facility] Nucleated cells [#/volume] in Cerebral spinal fluid by Manual count <5 [facility] Microscopic observation [Identifier] in Cerebral spinal fluid [facility] Cell count and Differential panel - [facility] fluid [facility] ID Date Data Source [id number] 03/25/2021 06:36:30 PM [facility] Value Range Interpretation Code Description Data Montse rce(s) Supporting Document(s) Glucose [Mass/volume] in Cerebral spinal fluid 73 mg/dL 40-70 H [facility] ID Date Data Source [id number] 03/25/2021 06:36:30 PM [facility] Value Range Interpretation Code Description Data Montse rce(s) Supporting Document(s) Protein [Mass/volume] in Cerebral spinal fluid 26 mg/dl 15-45 [facility] ID Date Data Source [id number] 03/25/2021 02:09:53 PM EDT [facility] Name Value Range Interpretation Code Description Data Montse rce(s) Supporting Document(s) ED Provider Note [facility] VIRFXo4aSmNQSsQh98/TKGxvYFWfr7GfOMfvUOg2GWypRMJqD5EwYIH9sP2tQSS6HOwNGyLvCpPiMQZ0 lbm [file] gEJk//mzDNj4XfUM/SERVICE AIDE+GUS26N+LP/2WhUr2asqq/RdbzB53nzjxtA06/XD31nzL3HLI69/GA/HPTncy /Reji+fVNYe17z8Y0dlfKbg6v1iHc0Y8+iXuDePbTT+ [file] NzhlOTA+ZD6kELc+Hw7Z[id number]== ID Date Data Source [id number] 03/25/2021 01:12:40 PM [facility] Value Range Interpretation Code Description Data Montse rce(s) Supporting Document(s) Prothrombin time (PT) 14.6 s 11.6-14.0 [facility] INR in Platelet poor plasma by Coagulation assay 1.19 [facility] Routine intensity oral anticoagulation I NR is typically 2.0-3.0. Target INR must be clinically individualized. ID Date Data Source [id number] 03/25/2021 01:12:40 PM [facility] Value Range Interpretation Code Description Data Montse rce(s) Supporting Document(s) aPTT in Platelet poor plasma by Coagulation assay 33.2 s 24.0-33. 0 [facility] ID Date Data Source [id number] 03/25/2021 10:19:46 AM [facility] Value Range Interpretation Code Description Data Montse rce(s) Supporting Document(s) Bicarbonate [Moles/volume] in Serum 17 mmol/L 22-29 [facility] Chloride [Moles/volume] in Serum or Plasma 109 mmol/L 98-107 [facility] Creatinine [Mass/volume] in Serum or Plasma 0.48 mg/dL 0.50-0.90 [facility] Glucose [Mass/volume] in Serum or Plasma 111 mg/dL 70-140 [facility] Potassium [Moles/volume] in Serum or Plasma 3.1 mmol/L 3.4-5.1 [facility] Sodium [Moles/volume] in Serum or Plasma 139 mmol/L 136-145 [facility] Urea nitrogen [Mass/volume] in Serum or Plasma 8 mg/dL 6-20 [facility] Anion gap 3 in Serum or Plasma 13 mmol/L 8-15 [facility] Osmolality of Serum or Plasma by calculation 287 mosm/kg 275-300 [facility] Creatinine/Urea nitrogen [Mass Ratio] in Serum or Plasma 17 [facility] Calcium [Mass/volume] in Serum or Plasma 8.4 mg/dL 8.6-10.0 [facility] Glomerular filtration rate/1.73 sq M pre dicted among non-blacks [Volume Rate/Area] in Serum or Plasma by Creatinine-based formula (MDRD) >6 0 [facility] Glomerular filtration rate/1.73 sq M pre dicted among blacks [Volume Rate/Area] in Serum or Plasma by Creatinine-based formula (MDRD) >60 [facility] ID Date Data Source [id number] 03/25/2021 10:21:12 PM [facility] Name Value Range Interpretation Code Description Data Montse rce(s) Supporting Document(s) Magnesium [Mass/volume] in Serum or Plasma 1.8 mg/dL 1.6-2.6 [facility] ID Date Data Source [id number] 03/25/2021 07:52:52 AM [facility] Name Value Range Interpretation Code Description Data Montse rce(s) Supporting Document(s) Leukocytes [#/volume] in Blood by Automated count 18.5 10*3/uL 4-10 [facility] Erythrocytes [#/volume] in Blood by Automated count 3.53 10*6/uL 4.1- 5.3 [facility] Hemoglobin [Mass/volume] in Blood 9.0 g/dL 11.5-15.5 [facility] Hematocrit [Volume Fraction] of Blood by Automated count 29.1 % 3 6-45 [facility] Erythrocyte mean corpuscular volume [Entitic volume] by Auto mated count 82.6 fL 80-96 [facility] Erythrocyte mean corpuscular hemoglobin [Entitic mass] by Automated count 25.6 pg 27-33 [facility] Erythrocyte mean corpuscular hemoglobin concentration [Mass/volume] by Automated count 31.0 g/dL 32.0-[facility].0 [facility] width [Ratio] by Automated count 18.7 % 11.5-14.5 [facility] Platelets [#/volume] in Blood by Automated count 649 10*3/uL 150-400 [facility] ID Date Data Source [id number] 03/24/2021 12:11:39 PM EDT [facility] XR CHEST FRONTAL ONLY [id number] RESULTI nterpreted by:Jeff Dean MDINDICATION: Check for pneumothorax. Post right upper lung mass biopsyTECHNIQUE: XR CHEST FRONTAL ONLY [id number], 03/23/2021 3:35 PM.COMPARISON: Chest radiograph dated 03/20/2021.FINDINGS: [...] rce(s) Supporting Document(s) ID Date Data Source [id number] 03/24/2021 09:08:55 AM EDT [facility] IR IMAGE GUIDED NEEDLE DRAIN PROCEDUREFI [...] rce(s) Supporting Document(s) ID Date Data Source [id number] 03/24/2021 06:44:18 AM [facility] Name Value Range Interpretation Code Description Data [facility] rce(s) Supporting Document(s) Leukocytes [#/volume] in Blood by Automated count 16.5 10*3/uL 4-10 [facility] Erythrocytes [#/volume] in Blood by Automated count 3.32 10*6/uL 4.1- 5.3 [facility] Hemoglobin [Mass/volume] in Blood 8.4 g/dL 11.5-15.5 [facility] Hematocrit [Volume Fraction] of Blood by Automated count 26.5 % 3 6-45 [facility] Erythrocyte mean corpuscular volume [Entitic volume] by Auto mated count 79.8 fL 80-96 [facility] Erythrocyte mean corpuscular hemoglobin [Entitic mass] by Automated count 25.2 pg 27-33 [facility] Erythrocyte mean corpuscular hemoglobin concentration [Mass/volume] by Automated count 31.6 g/dL 32.0-36.0 [facility] E[facility]th[facility] distribution width [Ratio] by Automated count 18.6 % 11.5-14.5 [facility] Platelets [#/volume] in Blood by Automated count 738 10*3/uL 150-400 [facility] ID Date Data Source [id number] 03/23/2021 05:17:30 PM EDT [facility] Name Value Range Interpretation Code Description Data Montse rce(s) Supporting Document(s) Consultation [facility] RWRYUp2tNdERQbBp83/HNOlyUCIwb3KmWCtfIBf3VQucAHFgY0OgQQI8iO3qKWH3GIlMCzOpUvPiYJX3 lbm [file] 97WgRWm4M9794sZQiYF0fzqncjNdhiZ0U6f9ob0XWaT7zKJdaSgZV57Qq6ikOPiv64D1C/qvSbI+/weight loss consultant [file] LKMqoyatoz5mOBYfwY7hS47RQd9Zv5IS0ROTyEAo9zn/ay410KdC2Rz2xmhjYsP+3ThEsAhBZElzn/Wick Tender [file] 6Fg3VjhfM2duEgEFv1SpZvBC1UFXMLR4YLYq== ID Date Data Source [id number] 03/23/2021 05:10:07 PM EDT [facility] Name Value Range Interpretation Code Description Data Montse rce(s) Supporting Document(s) [facility] PZZAMb7iSkYIYrGl00/VAFguBZDkf8NyMSpbANf2IRfdIJIwF6VjLNP9iQ8wHSW6YLtMQiQxYvLjUGZ4 lbm [file] beeEGkaDuP494L4Wpx6S0tfAQIni3gv7OPFSgjwdvsGqln34hwM+l5ExHptwTGEluxBWZOo8OsD4T+SERVICE AIDE [file] ICAgICAgICAgICAgICAgICAgICAgICAgICAgICAgIC AgICAgICAgICAgICAgICAgICAgICAgICAgICAgICAgICAgICAgICAgICAgICAgICANCiAgICAgICAgIC AgICAgICAgICAgICAgICAgICAgICAgICAgICAgICAgICAgICAgICAgICAgICAgICAgICAgICAgICAgIC AgICAgICAgICAgICAgICAgICAgICAgICAgICAgICAN CiAgICAgICAgICAgICAgICAgICAgICAgICAgICAgICAgICAgICAgICAgICAgICAgICAgICAgICAgICAg ICAgICAgICAgICAgICAgICAgICAgICAgICAgICAgICAgICAgICAgICANCiAgICAgICAgICAgICAgICAg ICAgICAgICAgICAgICAgICAgICAgICAgICAgICAgIC AgICAgICAgICAgICAgICAgICAgICAgICAgICAgICAgICAgICAgICAgICAgICAgICAgICANCiAgICAgIC AgICAgICAgICAgICAgICAgICAgICAgICAgICAgICAgICAgICAgICAgICAgICAgICAgICAgICAgICAgIC AgICAgICAgICAgICAgICAgICAgICAgICAgICAgICAg ICANCiAgICAgICAgICAgICAgICAgICAgICAgICAgICAgICAgICAgICAgICAgICAgICAgICAgICAgICAg ICAgICAgICAgICAgICAgICAgICAgICAgICAgICAgICAgICAgICAgICAgICANCiAgICAgICAgICAgICAg ICAgICAgICAgICAgICAgICAgICAgICAgICAgICAgIC AgICAgICAgICAgICAgICAgICAgICAgICAgICAgICAgICAgICAgICAgICAgICAgICAgICAgICANCiAgIC AgICAgICAgICAgICAgICAgICAgICAgICAgICAgICAgICAgICAgICAgICAgICAgICAgICAgICAgICAgIC AgICAgICAgICAgICAgICAgICAgICAgICAgICAgICAg ICAgICANCiAgICAgICAgICAgICAgICAgICAgICAgICAgICAgICAgICAgICAgICAgICAgICAgICAgICAg ICAgICAgICAgICAgICAgICAgICAgICAgICAgICAgICAgICAgICAgICAgICAgICANCiAgICAgICAgICAg ICAgICAgICAgICAgICAgICAgICAgICAgICAgICAgIC AgICAgICAgICAgICAgICAgICAgICAgICAgICAgICAgICAgICAgICAgICAgICAgICAgICAgICAgICANCj w/tHOqD3jhlRQmakK8W4qoTr9CXk7OXL1wo1KpIMTjZToekxDeSoiRQwLzCKCqThmNQit9APciZX0ZdD CwC0MvX0SdYXmwGW8EJXTfCEHtfEVoRMIuGEVqFuO6 WNCpEKioES9LpSIzXAswWYRvMSRjYdYtLDAiYESoLWRoXCAdACKEUDFhUCFjCkGbKBRlERUwCKggPHIC BUT3XKCsUnEyOJfeXW1Yq9ArsYT8TVu+Qz3ATU0xt8DfPHqoRVPcTY0bnd0RUMxPLdTsA0OeviG1QGZn UYGjMd8ELDHcXLLszOG4PRMfTLHTSnBqS6YjcZ07UT ENCj4+DWndlhMbPcfXRwFnFBXuc4FwDKz8PK5KZOFiSRg9rXYsQ57dy4DgsSTvYrygBEacIGconvkeJI GFIqMOBVL8DMLgWeBpOwTcYXQuHcb9DnDBCCfZOpFdK6Dcq7ZeWrE9LRTyUcWwOJoyIIOkHeC2QJ30dF bxBN3SDNYuINIsUY27ZLP3UAOiJh1MNj1NXsJwJY7h th4JSZVrEDOlNcpDMur3LCgkEW5AbALtM4AheLYfr7hUAkAwH6MJSWH5GJSgBm0HQBSgLjXrVZTqZKnt MM7hOOAgPWDVhZwaxgG0IK8RAR7neuMuYE3JDeVxJq6vWr2LVdPoA6EbR7KkJHKjDCMZRBaeAD5RZYvg CD3wNP6Wk6LZuNFlkR4nox0SRUXoJLViIgpbki2ERf tdN4H1xExoGSUmSgkiUWQMQXqcYP8QOPSoSRW1WEThOBZhKCBNHzHvE15aFR3AK8Gos77bXgP9QIDgPf PsRYwaZF51dPcdnvBwnSNtvEhgZN1WLt1+DQplbmRvYmoNCnhyZWYNCjAgNDINCjAwMDAwMDAwMDAgNj B5ZlSoIm9OJVHdHCVcEVWiRtLaTICdESAhQUwjCTSu SJZ5ASU9DFSwDPKaHH6WDlRpXSWsGQZtURrrIZPwSVLgsb0VVDKuWEUgHGE9WmPpVBGzXCBhGMbbRKWh ZEAnMIa2EBFxKTMiUO3LAbSaJCDsUKUoEXUkPGIuDXZuhi3ENZVvIBSpSsi6IXYfVZSrCUZwOKtyWSNq VTV8ECtvLDRfGSHnHC0GShThJBZaMLf3NWPmKMDpNX Rvdp0SMKWoBLZpYTE0TIBhQWJnALEwMCfaCFJfVXPmGCNbRAFkHAHkOU6WLjSuOIXoOUNsTceiXVAdNV Tfzd7RDLNzLGBmUPfkDxNuODXpFUCtOIstABMdYKK4OAQuEIHeNVUxYH8FAoMgSPOnBOxvIqUoAIMqRA Iuyd6NBFDbPKIkTYC9TBIzWNBaORRuIKrkWFGjWGU1 KXW1PEYqEXKkHN5DDcAuRSEzVmFeNtZqJIIpEEOgav7KOTPdXOLfHeR1EKOzXKAkHMKjXCwhTMKtIQN5 AMCkZHKhWAXsUO3QWhPxEUVtEdb4DqCcEBCzLDSstf1LRCBvZIRjXJQ7FvPbDBZdSCAiHDczOPMtNRO8 QnTqLZDkDZHlXV8FRpNoFNVeHfjtAJwsPHZaCUWxlg 6TXCEuPWWrFPUdIDFpUOAxIIYmVMlsICPlGGO5HNy6AXOpTUYaEA6BHiAxVOBbPvJ1KNzkBKPhJDFtgv 2JQJAvBUGwXHt0OlXgWFTiBSEaPQynJPYgGIMaVAS0CCXoRSQbWG1EWaGxVHQkVXEcUZNcNADwZWTgkv 1KTLEzULM7QkJjQvBrQOJuHJZfCQfeJTBoNAYmBZMz BIRoUNEmLH4OYpBaVWUfIXTaEEFyUQXdCLXqil6BFSIlRKN5ShGxZoZxBGCgFADtDFcyEZIpQTZ8VGem TNQySXUaTR1ZKfFeOGNzTVWoQLqoJTNkYITmqx5AGCGsAGL1USUoZkTxYVMdKJQrBOhxZSCdJNF2TGN9 UASwMBDeUX9BRuRxVDOdVWD9EILiWZCzDICrck6UMY DcLIP3FiQdUYNyYHJgPEHoCPkeAUVsXZA5GuC4CGIcOKMfKF6RMgTxNVfhYINXFhz2DHvoW9l1JRQ9Jo 7LB8Jfp1DnLUJnXPILZRmhDG0gecErVYJjQk1VC0pCEjjlHBNhZuAzWEp2HWUmBEb2NtkjLmCaNPUrIi Y4D6RvPr5uELVlLODcALV4Qai8RcRvAzUoHAZ8TpXd LRHzXeYaPLHgTpSpNQ4FYg9BSwL9GDY0wXWhSr3VFMK0RZgPZwYwEE1HYLh= ID Date Data Source [id number] 03/23/2021 04:53:32 PM EDT [facility] Name Value Range Interpretation Code Description Data Montse rce(s) Supporting Document(s) Consultation [facility] OMWQEa1jAaUYOjBm45/CEFcrDQHkj8LcNUeqWVe9VFptPFQtK3OqDQN7xP1vONL3BDkTSiIpIiVrYCE8 lbm [file] Yvb0mFDkPBJo71XQE+[facility]/q7sbDMXtQcZAAZ7820v+A7FODbxcpOQ5Z1RfcOSnaqyHYtPOfD3DNngRkcu [file] fYseWTUAWuO9WFm9YFwvJXHVKm6W ID Date Data Source [id number] 03/23/2021 03:47:39 PM EDT [facility] Name Value Range Interpretation Code Description Data Montse rce(s) Supporting Document(s) Consultation [facility] UGWGNp1pEjGNXzFm56/MCHbxFFOcl3EgVRjrRCg8JXxvQUIrO0VlKUE2rR8zUZL2FTnILnEjXvVoHTV1 lbm [file] HOSPICE PHYSICIAN/5jTmAzmQNTqjPUGAFVx3jTLkrWvyd6Ei2rUpsxm2HkvstciNLLZrA4L6uMRVpHbAoGJ0jaNYMfXCX [file] AgICAgICAgICAgICAgICAgICAgICAgICAgICAgICAgICAgICAgICAgICAgICAgICAgICAgICAgICAgIC AgICAgICAgICAgICAgICAgDQogICAgICAgICAgICAgICAgICAgICAgICAgICAgICAgICAgICAgICAgIC AgICAgICAgICAgICAgICAgICAgICAgICAgICAgICAg ICAgICAgICAgICAgICAgICAgICAgICAgICAgDQogICAgICAgICAgICAgICAgICAgICAgICAgICAgICAg ICAgICAgICAgICAgICAgICAgICAgICAgICAgICAgICAgICAgICAgICAgICAgICAgICAgICAgICAgICAg ICAgICAgICAgDQogICAgICAgICAgICAgICAgICAgIC AgICAgICAgICAgICAgICAgICAgICAgICAgICAgICAgICAgICAgICAgICAgICAgICAgICAgICAgICAgIC AgICAgICAgICAgICAgICAgICAgDQogICAgICAgICAgICAgICAgICAgICAgICAgICAgICAgICAgICAgIC AgICAgICAgICAgICAgICAgICAgICAgICAgICAgICAg ICAgICAgICAgICAgICAgICAgICAgICAgICAgICAgDQogICAgICAgICAgICAgICAgICAgICAgICAgICAg ICAgICAgICAgICAgICAgICAgICAgICAgICAgICAgICAgICAgICAgICAgICAgICAgICAgICAgICAgICAg ICAgICAgICAgICAgDQogICAgICAgICAgICAgICAgIC AgICAgICAgICAgICAgICAgICAgICAgICAgICAgICAgICAgICAgICAgICAgICAgICAgICAgICAgICAgIC AgICAgICAgICAgICAgICAgICAgICAgDQogICAgICAgICAgICAgICAgICAgICAgICAgICAgICAgICAgIC AgICAgICAgICAgICAgICAgICAgICAgICAgICAgICAg ICAgICAgICAgICAgICAgICAgICAgICAgICAgICAgICAgDQogICAgICAgICAgICAgICAgICAgICAgICAg ICAgICAgICAgICAgICAgICAgICAgICAgICAgICAgICAgICAgICAgICAgICAgICAgICAgICAgICAgICAg ICAgICAgICAgICAgICAgDQogICAgICAgICAgICAgIC AgICAgICAgICAgICAgICAgICAgICAgICAgICAgICAgICAgICAgICAgICAgICAgICAgICAgICAgICAgIC TnNXQrVZMqFYRzMYRxFXTkJSAcUQCyGAKlQRa8S9yzBWWbIJIbCV9sVYe8Pq8+STkWBmHtVWQ7mhKfoN 0LSM9tn1YuLEehFGBih7EnXCq1ZY6QQJIgKLmiDZ1R JXiquu1FQRYyBTKpjWNTx7icXdHnYVH4ITMxRyuwYX2RJPVlQ9ubgyCvDGAdRZOKHVcoZCSGIOpaZDXO ITQfJBSuRgMiQhCmTGQxFDMaWNSSENO6GJSyLvSnNKnoMS1Kt4SnbUX5UHp+Mf4OGY6oo3VzUEa2VmYw XJ6jak5TZPpJCtWuP7FmvnI8CXG7GRYtDz2SXNSeGY PbzYD6ZDMgSGQVAzHtE8FbaY77WDCDPk3+NVovoqWeEbcKDvT2QUDog2QnHPo5PZ6TOWMfCAq7hHWlW7 2cg8YjoWBqTugbREiejvUbQ4oyhC4km0R0TGWTGrOXKII8XOPpMhOhHlLdYVMiDdxyQxKMHSsZUxIkR8 Bwy0CsYbS9DPGjLjMaUZejOLWdPuP9HV32xYjqYP4I CHSoTQRmOG74GLIzDCAcSu7IRf9SYiXbJV5dmw7PPMObWZLrDsjEGya6XBuzYR6QcAYaE8WcwOVvs2mR NkPkU8USADClSVBbVd3YNDTuSfUsNLApMIerXA0mUDJgRSSEmGhmrtO5ZZ6AIF6roaRuQX5KFuEsTm5l Co6LBgDcL0IxX9WhHCFcMJUHJYxeNX9TFKsfXJ7rRX 4Mg4PUoSSbzH6omt5WOYIrRVEfCmvbag4PMijcI8G5eBwqCWKgBXKxLWLCRUhlXG5JJGCwOHA1FKV1Et YfCTVLMmBlC51mFJ5EE9Ifm67fLqS4ANEcMoVhNSmgPE68cRpuxuKruCOvbUjgUF4BAi3+DQplbmRvYm pEIyixNYLKEaYtNIJASvGnMZOgIKXaBRXcErN4ToFz Rm4BPLDkTCMjZADxXqErPRUsZENuHBznBDRsPHQ3VQc7TNZsZZReHI3JQiXcGODzWGy1HsSlVMAgGARv bt8YGTPgOGJiKYD7LnCnFYRaEEYwPZziGJNtYQLxKBa0OCDqOCRhRS2IPxDuOOWfAYSmTZUxERHhFMYq bh0CGUVcAKIqZhI8LRTuDXEnGCBgFMuxLOMzEDT7Xz s1EKBlIKIbLW7OVcDnKUEpDKEhVUmcAKCcGCCope7XFDMuQHMvZMA6BnLfQEGcFGUfXRavTARaPSD9GP e9EPIsWPBzAU8TDxTdNGIdMFP4IFGyVUTmTFClrr8HQXGvKTHvPIJ8DPNyNWPzAGTgJOqkCUXjBGDdIO K2IDGbREYmKT6LZjTvOQVbSmP3APcmHHBgUUYpie3K QCTdFKZbDEN2AOZaYDJoVZDcXIahKJSmYMG1HNS9ERWiMTDbKG5MEuZgRWIkXsB1ZHJlKWGaWMEenm2N LZFgUEQeYjN1GPMcEYSrWOTeFXrqKULdUZW2OtzcDIEkOGYuHL9VNhSxZWAkJnt5LNWeBCBaJVGjlf9H PMJhASRbOWeyBJGvVADbXNSvWWdmLRFeZKG6GHW5HT BgADXmYZ2JRrLrWASqQgpySSBeOTJnYRSujg7TSKLoAGSqJNO9DjQqEWVfPVJsCEelVBCeRDZcCRB0PU BnJSCpCK0ZEzYwWRLzMsV3LPYyHJAoIFYgon8ZOFQySTDsTEFmOvRyJONnWHZwEBfsAAQnYNAoVJNkGK BuJSEoNF8UOmOxUPOuBxI1XOEvKKOpVIIoyw3WXGDm DDSyLkd6GuZlELXgMCYlGXxtQXAsNBQaEPT7FZKpHOZcQD7HCaSpAXZjCsIdJGonKRSeKOQcwk3FZKCt ZIO1UJsxQAKyRQTlHXLmTBkfPAHvJMM3VOAiFIPyCFJwFS1UGeZxFNItTRKuVtZhXQZeTCFkbc6KVGWh SJH8INPkZBSdEJOcTIJwJDvmFKFmYIM8FjI5JYLvWS DtTK2YPuBvMCFoEXJ8PDHyRJCmWONlko0IQWGnYKN9Rno6NAWcDOSyPIQiPUxpDRJhPWE3LUK7FLKzGV GvAV3ICaOtDOFjTNt1PhFbIJSpODVdyo1YCSQiURD6CIv9LCTqVSHhDHNvCZmpXNSxRND1JQjsILQtQU OpDQ4XHvTeSGRiBFxuKDCdYHFxDGEfro1TxGOjeCem ff5LXAtZOh7LuIteXGA9ECtfMt5luUV7GTSbDKLJGp2FmlOqKNGnEGNVPItgIWPmWWG4ZLGvMIGaQTYb PZPbONB9ZCL7HyPcPVD6AoXsXLHiHeN8Ckw9OOF3OPP2WJW5C8FoYlSlHvUjBHZ7CQBaVXX5DBE+IF0g DQo+Oy6Ka7CrsoC2xuVoYHm7NVM2OA9JYFYAR1MQNz== ID Date Data Source [id number] 03/25/2021 10:15:00 AM [facility] Surgical Pathology Report See Addendum B Jeremiah: TIBURCIO JOSEPHMRN: [id number] Number: [id number] Date: 03/23/2021 14:34Received Date: 03/23/2021 15:55Physician(s): BRENDAN BOWEN MD PINTER, DAVID J,[facility] [place] To:BRENDAN BOWEN,MDSpecimen(s) ReceivedA: Right upper lobe lung mass bxClinical HistoryLung mass.Addendum 04/07/2021 RESULTS OF IMMUNOHISTOCHEMICAL ANALYSIS: This case was sent to [facility] in [place], [place] for PD-L1(KEYTRUDA) testing and the results [...] use in the detection of PDL-1 in ehakozxi-dqywuxibbiycf-zngxplsz (FFPE) non-small cell lung cancer (NSCLC) using [employer] FLEX visualization system on [employer]. PDL-1 41I8rgeinjPj is indicated as an aid in identifying NSCLC patients fortreatment with KEYTRUDA (pembrolizumab) monotherapy. See the KEYTRUDAproduct label for specific clinical circumstances guiding PDL-1 testing. PDL-1, 22C3 pharmaDx is a trademark of [employer], an [employer]./pws Addendum Electronically Signed By: Adelaida Solis M.D. 04/07/2021 DiagnosisLUNG, RIGHT UPPER LOBE, CORE BIOPSY: INVASIVE POORLY DIFFERENTIATEDADENOCARCINOMA. (See Microscopic Description). /Anila Denney M.D.;Resident PathologistElectronically Signed By Adelaida Solis M.D., Attending Xmcplwlshov24/7/2021 10:15:34 The attending pathologist named above attests [...] developed and their performance characteristics determined by [facility] Pathology department. They have not been cleared or approved by the USFood and Drug Administration. The FDA has determine d that such clearanceor approval is not necessary. Name Value Range Interpretation Code Description Data Montse rce(s) Supporting Document(s) ID Date Data Source [id number] 03/23/2021 12:39:54 PM [facility] MR BRAIN WITH AND WITHOUT CONTRAST [id number] FINAL RESULTInterpreted by:Daniel Thomason MDINDICATION: Brain metastases [...] rce(s) Supporting Document(s) ID Date Data Source [id number] 03/23/2021 09:17:11 AM EDT [facility] Name Value Range Interpretation Code Description Data Montse rce(s) Supporting Document(s) History and Physical [facility] PWDNHm9kEzVROeXa71/GMGkdTGRbs9InPWlzSOi7SVfgYRExI3GkOJI3wO2xZLZ0UHvIScQiRdNeLIW2 lbm [file] ICAgICAgICAgICAgICAgICAgICAgICAgICAgICAgIC AgICAgICAgICAgICAgICAgICAgICAgICAgICAgICAgICANCiAgICAgICAgICAgICAgICAgICAgICAgIC AgICAgICAgICAgICAgICAgICAgICAgICAgICAgICAgICAgICAgICAgICAgICAgICAgICAgICAgICAgIC AgICAgICAgICAgICAgICANCiAgICAgICAgICAgICAg ICAgICAgICAgICAgICAgICAgICAgICAgICAgICAgICAgICAgICAgICAgICAgICAgICAgICAgICAgICAg ICAgICAgICAgICAgICAgICAgICAgICAgICANCiAgICAgICAgICAgICAgICAgICAgICAgICAgICAgICAg ICAgICAgICAgICAgICAgICAgICAgICAgICAgICAgIC AgICAgICAgICAgICAgICAgICAgICAgICAgICAgICAgICAgICANCiAgICAgICAgICAgICAgICAgICAgIC AgICAgICAgICAgICAgICAgICAgICAgICAgICAgICAgICAgICAgICAgICAgICAgICAgICAgICAgICAgIC AgICAgICAgICAgICAgICAgICANCiAgICAgICAgICAg ICAgICAgICAgICAgICAgICAgICAgICAgICAgICAgICAgICAgICAgICAgICAgICAgICAgICAgICAgICAg ICAgICAgICAgICAgICAgICAgICAgICAgICAgICANCiAgICAgICAgICAgICAgICAgICAgICAgICAgICAg ICAgICAgICAgICAgICAgICAgICAgICAgICAgICAgIC AgICAgICAgICAgICAgICAgICAgICAgICAgICAgICAgICAgICAgICANCiAgICAgICAgICAgICAgICAgIC AgICAgICAgICAgICAgICAgICAgICAgICAgICAgICAgICAgICAgICAgICAgICAgICAgICAgICAgICAgIC AgICAgICAgICAgICAgICAgICAgICANCiAgICAgICAg ICAgICAgICAgICAgICAgICAgICAgICAgICAgICAgICAgICAgICAgICAgICAgICAgICAgICAgICAgICAg ICAgICAgICAgICAgICAgICAgICAgICAgICAgICAgICANCiAgICAgICAgICAgICAgICAgICAgICAgICAg ICAgICAgICAgICAgICAgICAgICAgICAgICAgICAgIC AgICAgICAgICAgICAgICAgICAgICAgICAgICAgICAgICAgICAgICAgICANCjw/lUCuB9wpiONwcfT8P2 niDg5GYw4EOT6hf9AiBYMmFXnfddHtNmiIGnSgUXErYqzUTys2ZAfoMO9KrGDoC9WlU6ReLQpkWR3EBG OqFAYaiZHtTLTiFVRuRkA4ZNPtXGobYR5RsVZsGFew VAYbKRLhOvScQLQqKLDnIFIxLFVhQKHYAIDtKXQzPgSxNExeTP7Pz5VdiSF8PFx+St2BVT0rz2NzMCqd ENBpQF6ykk0RVIvWMzQgB4WramV9OJIfJMYaOs9VUDYbTBQisAFxELJbSESSVfQcM1LvpH57KVPXDc6+ WHctzzFcMdfGCcOrCASee6CsOVd6GK5UTWDbCNw6tZ FlLCGPZZV4HAfiHoCgNLwcSwNAd0clOSsjJiNoYYXhNZRdSJ8rTMQoGFF1DpJ9EIHFWP8MCBZbDIAwdK VtDCKuNASRSM4NTVbuYMY0BNYulmKkqXFbQJhiCF7DSTDmosIsPrByOIAOYKn+Lu9JGO6gj8MtKFbeUu OvHX1hgt5WRJpSEjMbI9E2fUMuV0P8JWweGo7IGTSc RHSuKkmxHUDWGRzgKC3LDA8xiuX2NV7RyRAzMBOcSLPdvBLwCZl4U62pyXBiMAqbDK8PROF+Dion+Pg0K WQJsYPApEWSlZdHfHKQXKpCtJ1MhL2UCm0WgY9IjIL85dXjefhXsDMdyXU9XIH1uQTLvHAYLTW4PtNAi uF8uejPfCWRlTQYJGzLfK84mbOEtCGMeNTR3YVPaGu 7SJVLtH3UfywUqrMqjkzPmNHEnZSCHPN6MGPcrkhWfeJBksGgkTA51yXsoEE6XNw8IXlNbIS1gmu3MjA TaHf4PXBLgNl5YYVQaWEFyOEHxJLE6TLZuKlOoTSdvIGUzBBGzELW0LGNgFBFtBM6KHnXlCTHaGrIlAA JwBIYkDKBmbt3FQLYrJWHoNOt1GIXgKPYzJXYeHEdk QVAxDDPrLQZ2JZVoZAQsEC0RLkCfFJIsGVF0FCGeLZGlXZYuru8OEEFnLQVhAoaiCBJePFKhZPInEMqm JKOkDNT0ILt4TXKlWZZgXF0CYnWmTPAjJASeJDKyCNEeXXEvfc6YFDAvJHAiZUA2RGZgTHGaUUVpOEzy ABJtFHG9Dqn7GZUbWNPpTR4BRaUbSQNhMLImMQxsLV OdGQPvds5XHHRoOYBtUoC2ENVcQSHmDWAjQCcoWSDwAFBrEFtrQLEsPBDmVK2JPgFfSOFcGWS5CBbiWV AjGUSnop0IEAVrEFPuOFL6YaLpKNAdGJXwBIkwNDZcJBB6URX7NWTsWLJjIN6QDfMzZAGsBGCwXzncHL GmCNDtil4OEYLmQUTdFSr3OrWrXPUzBDSuLIlaMGIo RQR8FXx1LCSbHBChRH3EUnLxZLJuLLWhQEPpSFOgGDPrxz3SAHCiSUYlUxf9RBGrAFHvJBAeDWswGVCq GHH4FXz3TVBcATVnGN8WUsXbVXVbExvtIBxnPJVpFVPkax8NSKMoQQVyETUcWdLuFNGeXQHbUOjcFWFu ISR8YzgvVCEaXOQyAP3QAuHrUATvQrm8DqzcHXVrMW Rere1TGNCuZJSfWQlrBMXaHSYfGNQbNMwlOMJwOLC7TRkjIAFgLSCgXT7GRdPpQXHmDiM7YOGtQCJsYW Ocyd9UBAFrPYWkJMd4QEDmPALoQZHvICpxHPWyEFOwUGN4MYHhKXNjGS4JLaXlQXLkVeGvWIOqTGXdOA Mxwc6PpRCacXtchr8PIRkCIy0VfDxuUAFuLMrdYt5e nOYhGiRzKXGQAf5WjqLmHIYlXZSVXNxqRWBbYKCpZMZzYPMqZSQ9MMRrKSL8ROJ5LDWpLYUeNrGlSNp1 FvM5EYIlCJHzYOQ6TUtvQ5I8TakgZUk2FBBjVmDxFVZwEPt+WM9oUOt+Yu3Pt8CxlkT9txJpLKdhOaDg [id number]== ID Date Data Source [id number] 03/23/2021 04:02:40 AM EDT [facility] Name Value Range Interpretation Code Description Data Montse rce(s) Supporting Document(s) Leukocytes [#/volume] in Blood by Automated count 18.4 10*3/uL 4-10 [facility] Erythrocytes [#/volume] in Blood by Automated count 3.32 10*6/uL 4.1- 5.3 L [facility] Hemoglobin [Mass/volume] in Blood 8.5 g/dL 11.5-15.5 L [facility] Hematocrit [Volume Fraction] of Blood by Automated count 26.6 % 3 6-45 L [facility] Erythrocyte mean corpuscular volume [Entitic volume] by Auto mated count 80.1 fL 80-96 [facility] Erythrocyte mean corpuscular hemoglobin [Entitic mass] by Automated count 25.6 pg 27-33 L [facility] Erythrocyte mean corpuscular hemoglobin concentration [Mass/volume] by Autom[facility] 32.0 g/[facility].0[facility] width [Ratio] by Automated count 18.5 % 11.5-14.5 [facility] Platelets [#/volume] in Blood by Automated count 761 10*3/uL 150-400 [facility] ID Date Data Source [id number] 03/22/2021 06:18:48 PM EDT [facility] Name Value Range Interpretation Code Description Data Montse rce(s) Supporting Document(s) Bicarbonate [Moles/volume] in Serum 22 mmol/L 22-29 [facility] Chloride [Moles/volume] in Serum or Plasma 105 mmol/L 98-107 [facility] Creatinine [Mass/volume] in Serum or Plasma 0.38 mg/dL 0.50-0.90 [facility] Glucose [Mass/volume] in Serum or Plasma 135 mg/dL 70-140 [facility] Potassium [Moles/volume] in Serum or Plasma 3.8 mmol/L 3.4-5.1 [facility] Sodium [Moles/volume] in Serum or Plasma 137 mmol/L 136-145 [facility] Urea nitrogen [Mass/volume] in Serum or Plasma 13 mg/dL 6-20 [facility] Anion gap 3 in Serum or Plasma 10 mmol/L 8-15 [facility] Osmolality of Serum or Plasma by calculation 286 mosm/kg 275-300 [facility] Creatinine/Urea nitrogen [Mass Ratio] in Serum or Plasma 34 [facility] Calcium [Mass/volume] in Serum or Plasma 8.4 mg/dL 8.6-10.0 [facility] Glomerular filtration rate/1.73 sq M pre dicted among non-blacks [Volume Rate/Area] in Serum or Plasma by Creatinine-based formula (MDRD) >6 0 [facility] Glomerular filtration rate/1.73 sq M pre dicted among blacks [Volume Rate/Area] in Serum or Plasma by Creatinine-based formula (MDRD) >60 [facility] ID Date Data Source [id number] 03/22/2021 11:56:47 AM [facility] Name Value Range Interpretation Code Description Data Montse rce(s) Supporting Document(s) Bicarbonate [Moles/volume] in Serum 21 mmol/L 22-29 [facility] Chloride [Moles/volume] in Serum or Plasma 109 mmol/L 98-107 [facility] Creatinine [Mass/volume] in Serum or Plasma 0.38 mg/dL 0.50-0.90 [facility] Glucose [Mass/volume] in Serum or Plasma 141 mg/dL 70-140 [facility] Potassium [Moles/volume] in Serum or Plasma 3.6 mmol/L 3.4-5.1 [facility] Sodium [Moles/volume] in Serum or Plasma 141 mmol/L 136-145 [facility] Urea nitrogen [Mass/volume] in Serum or Plasma 10 mg/dL 6-20 [facility] Anion gap 3 in Serum or Plasma 11 mmol/L 8-15 [facility] Osmolality of Serum or Plasma by calculation 293 mosm/kg 275-300 [facility] Creatinine/Urea nitrogen [Mass Ratio] in Serum or Plasma 26 [facility] Calcium [Mass/volume] in Serum or Plasma 8.4 mg/dL 8.6-10.0 L [facility] Glomerular filtration rate/1.73 sq M pre dicted among non-blacks [Volume Rate/Area] in Serum or Plasma by Creatinine-based formula (MDRD) >6 0 [facility] Glomerular filtration rate/1.73 sq M pre dicted among blacks [Volume Rate/Area] in Serum or Plasma by Creatinine-based formula (MDRD) >60 [facility] ID Date Data Source [id number] 03/22/2021 08:14:48 AM [facility] Name Value Range Interpretation Code Description Data Montse rce(s) Supporting Document(s) [facility] DHGQTw8mUdXUVhXat6SfZjIgPOTeVH5njye8D5N3fRWrZ9GumHDlm3urW0KuU3RgUNZtQJFADL0AzRUb jb2 [file] Jerson+ddrgb/A3+Aa+FT/9r3YHj2BnsLzuZniQaoci0vm4x2bb/ir6q3i/mpnvJ5kql7yfDwD2Gl8+XWgX P/Sr0wa/1X0G+jvQ34H+DvR3oL+hX+C0IAimaT9Gr8W/wV/gL/A3+LvcCR4C+izF30XgOA7urO+dNvgC fumTHlZRbfAVfAV/gD/An+AO0Yd2U/wN/gbf8D/R33 WV/Yu1oy6UYwd4JrL/j4X+GdS7ql9O/cG8xzT38Fgo47M/F/q70F/MoyfnZwR3l0I5g/zK7g84sp0MHm mNn1MpyIla4lli5kXcO5l7tS+YPrmOt6arF/gD/Al+fB+pt+V2SIitt/A3+Aa+FT/nI4pEtyB/gV/f+8 Pqe3CE/WoH3/dm1kszH1o7msN/wJ+4T33/jrBfWfDj MWW1ox62xmQcVjry5kxq3FfPKd++f+dV3/vzqu/0xLj0Hyj8DkhjYi75yqwyW3H/vmnwn1jNDH+Cv3Cf +g8oS21dlVKx+gdZL1vmKc86h1pyK3rdX3uz3SulbqlXNaF8iadNz6H1pzo/TFxyw847/irb4M/6/6Ff ZWeNi8XhzR/6G/rVaRc/9KvTBr+BX+fbp6C/Uuf5p3 TwO/hlb5+iuD/6G/pV/H/XtotlAtG3xex51TJpnxE6f6ay+TYbvNL0Pwj9SU4Ia77uwSNEbekybV4fqv /Qv7Nm7+DXecLZ6/xbRP4jj+d9KNo55In/0Dl9AZor4bj/O9w842u4x87/Xb8KP/Ls4f/D3df89Fd+Qf /wi2b189L92b/nZcgusRVhwyZpnU7A5m+1eetXEmVO 814w2mhWnT0RKxg423pQeqh1ebzAhtRb+3D+9v7+1QZjrK9HkPZwp614C6VP+53isPdBntSxAb4fx7SK 4+TWr/Li79s8zopsQPl3uHHzt99960L/Xb+C38337mrnksrGFMI/uyWfeNU7p71P2MM+6Vql4YnX5tIm x4R9H5mhcrAq+lWMw1H+sjnKXzZn+jupaFTogE8XnQ vh6Ey6IodE+0O3aypyMarZ92t2iPF6hdymC23XglKIhihQ6+Ab+Fb88A+eNvgN/LeoHe6brOs6VmcIcn KP+bsG+EV4Tp8F5/sr8X+8vzEH4/iYiCMw8MxdF+ZvnL/KdgO/gS/l13tTnwTiTT8RclvkI3gp1fkRk1 s3akpFhjEiLJc+MXfZ2+fu9Sw0fo5ZE+D08NfgKb80 dcMnSA2jyARA6HY08qnIY//byQBbr4K/Msxfq/PPM/Sr0wZ/gb/A3+ZMq6Qn5t/PKi4cPOiiRFApE9j1 H71BbqI2kl83cR5F77j9HzngF80kbc+xw01551Ln+em1o4YPYNfY/aoF3/t7Bd/7ewW/3PQiqpYAaBy4 pK/Jy/FvrMje76/ELzhamUuVep7WXr1BIk/Xb406AD bI1cI+fU5tVTyHw4X/wJ/gT/VqPkimgA3yfFMSz7Ja0Ikw5we9g6269eeupDLJ6Gvi7zjWte70k5a3Cr lK+BeC7/1JofD79OWn9asO9D+XsL4xGsexdxU3/sv9Zfgl9KmopwXeRMp/5ilZv3mpEG6382Taz4Y8st zbmjqpz8f/bBN1VhnstywmU91A6L6Cvp0Np1m04Ns4 KtsL/AV+pNfFjnbbHsukgV0mdF/4pypkJj5e2NefC3/h+tqPltZ+fDJboCX9ZD+4j+L+A/wB/gR/gr/A X+EfRKssyMiaqo4lD/0d6G+nv4HulT26o7RMjUwpA7QfoY1hGhu/Z9T+u+V9NsaRIrjB1nwgW/AX+Av8 KV0r5kFtZ90Uo/UHgpfLXtmm1e/U4nkDrYgloN+zg9 2er2Zv8azo4qFmjrP+bb3Qai3/q2u464ttQ283gl/gG/i1/65V/y738vxdqgGm1jq2fpQ74BsYshr/g6 /gK/jo70J/F/dt2tqfP/AX+Bv8Om+2VsWXrVXxZWtXfNnaF/gN/Aa+gC/gd/A7+Hi/3Y2W7oeB8usG6l zU9pqJ9uaJ1koYmjlA98cvtm8g7OcSA5K/Ur993OtN X0N/Ke085KnBy9lFPhyomU/D/ZZYV2D0ZflmInaeIbscRwcrCbytp/m7r5q/+7rAb+D31ID0Wl+D38FX 5Go03tt3260XifOqWh/6tqR3Br/a1wJ/g7/BN/Ct+K3Om+4hK0Z0dh/AF/AF/A5+B1/BV/AH+NZ79Exb f507201b/29zglEuHZ26P/BrPG+v160w2v50yGLquN clVnqzw4tzhrUaC/B+FmL4Fy0Om2O/wF/go7+C/gr6K/W6cja415Lwhh532Uw3v40U04OecLq1Oe2Hb/ cR65ok4000m/vZdlA0nq9v+zQzm7iDbkKVybsi8neLY2+9wG/gN/AF/Wick Tender/t+O6WbqlNT4r+uTWOm+2Ff 8GnvanItsw2mLxwP172JarX++GG5w6uP/nRfeo+N89 LvAb+A18AV/A7+A12CA2FR+AP8Av+5Eqsy2zwgtmqimFs3Iz/vH9RMdbd9te8W/Z8wK/gd/HP32ykd/v Wd8LO/bD5Yzk9k32vA+y1+1Z3/t71vf+nujvXPg/fL1g29osK+3G9ha8lA7zpHycna2g7E044W/cbrnD fuXfjHtV/MJeFZ+yET+8q369xj4x9fi7mGnK/sb5q/ hgrz1f8Cm/eq1NcX+3x/s68hUSfEs253he089si25MVpzz74/CPrz9/JXsaDfwb/okoBzlya1F/Rth+/ mrOG+8/aqS8Nd8k7+lPbcgzf6qab2/teI/+/mryPS4/lwEwZMdjg8Zd8O3qj+K6/17P2S+55ra7xayX5 n/FS4E1uq/830eb3wK/tBt5Q/b5aSs8Kz0Nl36c9uD /2hb+Y+8UMqYN4kzJ5b4ktp3MhS4gP3fmuwotui3IHG+YbUfGfIzGPIzGPIzGPIzGPIzGPIzGPIzGPIz GPIzGPQrg3/Q4B80+AcN/kG7Sp+0q/Jojyw1V2sXqrPd4IbU/pzxPpv4X3L+ZdCvrJU/1Yvrl9UW4z7C /SrbA/wB/gR/gr/AX+Dm3Az6zenld4I/aDjfbsh/Zc h/ZfAPWvoHsw1+B7+DX/m+VPjR1O1xB/ZxEnOz6uGBVvu9exHbpkFY6HtA+2WKxcTfOvmfX2tOUjd6xr 9YF/FJg6D41eBO2W+mJsvkaFr9PTt9Sfh9mN+5WgR965J+zhdBX33QUdO8gMeLD/zrx9F85p0C7S53XB c2bh1Mas674fN1ulK0Eba7CYAs7Ni41xMSK1jC+WfT OP8c/Kyjuusnv9Dr4jpCgidbor5TqTF/hZxzmy5kss/CdTihds6G45p8W6xi21azpEc/pL1umAFXh0Oe 4Cv4A/wB/gR/gr/wfxb+J/o7Kv+JrT4K7wliacgDo/G6BBji5hn1X/5woDi1EjWn2LpEi2Hhk1ni06S1 82mxmA6G51jAsQJyAP3ySN1gTY9usz1gjoc2M0biE1 Hc2Ry3WZd3/5eKmbOhOp3fOzje8hI7joAzkzu/bdX+n8nS84tU+nqxb8DrzgAZnmh0T0Z4cgQ/srXBN/ Ake4625yFA/QyP99Kv+m245H1G3lhY/xdtl3TuvI/iPth/Fh7g7A2W2ebE/uorpgBEnbf3R1S3nmG/Mt ivDPYrg/2NIO8h8B/Ruw6eCjJeko7+gq/gD/AH+BP8 8v+bXTklbq4m4lz8Qi6Ct8zeQkmwZjYfERrAxNuX4VH8PODuNOsYFFXMyJTLpYDeTzxUwOgvq9RDwIQt eXNh4an3YzFFkDKhlAeNJDIFgHNyeZbuw0yfpdoiMrFSzjbKPgGWYQmPiEdKAmOOTJuIlOfGRdPIREyY oQyEMhDKQCgDoQyEMhDKQCgDoQzC+QZ7NdAGH3ZJKE Cu3nn8OnWXpea2QjGzs26LjEdkc4OpCDvtK00oxD3yTlBvaWA3OA6LwhJRiT6n2hBrqiEcW2XdqVT8JR 2TzvHKeM9n4zDfolNNgOHg8AD6QgkKWRPKPZt5YiEQZpSXVZpBoRGA4vKEpKLGbDVwiHhsx8xu+TcxQN Dbu0vWCNC02nnmu8szSek2lR5tzhtxQ4GGVCKc4fv8 IkpE+Q/H1WMZH9SzGk8HiVXzM5OmnEr10X6AkIU220yVpAknZ24TgNvozSiuilTZVnlxCdEzcqhh+iI6 +rM6+rOUiBKhDBZlsCaRyecs/gPKIA/fH+DXjr0AyCgb0nTg7/pxl9J6PcPCV7IIYTIa8iq9BmL7xuSs /t0bvS8CBxSKPGSOFXGlfKBw/BtDdM9KPEQSZUUpCL [file] 6vV1mAIKDw9WR9PYCFFbjHuih2cjnznoUgeFZrFPNBxhZcqmuZQIHlKHXGBbaMESUgCCKPYelUAABtHD XRAGgghKjgmZzlptCX8Hde4Z1PWIgRtTRARDwzMKRH iHH3qEJVP2OSjsMjT6YdU8eu+PujLrHPWT9C7K/3uIn8C10FGssvk8hNdKu+NckYcPlrOkNFH0ueUcAw EGkF3tNXlVvO5zOtV7T0LtRZ34SXAz3ABFzCmEqvmKLN266rxXehCDxNJI6sNBhDYiPPDZ21NUSAN7He vOShiKBnVvEOPxNYEAbcoPPUIH5NR2I9PnAdKSj+Uh rFaR0SRPC0BKGXdf9WIGZUtVGDGUictEAjE9HLZmydsdNXWu6UfvbdnNx4nr8e4oGD5Ud55GcEiC58Cb 42sGX1jhwU4jqf3mRv/f6CTWciB2N0JBJ4ylEiKmDkpovk4ZHH5MQGWPgtuue2TbEh/HEhnOJOqxdMu7 6N0NWFU2NZIuGwbOsCh/Kviv7RJ4ZGkbSVpib2tpPR 89UXa+hbWeui/b6XwDCO7JW8x6HoA4NZ8pa4r9F0I2aEA8hbGAa32O9n9y22LyZno0K3NjGKl1IyA2x1 65CZ0aPWHxPBijF3lyuK9CVCqBRY/v2wWX6PntUpRvrTiniBHfn7VTzR2Qt06hIEcoKjz0KkR+YNwXjP qZ21nbESf1JZCnA0Q/nMAUdDXhC7eJxHzVJ2Zpi9CW gEUKYue1CFQY7PS5BIHjcvlVUNVryKftp00l8URj3asTZs/86Ek4e5ApF8Ia/vD2d1+3t79/+/C/3959 kLN7R7oxgPg17xh/+5eP33/6D2+ffPzFp5+4l9Ys5cHr/OzTj/hl7C5F9kF/hy9SZb7jA53w3lh7PPLe D7gnHg6a+iW6BlMrkb/qt1/87u23v/kks4ul2z85/u 7Tzz75+Ndvv/3is6/fvf/qsw+/+/ll//TZ29vb+y9/++JaB830yG/12i9j185++Nc/7m6dww61/NF/u4 kINYqeT130vW+/env/q999+NXn/82z1n41C/bFl+8/f/2Jd5/8j//motbPRW+/ef/u68++mN7eaqSMpy 9//fFnv/74l79+45Emiu6k+0ef/OmHf//uz99/+4e3 f/vPt6+/++Mfv/nzn7/95o//2XheGv831+0f3/7179r+179/+7LCo3w1Q/2FC3F/6SHwk1c+/vxvuuxx P/ddZXz//S/+lmpofmL96fR//mXuolkjFP7s/sugarcane planter/vH1VSyL7k2YGJ0LD2uPq81AbGWjaddshG+/+hTw a7fB//muIB8ebd0In+vL3Be8//ctm65Y4ruKZ12dm8 /06mFg7s1EW+geshf4kz/1tv/nDeQpH69/B1JVrZcNKq+dFfGR87NWbgkmhCmZyx0uNN952I8//ce3P3 /z129/dPfXDvUW+Hmvb82hI4WqUy9P0Hj2N+Yp9u0988Qsw/3z//mbPx+3P/C87z5ytq4q19/vfrB/fv /V2x/+4/Xfv/vTDz+9vWd7+3ty2pOP2j0tspJJM94H P17MSJiyb5EvI7o6/0HPxehXyE/+/MQYUwwEB4X9l//qYL/5+furc0s13t2++5e/yMxNt7K6232//t3P 5hFph6k2Zhp/88//+vc/ufq8h3/69vtv/vijN2w/wj/55j9+/77jszumo7/h3wf58uk//RU1q2H4/vhv f/vTR4bv//Sn7z+wYz7pLk39Mm32m24/eCwg9enNUo P/fcGHb3//k8292gvhh/xVX2bsouvXuoDpTrYzV/76GnZ/+Xt29O035+lv37/72+f6xu39/pZsw4326p Bwl4t00MzX//+S+/YD0uwpuj/55n9++9be/vTvbz/aLvSOFn/WjK/hOZB0xxg6W+ArSi737OHvXlbGai dLa/Z80y0k526/ixt77prr2oiKK/nky99+8si532iB vGDXedD/X2IJCPJCGQ9bn4EnLBCkJlVkDM6bpqyxORZoWM3cwuv8W3YtyCnjSHdKCGKmCo1xiTYoYV5Q AWM8JYtfQMVsGWHcQ2NlkO8iE30gkMObKeKxPXXZJG3EduR1JRD5IDI9JGQoYaKqYASmJE83DTAtEHHO Sf3wsaYoFkkYEgCeJJ5hqrf8J9S3zBRqG927xXfjcz LnGH0Ag2CdvVEcDY2JqNWyyTLoDNKqGJUpA3sih2RmIUtpHORWTw4fbrQhUzwOSeOwJA3luyj8M2H9zX xpnuIcQCLDCScpFyyxBJ4icIunpmtzJ7MwpZYaTPQcK9UvEKWes40DWKRcSEnDZmVoZdRlDRY3DDvuXJ txXuZuZVQlPDShTXLlVM4EnOQlBFCoCLFGRZkrLhjv UOOzhO8sxGGLh5GwHAXIE0FZBWvaA7GYNQrHRAS2QLTfRRJtPC4IkGWmJUW7XYnEMVUMTVvIUNyqRzNx n2D8FNAvA3ZyKODlszZlISNHJMweZwjaSA7ecEkpenfqY1TprYUgAIEQYQYlUBNjUBHbWWTqW9Aek7I0 G6CaGEhSQNTXXMfWDZrzTzI1s85kxpAUJLQcCVWoWJ 4+HZ4pl0VhKi6UXCGyTI6qhje3DU1EsAHbSA0LZIhbjmVkD9ogbqYjGxAkVCHJDN5sY1ImgZ78PMS+Pm JvKO0qxor6snQxYxStXREhVNLtGYZoJZgxZUXxESNsJTVcLYD1RRE0TUAzRcVcKVLyVvZrUVjhGWDtYV WxjpLHSOGeGYK2OOy9YPJqOFPlEOFpILfyAWCgQLD0 JREzHHNjHVTvMM8cUhCpQPLuFTYtYUFvJrO3NgNpQiMBEFTvDTIxTLDbKvZjFKVwELLtRWmrXCLgQZGf HCy0UZWuYPAbMR9rQnLnWCSjXPOzLPTxCCBeCVNxpdXKCUKcHQEdYIT9JOVzYUVgHAXcNJogBAEfQDNi ACN6BCRvKHGhUE1hMyZgUHZiSIP3DrYkBZDmSXZumn RXUFUnPVWlLDT6LNVlBYOsMTKyKBnsYBLxOYNxBmQ7TNQtJVXbIC3rFaUzCTWxPIM8CCEtPEFhVXFspn LJTTPwWFXsWHl6YkTjWXAnTKXpPCyeGUDhWBRsKUkdYQRkMKFtJP7eOgQxVOIpWUJsYCDzBYEhPYHgoj XPWJErWUSpOQF7XsJeAWRvTUYsEWkeUKLjMRJpNPW1 CHVdBFHqZS0eHuTtWHKdKlR2GeJjMCKgDEYcolWMBAUhTGYmEFXiJPVkOKMuLUEcLGliXPDdHDBrOnN6 HCJrCPMrXM7cXdRoYFFxXIB6KUByGEHuMFXyzdIMPLOeHSHxLRVwMWO6KSDaKHUeGSs4msJlhNKgPvv9 Yn6LeAohLKL1Al4RicYwDEIdYAHOBx1Qz361IRYeRKDVTpl+KheeqCMmbYxgTBRJRvCeMrJGUJSCU7A= ID Date Data Source [id number] 03/22/2021 03:51:26 AM EDT [facility] Name Value Range Interpretation Code Description Data Montse e(s) Supporting Document(s) Leukocytes [#/volume] in Blood by Automated count 17.2 10*3/uL 4-10 [facility] Erythrocytes [#/volume] in Blood by Automated count 3.16 10*6/uL 4.1- 5.3 L [facility] Hemoglobin [Mass/volume] in Blood 8.1 g/dL 11.5-15.5 L [facility] Hematocrit [Volume Fraction] of Blood by Automated count 25.2 % 3 6-45 L [facility] Erythrocyte mean corpuscular volume [Entitic volume] by Auto mated count 79.8 fL 80-96 L [facility] Erythrocyte mean corpuscular hemoglobin [Entitic mass] by Automated count 25.7 pg 27-33 L [facility] Erythrocyte mean corpuscular hemoglobin concentration [Mass/volume] by Automated count 32.1 g/dL [facility].0-[facility] width [Ratio] by Automated count 18.4 % 11.5-14.5 [facility] Platelets [#/volume] in Blood by Automated count 697 10*3/uL 150-400 [facility] ID Date Data Source [id number] 03/22/2021 04:17:42 AM [facility] Value Range Interpretation Code Description Data Montse rce(s) Supporting Document(s) Ferritin [Mass/volume] in Serum or Plasma 854 ng/ml 13-150 [facility] ID Date Data Source [id number] 03/22/2021 04:17:42 AM [facility] Value Range Interpretation Code Description Data Montse rce(s) Supporting Document(s) Iron [Mass/volume] in Serum or Plasma 50 ug/dl 37-145 [facility] Transferrin [Mass/volume] in Serum or Plasma 99 mg/dL 200-360 [facility] Iron binding capacity [Mass/volume] in Serum or Plasma 138 ug/dL 278 -500 [facility] Iron saturation [Mass Fraction] in Serum or Plasma 36.0 % 20-55 [facility] ID Date Data Source [id number] 03/22/2021 04:17:42 AM [facility] Value Range Interpretation Code Description Data Montse rce(s) Supporting Document(s) Magnesium [Mass/volume] in Serum or Plasma 2.6 mg/dL 1.6-2.6 [facility] ID Date Data Source [id number] 03/22/2021 04:17:42 AM [facility] Value Range Interpretation Code Description Data Montse rce(s) Supporting Document(s) Phosphate [Mass/volume] in Serum or Plasma 2.6 mg/dL 2.5-4.5 [facility] ID Date Data Source [id number] 03/22/2021 04:17:42 AM [facility] Value Range Interpretation Code Description Data Montse rce(s) Supporting Document(s) Bicarbonate [Moles/volume] in Serum 22 mmol/L 22-29 [facility] Chloride [Moles/volume] in Serum or Plasma 109 mmol/L 98-107 [facility] Creatinine [Mass/volume] in Serum or Plasma 0.27 mg/dL 0.50-0.90 L [facility] Glucose [Mass/volume] in Serum or Plasma 131 mg/dL 70-140 [facility] Potassium [Moles/volume] in Serum or Plasma 3.8 mmol/L 3.4-5.1 [facility] Sodium [Moles/volume] in Serum or Plasma 139 mmol/L 136-145 [facility] Urea nitrogen [Mass/volume] in Serum or Plasma 8 mg/dL 6-20 [facility] Anion gap 3 in Serum or Plasma 8 mmol/L 8-15 [facility] Osmolality of Serum or Plasma by calculation 287 mosm/kg 275-300 [facility] Creatinine/Urea nitrogen [Mass Ratio] in Serum or Plasma 31 [facility] Calcium [Mass/volume] in Serum or Plasma 8.1 mg/dL 8.6-10.0 L [facility] Glomerular filtration rate/1.73 sq M pre dicted among non-blacks [Volume Rate/Area] in Serum or Plasma by Creatinine-based formula (MDRD) >6 0 [facility] Glomerular filtration rate/1.73 sq M pre dicted among blacks [Volume Rate/Area] in Serum or Plasma by Creatinine-based formula (MDRD) >60 [facility] ID Date Data Source [id number] 03/21/2021 10:59:39 PM EDT [facility] Name Value Range Interpretation Code Description Data Montse rce(s) Supporting Document(s) Bicarbonate [Moles/volume] in Serum 22 mmol/L 22-29 [facility] Chloride [Moles/volume] in Serum or Plasma 106 mmol/L 98-107 [facility] Creatinine [Mass/volume] in Serum or Plasma 0.26 mg/dL 0.50-0.90 L [facility] Glucose [Mass/volume] in Serum or Plasma 128 mg/dL 70-140 [facility] Potassium [Moles/volume] in Serum or Plasma 3.6 mmol/L 3.4-5.1 [facility] Sodium [Moles/volume] in Serum or Plasma 137 mmol/L 136-145 [facility] Urea nitrogen [Mass/volume] in Serum or Plasma 9 mg/dL 6-20 [facility] Anion gap 3 in Serum or Plasma 8 mmol/L 8-15 [facility] Osmolality of Serum or Plasma by calculation 284 mosm/kg 275-300 [facility] Creatinine/Urea nitrogen [Mass Ratio] in Serum or Plasma 34 [facility] Calcium [Mass/volume] in Serum or Plasma 8.5 mg/dL 8.6-10.0 L [facility] Glomerular filtration rate/1.73 sq M pre dicted among non-blacks [Volume Rate/Area] in Serum or Plasma by Creatinine-based formula (MDRD) >6 0 [facility] Glomerular filtration rate/1.73 sq M pre dicted among blacks [Volume Rate/Area] in Serum or Plasma by Creatinine-based formula (MDRD) >60 [facility] ID Date Data Source [id number] 03/22/2021 10:21:52 AM [facility] Service Cmnt XXX-Imp : NoneMicroorganism XXX Cult : Polymerase chain reaction assay was NEGATIVE for both methicillin-resistant Staphylococcus aureus (MRSA) and methicillin-susceptible Staphylococcus aureus (MSSA) Name Value Range Interpretation Code Description Data Montse rce(s) Supporting Document(s) ID Date Data Source [id number] 03/21/2021 06:22:38 PM [facility] Name Value Range Interpretation Code Description Data Montse rce(s) Supporting Document(s) Lactate [Moles/volume] in Serum or Plasma 1.5 mmol/l 0.5-2.2 [facility] ID Date Data Source [id number] 03/21/2021 03:31:07 PM [facility] Name Value Range Interpretation Code Description Data Montse rce(s) Supporting Document(s) Bicarbonate [Moles/volume] in Serum 23 mmol/L 22-29 [facility] Chloride [Moles/volume] in Serum or Plasma 102 mmol/L 98-107 [facility] Creatinine [Mass/volume] in Serum or Plasma 0.35 mg/dL 0.50-0.90 L [facility] Glucose [Mass/volume] in Serum or Plasma 172 mg/dL 70-140 [facility] Potassium [Moles/volume] in Serum or Plasma 3.7 mmol/L 3.4-5.1 [facility] Sodium [Moles/volume] in Serum or Plasma 133 mmol/L 136-145 [facility] Urea nitrogen [Mass/volume] in Serum or Plasma 13 mg/dL 6-20 [facility] Anion gap 3 in Serum or Plasma 9 mmol/L 8-15 [facility] Osmolality of Serum or Plasma by calculation 281 mosm/kg 275-300 [facility] Creatinine/Urea nitrogen [Mass Ratio] in Serum or Plasma 36 [facility] Calcium [Mass/volume] in Serum or Plasma 8.7 mg/dL 8.6-10.0 [facility] Glomerular filtration rate/1.73 sq M pre dicted among non-blacks [Volume Rate/Area] in Serum or Plasma by Creatinine-based formula (MDRD) >6 0 [facility] Glomerular filtration rate/1.73 sq M pre dicted among blacks [Volume Rate/Area] in Serum or Plasma by Creatinine-based formula (MDRD) >60 [facility] ID Date Data Source [id number] 03/21/2021 05:00:52 PM EDT [facility] Name Value Range Interpretation Code Description Data Montse rce(s) Supporting Document(s) Cardiactroponin T pnl SerPlHS <14 [facility] ID Date Data Source [id number] 03/21/2021 01:10:29 PM EDT [facility] Value Range Interpretation Code Description Data Montse rce(s) Supporting Document(s) Osmolality of Urine 656 mosm/kg 300-1000 [facility] ID Date Data Source [id number] 03/21/2021 01:13:47 PM [facility] Value Range Interpretation Code Description Data Montse rce(s) Supporting Document(s) Color of Urine [facility] Clarity of Urine [facility] Specific gravity of Urine by Refractometry automated 1.051 1.003 -1.030 H [facility] pH of Urine by Automated test strip 6.0 5.0-8.0 [facility] Protein [Mass/volume] in Urine by Automated test strip Neg [facility] Glucose [Mass/volume] in Urine by Automated test strip 50 mg/dL Neg [facility] Ketones [Mass/volume] in Urine by Automated test strip 5 mg/dL Neg [facility] Bilirubin.total [Presence] in Urine by Automated test strip Negative [facility] Hemoglobin [Presence] in Urine by Automated test strip Neg ative A [facility] Leukocyte esterase [Presence] in Urine by Automated test strip Negative [facility] Nitrite [Presence] in Urine by Automated test strip Negati ve [facility] Leukocytes [#/area] in Urine sediment by Automated count 1 /HPF 0 -5 [facility] Erythrocytes [#/area] in Urine sediment by Automated count 0-3 [facility] Service comment [facility] Epithelial cells.squamous [#/area] in Urine sediment by Auto mated count 3 /HPF None [facility] Mucus [#/area] in Urine sediment by Microscopy low power field None [facility] ID Date Data Source [id number] [facility] Interpretation Code Description Data Montse rce(s) Supporting Document(s) Sodium [Moles/volume] in Urine [facility] Confirmed ID Date Data Source [id number] 03/21/2021 11:44:[facility] Value [facility] Interpretation Code Description Data Montse rce(s) Supporting Document(s) [facility] FZVCXd4yHwGHReUw91/KWYlnZKOrm4PdBXdwWPq4YQezBLSzE0YqXQM3rK0fGAB0JEtICmZbXwVaCIRm public [facility] [file] ICAgICAgICAgICAgICAgICAgICAgICAgICAgICAgIC AgICAgICAgICAgICAgICAgICAgICAgICAgICAgICAgICAgICAgICAgICAgICAgICAgICAgICAgICAgIC AgICAgDQogICAgICAgICAgICAgICAgICAgICAgICAgICAgICAgICAgICAgICAgICAgICAgICAgICAgIC AgICAgICAgICAgICAgICAgICAgICAgICAgICAgICAg ICAgICAgICAgICAgICAgDQogICAgICAgICAgICAgICAgICAgICAgICAgICAgICAgICAgICAgICAgICAg ICAgICAgICAgICAgICAgICAgICAgICAgICAgICAgICAgICAgICAgICAgICAgICAgICAgICAgICAgDQog ICAgICAgICAgICAgICAgICAgICAgICAgICAgICAgIC AgICAgICAgICAgICAgICAgICAgICAgICAgICAgICAgICAgICAgICAgICAgICAgICAgICAgICAgICAgIC AgICAgICAgDQogICAgICAgICAgICAgICAgICAgICAgICAgICAgICAgICAgICAgICAgICAgICAgICAgIC AgICAgICAgICAgICAgICAgICAgICAgICAgICAgICAg ICAgICAgICAgICAgICAgICAgDQogICAgICAgICAgICAgICAgICAgICAgICAgICAgICAgICAgICAgICAg ICAgICAgICAgICAgICAgICAgICAgICAgICAgICAgICAgICAgICAgICAgICAgICAgICAgICAgICAgICAg DQogICAgICAgICAgICAgICAgICAgICAgICAgICAgIC AgICAgICAgICAgICAgICAgICAgICAgICAgICAgICAgICAgICAgICAgICAgICAgICAgICAgICAgICAgIC AgICAgICAgICAgDQogICAgICAgICAgICAgICAgICAgICAgICAgICAgICAgICAgICAgICAgICAgICAgIC AgICAgICAgICAgICAgICAgICAgICAgICAgICAgICAg ICAgICAgICAgICAgICAgICAgICAgDQogICAgICAgICAgICAgICAgICAgICAgICAgICAgICAgICAgICAg ICAgICAgICAgICAgICAgICAgICAgICAgICAgICAgICAgICAgICAgICAgICAgICAgICAgICAgICAgICAg ICAgDQogICAgICAgICAgICAgICAgICAgICAgICAgIC AgICAgICAgICAgICAgICAgICAgICAgICAgICAgICAgICAgICAgICAgICAgICAgICAgICAgICAgICAgIC CeISNuKXPgHTWzBBJvAVz3N8rnZLKzBTExHO8cIQp5Of0+FDfHQcPiUUC7rjHwoZ2PPL0ga3DwBAucIJ Pqe5VeFOz8VJ9GPEHrWSvxBP8ISZrrqr4SQSAnGQFw oPISq1ahDxKiHWC8MGLnCossTK1QWQAqT3lfzgSqCJMgVHUDUQzkDLCGENdzZMSOILTmQIPzMmMtIxQe LPNrTUMlSPOYTB8QZrOtV1HxpQ22KGSIGi0+CNgfwfUrJdeAElWhIDFdo8YkUQf0ES0GWBYsLciqt2Jf GrXaYWHVCKitUU4NRTK2ODBlBICnNi6CJEDuW601jp JeDP1FYi6KVnTrEY5lrq0GZqZyQMBaErsFHzg4TGdiKS0RpIDuATiSj67hxJu6ouRazILPIMEpZTVzMC PbnMcfRJHbMUOtQSFlXq7dASYsYBCkEpW5VWIEBD8CSXZsTAZabPTcKDGqBHSSJS8HXCleEQT2ESMwoi IvuVCzYRuvWC6RMJDqsmQeXcWmEUURQSi+Jw3PSO0f d6AgZWnjBFDtDU8ehp0WEMhQLkIoI2E0yIIaL9U0FAwmFu1FRAWtPQEgHmQzDTGQWKijIO0CSZ6tqaG8 WR2QkVIfXQRoAYYxuHAzBSm3B01xsFFsKJwvDV8TJOJ+Dion+No1TGIMoRFQeJATqFpYxOVREHvOnP3Tx Q0FGx0YaA5MiXM38fGcnhaLhXKpuZP9KRZ7kOEWnKE QUQY3QmAFwgE0uejLgZbWuLQUHOfEwR95odNYeHKPeCYGoWADqQb0DTWFrB6GnrkPlsAjyypJmPFCxUH TWXY5JDIlheiHlpPMqgGwlYW96mQthGZ1IEy6UZbLpLT7rav1QnSSkPk9FUQEfBZ4VAJMzCUPcJPTaYZ O4YOCsQdKaTSmkFYLtCSOhMWQ7VOUbWZPtMZ0HScDf PRRgJkPhZYmoVRYpXCEvan2ENVQqHSFfYjlwNjBjWUKvANDfCIsoRFUaJBVdUHF6KKHqIUGnSN6SWfSx AUMiRFB3ORYzLXOiTIFrlu6GEELzWXOlHpskMQEoCMZzXOKsTMjyQPFlTPA4Vyk7NPTmQEXrKT2ZNpVo EQDpOMs6UKNlQXXeVKBgig8TESLtUYDkRHNuOIHvOY RvJXHzTMfaXMRsKGNaDiF6OFWnIRSuHE3STmUxVKSyDCPoBfLiLGIuTPRtlz0JHJRpGSZoAhZvJNUgIW PrUPUnEKpaIETqFPO5RuNdDEJaAPLxBH8ARcQmMTJaMBI4TZxcQBNvOGSbhr0YCTBvNEDtHEN5NzRkLA WeAZBxCExjOYBePCX5IWZ9DLPdOVRoNO2OCdQhNYCv QTe3LDfjQZArNJCwjc6LCBOpRXQyICTiHyEpPEDqUDBvCVmlGAXpZQIyJFi8CBSgGWKkKJ9BKxWxWMCe GpIdABcdYVWfSLLszq7UITNcJKDuMOL8PPLrFQZbANDiZEnoOAMeTVBrFVK8JTIsNBTvOV3CTuZeAHUx UeY4EJacGTLzWCSwpm5WUORyOSBvGsB8YNVnJCUdTW WeJDfjMJXuXILdHVl3EUNqLNZxLY7ONfKoXHJpCpNtItIxAHGpNLMrvm1AMTQqDWBtOXJ3LKBcPLGnAJ EbRBwgFLZiGTO6GuymCXJeJMMsYE5DRnOuXNSoBiSkRqcgULQnINTtia1KFBNlOMJqJVW5FBKfVEBcEP MgFLxtZJRyQFF5ZGqeCFFiFJXeHS2BSvYqXBFgUwsz HxUiUAAtARKnyf4BHNZxAUZiRzEqURRfHLHdLLPdRAvgNGYgQRJ4Cfz7UKXxVFUhAX9FLpZrISdiYBVE Ygk0QVpzV0g3EWUtGX4CP1Aag2PaIlVfPOBUBXniPO6kawNzUQZpPv8OF7qPJjgoWTRgEJS5B1RxLRVa CAjhKAZkOjCyPNYaVXJ1SgYoNO5fAUO6OaI9Ofi8Gq MjKWP8X7R8NDMcYAKoLML4UxmqORH1AuNsNB5UVg8UPcY5JTI1tQDfJw1BVyz4SQaXIlZeKP7ZKRd= ID Date Data Source [id number] 03/21/2021 09:08:01 AM [facility] Name Value Range Interpretation Code Description Data Montse rce(s) Supporting Document(s) Bicarbonate [Moles/volume] in Serum 22 mmol/L 22-29 [facility] Chloride [Moles/volume] in Serum or Plasma 100 mmol/L 98-107 [facility] Creatinine [Mass/volume] in Serum or Plasma 0.37 mg/dL 0.50-0.90 L [facility] Glucose [Mass/volume] in Serum or Plasma 134 mg/dL 70-140 [facility] Potassium [Moles/volume] in Serum or Plasma 4.0 mmol/L 3.4-5.1 [facility] Sodium [Moles/volume] in Serum or Plasma 134 mmol/L 136-145 L [facility] Urea nitrogen [Mass/volume] in Serum or Plasma 14 mg/dL 6-20 [facility] Anion gap 3 in Serum or Plasma 12 mmol/L 8-15 [facility] Osmolality of Serum or Plasma by calculation 280 mosm/kg 275-300 [facility] Creatinine/Urea nitrogen [Mass Ratio] in Serum or Plasma 38 [facility] Calcium [Mass/volume] in Serum or Plasma 9.6 mg/dL 8.6-10.0 [facility] Glomerular filtration rate/1.73 sq M pre dicted among non-blacks [Volume Rate/Area] in Serum or Plasma by Creatinine-based formula (MDRD) >6 0 [facility] Glomerular filtration rate/1.73 sq M pre dicted among blacks [Volume Rate/Area] in Serum or Plasma by Creatinine-based formula (MDRD) >60 [facility] ID Date Data Source [id number] 03/21/2021 09:11:26 AM [facility] Name Value Range Interpretation Code Description Data Montse rce(s) Supporting Document(s) Leukocytes [#/volume] in Blood by Automated count 14.3 10*3/uL 4-10 H [facility] Erythrocytes [#/volume] in Blood by Automated count 3.51 10*6/uL 4.1- 5.3 L [facility] Hemoglobin [Mass/volume] in Blood 8.7 g/dL 11.5-15.5 L [facility] Hematocrit [Volume Fraction] of Blood by Automated count 27.5 % 3 6-45 L [facility] Erythrocyte mean corpuscular volume [Entitic volume] by Auto mated count 78.3 fL 80-96 L [facility] Erythrocyte mean corpuscular hemoglobin [Entitic mass] by Automated count 24.8 pg 27-33 L [facility] Erythrocyte mean corpuscular hemoglobin concentration [Mass/volume] by Automated count 31.6 g/dL 32.0-[facility] distribution width [Ratio] by Automated count 18.3 % 11.5-14.5 [facility] Platelets [#/volume] in Blood by Automated count 841 10*3/uL 150-400 [facility] ID Date Data Source [id number] 03/21/2021 07:12:55 AM EDT [facility] Name Value Range Interpretation Code Description Data Montse rce(s) Supporting Document(s) Consultation [facility] [id number] lbm [file] [id number]= ID Date Data Source [id number] 03/21/2021 04:43:23 AM EDT [facility] CT THORAX WITH CONTRAST [id number] RESU LT - FINALInterpreted by:Marissa Lopez BeginsSigned [...] Other contrast: Oral, iohexol 240, 40; COMPARISON: SC XR CHEST FRONTAL ONLY [id number] PORTABLE 03/20/2021 11:17 AM FINDINGS: Lungs: There [...] rce(s) Supporting Document(s) ID Date Data Source [id number] 03/21/2021 04:35:28 AM [facility] CT ABDOMEN PELVIS WITH CONTRAST [id number] AL RESULTInterpreted by:ACACIA LopezROCEDURE INFORMATION: Exam: CT [...] Other contrast: Oral, iohexol 240, 40; COMPARISON: SC XR CHEST FRONTAL ONLY [id number] PORTABLE 03/20/2021 11:17 AM FINDINGS: Liver: The [...] rce(s) Supporting Document(s) ID Date Data Source [id number] 03/21/2021 02:05:20 AM [facility] Name Value Range Interpretation Code Description Data Montse rce(s) Supporting Document(s) Lactate [Moles/volume] in Serum or Plasma 0.8 mmol/l 0.5-2.2 [facility] ID Date Data Source [id number] 04/14/2021 09:31:00 AM [facility] Anatomic Molecular Pathology ReportName: TIBURCIO JOSEPHMRN: [id number] Number: [id number] Date: 03/21/2021 00:00Received Date: 04/05/2021 08:25Physician(s): BRENDAN BOWEN,GIANCARLO DURAN MDSpecimen(s) ReceivedA: Lung, Formalin Block [id number] A1, ALK by FISHDiagnosisTEST:ALK gene rearrangements by [...] Solis M.D. Attending Pathologist 04/14/2021 09:31:03Reported at [facility] [address] [place] [address]. Gross DescriptionMETHODOLOGY:Interphase FISH is performed on paraffin embedded NSCLC utilizing theEnhatch Molecular ALK Break Apart FISH Probe Kit. [...] the special procedure laboratory of Department of Pathology,[facility]. This report may include one or more immunohistochemical stain results thatuse analyte specific reagents. All positive and negative controls havebeen reviewed by the attending pathologist and are satisfactory. The testswere developed and their performance characteristics determined by [facility] Pathology department. They have not been cleared or approved by the USFood and Drug Administration. The FDA has determined that such clearanceor approval is not necessary. Name Value Range Interpretation Code Description Data Montse rce(s) Supporting Document(s) ID Date Data Source [id number] 03/25/2021 08:15:12 AM EDT [facility] Service Cmnt XXX-Imp : Specimen source n ot given.Microorganism XXX Cult : No growth 5 days Name Value Range Interpretation Code Description Data Montse rce(s) Supporting Document(s) ID Date Data Source [id number] 03/25/2021 08:15:[facility]-Imp : Specimen source n ot given.Microorganism XXX Cult : No growth 5 days Name Value Range Interpretation Code Description Data Montse rce(s) Supporting Document(s) ID Date Data Source [id number] 03/20/2021 06:56:35 PM [facility] Name Value Range Interpretation Code Description Data Montse rce(s) Supporting Document(s) Erythrocyte sedimentation rate <20 [facility] ID Date Data Source [id number] 03/20/2021 05:11:36 PM [facility] Name Value Range Interpretation Code Description Data Montse rce(s) Supporting Document(s) C reactive protein [Mass/volume] in Serum or Plasma 296.8 mg/L <8.0 [facility] ID Date Data Source [id number] 03/20/2021 05:11:36 PM [facility] Name Value Range Interpretation Code Description Data Montse rce(s) Supporting Document(s) Albumin [Mass/volume] in Serum or Plasma by Bromocresol green (BCG) dye binding method 3.3 g/dL 3.5-5.2 [facility] Bilirubin.total [Mass/volume] in Serum or Plasma 0.3 mg/dL <1.2 [facility] Calcium [Mass/volume] in Serum or Plasma 9.7 mg/dL 8.6-10.0 [facility] Chloride [Moles/volume] in Serum or Plasma 98 mmol/L 98-107 [facility] Creatinine [Mass/volume] in Serum or Plasma 0.40 mg/dL 0.50-0.90 L [facility] Glucose [Mass/volume] in Serum or Plasma 107 mg/dL 70-140 [facility] Alkaline phosphatase [Enzymatic activity/volume] in Serum or Plasma 153 U/L 35-104 [facility] Potassium [Moles/volume] in Serum or Plasma 4.2 mmol/L 3.4-5.1 [facility] Protein [Mass/volume] in Serum or Plasma 7.8 g/dL 6.4-8.3 [facility] Sodium [Moles/volume] in Serum or Plasma 136 mmol/L 136-145 [facility] Aspartate aminotransferase [Enzymatic activity/volume] in Serum or Plasma 42 U/L <32 [facility] Urea nitrogen [Mass/volume] in Serum or Plasma 18 mg/dL 6-20 [facility] Osmolality of Serum or Plasma by calculation 284 mosm/kg 275-300 [facility] Creatinine/Urea nitrogen [Mass Ratio] in Serum or Plasma 45 [facility] Bicarbonate [Moles/volume] in Serum 23 mmol/L 22-29 [facility] Alanine aminotransferase [Enzymatic activity/volume] in Seru m or Plasma 54 U/L <33 [facility] Anion gap 3 in Serum or Plasma 15 mmol/L 8-15 [facility] Glomerular filtration rate/1.73 sq M pre dicted among non-blacks [Volume Rate/Area] in Serum or Plasma by Creatinine-based formula (MDRD) >6 0 [facility] Glomerular filtration rate/1.73 sq M pre dicted among blacks [Volume Rate/Area] in Serum or Plasma by Creatinine-based formula (MDRD) >60 [facility] ID Date Data Source [id number] 03/20/2021 04:59:43 PM T [facility] Name Value Range Interpretation Code Description Data Montse rce(s) Supporting Document(s) Lactate [Moles/volume] in Serum or Plasma 0.5-2.2 [facility] NOTIFIED ED [place] AT 8205 /9825 ID Date Data Source [id number] 03/20/2021 12:35:22 PM EDT [facility] XR CHEST FRONTAL ONLY [id number] RESULTI nterpreted by:Tiff Daniel MDINDICATION: 45-year-old female [...] rce(s) Supporting Document(s) ID Date Data Source [id number] 03/20/2021 03:48:04 PM EDT [facility] Name Value Range Interpretation Code Description Data Montse rce(s) Supporting Document(s) Blood group antibodies identified in Serum or Plasma [facility] Blood bank comment [facility] E Ag [Presence] on Red Blood Cells from Blood product unit [facility] ID Date Data Source [id number] 03/20/2021 02:10:19 PM [facility] Name Value Range Interpretation Code Description Data Montse rce(s) Supporting Document(s) Hemoglobin A1c/Hemoglobin.total in Blood by HPLC 5.3 % 4.0-6.0 [facility] (NOTE)<5.7% Average risk of diabetes (ADA)5.7-6.4% Increased risk of diabetes(ADA)>/= 6.5% Diagnostic for diabetes(ADA) Glucose mean value [Mass/volume] in Blood Estimated fr om glycated hemoglobin 105 mg/dL <126 [facility] ID Date Data Source [id number] 03/20/2021 12:46:33 PM [facility] Name Value Range Interpretation Code Description Data Montse rce(s) Supporting Document(s) aPTT in Platelet poor plasma by Coagulation assay 35.0 s 24.0-33. 0 [facility] ID Date Data Source [id number] 03/20/2021 12:46:33 PM [facility] Name Value Range Interpretation Code Description Data Montse rce(s) Supporting Document(s) Prothrombin time (PT) 16.1 s 11.6-14.0 H [facility] INR in Platelet poor plasma by Coagulation assay 1.34 [facility] Routine intensity oral anticoagulation I NR is typically 2.0-3.0. Target INR must be clinically individualized. ID Date Data Source [id number] 03/20/2021 01:20:25 PM [facility] Value Range Interpretation Code Description Data Montse rce(s) Supporting Document(s) Albumin [Mass/volume] in Serum or Plasma by Bromocresol green (BCG) dye binding method 3.7 g/dL 3.5-5.2 [facility] Bilirubin.total [Mass/volume] in Serum or Plasma 0.3 mg/dL <1.2 [facility] Calcium [Mass/volume] in Serum or Plasma 9.8 mg/dL 8.6-10.0 [facility] Chloride [Moles/volume] in Serum or Plasma 99 mmol/L 98-107 [facility] Creatinine [Mass/volume] in Serum or Plasma 0.49 mg/dL 0.50-0.90 L [facility] Glucose [Mass/volume] in Serum or Plasma 104 mg/dL 70-140 [facility] Alkaline phosphatase [Enzymatic activity/volume] in Serum or Plasma 159 U/L 35-104 [facility] Potassium [Moles/volume] in Serum or Plasma 4.0 mmol/L 3.4-5.1 [facility] Protein [Mass/volume] in Serum or Plasma 8.2 g/dL 6.4-8.3 [facility] Sodium [Moles/volume] in Serum or Plasma 141 mmol/L 136-145 [facility] Aspartate aminotransferase [Enzymatic activity/volume] in Serum or Plasma 46 U/L <32 H [facility] Urea nitrogen [Mass/volume] in Serum or Plasma 17 mg/dL 6-20 [facility] Osmolality of Serum or Plasma by calculation 294 mosm/kg 275-300 [facility] Creatinine/Urea nitrogen [Mass Ratio] in Serum or Plasma 35 [facility] Bicarbonate [Moles/volume] in Serum 24 mmol/L 22-29 [facility] Alanine aminotransferase [Enzymatic activity/volume] in Seru m or Plasma 56 U/L <33 [facility] Anion gap 3 in Serum or Plasma 18 mmol/L 8-15 H [facility] Glomerular filtration rate/1.73 sq M pre dicted among non-blacks [Volume Rate/Area] in Serum or Plasma by Creatinine-based formula (MDRD) >6 0 [facility] Glomerular filtration rate/1.73 sq M pre dicted among blacks [Volume Rate/Area] in Serum or Plasma by Creatinine-based formula (MDRD) >60 [facility] ID Date Data Source [id number] 03/20/2021 01:22:15 PM [facility] Name Value Range Interpretation Code Description Data Montse rce(s) Supporting Document(s) Choriogonadotropin.beta subunit [Moles/volume] in Serum or Plasma <5 [facility] ID Date Data Source [id number] 03/20/2021 01:24:56 PM [facility] Name Value Range Interpretation Code Description Data Montse rce(s) Supporting Document(s) Leukocytes [#/volume] in Blood by Automated count 15.2 10*3/uL 4-10 H [facility] Erythrocytes [#/volume] in Blood by Automated count 4.44 10*6/uL 4.1- 5.3 [facility] Hemoglobin [Mass/volume] in Blood 11.0 g/dL 11.5-15.5 [facility] Hematocrit [Volume Fraction] of Blood by Automated count 35.3 % 3 6-45 L [facility] Erythrocyte mean corpuscular volume [Entitic volume] by Auto mated count 79.4 fL 80-96 L [facility] Erythrocyte mean corpuscular hemoglobin [Entitic mass] by Automated count 24.7 pg 27-33 L [facility] Erythrocyte mean corpuscular hemoglobin concentration [Mass/volume] by Automated count 31.1 g/dL 32.0-36.0 [facility] Erythrocyte distribution width [Ratio] by Automated count 18.6 % 11.5-14.5 H [facility] Platelets [#/volume] in Blood by Automated count 1024 10*3/uL 150-400 [facility] UnconfirmedConfirmedCalled to and read b ack by armaan lou rn in er at [phone] Differential cell count method - Blood [facility] Neutrophils/100 leukocytes in Blood by Automated count 76 % [facility] Lymphocytes/100 leukocytes in Blood by Automated count 12 % [facility] Monocytes/100 leukocytes in Blood by Automated count 11 % [facility] Eosinophils/100 leukocytes in Blood by Automated count 0 % [facility] Basophils/100 leukocytes in Blood by Automated count 1 % [facility] Neutrophils [#/volume] in Blood by Automated count 11.71 10*3/uL 1.8- 7.0 [facility] Lymphocytes [#/volume] in Blood by Automated count 1.81 10*3/uL 1.2-4 .0 [facility] Monocytes [#/volume] in Blood by Automated count 1.59 10*3/uL 0-0.8 [facility] Eosinophils [#/volume] in Blood by Automated count 0.03 10*3/uL 0-0.5 [facility] Basophils [#/volume] in Blood by Automated count 0.08 10*3/uL 0-0.2 [facility] Nucleated erythrocytes/100 leukocytes [Ratio] in Blood by Automated count 0 /100{WBCs} 0-0 [facility] ID Date Data Source [id number] 03/20/2021 02:00:15 PM [facility] Name Value Range Interpretation Code Description Data Montse rce(s) Supporting Document(s) Thyrotropin [Units/volume] in Serum or Plasma 0.747 u[IU]/mL 0.270-4. 200 [facility] ID Date Data Source [id number] 03/20/2021 02:00:15 PM [facility] Name Value Range Interpretation Code Description Data Montse rce(s) Supporting Document(s) Cholesterol [Mass/volume] in Serum or Plasma 160 mg/dL <200 [facility] Triglyceride [Mass/volume] in Serum or Plasma 93 mg/dL <150 [facility] Cholesterol in HDL [Mass/volume] in Serum or Plasma 39 mg/dL >50 L [facility] Cholesterol in LDL [Mass/volume] in Serum or Plasma by calcu lation 102 mg/dL <100 H [facility] Cholesterol in VLDL [Mass/volume] in Serum or Plasma by calc ulation 19 mg/dl 16-42 [facility] Cholesterol non HDL [Mass/volume] in Serum or Plasma 121 mg/dL <130 [facility] ID Date Data Source [id number] 03/20/2021 01:38:53 PM EDT [facility] Name Value Range Interpretation Code Description Data Montse rce(s) Supporting Document(s) ABO and Rh group [Type] in Blood [facility] Blood group antibody screen [Presence] in Serum or Plasma [facility] Blood bank comment [facility] ID Date Data Source [id number] 03/20/2021 11:43:00 AM EDT [facility] Name Value Range Interpretation Code Description Data Montse rce(s) Supporting Document(s) SARS-CoV-2 RNA 2019 nCoV Real-Time RT-PCR: NOT DETECTED [facility] This lab was ordered by [facility] and reported by [facility]. ID Date Data Source [id number] 03/20/2021 02:20:51 PM EDT [facility] Service Cmnt XXX-Imp : NoneRespiratory P CR Panel : PCR ResultsMicroorganism XXX Cult : See Labs Tab for 2019 nCoV RT-PCR resultsHAdV DNA QI MERLIN+non-probe : Not DetectedHCoV 229ERNA Nph QI MERLIN+non-probe : Not DetectedHCoV CPF1CUN Nph QI MERLIN+non-probe : Not [id number] RNA Nph QI MERLIN+non-probe : Not [id number] RNA Upper resp QI MERLIN+probe : Not [...] Nph Q MERLIN+non-probe : N ot DetectedB [id number] DNA Nph MERLIN+non-probe : Not DetectedPlease note : Faxed to [phone] Name Value Range Interpretation Code Description Data Montse rce(s) Supporting Document(s) ID Date Data Source [id number] 03/20/2021 02:18:31 PM EDT [facility] Name Value Range Interpretation Code Description Data Montse rce(s) Supporting Document(s) Specimen source [Identifier] of Unspecified specimen [facility] SARS-CoV-2 RNA 2019 nCoV Real-Time RT-PCR: NOT DETECTED [facility] Assay Performed [facility] Patients first test for [facility] 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 [facility] Patient has symptoms related to [facility] When did you start to experience these symptoms [Date and time] [Phen X] [facility] Patient was hospitalized because of this [facility] patient was admitted to ICU for [facility] Patient resides in a congregate care setting [facility] status [facility] ID Date Data Source [id number] 03/20/2021 03:06:00 AM [facility] Name Value Range Interpretation Code Description Data Montse rce(s) Supporting Document(s) SARS coronavirus 2 RNA [Presence] in Res piratory specimen by MERLIN with probe detection NEGATIVE [facility] This lab was ordered by [facility] a nd reported by [facility]. ID Date Data Source [id number] 04/15/2021 04:11:00 PM EDT [facility] Anatomic Molecular Pathology ReportName: TIBURCIO JOSEPHMRN: [id number] Number: [id number] Date: 03/20/2021 00:00Received Date: 04/05/2021 08:29Physician(s): BRENDAN BOWEN MD LEE, MIJUNG,[facility]imen(s) ReceivedA: Lung, Formalin Block [id number] A1, BRAF Mutation AnalysisDiagnosisTESTS:BRAF V600E mutation (1799 [...] Solis M.D. Attending Pathologist 04/15/2021 16:11:00Reported at [facility] [address] [place] [address]. Gross DescriptionMETHODOLOGY:BRAF V600E(1799 T>A) mutation at exon [...] theamounts of PCR products, and analyzed by GradeableGene Q real timeinstrument. The analytical sensitivity (or minimum percentage of mutantDNA needed) is approximately 10% given sufficient DNA input. Test development and its performance characteristics were determined bythe [facility], and has beenauthorized for clinical use by [facility]. Thetest has not been cleared or approved by the U.S. Food and DrugAdministration. The analyte specific reagents used in this assay do notrequire FDA approval. REFERENCES: 1. Navid Vanegas Alenda C, et al. Detection of BRAF N889Ildxtgojx in colorectal cancer-comparison of automatic sequencing and realtime chemistry methodology. J Mol Diagn. 2006; 8:744919.2. Richard L, Jaelyn REECE, Jorge Luis N, et al. BRAF mutation analysis in fineneedle aspiration (FNA) cytology of the thyroid. Diagn Mol Pa thol.2006;15:832098.3. Cierra PK, Jason ME, Alondra M, et al. Clinical characteristics ofpatients with lung adenocarcinomas harboring BRAF mutations. J Clin Oncol.2011;29:0157-7357.This report may include one or more immunohistochemical stain results thatuse analyte specific reagents. All positive and negative controls havebeen reviewed by the attending pathologist and are satisfactory. The testswere developed and their performance characteristics determined by [facility] Pathology department. They have not been cleared or approved by the USFood and Drug Administration. The FDA has determined that such clearanceor approval is not necessary. Name Value Range Interpretation Code Description Data Montse rce(s) Supporting Document(s) ID Date Data Source [id number] 04/14/2021 01:44:00 PM [facility] Anatomic Molecular Pathology ReportName: TIBURCIO JOSEPHMRN: [id number] Number: [id number] Date: 03/20/2021 00:00Received Date: 04/05/2021 08:19Physician(s): BRENDAN BOWEN MD LEE, MIJUNG, MDSpecimen(s) ReceivedA: Lung, Formalin Block [id number] A1, EGFRDiagnosisTEST: EGFR gene mutations (exon 19 [...] indicated. Presence of exon 19 deletions, exon 88W253T or L861Q, exon 18 G719A or exon [...] Solis M.D. Attending Pathologist 04/14/2021 13:44:00Reported at [facility] [address] [place] [address]. Gross DescriptionMETHODOLOGY:The therascreen EGFR RGQ PCR Kit ([employer], [place], [place]) is a real-timequalitative PCR assay used on the [employer] instrument for thedetection of seven types of [...] factor receptormutations in lung cancer. Nature Review/Cancer. 2007;1657-5897.This report may include one or more immuno histochemical stain results thatuse analyte specific reagents. All positive and negative controls havebeen reviewed by the attending pathologist and are satisfactory. The testswere developed and their performance characteristics determined by [facility] Pathology department. They have not been cleared or approved by the USFood and Drug Administration. The FDA has determined that such clearanceor approval is not necessary. Name Value Range Interpretation Code Description Data Montse rce(s) Supporting Document(s) ID Date Data Source [id number] 04/14/2021 09:30:00 AM [facility] Anatomic Molecular Pathology ReportName: TIBURCIO JOSEPHMRN: [id number] Number: [id number] Date: 03/20/2021 00:00Received Date: 04/05/2021 08:27Physician(s): BRENDAN BOWEN MD LEE, MIJUNG,MDSpecimen(s) ReceivedA: Lung, Formalin Block, [id number] A1, ROS1 by FISHDiagnosisTEST:ROS1 gene rearrangements by [...] Solis M.D. Attending Pathologist 04/14/2021 09:30:33Reported at [facility] [address] [place] [address]. Gross DescriptionMETHODOLOGY:Interphase FISH is performed on paraffin embedded NSCLC utilizing thecombined Carranza Molecular LSI ROS1(Boy) and ROS1(Tel) ROS1 Probes: 1)3'-ROS1(Boy), 557 kb, labeled with SpectrumGreen, and 2) 5'- ROS1(Tel),317kb, labeled with SpectrumOrange. Tumor cells with no CKI0fdjenemabxiydz have 2 yellow signals (fused orange and [...] and its performance characteristics weredetermined by the [facility],and it has been authorized for clinical use by [facility]. The test has not been cleared or approved by the U.S. Food andDrug Administration. The analyte specific reagents used in this assay donot require FDA approval. REFERENCES: 1. MAIRA Collins, Justine AT, Theraquel MF et al. Identifying and Targeting YFN2Jeeg Fusions in NonSmall Cell Lung Cancer. Clin Cancer Res 2012; 18(17);50970591.2. Dyer, Rogelio AT. Novel Targets in Non-Small Cell Lung Cancer:ROS-1 and RET fusions. The Oncologist. 2013;18:865-875.This report may include one or more immunohistochemical stain results thatuse analyte specific reagents. All positive and negative controls havebeen reviewed by the attending pathologist and are satisfactory. The testswere developed and their performance characteristics determined by [facility] Pathology department. They have not been cleared or approved by the USFood and Drug Administration. The FDA has determined that such clearanceor approval is not necessary. Name Value Range Interpretation Code Description Data Montse rce(s) Supporting Document(s) ID Date Data Source [id number] 03/15/2021 08:25:00 PM EDT [facility] 1 Medication Reconciliation Report [facility] Emergency Department [address] [place] [address] Phone #: ext- [phone] 03/15/2021 19:56 Patient: [...] Value Range Interpretation Code Description Data Montse [facility](s) Supporting Document(s) ID Date Data Source [id number] 03/15/2021 08:25:00 PM EDT [place] [address] Medication Administration Record [facility] Emergency Department [address] [place] [address] Phone #: ext- [phone] 03/15/2021 19:56 Patient: TIBURCIO JOSEPH Sex: F : 1975 Age: 45yWeight: 45.3 kgHeight/Length: 64 inBMI: 17.2ALLERGIES: No Known Drug AllergyDate/Time Medication Administered Medication Ordered Name Value Range Interpretation Code Description Data Montse rce(s) Supporting Document(s) ID Date Data Source [id number] 03/15/2021 08:25:00 PM EDT [facility] 1 Clinical Report - Nurses [facility] Emergency Department [address] [place] [address] Phone #: ext- [phone] 03/15/2021 19:56 Patient: [...] and had surgery to remove it at [facility]. She has notseen a neurologist in several years.). 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 SEPSIS SCREEN [...] Bryant R.N.History 2 Clinical Report - Nurses [facility] Emergency Department [address] [place] [address] Phone #: ext- [phone] 03/15/2021 19:56 Patient: TIBURCIO JOSEPH Sex: F [...] Bryant R.N. 3 Clinical Report - Nurses [facility] Emergency Department [address] [place] [address] Phone #: ext- [phone] 03/15/2021 19:56 Patient: TIBURCIO JOSEPH Sex: F : 1975 Age: 45y Name Value Range Interpretation Code Description Data Montse rce(s) Supporting Document(s) ID Date Data Source [id number] 02/17/2021 09:03:00 [place] [address] RESPIRATORY CARE REPORT ==== ---------NAME------- NUMBER SEX AGE ADMIT DISC. XRAY# F/C MARIA INES Bonilla [id number] F 45 02/16/21 02/16/21 [id number] E/R DATE OF : 1975 M/R# [id number] #: [id number] TR-07 LOCATION: [place] [id number] COMP LETE:02/17/21 03:58 [place] [id number] PHYSICIAN: JALEN Gorman Name Value Range Interpretation Code Description Data Montse rce(s) Supporting Document(s) ID Date Data Source [id number] 02/17/2021 11:23:00 [place] [address] PHONE: [phone] FAX: [phone] Name .................. : JAKE Bonilla Acct Number.................. : [id number] ROOM. ................. : [facility] Number ................... : [id number] Stay type ............. : E/R Discharge Date......... ... : Admit Date ......... : 02/16/21 Admit Phys .................... : JALEN Gorman Date of ....... : 1975 Family Phys ................... : NO PCP Phone .................. : [phone] Age ................................ : 45 Film# .................. .:[id number] Sex ................................. : F Unsigned transcriptions are preliminary reports and do not represent a medical or legal document CHEST PORTABLE [id number] COMPLETE:02/16/21 18:41 KBO [id number] Reason(s): Chest Pain PORTABLE CHEST SINGLE VIEW: [...] rce(s) Supporting Document(s) ID Date Data Source [id number] 02/16/2021 04:17:00 PM EDT [facility] 1 OrderSheet [facility] Emergency Department [address] [place] [address] Phone #: ext- [phone] 02/16/2021 15:54 Patient: TIBURCIO JOSEPH Sex: F : 1975 Age: 45yWEIGHT:49.8 kg HEIGHT:64 inches BMI:18.9ALLERGIES: No Known Drug AllergyCHIEF COMPLAINT: vomiting, diarrheaDIAGNOSIS: Mediastinal mass, Vomiting, Suicidal behaviorLAB ORDERSOrder Description Priority Entered Acknowledged InitialedCMP STAT 16:28 02/16/2021 Ack'd: 17:15 18:21 [facility] Qasim Murphy ; Carlo, Shaheed Tech, Gabrielle ER [id number] w Diff STAT 16:28 02/16/2021 Ack'd: 17:15 18:21 [facility] Qasim Murphy ; Carlo, Shaheed Tech, Gabrielle ER [id number] STAT 16:28 02/16/2021 Ack'd: 17:15 18:21 [facility] Qasim Murphy ; Carlo, Shaheed Tech, Gabrielle ER [id number] (Clean STAT 16:28 02/16/2021 Ack'd: 17:15 17:54 [facility] EDCatch) Qasim Murphy ; Carlo, Shaheed Tech, Gabrielle ER [id number] Drug Screen STAT 16:28 02/16/2021 Ack'd: 17:15 17:54 [facility] Qasim Murphy ; Carlo, Shaheed Tech, Gabrielle ER [id number] STAT 16:28 02/16/2021 Ack'd: 17:15 18:21 [facility] Qasim Murphy ; Carlo Shaheed Tech, Gabrielle ER Fosj9Roldllnzwslqy STAT 16:28 02/16/2021 Ack'd: 17:15 18:21 [facility] EDLevel Qasim Murphy ; Carlo, Shaheed Tech, Gabrielle ER [id number] Level STAT 16:28 02/16/2021 Ack'd: 17:15 18:21 [facility] Qasim Murphy ; Carlo, Shaheed Tech, Gabrielle ER [id number] CAH (Not STAT 18:20 02/16/2021 18:25 CarloSymptomatic as Qasim Murphy ; ShaheedDefined by CDC)(02/16/2021) (NotFirst Test) (NotHospitalized) (Not) (NotResident in 2 OrderSheet [facility] Emergency Department [address] [place] [address] Phone #: ext- [phone] 02/16/2021 15:54 [id number] Sex: F : 1975 Age: 45yCongregate CareSetting) (NotEmployed inHealthcare Setting)DIAGNOSTIC STUDY ORDERSOrder Description Priority Entered Acknowledged InitialedChest Portable 1 STAT 16:28 02/16/2021 Ack'd: 17:15 18:21 [facility] EDView Qasim Murphy ; Shaheed Matos Tech, Gabrielle ER(Oxygen?(No)) Tech1 Reason for Study: Chest PainMEDICATION/IV/DRIP/FLUID ORDERSOrder Description Priority Entered Acknowledged InitialedNS IV 1000 mL 16:28 02/16/2021 17:45 Carlo,Bolus: : Bolus 1000 Qasim Murphy ; [place]al[place] (X1)Toradol IVP 30 mg 19:34 02/16/2021 19:38 Carlo,(NOW x1) Qasim Murphy ; ShaheedGENERAL ORDERSOrder Description Priority Entered Acknowledged InitialedEKG 16:28 02/16/2021 Ack'd: 17:15 17:54 [facility] Qasim Murphy ; Shaheed Matos, Gabrielle ER Tech1[Electronically signed by Shaheed Matos (21:43 02/16/2021)][Electronically signed by Qasim Murphy (02:14 02/17/2021)][Electronically locked by Shaheed Matos (21:43 02/16/2021)] Name Value Range Interpretation Code Description Data Montse rce(s) Supporting Document(s) ID Date Data Source [id number] 02/16/2021 04:17:00 PM EDT [facility] 1 Medication Reconciliation Report [facility] Emergency Department [address] [place] [address] Phone #: ext- [phone] 02/16/2021 15:54 Patient: [...] rce(s) Supporting Document(s) ID Date Data Source [id number] 02/16/2021 04:17:00 PM EDT [facility] 1 Medication Administration Record [facility] Emergency Department [address] [place] [address] Phone #: [phone] ika- [phone] 02/16/2021 15:54 Patient: TIBURCIO JOSEPH Sex: F : 1975 Age: 45yWeight: 49.8 kgHeight/Length: 64 inBMI: 18.9ALLERGIES: No Known Drug Allergy Date/Time Medication Administered Medication OrderedStart NS [IV] NS IV 1000 mL Bolus: : Bolus [id number]:[id number] 02/16/2021 Dose: IV Fluids mL (X1)Shaheed Matos, Bolus: 1000 mL over 1 hour(s)---- Dispensed: 1000 mL bagStop Site: #1 right AC18:24 02/16/2021Shaheed Matos,Given TORADOL [IVP] (KETOROLAC Toradol IVP 30 mg (NOW x1)19:38 02/16/2021 TROMETHAMINE)Carlo, Shaheed, Dose: 30 mg IVP Site: #1 right Name Value Range Interpretation Code Description Data Montse rce(s) Supporting Document(s) ID Date Data Source [id number] 02/16/2021 04:17:00 PM EDT [facility] 1 General Instructions [facility] Emergency Department [address] [place] [address] Phone #: ext- [phone] 02/16/2021 15:54 Patient: TIBURCIO JOSEPH Sex: F : 1975 Age: 45yVomiting with nausea. Not intractable.Mediastinal mass.Suicidal ideation.(Electronically signed by Qasim Murphy 02/17/2021 02:14) Name Value Range Interpretation Code Description Data Montse rce(s) Supporting Document(s) ID Date Data Source [id number] 02/16/2021 04:17:00 PM EDT [facility] 1 Clinical Report - Nurses [facility] Emergency Department [address] [place] [address] Phone #: ext- [phone] 02/16/2021 15:54 Patient: TIBURCIO JOSEPH Sex: F [...] 97.4 F. Pain level now:0/10. --16:06 02/16/21 Kalian Neumann R.N.Weight: 49.8 kg. Height/Length: 64 inches. [...] Kalina Neumann R.N.Hysterectomy. --16:00 02/16/21 Kalina Neumann R.N.Ginfxtq46:06 02/16/21.PAST MEDICAL HX: No menstrual periods. Has had a hysterectomy.SOCIAL HX: Current every day light tobacco smoker (cigarette)- less than 1/2 a pack per day. No alcoholuse or drug use. The patient was offered HIV testing but declined and hepatitis C testing but declined. 2 Clinical Report - Nurses [facility] Emergency Department [address] [place] [address] Phone #: ext- [phone] 02/16/2021 15:54 Patient: TIBURCIO JOSEPH Located Within [facility]#: [id number] Sex: F : 1975 Age: 45y The [...] back and 3 Clinical Report - Nurses [facility] Emergency Department [address] [place] [address] Phone #: ext- [phone] 02/16/2021 15:54 Patient: TIBURCIO JOSEPH Sex: F : 1975 Age: 45yplaced at nurses station. Primary RN Shaheed, computer lab para professional Maranda and Dr Murphy notified of patient's answers toself-harm screen.). --16:15 02/16/21 Kalina Neumann R.N.EKG time: (16:20 02/16/2021). EKG was performed by a tech and shown to the ED physician. --16: [facility] Webz442:20 02/16/21. BP: 112/76. HR: 107. RR: 10. O2 saturation: 100%. --16:21 02/16/21 [facility] Jdbf736:00 02/16/21. Suicide precautions maintained: a safety sweep [...] 02/16/21Shaheed Matos 4 Clinical Report - Nurses [facility] Emergency Department [address] [place] [address] Phone #: ext- [phone] 02/16/2021 15:54 Patient: TIBURCIO JOSEPH A cct#: [id number] Sex: F : 1975 Age: 45y17:30 02/16/2021 [...] RR: 20. O2 saturation: 100%. --18:02 02/16/21 [facility] TechGabrielle ER Xgbx960:24 02/16/2021 IV Fluids NS via IV site #1 Discontinued: bag #1 infused. Total amount infused: 1000 mL.IV patency established. IV site checked: no pain, redness, or swelling. IV flushed thoroughly. --18:258 Shaheed Matos18:30 02/16/21. BP: 91/64. HR: 92. RR: 17. O2 saturation: 100%. Pain level now 0/10. --18:32 02/16/21[facility] TechGabrielle ER Jxzc5Szdcimdo: Pain: denies pain. Position: states comfortable. Proximity [...] RR: 17. O2 saturation: 100%. --19:01 02/16/21 [facility] Ssxl019:31 02/16/21. BP: 94/72. HR: 101. RR: 15. O2 saturation: 100%. --19:31 02/16/21 [facility] Ogdb070:38 02/16/2021 Toradol (Ketorolac Tromethamine) IVP 30 mg [...] Shaheed Matos 5 Clinical Report - Nurses [facility] Emergency Department [address] [place] [address] Phone #: ext- [phone] 02/16/2021 15:54 Patient: TIBURCIO JOSEPH Sex: F : 1975 Age: 45y 20:01 02/16/21. BP: 98/67. HR: 94. RR: 11. O2 saturation: 100%. --20:01 02/16/21 [facility] [employer] 20:31 02/16/21. BP: 103/63. HR: 96. RR: 14. O2 saturation: 98%. Temp: 98.3 F. --20:32 02/16/21 [facility] [employer] 20:32 02/16/21. Pain level now 0/10. --20:32 02/16/21 [facility] [employer] 21:01 02/16/21. BP: 97/67. HR: 97. RR: 15. O2 saturation: 98%. Temp: 98.1 F. Pain level now 0/10. --21:01 02/16/21 [facility] [employer].DISPOSITION / DISCHARGE 21:40 02/16/2021 Site #1 removed upon discharge. Bandage applied. --21:40 02/16/21 Shaheed Matos 21:41 02/16/21. Condition at departure: stable. Transferred to [facility]. Provided to EMS. Transported via ambulance [...] Name Value Range Interpretation Code Description Data Motnse rce(s) Supporting Document(s) ID Date Data Source [id number] 02/16/2021 04:17:00 PM EDT [facility] 1 Clinical Report - Physicians/Mid Levels [facility] Emergency Department [address] [place] [address] Phone #: ext- [phone] 02/16/2021 15:54 Patient: [...] exposure. No known contact with a sick [facility]. Has not recently been camping or on [...] Allergy. 2 Clinical Report - Physicians/Mid Levels [facility] Emergency Department [address] [place] [address] Phone #: xsi- [phone] 02/16/2021 15:54 Patient: TIBURCIO JOSEPH Sex: F [...] DECISIONS. 3 Clinical Report - Physicians/Mid Levels [facility] Emergency Department [address] [place] [address] Phone #: ext- [phone] 02/16/2021 15:54 Patient: [facility]PH [id number] Sex: F : 1975 Age: 45yCMP: (FAHAD: [...] Male GFR Interprentation 20-49 yrs >60 mL/min Xkmcwy86-81 yrs >56 mL/min Normal 60-69 yrs >49 mL/min Normal 70-79yrs>42 mL/min Normal 80 and above >35 mL/min Normal Female GFRInterpretation 20-39 yrs >60 mL/min Normal 40-49 yrs >58 mL/minNormal 50-59 yrs >51 mL/min Normal 60-69 yrs >45 mL/min Eqxtka52-08 yrs >39 mL/min Normal 80 and above [...] 0.70) 4 Clinical Report - Physicians/Mid Levels [facility] Emergency Department [address] [place] [address] Phone #: ext- [phone] 02/16/2021 15:54 Patient: TIBURCIO JOSEPH Sex: F [...] MEDICAL PURPOSES ONLY*Urinalysis: (FAHAD: 02/16/2021 18:00) ( [facility] 02/16/2021 18:37) Final results Test Result Flag [...] (NORMAL: NONEDrug Screen-Urine: (FAHAD: 02/16/2021 18:00) ( [facility] 02/16/2021 18:37) Final results Test Result Flag Units (Reference) DRUG SCREEN URINE URINE DRUG SCREEN AMPHETAMINES NEGATIVE (NORMAL: NEGAT BARBITURATES NEGATIVE (NORMAL: NEGAT BENZO NEGATIVE (NORMAL: NEGAT COCAINE NEGATIVE (NORMAL: NEGAT THC NEGATIVE (NORMAL: NEGAT OPIATES NEGATIVE (NORMAL: NEGAT 5 Clinical Report - Physicians/Mid Levels [facility] Emergency Department [address] [place] [address] Phone #: ext- [phone] 02/16/2021 15:54 Patient: TIBURCIO JOSEPH Sex: F : 1975 Age: 45y PCP NEGATIVE (NORMAL: NEGAT \\BLDo\\URINE DRUG SCREEN INTERPRETATION\\BLDx\\ THE CUTOFFF LEVELS FORDETECTION ARE FOLLOWS: AMPHETAMINES 1000 ng/mlBARBITUARATES 200 ng/ml BENZODIAZEPINES 100 ng/mlTHC 50 ng/ml PHENCYCLIDINE 25 ng/mlOPIATES 300 ng/ml COCAINE 300 ng/mlALL POSITIVES ARE CONSIDERED PRESUMPTIVE POSITIVE CONFIRMATION WILL BE PERFORMED AT [facility].TSH: (FAHAD: 02/16/2021 16:38) ( [facility] 02/16/2021 17:37) Final results Test Result Flag Units (Reference) TSH 1.05 uIU/mL (0.47 - 5.01)Acetaminophen Level: (FAHAD: 02/16/2021 16:38) ( [facility] 02/16/2021 17:27) Final results Test Result Flag Units (Reference) ACETAMINOPHEN <5.0 UG/ML (0.0 - 30.0)Salicylate Level: (FAHAD: 02/16/2021 16:38) ( [facility] 02/16/2021 17:27) Final results Test Result Flag Units (Reference) SALICYLATE 2.2 mg/dL (2.0 - 20.0)Chest Portable 1 View: (FAHAD: 02/16/2021 16:28) ( [facility] 02/16/2021 20:18) In ProgressCHEST PORTABLEReason(s): Chest PainTRANSPORTATION: A IV? O2? Oxygen?(No) Room: ED Exam CHEST PORTABLE [facility] [address] [place] [address] PHONE: [phone] FAX: [phone] Name .................. : JAKE Bonilla Acct Number.................. : [id number] ROOM. ................. : TR-07 Number ................... : [id number] Stay type ............. : E/R Discharge Date......... ... : Admit Date ......... : 02/16/21 Admit Phys .................... : JALEN Gorman Date of ....... : 1975 Family Phys ................... : NO PCP Phone .................. : [phone] Age ................................ : 45 Film# .................. .:[id number] Sex ................................. : F Unsigned t ranscriptions are preliminary reports and do not represent a medical or legal document CHEST PORTABLE [id number] COMPLETE:02/16/21 18:41 KBO Reason(s): Chest Pain PORTABLE CHEST SINGLE VIEW: INDICATION: Chest pain COMPARISON: 10/27/2011 FINDINGS: Heart size normal. Left hilum and right lower hilum normal. 6 Clinical Report - Physicians/Mid Levels [facility] Emergency Department [address] [place] [address] Phone #: ext- [phone] 02/16/2021 15:54 Patient: TIBURCIO JOSEPH Sex: F [...] and plans. She has had admissions to [facility] for mental illness 19:35 02/16/21. Tachycardia improved with IVF. pulse of 90 bpm. Toradol given for pain. No signs of acute abdomen. Patient is medically cleared for psych. Despite her not wanting to go to [facility], she did admit to suicidal ideations. 20:17 02/16/21. Patient accepted at [facility] but ED physician made aware of [...] to transfer explained to patient. Transferred to [facility].CLINICAL IMPRESSION Vomiting with nausea. Not intractable. 7 Clinical Report - Physicians/Mid Levels [facility] Emergency Department [address] [place] [address] Phone #: ext- [phone] 02/16/2021 15:54 Patient: TIBURCIO JOSEPH Sex: F : 1975 Age: 45y Mediastinal mass. Suicidal ideation.(Electronically signed by Qasim Murphy 02/17/2021 02:14) Name Value Range Interpretation Code Description Data Montse rce(s) Supporting Document(s) ID Date Data Source [id number] 02/16/2021 06:25:00 PM EDT [facility] Name Value Range Interpretation Code Description Data [facility] rce(s) Supporting Document(s) COVID19 Case rprt NOT DETECTED [facility] This lab was ordered by [facility] and reported by [facility]. ID Date Data Source [id number] 02/16/2021 07:01:00 PM EDT [facility] NOT DETECTEDNOT DETECTED{ PROC EDURAL CONTROL VALID [...] Name Value Range Interpretation Code Description Data [facility] rce(s) Supporting Document(s) ID Date Data Source [id number] 02/16/2021 06:37:00 PM EDT [facility] Name Value Range Interpretation Code Description Data [facility] rce(s) Supporting Document(s) DRUG SCREEN URINE [facility] URINE DRUG SCREEN Amphetamine [Presence] in Urine by Screen method NEGATIVE NORMAL: N EGATIVE [facility] BARBITURATES NEGATIVE NORMAL: NEGATIVE [facility] BENZO NEGATIVE NORMAL: NEGATIVE [facility] COCAINE NEGATIVE NORMAL: NEGATIVE [facility] Tetrahydrocannabinol [Presence] in Urine NEGATIVE NORMAL: NEGATIVE [facility] OPIATES NEGATIVE NORMAL: NEGATIVE [facility] Phencyclidine [Presence] in Urine by Screen method NEGATIVE NOR MAL: NEGATIVE [facility] \\BLDo\\URINE DRUG SCR EEN INTERPRETATION\\BLDx\\ THE CUTOFFF LEVELS FOR DETECTION ARE FOLLOWS: AMPHETAMINES 1000 ng/ml BARBITUARATES 200 ng/ml BENZODIAZEPINES 100 ng/ml THC 50 ng/ml PHENCYCLIDINE 25 ng/ml OPIATES 300 ng/ml COCAINE 300 ng/ml ALL POSITIVES ARE CONSIDERED PRESUMPTIVE POSITIVE CONFIRMATION WILL BE PERFORMED AT PHYSICIAN REQUEST. ID Date Data Source [id number] 02/16/2021 06:36:00 PM EDT [facility] Name Value Range Interpretation Code Description Data Montse rce(s) Supporting Document(s) [facility] SOURCE R [facility] COLOR yellow NORMAL: Yellow [facility] CLARITY clear NORMAL: Clear [facility] Specific gravity of Urine by Test strip 1.010 1.001 - 1.030 [facility] pH 6 5 - 9 [facility] al Glucose [Mass/volume] in Urine by Test strip NORM [facility]: [facility] Bilirubin.total [Presence] in Urine by Test strip NEG NORMAL: Negative [facility] Ketones [Presence] in Urine by Test strip NEG NORMAL: Negative [facility] Protein [Mass/volume] in Urine by Test strip NEG [facility]AL[facility] Nitrite [Presence] in Urine by Test strip NEG NORMAL: Negative [facility] BLOOD 25 NORMAL: Negative [facility] LEUK EST NEG NORMAL: Negative [facility] Urobilinogen [Mass/volume] in Urine by Test strip NOR less martha n 1.0 mg/dL [facility] MICROSCOPIC See Below [facility] ital WBC 0 - 1 NORMAL: NONE SEEN [facility] Erythrocytes [#/volume] in Urine by Test strip 0 - 1 NORMAL: NON E SEEN [facility] EPITHELIAL MODERATE NORMAL: NONE SEEN [facility] Bacteria [Presence] in Urine sediment by Light microscopy 1+ SMALL NORMAL: NONE SEEN [facility] ID Date Data Source [id number] 02/16/2021 05:37:00 PM EDT [facility] Name Value Range Interpretation Code Description Data Montse rce(s) Supporting Document(s) Thyrotropin [Units/volume] in Serum or Plasma by Detec tion limit <= 0.05 mIU/L 1.05 uIU/mL 0.47 - 5.01 [facility] ID Date Data Source [id number] 02/16/2021 05:29:00 PM EDT [facility] Name Value Range Interpretation Code Description Data Montse rce(s) Supporting Document(s) CBC W/AUTOMATED DIFF [facility] CORRECTE D REPORT COMPLETE BLOOD COUNT Leukocytes [#/volume] in Blood by Automated count 16.4 10^3/uL 4.2 - 11.0 H [facility] Erythrocytes [#/volume] in Blood by Automated count 4.42 10^6/uL 4. 20 - 5.40 [facility] Hemoglobin [Mass/volume] in Blood 11.3 g/dL 12.0 - 16.0 L [facility] Hematocrit [Volume Fraction] of Blood by Automated count 36.3 % 3 7.0 - 47.0 L [facility] Erythrocyte mean corpuscular volume [Entitic volume] by Auto mated count 82.1 fL 81.0 - 101 [facility] Erythrocyte mean corpuscular hemoglobin [Entitic mass] by Automated count 25.6 pg 27.0 - 34.0 L [facility] Erythrocyte mean corpuscular hemoglobin concentration [Mass/volume] by Automated count 31.1 g/dL 31.0 - 36.0 [facility] Erythrocyte distribution width [Ratio] by Automated count 16.9 % 11.5 - 14.5 H [facility] Platelets [#/volume] in Blood by Automated count 921 10^3/uL 150 - 45 0 H [facility] Platelet mean volume [Entitic volume] in Blood by Automated count 8.0 fL 7.4 - 10.4 [facility] Neutrophils/100 leukocytes in Blood by Automated count 77.0 % 37. 0 - 80.0 [facility] Lymphocytes/100 leukocytes in Blood by Manual count 12.8 % 25.0 - 40.0 L [facility] Monocytes/100 leukocytes in Blood by Automated count 8.6 % 3.0 - 8.0 H [facility] Eosinophils/100 leukocytes in Blood by Automated count 0.7 % 0.0 - 7.0 [facility] 0.3 Basophils/100 leukocytes in Blood by Automated count 0.3 % 0.0 - 2.5 [facility] %IG 0.6 % 0.0 - 0.0 H [facility] %NRBC 0.0 % 0.0 - 0.0 [facility] Neutrophils [#/volume] in Blood by Automated count 12.66 10^3/uL 2. 00 - 6.90 H [facility] Lymphocytes [#/volume] in Blood by Automated count 2.11 10^3/uL 0.60 - 3.40 [facility] Monocytes [#/volume] in Blood by Automated count 1.41 10^3/uL 0.00 - 0.90 H [facility] Eosinophils [#/volume] in Blood by Automated count 0.11 10^3/uL 0.00 - 0.70 [facility] Basophils [#/volume] in Blood by Automated count 0.05 10^3/uL 0.00 - 0.20 [facility] #IG 0.10 10^3/uL 0.00 - 0.10 [facility] #NRBC 0.00 10^3/uL 0.00 - 0.00 [facility] MANUAL DIFF SEE BELOW [facility] ital Segmented neutrophils/100 leukocytes in Blood by Manual count 67 % 37 - 80 [facility] %LYMPH 21 % 25 - 40 L [facility] %MONO 11 % 3 - 8 H [facility] 1 RBC MORPH MORPH IS NORMAL [facility] FOLLOWING RESULTS REPORTED IN ERROR MANUAL DIFF RBC MORPH { CORRECT ID Date Data Source [id number] 02/16/2021 05:27:00 PM EDT [facility] Name Value Range Interpretation Code Description Data Montse rce(s) Supporting Document(s) COMPREHENSIVE METABOLIC PANEL [facility] COMPREHENSIVE METABOLIC PANEL Sodium [Moles/volume] in Serum or Plasma 136 mEq/L 134 - 153 [facility] Potassium [Moles/volume] in Serum or Plasma 3.7 mEq/L 3.6 - 5.0 [facility] Chloride [Moles/volume] in Serum or Plasma 97 mEq/L 98 - 107 L [facility] Carbon dioxide, total [Moles/volume] in Serum or Plasma 22 MEQ/L 22 - 30 [facility] Glucose [Mass/volume] in Serum or Plasma 119 MG/DL 70 - 99 H [facility] BUN 9 MG/DL 7 - 21 [facility] Creatinine [Mass/volume] in Serum or Plasma 0.4 MG/DL 0.7 - 1.5 L [facility] BUN/CREAT 23 8 - 27 [facility] al Protein [Mass/volume] in Serum or Plasma 7.1 G/DL 6.3 - 8.2 [facility] Albumin [Mass/volume] in Serum or Plasma 3.5 G/DL 3.9 - 5.0 L [facility] Globulin [Mass/volume] in Serum by calculation 3.6 GM/DL 2.4 - 3.2 H [facility] A/G RATIO 1.0 0.8 - 2.0 [facility] al Calcium [Mass/volume] in Serum or Plasma 9.6 MG/DL 8.4 - 10.2 [facility] Bilirubin.total [Mass/volume] in Serum or Plasma <0.7 MG/DL 0.2 - 1.3 [facility] Alkaline phosphatase [Enzymatic activity/volume] in Serum or Plasma 104 U/L 38 - 126 [facility] Aspartate aminotransferase [Enzymatic activity/volume] in Serum or Plasma 21 U/L 5 - 40 [facility] Alanine aminotransferase [Enzymatic activity/volume] in Seru m or Plasma 24 U/L 7 - 56 [facility] Anion gap 3 in Serum or Plasma 17.0 mmol/L 8.0 - 16.0 H [facility] AGE 45 yrs [facility] NON-AA GFR >60 mL/min [facility] ital AFR AMER GFR >60 mL/min [facility] Male GFR In terprentation [...] >32 mL/min Normal ID Date Data Source [id number] 02/16/2021 05:27:00 PM EDT [facility] Name Value Range Interpretation Code Description Data Montse rce(s) Supporting Document(s) SALICYLATE 2.2 mg/dL 2.0 - 20.0 [facility] ital ID Date Data Source [id number] 02/16/2021 05:27:00 PM EDT [facility] Name Value Range Interpretation Code Description Data Montse rce(s) Supporting Document(s) Acetaminophen [Presence] in Urine <5.0 UG/ML 0.0 - 30.0 [facility] ID Date Data Source [id number] 02/16/2021 05:27:00 PM EDT [facility] Name Value Range Interpretation Code Description Data Montse rce(s) Supporting Document(s) Ethanol [Moles/volume] in Blood <10.0 MG/DL [facility] ALCOHOL % 0.01 % 0.00 - 0.01 [facility] ital *FOR MEDICAL PURPOSES ONLY * Procedure Social History No Information Vital Signs ID Date Data Source [id number] 03/23/2021 12:40:45 PM EDT [facility] Name Value Range Interpretation Code Description Data Source(s) TRANSFER FROM [facility] ID Date Data Source [id number] 04/15/2021 04:11:16 PM EDT [facility] Name Value Range Interpretation Code Description Data Source(s) TRANSFER FROM [facility]
[2021-04-20] MEDS ORDERED: oxyCODONE 5MG TAB PO PRN (14:10)
[2021-04-20] MEDS ORDERED: ONDANSETRON 4 MG TAB PO PRN (14:10)
[2021-04-20] MEDS ORDERED: ALBUTEROL 90 MCG/ACT 8GM HFA INHALER INH PRN (14:10)
--- NOTE | 2021-04-20 14:16 | HPEPDOC ---
[facility] Medical History & Physical Date of Admission Apr 20, 2021 Date of Service: Apr 20, 2021 Attending Physician: Mariella Choi MD History and Physical CHIEF COMPLAINT: shortness of breath HISTORY OF PRESENT ILLNESS: Patient is a 45-year-old female with PMH of primary lung cancer with metastases to the brain status post radiation, PTSD, depression/anxiety, chronic pain, GERD, brain aneurysm 2, asthma, chronic tobacco use who presented to [facility] emergency room by EMS with worsening shortness of breath. The patient states over the past one week she's had increased wheezing, fever, chills, lethargy, chest pain. Chest pain is described as sharp, 7/10 on pain scale worsened with deep breathing and nonradiating, intermittent. She also complains of a productive cough, at times green in color. She also complains of diffuse abdominal pain 2/10 on pain scale, intermittent. She states yesterday she fell and hit her head and has had increased lightheadedness and dizziness. When EMS responded the patient needed 15 L nonrebreather and upon presentation it was further weaned down to 6 L in the emergency room. Vital signs showed respiratory rate 2021, afebrile. Covid positive. Chest x-ray showed questionable bilateral pneumonia, left pleural effusion. Multiple labs, CT head are pending. The patient was ultimately admitted under medicine service for COVID-19 infection, rule out superimposed bacterial pneumonia. Note: The patient had a recent hospital stay at [facility] and was discharged on 03/30/2021. She cannot remember when she was admitted for how many day she was in the hospital for. She states during that time she had "tubes placed in her head" and completed 9 radiation sessions for her lung cancer. She has not yet started chemotherapy and also follows with [facility] medical oncology doctors with whom she also does not know their names. We will request records to follow up closely. REVIEW OF SYSTEMS: CONSTITUTIONAL: Denies fever, night sweats EYES: Denies eye drainage, eye pain, dry/irritated eye EARS, NOSE, MOUTH, THROAT: Denies difficulty hearing, ringing in ears, mouth sores, loose teeth, sore throat, facial numbness or pain NECK: Denies swollen glands CARDIOVASCULAR: Denies irregular heartbeat, racing heart, swelling of feet or legs, pain in legs with walking RESPIRATORY: Denies night sweats, oxygen at home, coughing up blood, cough lasting > 1 month GASTROINTESTINAL: Denies constipation, bloody stool, diarrhea, heartburn GENITOURINARY: Denies painful urination, bloody urine, frequent urination, urgency, leaking urine, impotence MUSCULOSKELETAL: Denies joint pain, leg swelling INTEGUMENTARY: Denies rash, itching, new skin lesion, change in existing skin lesion, breast changes. NEUROLOGICAL: Denies numbness or tingling PSYCHIATRIC: Denies recurrent bad thoughts, m hallucinations PAST MEDICAL HISTORY: primary lung cancer with metastases to the brain status post radiation, PTSD, depression/anxiety, chronic pain, GERD, brain aneurysm 2, asthma, chronic tobacco use PAST SURGICAL HISTORY: Coils and stents placed for brain aneurysm Lung biopsy FAMILY HISTORY: Mothercancer with type unknown, in her 40s Fatherleukemia, in his 30s SOCIAL HISTORY: 1.5 pack per day smoker for 31 years. Denies alcohol use. Denies illicit drug use. [facility]. She cannot remember her primary care or her behavior health physician's name. ALLERGIES: Please see below. HOME MEDICATIONS: Please see below. PHYSICAL EXAMINATION: VS: 98.5 Fahrenheit, heart rate 97, respiratory rate 22, blood pressure 113/78, 97% currently on 3 L nasal cannula previously on 6 L. CONSTITUTIONAL: Sickly appearing female, resting in bed, AAO x 3 EYES: PERRLA, EOM intact,corrective lenses in place HENT, MOUTH: Normocephalic, atraumatic, dry mucous membranes, nasal cannula in place NECK: SUPPLE, no JVD, no lymphadenopathy, no carotid bruit CV: Regular rate and rhythm, S1S2 normal, no murmurs/rubs/gallops RESPIRATORY: Clear to auscultation bilaterally, no rales/rhonchi/wheezes GI: BS positive in 4 quadrants, soft, nontender, nondistended, no rebound or guarding, no organomegaly : Deferred MUSCULOSKELETAL: Normal ROM. No cyanosis, clubbing, swelling, joint deformity, extremity edema INTEGUMENTARY: Stitches on the anterior portion of her head appear well healing, otherwise Intact, no rashes, no lesions, no erythema NEUROLOGIC: Cranial Nerves II-XII are intact, no focal deficits PSYCHIATRIC: Mood and affect are normal LABORATORY DATA: Please see below IMAGING: CT head pending Chest x-ray: 1. New bilateral upper lobe patchy opacities consistent with pneumonia. 2. No change in appearance of the large right upper lobe mass. 3. New small left pleural effusion. MICRO: Blood cultures 2 setsordered Sputum cultureordered Respiratory panelCovid positive ASSESSMENT: 45-year-old female with PMH of primary lung cancer with metastases to the brain status post radiation, PTSD, depression/anxiety, chronic pain, GERD, brain aneurysm 2, asthma, chronic tobacco use admitted under medicine service for COVID-19 infection, rule out superimposed bacterial pneumonia. PLAN: Shortness of breath likely multifactorial secondary to Covid 19 infection, rule out superimposed bacterial pneumonia with underlying primary lung cancer. -Currently weaned down to 3 L nasal cannula, sickly appearing but saturating well -Continue with treatment plan below for individual issues COVID-19 infection, rule out superimposed healthcare associated bacterial pneumonia -Recent hospital stay greater than 3 days in the past one month -Weaning down O2 nicely currently remains on 3 L nasal cannula -Chest x-ray above -Started on dexamethasone, remdesivir, vancomycin, cefepime. If procalcitonin is low, will discontinue antibiotics -Follow-up blood cultures, sputum culture, legionella, urine strep pneumonia -COVID labs per protocol -Precautions per protocol -O2 supplementation as needed, albuterol/ipratropium inhaler around the clock, albuterol inhaler as needed Recent fall with head trauma per patient -Complains of lightheadedness and blurry vision since fall, could also be contribute to coinfection -Follow-up CT of the head with history of multiple aneurysms Recent brain procedure? -The patient is very unsure of exactly what it was at the required cutting into her scalp for. She does have diagnosis of metastasis to the brain but she does not believe it was a biopsy -She has stitches which appear well healed and she states they're due to be coming out -Will follow up hospital notes from [facility] Transaminitis -Rule out acute and secondary to infection -Follow-up CMP regularly and while on remdesivir Primary lung cancer with metastasis to the brain status post radiation -Recent discharge from [facility] on 03/30/2021 -Next step according to patient is to start chemotherapy, follows with medical oncology through [facility], cannot remember name of provider -Follow-up records which are requested -Zofran when necessary, holding home by mouth dexamethasone well on IV dexamethasone Chronic pain -Stable -Continue home medications Hypotension history? -On midodrine at home, patient is a poor historian -Will continue currently -Watch BP closely PTSD/depression/anxiety -Denies homicidal or suicidal ideation currently -Continue home medications GERD -Continue home medication Asthma -Currently not in exacerbation -Inhalers [id number] and when necessary Tobacco use -Nicotine patch Decreased TSH -Follow-up free T4 and total T3 -Treat as indicated DVT prophylaxis -Lovenox. If inflammatory markers are much elevated will switch to twice a day dosing DISPOSITION: Admitted under inpatient status. Will require PT/OT prior to discharge. Vital Signs Vital Signs Date Time Temp Pulse Resp B/P (MAP) Pulse Ox O2 Delivery O2 Flow Rate FiO2 04/20/21 11:38 20 04/20/21 10:33 98.5 97 113/78 (90) 97 Nasal Cannula 3.0 Laboratory Data Labs 24H Laboratory Tests 2 04/20/21 11:04: Blood Gas Bicarbonate Standard 29.4, Venous Blood pH 7.550H, Venous Blood Partial Pressure CO2 32.2L, Venous Blood Partial Pressure O2 137.0H, Venous Blood Total Carbon Dioxide 28.5H, Venous Blood HCO3 27.5H, Venous Blood Oxygen Saturation 99.4H, Venous Blood Base Excess 5.4H, Anion Gap 5L, Glomerular Filtration Rate > 60.0, Lactic Acid Level 1.6, Calcium Level 8.5, Total Bilirub in 0.2, Direct Bilirubin < 0.1, Aspartate Amino Transf (AST/SGOT) 66H, Alanine Aminotransferase (ALT/SGPT) 174H, Alkaline Phosphatase 112, Total Creatine Kinase 29, Creatine Kinase MB 1.3, Creatine Kinase MB Relative Index 4.48H, Troponin I < 0.02, TH-Tfo-Z-Type Natriuretic Peptide 135H, Total Protein 5.4L, Albumin 1.8L, Albumin/Globulin Ratio 0.5L, Thyroid Stimulating Hormone (TSH) 0.047L, Thyroxine (T4) 5.7 CBC/BMP Laboratory Tests 04/20/21 11:04 Microbiology Microbiology 04/20/21 Respiratory Virus Panel (PCR) ([facility]) - Final, Complete SARS-CoV-2 (COVID 19) 04/20/21 Blood Culture, Received Pending 04/20/21 Blood Culture, Received Pending Home Medications Scheduled Alprazolam (Alprazolam) 0.25 Mg Tablet, 0.25 MG PO QID Citalopram Hydrobromide (Citalopram HBr) 20 Mg Tablet, 20 MG PO DAILY Dexamethasone (Dexamethasone) 4 Mg Tablet, 4 MG PO Q6H Gabapentin (Gabapentin) 300 Mg Capsule, 300 MG PO TID Midodrine HCl (Midodrine HCl) 5 Mg Tablet, 5 MG PO TID Pantoprazole Sodium (Pantoprazole Sodium) 40 Mg Tablet.dr, 40 MG PO DAILY Scheduled PRN Ondansetron HCl (Ondansetron HCl) 8 Mg Tablet, 8 MG PO Q8H PRN for NAUSEA OR VOMITING Oxycodone HCl (Oxycodone HCl) 5 Mg Tablet, 5 MG PO Q6H PRN for PAIN LEVEL 1-6 Allergies Coded Allergies: No Known Allergies (Verified , 11/03/11) A-FIB/CHADSVASC A-FIB History Current/History of A-Fib/PAF?: No Current PO Anticoag Therapy: No Age/Risk Factor Scoring CHADSVASC: CHADSVASC Response (Comments) Value Age Risk Factor Age < 65 years old 0 Gender Risk Factor Female 1 Hx of CHF No 0 Hx of HTN No 0 Hx of Stroke/TIA/or VTE No 0 Hx of Diabetes No 0 Hx of Vascular Disease No 0 Total 1 Treatment Treatment ordered: Other Other anticoagulant ordered: Mariella Sandoval MD Apr 20, 2021 14:16
[2021-04-20] MEDS ORDERED: VANCOMYCIN HCL 1,000 MG, VIAL MATE ADAPTER 1 EACH in NS 250 ML IV ONE (15:00)
[2021-04-20 15:19] VITALS: BP 105/55
[2021-04-20 15:30] VITALS: O2SAT 95
[2021-04-20] MEDS: GABAPENTIN 300 MG CAP PO SCH ×2 (15:44→20:22)
[2021-04-20 16:00] LABS: HEMATOCRIT 34.8 % (36.0-47.0); HEMOGLOBIN 10.6 g/dl (12.0-15.5); MEAN CORPUSCULAR HEMOGLOBIN 27.5 pg (27.0-33.0); MEAN CORPUSCULAR HGB CONC 30.5 g/dl (32.0-36.5); MEAN CORPUSCULAR VOLUME 90.2 fl (80.0-96.0); PLATELET COUNT, AUTOMATED 289 10^3/uL (150-450); RED BLOOD COUNT 3.86 10^6/uL (4.00-5.40); WHITE BLOOD COUNT 8.8 10^3/uL (4.0-10.0)
[2021-04-20] MEDS ORDERED: MIDODRINE 5 MG TAB PO SCH (16:00)
[2021-04-20] MEDS ORDERED: REMDESIVIR 200 MG in NS 250 ML IV ONE (16:00)
[2021-04-20 16:22] LABS: FREE T4 1.09 NG/DL (0.76-1.46)
[2021-04-20 16:37] LABS: ATYPICAL LYMPH 1 % (0-5); LYMPHOCYTES 3 % (16-44); MONOCYTES 1 % (0-5); NEUTROPHILS 87 % (28-66)
[2021-04-20 16:40] LABS: ANISOCYTOSIS 1+; PLATELET ESTIMATE NORMAL (NORMAL)
[2021-04-20 16:45] LABS: TOTAL T3 29.5 NG/DL (60.0-181.0)
--- NOTE | 2021-04-20 17:17 | REPVR ---
PROCEDURE INFORMATION: Exam: CT Head Without Contrast Exam date and time: 04/20/2021 4:38 PM Age: 45 years old Clinical indication: Injury or trauma; Fall; Blunt trauma (contusions or hematomas); Additional info: S/P fall, continued headache, blurry vision, known brain met TECHNIQUE: Imaging protocol: Computed tomography of the head without contrast. Radiation optimization: All CT scans at this facility use at least one of these dose optimization techniques: automated exposure control; mA and/or kV adjustment per patient size (includes targeted exams where dose is matched to clinical indication); or iterative reconstruction. COMPARISON: CT Head without contrast 03/19/2021 9:47 PM FINDINGS: Brain: Right thalamic region metastasis is again demonstrated measuring approximately 2.5 x 2.2 cm on image 19 of series 201. This does measure larger compared to the prior study (previously approximately 1.9 x 1.8 cm). Though the isodense mass is larger, the degree of adjacent edema and localized mass effect has decreased. A chronic lacunar infarct is again demonstrated in the left internal capsule. Suspect midline and left cerebellar metastases with adjacent vasogenic edema (these are poorly visualized due to motion and beam hardening artifacts). No progressive posterior fossa mass effect identified. Decreased although persistent mass effect upon the 4th ventricle. Ventriculomegaly persists. The ventricles are smaller compared to the prior study. Cerebral ventricles: See "Brain" finding. Paranasal sinuses: Trace maxillary sinus mucosal thickening in fluid. Mild ethmoid mucosal disease. Mastoid air cells: Visualized mastoid air cells are well aerated. Vasculature: There are paraclinoid region coil packs causing beam hardening artifacts. Bones/joints: No acute fracture. A right frontal calvarial lis hole is new since the prior study presumably related to a prior ventriculostomy placement. Soft tissues: Unremarkable. IMPRESSION: 1. No posttraumatic hemorrhage identified. 2. Intracranial metastatic disease, as above. 3. Please note, the occipital lobes are poorly characterized on this study due to beam hardening artifacts. Electronically signed by: Shireen Santo On 04/20/2021 17:17:02 PM
[2021-04-20] MEDS: ALPRAZolam 0.25 MG TAB PO SCH ×2 (18:09→20:22)
--- NOTE | 2021-04-20 18:31 | ECGEPIP ---
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
[2021-04-20 20:00] VITALS: O2SAT 94
[2021-04-20 20:55] VITALS: BP 85/54
[2021-04-20 20:59] VITALS: BP 94/51
[2021-04-20] MEDS ORDERED: CEFEPIME HCL 1 GM in D5W MINI-BAG PLUS 50 ML IV SCH (21:00)
[2021-04-20] MEDS: COMBIVENT RESPIMAT 100-20MCG INHALER 4GM INH SCH ×2 (21:12→23:46)
[2021-04-20] MEDS ORDERED: guaiFENesin DM LIQ 10ML UD PO PRN (23:40)
--- NOTE | 2021-04-20 23:40 | IPNPDOC ---
Text Note Date of Service The patient was seen on 04/20/21. NOTE Pt confirmed wishes for DNR/DNI. MOLST completed. RN witnessed. Pt reports bf Heriberto or close friend Annie to be surrogate decision maker if needed; contact numbers in chart. VS,Fishbone, I+O VS, Fishbone, I+O Laboratory Tests 04/20/21 11:04 04/20/21 15:29 Vital Signs Date Time Temp Pulse Resp B/P (MAP) Pulse Ox O2 Delivery O2 Flow Rate FiO2 04/20/21 21:22 18 04/20/21 20:59 94/51 (65) 04/20/21 20:55 98.4 76 94 Nasal Cannula 2.0 [employer] Apr 20, 2021 23:40
[2021-04-21] VITALS: O2SAT 97
[2021-04-21] MEDS: COMBIVENT RESPIMAT 100-20MCG INHALER 4GM INH SCH (03:50)
[2021-04-21 04:00] VITALS: O2SAT 97
[2021-04-21 06:00] VITALS: BP 98/61
[2021-04-21] MEDS ORDERED: VANCOMYCIN HCL 750 MG, VIAL MATE ADAPTER 1 EACH in NS 250 ML IV SCH (06:00)
[2021-04-21] MEDS: NS 1,000 ML IV SCH (06:18)
[2021-04-21] MEDS ORDERED: PANTOPRAZOLE 40MG TAB (PROTONIX) PO SCH (09:00)
[2021-04-21] MEDS ORDERED: CitaloPRAM (CeleXA) 20 MG TAB PO SCH (09:00)
[2021-04-21] MEDS ORDERED: REMDESIVIR 100 MG in NS 250 ML IV SCH (16:00)
[2021-04-21 16:08] LABS: MYCOPLASMA PNEUMONIAE IgG <100 U/mL (0-99); MYCOPLASMA PNEUMONIAE IgM 934 U/mL (0-769)
--- NOTE | 2021-04-21 17:14 | DS.PDOC ---
Discharge Summary General Date of Admission Apr 20, 2021 at 10:14 Date of Discharge 04/21/21 Attending Physician: Mariella Choi MD Discharge Summary ADMITTING DIAGNOSES: Shortness of breath likely multifactorial secondary to Covid 19 infection, rule out superimposed bacterial pneumonia with underlying primary lung cancer COVID-19 infection, rule out superimposed healthcare associated bacterial pneumonia Recent fall with head trauma Recent brain procedure? 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 The patient states over the past one week she's had increased wheezing, fever, chills, lethargy, chest pain. Chest pain is described as sharp, 7/10 on pain scale worsened with deep breathing and nonradiating, intermittent. She also complains of a productive cough, at times green in color. She also complains of diffuse abdominal pain 2/10 on pain scale, intermittent. She states yesterday she fell and hit her head and has had increased lightheadedness and dizziness. When EMS responded the patient needed 15 L nonrebreather and upon presentation it was fur ther weaned down to 6 L in the emergency room. Vital signs showed respiratory rate 2021, afebrile. Covid positive. Chest x-ray showed questionable bilateral pneumonia, left pleural effusion. Multiple labs, CT head are pending. The patient was ultimately admitted under medicine service for COVID-19 infection, rule out superimposed bacterial pneumonia. Note: The patient had a recent hospital stay at [facility] and was discharged on 03/30/2021. She cannot remember when she was admitted for how many day she was in the hospital for. She states during that time she had "tubes placed in her head" and completed 9 radiation sessions for her lung cancer. She has not yet started chemotherapy and also follows with [facility] medical oncology doctors with whom she also does not know their names. Records were requested. HOSPITAL COURSE: Over the evening the patient clarified that she wished to be a DNR/DNI status. Upon arrival to assess her in the morning of 04/21/2021 nurses notified me that the patient was up sets. When I went to assess the patient's she remained on 2 L nasal cannula, appeared ill and was slightly hypotensive. The patient was awake alert and oriented 3 and upset. She had a prior experience here where she was transferred to [facility]. She states she is upset because her boyfriend was never notified of the transfer during that time and she feels as though we "lost her". I asked her to please clarify further and she repeating that we "lost her" at that time. She did not appear confused. She stated that she went to leave. I went through the risks of leaving currently with her blood pressure being low and her requiring oxygen supplementation. I assured her that I had nothing to do with her prior transfer and that we which I to do everything for her we could to get her better here. Despite efforts the patient insisted on leaving AGAINST MEDICAL ADVICE. DISCHARGE MEDICATIONS: Please see below. ALLERGIES: Please see below. PHYSICAL EXAMINATION ON DISCHARGE: VS: 98/61, 96% on 2 L NC, 98.4F, 80 bpm, 21 RR CONSTITUTIONAL: Sickly appearing female, resting in bed, AAO x 3 EYES: PERRLA, EOM intact,corrective lenses in place HENT, MOUTH: Normocephalic, atraumatic, dry mucous membranes, nasal cannula in place NECK: SUPPLE, no JVD, no lymphadenopathy, no carotid bruit CV: Regular rate and rhythm, S1S2 normal, no murmurs/rubs/gallops RESPIRATORY: decreased breath sounds with faint crackles b/l , no rales/rhonchi/wheezes GI: BS positive in 4 quadrants, soft, nontender, nondistended, no rebound or guarding, no organomegaly : Deferred MUSCULOSKELETAL: Normal ROM. No cyanosis, clubbing, swelling, joint deformity, extremity edema INTEGUMENTARY: Stitches on the anterior portion of her head appear well healing, otherwise Intact, no rashes, no lesions, no erythema NEUROLOGIC: Cranial Nerves II-XII are intact, no focal deficits PSYCHIATRIC: angry mood LABORATORY DATA: Please see below. IMAGING: Please see chart PROGNOSIS: guarded DIET: regular DISCHARGE PLAN: Encouraged to follow up with her providers or come back to the ER if her condition should worsen DISPOSITION: 07 Against Medical Advice. TIME SPENT ON DISCHARGE: 35 minutes. Vital Signs/I&Os Vital Signs Date Time Temp Pulse Resp B/P (MAP) Pulse Ox O2 Delivery O2 Flow Rate FiO2 04/21/21 06:00 98.4 80 21 98/61 (73) 96 Nasal Cannula 2.0 I&O- Last 24 Hours up to 6 AM 04/21/21 06:00 Intake Total 2635 ml Balance 2635 ml Microbiology Microbiology 04/20/21 Respiratory Virus Panel (PCR) ([facility]) - Final, Complete SARS-CoV-2 (COVID 19) 04/20/21 Blood Culture - Preliminary, Resulted No growth after 24 hours . All specim... 04/20/21 Blood Culture - Preliminary, Resulted No growth after 24 hours . All specim... Discharge Medications Scheduled Alprazolam (Alprazolam) 0.25 Mg Tablet, 0.25 MG PO QID, (Reported) Citalopram Hydrobromide (Citalopram HBr) 20 Mg Tablet, 20 MG PO DAILY, (Reported) Dexamethasone (Dexamethasone) 4 Mg Tablet, 4 MG PO Q6H, (Reported) Gabapentin (Gabapentin) 300 Mg Capsule, 300 MG PO TID, (Reported) Midodrine HCl (Midodrine HCl) 5 Mg Tablet, 5 MG PO TID, (Reported) Pantoprazole Sodium (Pantoprazole Sodium) 40 Mg Tablet.dr, 40 MG PO DAILY, (Reported) Scheduled PRN Ondansetron HCl (Ondansetron HCl) 8 Mg Tablet, 8 MG PO Q8H PRN for NAUSEA OR VOM ITING, (Reported) Oxycodone HCl (Oxycodone HCl) 5 Mg Tablet, 5 MG PO Q6H PRN for PAIN LEVEL 1-6, (Reported) Allergies Coded Allergies: No Known Allergies (Verified , 11/03/11) Mariella Choi MD Apr 21, 2021 17:14
== END 2021-04-21 07:00 | disposition left against medical advice (07) | DRG 137 ==
LOC: EDBD 10:13 → M ED 10:13 → M ED INP 10:14 → ENRESERV 13:33 → OBSVTOIN 14:09 → M 4MAIN 14:10 → M ED INP 15:12 → UNDODISOB 04-21 07:00
PROVIDERS: ADMIT Internal Medicine; ATTEND Internal Medicine
PROC: XW033E5 Introduction of Remdesivir Anti-infective into Peripheral Vein, Percutaneous Approach, New Technology Group 5 (ICD-10-PCS; principal; 2021-04-20)
PROC: 3E0333Z Introduction of Anti-inflammatory into Peripheral Vein, Percutaneous Approach (ICD-10-PCS; 2021-04-20)
DX: U07.1 COVID-19 (principal); J12.82 Pneumonia due to coronavirus disease 2019; J90 Pleural effusion, not elsewhere classified; J15.9 Unspecified bacterial pneumonia; C79.31 Secondary malignant neoplasm of brain; I95.9 Hypotension, unspecified; C34.92 Malignant neoplasm of unspecified part of left bronchus or lung; S09.90XA Unspecified injury of head, initial encounter; R29.6 Repeated falls; X58.XXXA Exposure to other specified factors, initial encounter; Y92.89 Other specified places as the place of occurrence of the external cause; R42 Dizziness and giddiness; H53.8 Other visual disturbances; R74.01 Elevation of levels of liver transaminase levels; Z66 Do not resuscitate; G89.29 Other chronic pain; F43.10 Post-traumatic stress disorder, unspecified; F32.9 Major depressive disorder, single episode, unspecified; F41.9 Anxiety disorder, unspecified; J45.909 Unspecified asthma, uncomplicated; R94.6 Abnormal results of thyroid function studies; K21.9 Gastro-esophageal reflux disease without esophagitis; R06.02 Shortness of breath; R10.9 Unspecified abdominal pain; Z98.890 Other specified postprocedural states; G43.909 Migraine, unspecified, not intractable, without status migrainosus; F17.200 Nicotine dependence, unspecified, uncomplicated; Z92.3 Personal history of irradiation; Z79.899 Other long term (current) drug therapy